=== PATIENT | female | born 1950 | race Caucasian/White ===

== ENCOUNTER 2016-10-19 13:59 | Inpatient (IN) | payer OTHER ==
[~2016-10-19] VITALS: Ht 160 cm; Wt 61.0 kg
[2016-10-19] MEDS ORDERED: SODIUM CHLORIDE 0.9% 1000ML 1,000 ML IV SCH (14:20)
[2016-10-19 14:41] LABS: BASO % 0.9 %; BASO ABS # 0.07 K/uL (0-0.2); COMPLETE YES; EOS % 0.4 %; HEMATOCRIT 44.7 % (37-47); IG% 0.3 %; LYMPH % 31.2 %; LYMPH ABS # 2.48 K/uL (1.2-3.4); MEAN CELL VOLUME 90.3 fL (80-100); MEAN CORPUSCULAR HEMOGLOBIN 31.5 pg (25-34); MEAN CORPUSCULAR HGB CONC 34.9 g/dl (32-36); MEAN PLATELET VOLUME 9.5 fL (7.4-10.4); MONO % 7.4 %; NEUT % 59.8 %; PLATELET COUNT 325 K/uL (130-400); RED BLOOD COUNT 4.95 M/uL (4.2-5.4); WHITE BLOOD COUNT 7.94 K/uL (4.8-10.8)
[2016-10-19 14:51] LABS: PARTIAL THROMBOPLASTIN RATIO 1.1; PROTHROMBIN TIME (PATIENT) 10.5 SECONDS (9.0-12.0)
[2016-10-19 14:59] LABS: ALT/SGPT 21 U/L (12-78); BLOOD UREA NITROGEN 11 mg/dl (7-18); BUN/CREATININE RATIO 13.3 (10-20); CALCIUM 9.2 mg/dl (8.5-10.1); CARBON DIOXIDE 25 mmol/L (21-32); CHLORIDE 104 mmol/L (98-107); CREATININE 0.83 mg/dl (0.60-1.20); GLUCOSE 107 mg/dl (70-99); POTASSIUM 3.6 mmol/L (3.5-5.1); SODIUM 137 mmol/L (136-145)
--- NOTE | 2016-10-19 15:01 | DIAGNOSTIC IMAGING REPORT ---
CT SCAN OF THE BRAIN WITHOUT IV CONTRAST CLINICAL HISTORY: Strokelike symptoms. COMPARISON STUDY: No priors. TECHNIQUE: Unenhanced axial CT scan of the brain is performed from the vertex to the skull base. CT DOSE: 690.05 mGycm FINDINGS: Brain parenchyma: There is a large subacute appearing infarct identified in the right parietal lobe. A small infarct is also seen in the posterior right frontal lobe. There are age-related involutional changes noting mild subcortical and periventricular microangiopathic change. There is no hemorrhage, midline shift, or evidence of acute territorial ischemia by CT criteria. No extra-axial fluid collection is seen. Ventricles, sulci, cisterns: Prominent secondary to involutional change. Intracranial vasculature: There is atherosclerotic calcification of the cavernous carotid and vertebral arteries. Calvarium: Unremarkable. Sinuses and mastoids: The visualized paranasal sinuses are clear. The mastoid air cells are well pneumatized. Orbits: The bony orbits are grossly intact. IMPRESSION: 1. There is a large subacute appearing infarct in the right posterior parietal lobe with mild surrounding edema. 2. A tiny infarct is also seen in the right posterior frontal lobe. 3. There is no hemorrhage or midline shift. Electronically signed by: Karlos Bird M.D. 10/19/2016 2:59 PM Dictated Date/Time: 10/19/2016 2:52 PM
--- NOTE | 2016-10-19 15:07 | DIAGNOSTIC IMAGING REPORT ---
SINGLE VIEW CHEST CLINICAL HISTORY: Stroke. FINDINGS: An AP, portable, upright chest radiograph is obtained. No prior studies are available for comparison at the time of dictation. The examination is degraded by portable technique and patient rotation. The heart is mildly enlarged. The pulmonary vasculature is noncongested. Nonspecific interstitial thickening is observed. No airspace consolidation, large pleural effusion, or pneumothorax is seen. The skeletal structures are osteopenic. The bony thorax is grossly intact. IMPRESSION: Cardiomegaly with no acute cardiopulmonary abnormality. Electronically signed by: Karlos Bird M.D. 10/19/2016 3:06 PM Dictated Date/Time: 10/19/2016 3:05 PM
[2016-10-19 15:16] LABS: ALKALINE PHOSPHATASE 76 U/L (45-117); AST/SGOT 17 U/L (15-37); CKMB/CK RATIO 1.4 (0-3.0)
[2016-10-19] MEDS ORDERED: LABETALOL HCL IV 5 MG/ML 20ML IV STA (15:24)
[2016-10-19] MEDS ORDERED: CLOPIDOGREL BISULFATE 75 MG TAB PO ONE (15:45)
[2016-10-19] MEDS ORDERED: ONDANSETRON INJ 2 MG/ML 2 ML VIAL IV PRN (16:15)
[2016-10-19] MEDS ORDERED: ACETAMINOPHEN 325 MG TAB PO PRN (16:15)
[2016-10-19] MEDS ORDERED: PHARMACIST DISCHARGE MED REC CONSULT PRN (16:30)
[2016-10-19] MEDS ORDERED: HydrALAZINE HCL 20 MG/ML VIAL IV. PRN (16:45)
--- NOTE | 2016-10-19 17:05 | History and Physical ---
History & Physical Date & Time of Service: Oct 19, 2016 ~ 16:00 Chief Complaint: Slurred Speech, Facial Droop Primary Care Physician: No Doctor, Assigned History of Present Illness 66 year old female who presents to the ER with slurred speech and facial droop. Patient reports she noticed difficulty with her speech about 4 days ago. She also noted that she had problems folding towels and sheets and also balancing her check book. These are all things she can normally do without difficulty. Her son is at the bedside and he reports he saw her 3 days ago and she was cutting grass and appeared to be fine. Her friend noted yesterday a right sided facial droop and the slurred speech which has since resolved. Patient denies any unilateral weakness, numbness, or tingling. She denies difficulty swallowing. No headache or blurred vision. She denies chest pain, shortness of breath, and palpitations. No abdominal pain, nausea, vomiting, or diarrhea. She denies fever and chills. No urinary symptoms. In the ER, head CT is showing a large right parietal subacute CVA. Patient's BP on arrival was 225/113. She was given Labetalol with improvement in the BP. Due to aspirin allergy, patient was given Plavix. Past Medical/Surgical History Medical Problems: (1) No significant medical problems Status: Chronic Family History negative for premature CAD, CVA, or DM Social History Smoking Status: Current Every Day Smoker Alcohol Use: 1/2 bottle wine/day Allergies Coded Allergies: Aspirin (Unverified Allergy, Unknown, ., 10/19/16) Home Medications No Active Prescriptions or Reported Meds Review of Systems ROS per HPI, all other systems reviewed and negative Physical Exam Vital Signs Date Time Temp Pulse Resp B/P (MAP) Pulse Ox O2 Delivery O2 Flow Rate FiO2 10/19/16 16:34 57 10/19/16 16:32 60 18 200/102 97 Room Air 10/19/16 15:56 64 18 183/100 97 Room Air 10/19/16 14:34 97 Room Air 10/19/16 14:01 36.4 86 18 225/113 97 Room Air General Appearance: no apparent distress Head: normocephalic Eyes: normal inspection, PERRL ENT: hearing grossly normal Neck: supple, no JVD Respiratory/Chest: lungs clear, normal breath sounds, no respiratory distress Cardiovascular: regular rate, rhythm, no edema, normal peripheral pulses Abdomen/GI: normal bowel sounds, non tender, soft Extremities/Musculoskelatal: normal inspection, no calf tenderness Neurologic/Psych: no motor/sensory deficits, alert, normal mood/affect, oriented x 3 Skin: normal color, warm/dry Diagnostics Laboratory Results Results Past 24 Hours Test 10/19/16 12:40 10/19/16 14:20 10/19/16 14:28 Range/Units Sodium Level 137 136-145 mmol/L Potassium Level 3.6 3.5-5.1 mmol/L Chloride Level 104 98-107 mmol/L Carbon Dioxide Level 25 21-32 mmol/L Anion Gap 8.0 3-11 mmol/L Blood Urea Nitrogen 11 7-18 mg/dl Creatinine 0.83 0.60-1.20 mg/dl Est Creatinine Clear Calc Drug Dose 54.4 ml/min Estimated GFR () 84.6 Estimated GFR (Non- 73.0 BUN/Creatinine Ratio 13.3 10-20 Random Glucose 107 70-99 mg/dl Calcium Level 9.2 8.5-10.1 mg/dl Total Bilirubin 0.7 0.2-1 mg/dl Direct Bilirubin 0.2 0-0.2 mg/dl Aspartate Amino Transf (AST/SGOT) 17 15-37 U/L Alanine Aminotransferase (ALT/SGPT) 21 12-78 U/L Alkaline Phosphatase 76 45-117 U/L Total Creatine Kinase 79 26-192 U/L Creatine Kinase MB 1.1 0.5-3.6 ng/ml Creatine Kinase MB Ratio 1.4 0-3.0 Troponin I < 0.015 0-0.045 ng/ml Total Protein 7.9 6.4-8.2 gm/dl Albumin 4.4 3.4-5.0 gm/dl White Blood Count 7.94 4.8-10.8 K/uL Red Blood Count 4.95 4.2-5.4 M/uL Hemoglobin 15.6 12.0-16.0 g/dL Hematocrit 44.7 37-47 % Mean Corpuscular Volume 90.3 80-100 fL Mean Corpuscular Hemoglobin 31.5 25-34 pg Mean Corpuscular Hemoglobin Concent 34.9 32-36 g/dl Platelet Count 325 130-400 K/uL Mean Platelet Volume 9.5 7.4-10.4 fL Neutrophils (%) (Auto) 59.8 % Lymphocytes (%) (Auto) 31.2 % Monocytes (%) (Auto) 7.4 % Eosinophils (%) (Auto) 0.4 % Basophils (%) (Auto) 0.9 % Neutrophils # (Auto) 4.75 1.4-6.5 K/uL Lymphocytes # (Auto) 2.48 1.2-3.4 K/uL Monocytes # (Auto) 0.59 0.11-0.59 K/uL Eosinophils # (Auto) 0.03 0-0.5 K/uL Basophils # (Auto) 0.07 0-0.2 K/uL RDW Standard Deviation 42.9 36.4-46.3 fL RDW Coefficient of Variation 13.0 11.5-14.5 % Immature Granulocyte % (Auto) 0.3 % Immature Granulocyte # (Auto) 0.02 0.00-0.02 K/uL Prothrombin Time 10.5 9.0-12.0 SECONDS Prothromb Time International Ratio 1.0 0.9-1.1 Activated Partial Thromboplast Time 27.6 21.0-31.0 SECONDS Partial Thromboplastin Ratio 1.1 Bedside Prothrombin Time INR 1.0 0.9-1.1 Bedside Glucose 109 70-90 mg/dl Diagnostic Radiology HEAD CT IMPRESSION: 1. There is a large subacute appearing infarct in the right posterior parietal lobe with mild surrounding edema. 2. A tiny infarct is also seen in the right posterior frontal lobe. 3. There is no hemorrhage or midline shift. CXR IMPRESSION: Cardiomegaly with no acute cardiopulmonary abnormality. Impression Assessment and Plan SUBACUTE RIGHT PARIETAL CVA HYPERTENSIVE EMERGENCY - admit to tele - patient presenting with a few days of slurred speech, facial droop, and difficulty preforming routine tasks; on arrival to the ER, patient's BP was 225/ [address] is showing a large subacute infarct in the right posterior parietal lobe with mild surrounding edema and a tiny infarct is also seen in the right posterior frontal lobe - symptoms now resolved - s/p Labetalol in the ED with improvement in BP, HR now mildly bradycardic so will use PRN hydralazine - s/p Plavix in the ED, will continue; no ASA given due to allergy however allergy seems to be mild so will start 81mg daily and monitor response - start atorvastatin 80mg - head MRI/MRA, neck MRA, echo - neuro consult - ED notified Dr. Walter TOBACCO ABUSE - patient counseled regarding tobacco cessation ALCOHOL ABUSE - monitor for signs of withdrawal DVT PROPHYLAXIS - SCDs due to acute CVA DISPO - In my clinical judgment this beneficiary meets acute admission criteria, established by [facility], that includes being hospitalized through two midnights. Level of Care Telemetry Resuscitation Status FULL RESUSCITATION VTE Prophylaxis VTE Risk Assessment Done? Y/N: Yes Risk Level: Moderate Given or contraindicated: SCD's Social Service Consult None Apply
--- NOTE | 2016-10-19 17:18 | History and Physical ---
History & Physical Date of Service Oct 19, 2016. History & Physical This is a 66 year old female with a PMH of tobacco use disorder, daily alcohol use, on no medications presents with slurring of speech and L sided facial droop for 2-3 days. Her main concern was not able to perform some ADLs like folding laundry properly; she had this slurring of speech, which the family noted; on presentation, her L side of mouth clearly drooping and some drooling noted; no other motor or sensory issues; no forehead weakness. Denies any pain. VITALS: Last Vital Signs Documentation Date Time Temp Pulse Resp B/P (MAP) Pulse Ox O2 Delivery O2 Flow Rate FiO2 10/19/16 16:34 57 10/19/16 16:32 18 200/102 97 Room Air 10/19/16 14:01 36.4 GEN: no acute distress HEENT: +L mouth droop noted; asymmetrical smile; no forehead weakness, no sensory deficits, partial edentate CVS: +S1, S2, RRR LUNGS: CTA b/l, no wheezing EXT: no edema NEURO: +L mouth drooping, otherwise, no motor/sensory issues Subacute R Posterior Parietal Infarct Possible R Posterior Frontal Infarct Head CT shows the R posterior parietal/frontal infarct no tPA due to symptoms being > 2-3 days old will check an MRI/MRA of head/neck check echo given Plavix in the ER start statin will start aspirin - noted adverse reaction as a child with nosebleeds; none since then monitor in tele PT/OT/speech check Ha1c, check fasting lipid in AM consult neurology Hypertensive Urgency blood pressure > 200/100 on admission given 20mg of Labetalol HRs in the lower 60s will give Hydralazine PRN, to keep SBP ~ 160-180 check TSH
[2016-10-19 17:31] VITALS: BP_SYST 202; BP_SYST 204; BP_DIAS 81; BP_DIAS 97; PULSE 60; PULSE 64; TEMP 36.7; O2SAT 94
--- NOTE | 2016-10-19 17:38 | EMERGENCY ROOM VISIT NOTE ---
History Report prepared by Miquel: Candi Santana Under the Supervision of: Dr. Diomedes Machuca M.D. First contact with patient: 14:29 Chief Complaint: STROKE SYMPTOMS Stated Complaint: TALKING Nursing Triage Summary: Pt arrived to triage ambulatory. Pt friend states pt "has a drawl her speech isn't right." States she first noticed it last week on , possibly was even earlier in the week. Pt states she was "out of sorts". Pt friend states it's gotten better than it was. Pt denies weakness. No Left arm drift or right arm drift. Slight facial droop left side. Pt c/o throat pain and sinuses draining. Pt states birthday is "03/30/1951, [birth year] is [birth year]", states age 55. 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 Pt denies taking medication for hypertension. History of Present Illness The patient is a 66 year old female who presents to the Emergency Room with complaints of constant altered mental status that began a few days prior to arrival. Per friend and ALS, the patient a few days ago had a right facial droop and slurred speech. The patient has been "out of sorts" lately and confused. She has been very anxious today. The patient has no history of strokes or TIA. Pt denies LOC, headache, fevers, chills, diaphoresis, visual changes, neck pain, chest pain, breathing difficulties, nausea, vomiting, abdominal pain, back pain, melena, hematochezia, urinary symptoms, numbness, weakness, lymphadenopathy, rash, or other complaints. 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 Review of Systems See HPI for pertinent positives and negatives. A total of ten systems were reviewed and were otherwise negative. Past Medical & Surgical Medical Problems: (1) No significant medical problems Family History Patient reports no known family medical history. Social History Smoking Status: Current Every Day Smoker Marital Status: Housing Status: lives alone Occupation Status: employed Current/Historical Medications No Active Prescriptions or Reported Meds Allergies Coded Allergies: Aspirin (Verified Adverse Reaction, Unknown, adverse reaction as a child with nosebleeds; none since then, 10/19/16) Physical Exam Vital Signs Date Time Temp Pulse Resp B/P (MAP) Pulse Ox O2 Delivery O2 Flow Rate FiO2 10/19/16 15:56 64 18 183/100 97 Room Air 10/19/16 14:34 97 Room Air 10/19/16 14:01 36.4 86 18 225/113 97 Room Air Physical Exam GENERAL: Awake, alert, well appearing, no distress. HENT: Normocephalic, atraumatic. TM's normal. Oropharynx unremarkable. EYES: PERRL. EOMI. Normal conjunctiva. Sclera non-icteric. NECK: Supple. No nuchal rigidity. FROM. No JVD or bruit. RESPIRATORY: CTA CARDIAC: RRR. No murmur. ABDOMEN: Soft, non distended. No tenderness to palpation. No rebound or guarding. No masses. RECTAL: Deferred. MUSCULOSKELETAL: Unremarkable. No edema. No discoloration. Gross motor strength symmetric. NEURO: Cranial nerves 2-12 grossly intact. Normal sensorium. No sensory or motor deficits noted. Speech normal. Slight left arm pronator drift. Mild confusion with age and dates. SKIN: No rash or jaundice noted. LYMPH: No adenopathy. Medical Decision & Procedures ER Provider Diagnostic Interpretation: Radiology results as stated below per my review and radiologist interpretation: CT SCAN OF THE BRAIN WITHOUT IV CONTRAST CLINICAL HISTORY: Strokelike symptoms. COMPARISON STUDY: No priors. TECHNIQUE: Unenhanced axial CT scan of the brain is performed from the vertex to the skull base. CT DOSE: 690.05 mGycm FINDINGS: Brain parenchyma: There is a large subacute appearing infarct identified in the right parietal lobe. A small infarct is also seen in the posterior right frontal lobe. There are age-related involutional changes noting mild subcortical and periventricular microangiopathic change. There is no hemorrhage, midline shift, or evidence of acute territorial ischemia by CT criteria. No extra-axial fluid collection is seen. Ventricles, sulci, cisterns: Prominent secondary to involutional change. Intracranial vasculature: There is atherosclerotic calcification of the cavernous carotid and vertebral arteries. Calvarium: Unremarkable. Sinuses and mastoids: The visualized paranasal sinuses are clear. The mastoid air cells are well pneumatized. Orbits: The bony orbits are grossly intact. IMPRESSION: 1. There is a large subacute appearing infarct in the right posterior parietal lobe with mild surrounding edema. 2. A tiny infarct is also seen in the right posterior frontal lobe. 3. There is no hemorrhage or midline shift. Electronically signed by: Karlos Bird M.D. 10/19/2016 2:59 PM Dictated Date/Time: 10/19/2016 2:52 PM SINGLE VIEW CHEST CLINICAL HISTORY: Stroke. FINDINGS: An AP, portable, upright chest radiograph is obtained. No prior studies are available for comparison at the time of dictation. The examination is degraded by portable technique and patient rotation. The heart is mildly enlarged. The pulmonary vasculature is noncongested. Nonspecific interstitial thickening is observed. No airspace consolidation, large pleural effusion, or pneumothorax is seen. The skeletal structures are osteopenic. The bony thorax is grossly intact. IMPRESSION: Cardiomegaly with no acute cardiopulmonary abnormality. Electronically signed by: Karlos Bird M.D. 10/19/2016 3:06 PM Dictated Date/Time: 10/19/2016 3:05 PM Laboratory Results 10/19/16 14:20 Red Blood Count 4.95, Mean Corpuscular Volume 90.3, Mean Corpuscular Hemoglobin 31.5, Mean Corpuscular Hemoglobin Concent 34.9, Mean Platelet Volume 9.5, Neutrophils (%) (Auto) 59.8, Lymphocytes (%) (Auto) 31.2, Monocytes (%) (Auto) 7.4, Eosinophils (%) (Auto) 0.4, Basophils (%) (Auto) 0.9, Neutrophils # (Auto) 4.75, Lymphocytes # (Auto) 2.48, Monocytes # (Auto) 0.59, Eosinophils # (Auto) 0.03, Basophils # (Auto) 0.07 10/19/16 12:40 Test 10/19/16 12:40 10/19/16 14:20 10/19/16 14:28 Anion Gap 8.0 mmol/L (3-11) Est Creatinine Clear Calc Drug Dose 54.4 ml/min Estimated GFR () 84.6 Estimated GFR (Non- 73.0 BUN/Creatinine Ratio 13.3 (10-20) Calcium Level 9.2 mg/dl (8.5-10.1) Total Bilirubin 0.7 mg/dl (0.2-1) Direct Bilirubin 0.2 mg/dl (0-0.2) Aspartate Amino Transf (AST/SGOT) 17 U/L (15-37) Alanine Aminotransferase (ALT/SGPT) 21 U/L (12-78) Alkaline Phosphatase 76 U/L (45-117) Total Creatine Kinase 79 U/L (26-192) Creatine Kinase MB 1.1 ng/ml (0.5-3.6) Creatine Kinase MB Ratio 1.4 (0-3.0) Troponin I < 0.015 ng/ml (0-0.045) Total Protein 7.9 gm/dl (6.4-8.2) Albumin 4.4 gm/dl (3.4-5.0) White Blood Count 7.94 K/uL (4.8-10.8) Red Blood Count 4.95 M/uL (4.2-5.4) Hemoglobin 15.6 g/dL (12.0-16.0) Hematocrit 44.7 % (37-47) Mean Corpuscular Volume 90.3 fL (80-100) Mean Corpuscular Hemoglobin 31.5 pg (25-34) Mean Corpuscular Hemoglobin Concent 34.9 g/dl (32-36) Platelet Count 325 K/uL (130-400) Mean Platelet Volume 9.5 fL (7.4-10.4) Neutrophils (%) (Auto) 59.8 % Lymphocytes (%) (Auto) 31.2 % Monocytes (%) (Auto) 7.4 % Eosinophils (%) (Auto) 0.4 % Basophils (%) (Auto) 0.9 % Neutrophils # (Auto) 4.75 K/uL (1.4-6.5) Lymphocytes # (Auto) 2.48 K/uL (1.2-3.4) Monocytes # (Auto) 0.59 K/uL (0.11-0.59) Eosinophils # (Auto) 0.03 K/uL (0-0.5) Basophils # (Auto) 0.07 K/uL (0-0.2) RDW Standard Deviation 42.9 fL (36.4-46.3) RDW Coefficient of Variation 13.0 % (11.5-14.5) Immature Granulocyte % (Auto) 0.3 % Immature Granulocyte # (Auto) 0.02 K/uL (0.00-0.02) Prothrombin Time 10.5 SECONDS (9.0-12.0) Prothromb Time International Ratio 1.0 (0.9-1.1) Activated Partial Thromboplast Time 27.6 SECONDS (21.0-31.0) Partial Thromboplastin Ratio 1.1 Bedside Prothrombin Time INR 1.0 (0.9-1.1) Bedside Glucose 109 mg/dl (70-90) Laboratory results reviewed by me. Medications Administered Medications (Trade) Dose Ordered Sig/Alexandra Route Start Time Stop Time Status Last Admin Dose Admin Sodium Chloride 1,000 ml @ 50 mls/hr Q20H IV 10/19/16 14:20 10/19/16 17:26 DC 10/19/16 15:45 50 MLS/HR Labetalol HCl (Normodyne IV) 20 mg NOW STAT IV 10/19/16 15:24 10/19/16 15:25 DC 10/19/16 15:47 20 MG Clopidogrel Bisulfate (plAVix TAB) 75 mg NOW ONCE PO 10/19/16 15:45 10/19/16 15:46 DC 10/19/16 15:45 75 MG ECG Indication: altered mental status Rate (beats per minute): 73 Rhythm: normal sinus Findings: no acute ischemic change, no ectopy ED Course 1420: Sodium Chloride 1,000 ml @ 50 mls/hr IV. 1434: The patient was evaluated in room C4. A complete history and physical exam was performed. 1523: I reevaluated the patient and discussed test results. 1524: Normodyne IV 20 mg IV. 1534: I spoke with Dr. Walter - Neurology about the patient. He says to manage blood pressure and start the patient on Plaxiv since she is allergic to Aspirin. 1545: plAVix TAB 75 mg PO. 1546: Discussed the patient's case with KIM Bradford. The patient will be evaluated for further treatment and disposition. 1550: Upon reexamination, the patient was hemodynamically stable. I discussed the test results and treatment plan with KIM Brdaford. The patient will be evaluated for further management. Medical Decision Medication Reconciliation: I attest that I have personally reviewed the patient' s current medication list Blood pressure screening: Patient was found to have an elevated blood pressure and was instructed to establish care with a primary doctor for recheck and further treatment. Triage Nursing notes reviewed. The patient's presentation and history were concerning for stroke like symptoms. Etiologies such as CVA, hypertensive emergency, metabolic, infection, hypo/ hyperglycemia, electrolyte abnormalities, cardiac sources, intracerebral event, toxicologic, neurologic, as well as others were entertained. The patient was evaluated. Her symptoms and history was concerning for strokelike symptoms. She was very hypertensive. She was taken to CT imaging and this didn't reveal an infarction in the right parietal area. The patient was brought back to the Emergency Room. She was given labetalol and Plavix after consultation with Dr. walter of neurology. Blood pressure began to improve. [facility] The patient was evaluated in the Emergency Room for further management of her stroke and severe hypertension. Consults Time Called: 1530 Consulting Physician: Dr. Walter - Neurology Returned Call: [phone] Walter - Neurology about the patient. He says to manage blood pressure and start the patient on Plaxiv since she is allergic to Aspirin. Additional Consults: Time Called: 1540 Consulted Physician: KIM Bradford Returned Call: [phone] Additional Comments: Discussed the patient's case. The patient will be evaluated for further treatment and disposition. Impression Primary Impression: Hypertensive emergency Additional Impression: Acute CVA (cerebrovascular accident) Scribe Attestation The scribe's documentation has been prepared under my direction and personally reviewed by me in its entirety. I confirm that the note above accurately reflects all work, treatment, procedures, and medical decision making performed by me. Departure Information Dispostion Being Evaluated By Hospitalist Prescriptions No Active Prescriptions or Reported Meds Referrals No Doctor, Assigned (PCP) Problem Qualifiers
[2016-10-19] MEDS ORDERED: ASPIRIN 81 MG CHEW PO SCH (17:45)
[2016-10-19 18:16] VITALS: BP_SYST 145; BP_SYST 148; BP_DIAS 66; BP_DIAS 69; PULSE 76; PULSE 77; TEMP 36.7; O2SAT 94
[2016-10-19 18:58] VITALS: BP_SYST 202; BP_SYST 204; BP_DIAS 81; BP_DIAS 97; PULSE 77; TEMP 36.7; Ht 160 cm; Wt 61.0 kg
[2016-10-19] MEDS: ATORVASTATIN 40 MG TAB PO SCH (19:18)
[2016-10-19] MEDS ORDERED: NURSING VERBAL MED ORDER ONE (19:30)
[2016-10-19 19:39] VITALS: BP 169/83; PULSE 64; TEMP 36.9; O2SAT 95
[2016-10-19] MEDS ORDERED: LORAZEPAM INJ 1 MG in SYRINGE 0.5 ML IV PRN (20:00)
[2016-10-19] MEDS ORDERED: LORAZEPAM 2 MG/ML 1 ML VIAL IV SCH (20:00)
[2016-10-19 21:18] LABS: URINE APPEARANCE CLEAR (CLEAR); URINE BILIRUBIN NEG (NEG); URINE COLOR YELLOW; URINE EPITHELIAL CELL AUTO >30 /lpf (0-5); URINE NITRITE NEG (NEG); URINE SPECIFIC GRAVITY 1.006 (1.000-1.030); UROBILINOGEN NEG (NEG); ZZUR CULT IF INDIC CLEAN CATCH NO
[2016-10-19 21:23] LABS: MANUAL MICROSCOPIC REQUIRED? NO; REVIEW REQ? NO
[2016-10-19 23:08] VITALS: BP 167/80; PULSE 64; TEMP 36.9; O2SAT 96
[2016-10-20] VITALS (7 sets, daily range): BP systolic 143–170; BP diastolic 73–96; PULSE 60–77; TEMP 36.6–37; O2SAT 95–98
[2016-10-20] MEDS ORDERED: NURSING VERBAL MED ORDER ONE ×2 (00:30→10:30)
[2016-10-20 06:23] LABS: ESTIMATED AVERAGE GLUCOSE 105 mg/dl; HA1C FLAG Normal (Normal)
[2016-10-20 07:35] LABS: BASO % 0.3 %; BASO ABS # 0.02 K/uL (0-0.2); COMPLETE YES; HEMATOCRIT 41.2 % (37-47); IG% 0.2 %; LYMPH % 33.3 %; MEAN CORPUSCULAR HEMOGLOBIN 31.9 pg (25-34); MEAN CORPUSCULAR HGB CONC 35.4 g/dl (32-36); MEAN PLATELET VOLUME 9.4 fL (7.4-10.4); MONO % 6.8 %; NEUT % 58.4 %; PLATELET COUNT 306 K/uL (130-400); RED BLOOD COUNT 4.58 M/uL (4.2-5.4)
[2016-10-20 08:08] LABS: BUN/CREATININE RATIO 13.4 (10-20); CALCIUM 9.2 mg/dl (8.5-10.1); CREATININE 0.71 mg/dl (0.60-1.20); POTASSIUM 3.8 mmol/L (3.5-5.1)
[2016-10-20 08:29] LABS: CHOLESTEROL/HDL RATIO 2.7; THYROID STIMULATING HORMONE 3.63 uIu/ml (0.300-4.500)
[2016-10-20] MEDS: CLOPIDOGREL BISULFATE 75 MG TAB PO SCH (08:51)
[2016-10-20] MEDS: ATORVASTATIN 40 MG TAB PO SCH (08:51)
[2016-10-20] MEDS: ASPIRIN 81 MG ECTAB PO SCH (09:30)
[2016-10-20] MEDS ORDERED: LORAZEPAM 0.5 MG TAB PO SCH (10:45)
[2016-10-20] MEDS ORDERED: HydrALAZINE HCL 20 MG/ML VIAL IV. PRN (14:00)
--- NOTE | 2016-10-20 14:05 | ECHOCARDIOGRAM REPORT ---
*NOTICE TO RECEIVING DEMOCRAT AGENCY This information is strictly Confidential and protected under [place] law. [place] law prohibits you from making any further disclosure of this information unless further disclosure is expressly permitted by the written consent of the person to whom it pertains or is authorized by law. A general authorization for the release of medical or other information is not sufficient for this purpose. Hospital accepts no responsibility if the information is made available to any other person, INCLUDING THE PATIENT. Interpretation Summary * Echocardiogram Report * Name: JOSE RAMON SIMMONS Study Date: 10/20/2016 07:05 AM BP: 147/73 mmHg * Patient Location: C.2T\S\S239\S\2 HR: 61 * : 1950 (M/d/yy) Gender: Female Height: 63 in * Age: 66 yrs Ethnicity: CA Weight: 135 lb * Ordering Physician: Peyton Mackey * Referring Physician: Self, Referred * * BSA: 1.6 * -- Conclusions -- * Normal LV chamber size with mild concentric LVH. * Normal LV systolic function, EF 60-65%. * No segmental left ventricular wall motion abnormalities are noted. * Grade I diastolic dysfunction. * No significant valvular pathology. * The interatrial septum is intact with no evidence for an atrial septal defect. * Injection of contrast documented no interatrial shunt. Procedure Details * The injection was performed through an intravenous line in the right arm. * A total of 9 cc of agitated saline was given. Left Ventricle * The left ventricle is normal in size. * There is mild concentric left ventricular hypertrophy. * Ejection Fraction = 60-65%. * Left ventricular systolic function is normal. * No segmental left ventricular wall motion abnormalities are noted. * The left ventricular wall motion is normal. Right Ventricle * The right ventricular cavity size is normal (basal dimension <4.2 cm in right ventricular apical 4-chamber view). * The right ventricular systolic function is normal as assessed by tricuspid annular plane systolic excursion (TAPSE) (normal >1.5 cm). Atria * The left atrial size is normal. * Right atrial size is normal. * The interatrial septum is intact with no evidence for an atrial septal defect. * Injection of contrast documented no interatrial shunt. Mitral Valve * The mitral valve is normal in structure and function. Tricuspid Valve * The tricuspid valve is normal in structure and function. Aortic Valve * The aortic valve is normal in structure and function. Pulmonic Valve * The pulmonary valve is not well seen, but the Doppler examination is normal without significant regurgitation or stenosis. Great Vessels * The aortic root is normal size. Pericardium/Pleural * There is no pericardial effusion. Left Ventricular Diastolic Function * Grade I diastolic dysfunction, (abnormal relaxation pattern). MMode 2D Measurements and Calculations IVSd 1.4 cm LVIDd 4.2 cm LVIDs 3.2 cm LVPWd 1.3 cm IVS/LVPW 1.1 FS 24.4 % EDV(Teich) 77.4 ml ESV(Teich) 39.6 ml EF(Teich) 48.8 % EDV(cubed) 72.7 ml ESV(cubed) 31.4 ml EF(cubed) 56.7 % LV mass(C)d 201.2 grams LV mass(C)dI 123.0 grams/m\S\2 SV(Teich) 37.8 ml SI(Teich) 23.1 ml/m\S\2 SV(cubed) 41.3 ml SI(cubed) 25.2 ml/m\S\2 Ao root diam 3.0 cm Ao root area 7.0 cm\S\2 LVOT diam 2.0 cm LVOT area 3.0 cm\S\2 LVAd ap4 32.2 cm\S\2 LVLd ap4 8.3 cm EDV(MOD-sp4) 99.7 ml EDV(sp4-el) 105.5 ml LVAs ap4 14.6 cm\S\2 LVLs ap4 7.0 cm ESV(MOD-sp4) 27.1 ml ESV(sp4-el) 25.9 ml EF(MOD-sp4) 72.8 % EF(sp4-el) 75.4 % LVAd ap2 22.4 cm\S\2 LVLd ap2 7.8 cm EDV(MOD-sp2) 51.8 ml EDV(sp2-el) 54.9 ml LVAs ap2 11.6 cm\S\2 LVLs ap2 6.5 cm ESV(MOD-sp2) 17.7 ml ESV(sp2-el) 17.7 ml EF(MOD-sp2) 65.8 % EF(sp2-el) 67.8 % LVLd %diff -7.46 % EDV(MOD-bp) 75.0 ml LVLs %diff -7.31 % ESV(MOD-bp) 22.5 ml EF(MOD-bp) 70.0 % SV(MOD-sp4) 72.6 ml SI(MOD-sp4) 44.3 ml/m\S\2 SV(MOD-sp2) 34.0 ml SI(MOD-sp2) 20.8 ml/m\S\2 SV(MOD-bp) 52.6 ml SI(MOD-bp) 32.1 ml/m\S\2 SV(sp4-el) 79.6 ml SI(sp4-el) 48.6 ml/m\S\2 SV(sp2-el) 37.2 ml SI(sp2-el) 22.7 ml/m\S\2 Doppler Measurements and Calculations MV E max mary ellen 64.2 cm/sec MV A max mary ellen 106.6 cm/sec MV E/A 0.60 MV dec time 0.24 sec Ao V2 max 125.3 cm/sec Ao max PG 6.3 mmHg Ao max PG (full) 0.90 mmHg MAKENNA(V,A) 2.8 cm\S\2 MAKENNA(V,D) 2.8 cm\S\2 LV V1 max PG 5.4 mmHg LV V1 max 116.0 cm/sec
[2016-10-20] MEDS ORDERED: GADAVIST IV PRN (15:30)
--- NOTE | 2016-10-20 15:35 | DIAGNOSTIC IMAGING REPORT ---
MRA OF THE INTRACRANIAL CIRCULATION WITHOUT CONTRAST CLINICAL HISTORY: Stroke. Slurred speech. COMPARISON STUDY: Head CT October 19, 2016. TECHNIQUE: Utilizing a 1.5 Abigail magnet and 3-D ecaf-uh-fxcewl technique, unenhanced MRA of the intracranial circulation was obtained. FINDINGS: There is abrupt occlusion of the distal right middle cerebral artery. There is asymmetrically diminished flow within the sylvian branches of the right middle cerebral artery. The right sylvian branches are markedly attenuated. Apparent diminished flow within the intracranial portion of the left vertebral artery is likely artifactual. This study is mildly compromised by motion artifact which decreases the sensitivity for detection of small aneurysms but no aneurysms are identified. The left M1, M2, A1 and A2 segments are patent. The MRI of the brain will be reported separately but these images demonstrate a right frontoparietal infarct. IMPRESSION: 1. Age indeterminate occlusion of the mid right middle cerebral artery with markedly asymmetrically diminished flow within the sylvian branches of the right middle cerebral artery. 2. Redemonstration of the right frontoparietal infarct with possible laminar necrosis. This will be better depicted on the MRI of the brain which will be reported separately. Electronically signed by: Conrad Alcala M.D. 10/20/2016 3:33 PM Dictated Date/Time: 10/20/2016 3:27 PM
--- NOTE | 2016-10-20 15:42 | DIAGNOSTIC IMAGING REPORT ---
MR ANGIOGRAM OF THE NECK COMBO CLINICAL HISTORY: Slurred speech. Change in mental status. COMPARISON STUDY: No priors. TECHNIQUE: Axial 3-D [id number] MR angiography of the neck is performed. Subsequently, following the IV administration of 6 cc of Gadavist coronal MR angiogram of the neck was performed to corroborate the findings. 3-D reformats are created and assessed. All measurements were calculated based on NASCET criteria. Subtraction imaging was utilized. FINDINGS: Visualized portions of the thoracic aorta are normal in caliber. The arch demonstrates standard 3-vessel anatomy. The subclavian arteries are widely patent bilaterally. The right common carotid artery is widely patent, as are the right internal and external carotid arteries. The left common carotid artery is widely patent, as are the left internal and external carotid arteries. The vertebral arteries are widely patent and codominant. Occlusion of the right middle cerebral artery is noted at the skull base. IMPRESSION: 1. Unremarkable MR angiogram of the neck. 2. There is occlusion of the right middle cerebral artery. See report of MR angiography of the brain performed concurrently for detailed intracranial findings. Electronically signed by: Karlos Bird M.D. 10/20/2016 3:40 PM Dictated Date/Time: 10/20/2016 3:35 PM
--- NOTE | 2016-10-20 15:48 | DIAGNOSTIC IMAGING REPORT ---
MRI OF THE BRAIN COMBO CLINICAL HISTORY: Slurred speech. Change in mental status. Stroke. COMPARISON STUDY: CT of the brain dated 10/19/2016. TECHNIQUE: MRI of the brain was performed utilizing various T1 and T2-weighted sequences in the axial, sagittal, and coronal planes. Contrast-enhanced sequences were acquired following the administration of 6 cc of Gadavist. FINDINGS: Brain parenchyma: There is a large focus of restricted diffusion identified within the right posterior parietal lobe. Additional patchy foci of restricted diffusion are seen throughout the remainder of the right parietal lobe as well as the posterior right frontal lobe in the MCA territory distribution. This is consistent with subacute ischemia when correlated with yesterday's CT scan. There is associated edema with mild effacement of the overlying cortical sulci. Foci of gyriform T1 hyperintensity likely represents laminar necrosis. There is no hemorrhage or midline shift. No enhancing mass lesion is identified on the postcontrast images. There is mild patchy subcortical and periventricular microangiopathic change. No extra-axial fluid collection is seen. The cerebellar tonsils are normal in configuration. Ventricles, sulci, and cisterns: Normal in configuration. See above. Pituitary and sella: Unremarkable. Intracranial vasculature: The carotid and vertebral artery flow voids are maintained at the skull base. See report of MR angiogram of the brain performed concurrently for detailed vascular findings. Orbits: The bony orbits are grossly intact. Orbital contents are normal in appearance. Sinuses and mastoids: Clear. Calvarium: Unremarkable. Cervical cord: Partially visualized cervical spinal cord is normal in morphology and signal intensity. IMPRESSION: 1. Findings are consistent with a large subacute right MCA territory infarct as above with associated edema and sulcal effacement. 2. Foci of gyriform T1 hyperintensity throughout the infarct in the right parietal lobe are typical in appearance for a laminar necrosis. There is no clear evidence of hemorrhage and no midline shift is seen. 3. Additional findings as above. Electronically signed by: Karlos Bird M.D. 10/20/2016 3:47 PM Dictated Date/Time: 10/20/2016 3:40 PM
--- NOTE | 2016-10-20 16:21 | DIAGNOSTIC IMAGING REPORT ---
BILATERAL CAROTID DOPPLER STUDY HISTORY: Slurred speech. acute CVA COMPARISON: Neck MRA 10/20/2016. TECHNIQUE: Real-time, grayscale, and color Doppler sonography of the carotid arteries was performed. Imaging reviewed in the transverse and longitudinal planes. All measurements were calculated based on NASCET criteria. FINDINGS: Antegrade flow is seen in the bilateral vertebral arteries. The brachial pressures are hemodynamically similar. Mild calcified plaque within the bilateral carotid bulbs. The peak systolic velocity within the right ICA is 69 cm/s. The right systolic ratio is 1. The peak systolic velocity within the left ICA is 67 cm/s. The left systolic ratio is 0.8. IMPRESSION: No hemodynamically significant stenosis seen within the carotid arteries. Electronically signed by: Braulio Ortega M.D. 10/20/2016 4:20 PM Dictated Date/Time: 10/20/2016 4:19 PM
--- NOTE | 2016-10-20 16:28 | Neurology Consultation ---
Neurology Consultation Date of Consultation: Oct 20, 2016. Attending Physician: Dbe Yang M.D. Primary Care Physician: No Doctor, Assigned Reason for Consultation: CVA History of Present Illness Source: patient, hospital records [place] is a 66 year old female who presents to the ER with slurred speech and facial droop. She was having difficulty with her speech about 4 days ago. She had problems folding towels and sheets and also balancing her check book which are normally easy. Her son had reported she was cutting grass 3 days ago and appeared fine. A friend reported she had a right sided facial droop and the slurred speech yesterday. denies chest pain, shortness of breath, abdominal pain , nausea, vomiting, or diarrhea. Her BP on arrival was 225/113. She was given Labetalol and it did improve. Due to aspirin allergy, patient was given Plavix. but now on both plavix and aspirin and doing ok. Her sister in law is in the room and states she had nose bleeds as a child from the aspirin in the past that is why she was not on it. Past Medical/Surgical History Medical Problems: (1) Acute CVA (cerebrovascular accident) Status: Acute (2) Hypertensive emergency Status: Acute Social History Alcohol Use: 1/2 bottle wine/day Marital Status: Housing Status: lives alone Occupation Status: employed Allergies Coded Allergies: Aspirin (Verified Adverse Reaction, Unknown, adverse reaction as a child with nosebleeds; none since then, 10/19/16) Current Inpatient Medications Current Inpatient Medications Medications (Trade) Dose Ordered Sig/[place]andra Route Start Time Stop Time Status Last Admin Dose Admin Acetaminophen (Tylenol Tab) 650 mg Q4H PRN PO 10/19/16 16:15 11/18/16 16:14 Ondansetron HCl (Zofran Inj) 4 mg Q6H PRN IV 10/19/16 16:15 11/18/16 16:14 Clopidogrel Bisulfate (plAVix TAB) 75 mg QAM PO 10/20/16 09:00 11/19/16 08:59 10/20/16 08:51 75 MG Miscellaneous Information (Pharmacist Discharge Med Rec Consult) 1 ea UD PRN N/A 10/19/16 16:30 11/18/16 16:29 Atorvastatin Calcium (Lipitor Tab) 80 mg QAM PO 10/19/16 17:45 11/18/16 17:44 10/20/16 08:51 80 MG Aspirin (Ecotrin Tab) 81 mg QAM PO 10/20/16 09:00 11/19/16 08:59 10/20/16 09:30 81 MG Hydralazine HCl (HydrALAZINE INJ) 10 mg Q8 PRN IV. 10/20/16 14:00 11/18/16 16:44 Lorazepam (Ativan Tab) 0.5 mg TODAY@1045 PO 10/20/16 10:45 10/20/16 18:00 10/20/16 14:25 0.5 MG Gadobutrol (Gadavist) 6 mmol UD PRN IV 10/20/16 15:30 10/24/16 15:29 Physical Exam Vital Signs (Past 24 Hrs): Date Time Temp Pulse Resp B/P (MAP) Pulse Ox O2 Delivery O2 Flow Rate FiO2 10/20/16 12:00 Room Air 10/20/16 11:10 36.6 66 16 153/92 (112) 98 Room Air 10/20/16 09:50 66 96 10/20/16 08:00 Room Air 10/20/16 07:21 36.9 66 16 170/93 (118) 96 Room Air 10/20/16 04:00 Room Air 10/20/16 03:55 36.6 77 18 147/73 (97) 95 Room Air 10/20/16 02:52 36.9 67 16 146/75 (98) 96 Room Air 10/19/16 23:59 Room Air 10/19/16 23:08 36.9 64 16 167/80 (109) 96 Room Air 10/19/16 20:00 Room Air 10/19/16 19:39 36.9 64 16 169/83 (111) 95 Room Air 10/19/16 18:58 36.7 77 18 202/97 Room Air 204/81 10/19/16 18:16 36.7 77 20 145/66 (92) 94 Room Air 76 148/69 (95) 10/19/16 17:31 36.7 60 18 204/81 (122) 94 Room Air 64 202/97 (132) 10/19/16 17:03 59 18 196/103 97 10/19/16 16:34 57 6/27/17 16:32 60 18 200/102 97 Room Air Physical Exam: Constitutional: appearance nourished, healthy and normal sitting with sunglasses on Ears, Nose, Mouth and Throat: mucous membranes moist, no injection and skin normal, eyes normal Cardiovascular: normal S-1 and S-2 and regular rate and rhythm Respiratory: clear to auscultation (CTA) and no rales, rhonchi or wheeze Musculoskeletal: no peripheral edema Skin: no stigmata of neurocutaneous disease noted and normal and intact Eyes: extraocular muscles intact (EOMI) and pupils equal, round and reactive to light (PERRL), gross peripheral vision intact NEUROLOGIC EXAMINATION: Mental status: Alert and interactive Oriented to full date and location Oriented to person Speech fluent with no evidence of aphasia Cranial Nerves slight flattening of nasolabial fold on left eye brow raise symmetric Reflexes: Deep tendon reflexes were symmetrical and graded 2/5. Plantar responses were flexor. Sensory: to light touch or cool Coordination: Romberg absent Gait/Stance: Posture normal. Gait normal: with steady with steps, base, turning, and tandem gait. Motor: Negative for pronator drift of out stretched arms with eyes closed. Strength: biceps triceps hand crm manager 5/5 bilaterally, hip flex plantar flex ext 5/5 bilaterally Laboratory Results Past 24 Hours: 10/20/16 06:56 Red Blood Count 4.58, Mean Corpuscular Volume 90.0, Mean Corpuscular Hemoglobin 31.9, Mean Corpuscular Hemoglobin Concent 35.4, Mean Platelet Volume 9.4, Neutrophils (%) (Auto) 58.4, Lymphocytes (%) (Auto) 33.3, Monocytes (%) (Auto) 6.8, Eosinophils (%) (Auto) 1.0, Basophils (%) (Auto) 0.3, Neutrophils # (Auto) 3.50, Lymphocytes # (Auto) 2.00, Monocytes # (Auto) 0.41, Eosinophils # (Auto) 0.06, Basophils # (Auto) 0.02 10/20/16 06:56 Test 10/19/16 20:45 10/20/16 06:56 Urine Color YELLOW Urine Appearance CLEAR (CLEAR) Urine pH 7.0 (4.5-7.5) Urine Specific [place] 1.006 (1.000-1.030) Urine Protein NEG (NEG) Urine Glucose (UA) NEG (NEG) Urine Ketones NEG (NEG) Urine Occult Blood NEG (NEG) Urine Nitrite NEG (NEG) Urine Bilirubin NEG (NEG) Urine Urobilinogen NEG (NEG) Urine Leukocyte Esterase TRACE (NEG) Urine WBC (Auto) 1-5 /hpf (0-5) Urine RBC (Auto) 0-4 /hpf (0-4) Urine Hyaline Casts (Auto) 0 /lpf (0-5) Urine Epithelial Cells (Auto) >30 /lpf (0-5) Urine Bacteria (Auto) NEG (NEG) White Blood Count 6.00 K/uL (4.8-10.8) Red Blood Count 4.58 M/uL (4.2-5.4) Hemoglobin 14.6 g/dL (12.0-16.0) Hematocrit 41.2 % (37-47) Mean Corpuscular Volume 90.0 fL (80-100) Mean Corpuscular Hemoglobin 31.9 pg (25-34) Mean Corpuscular Hemoglobin Concent 35.4 g/dl (32-36) Platelet Count 306 K/uL (130-400) Mean Platelet Volume 9.4 fL (7.4-10.4) Neutrophils (%) (Auto) 58.4 % Lymphocytes (%) (Auto) 33.3 % Monocytes (%) (Auto) 6.8 % Eosinophils (%) (Auto) 1.0 % Basophils (%) (Auto) 0.3 % Neutrophils # (Auto) 3.50 K/uL (1.4-6.5) Lymphocytes # (Auto) 2.00 K/uL (1.2-3.4) Monocytes # (Auto) 0.41 K/uL (0.11-0.59) Eosinophils # (Auto) 0.06 K/uL (0-0.5) Basophils # (Auto) 0.02 K/uL (0-0.2) RDW Standard Deviation 43.6 fL (36.4-46.3) RDW Coefficient of Variation 13.2 % (11.5-14.5) Immature Granulocyte % (Auto) 0.2 % Immature Granulocyte # (Auto) 0.01 K/uL (0.00-0.02) Anion Gap 8.0 mmol/L (3-11) Est Creatinine Clear Calc Drug Dose 63.6 ml/min Estimated GFR () 102.2 Estimated GFR (Non- 88.1 BUN/Creatinine Ratio 13.4 (10-20) Calcium Level 9.2 mg/dl (8.5-10.1) Triglycerides Level 113 mg/dl (0-150) Cholesterol Level 191 mg/dl (0-200) HDL Cholesterol 71 mg/dl LDL Cholesterol, Calculated 97 mg/dl VLDL Cholesterol, Calculated 23 mg/dl Cholesterol/HDL Ratio 2.7 Thyroid Stimulating Hormone (TSH) 3.630 uIu/ml (0.300-4.500) Hepatitis C Antibody Screen NEG (NEG) Imaging CT head- There is a large subacute appearing infarct in the right posterior parietal lobe with mild surrounding edema. A tiny infarct is also seen in the right posterior frontal lobe. There is no hemorrhage or midline shift. MRI brain with and without- . Findings are consistent with a large subacute right MCA territory infarct as above with associated edema and sulcal effacement. Foci of gyriform T1 hyperintensity throughout the infarct in the right parietal lobe are typical in appearance for a laminar necrosis. There is no clear evidence of hemorrhage and no midline shift is seen. MRA neck - Unremarkable MR angiogram of the neck. There is occlusion of the right middle cerebral artery. See report of MR angiography of the brain performed concurrently for detailed intracranial findings. MRA head- indeterminate occlusion of the mid right middle cerebral artery with markedly asymmetrically diminished flow within the sylvian branches of the right middle cerebral artery. Redemonstration of the right frontoparietal infarct with possible laminar necrosis. This will be better depicted on the MRI of the brain which will be reported separately. TTE- Normal LV chamber size with mild concentric LVH. * Normal LV systolic function, EF 60-65%. * No segmental left ventricular wall motion abnormalities are noted. * Grade I diastolic dysfunction. * No significant valvular pathology. * The interatrial septum is intact with no evidence for an atrial septal defect. * Injection of contrast documented no interatrial shunt. Impression 66 year old female s/p large subacute appearing infarct in the right posterior parietal lobe Plan 1. permissive hypertensive 2. LDL < 70 3. currently on plavix 75 mg and aspirin 81 mg daily 4. will need to optimize blood pressure, cholesterol 5. ZIO patch as outpatient 6. PT/OT/speech for discharge needs 7. social service for home safety evaluation I have seen and discussed above patient with Dr Diomedes Walter, neurology I have seen this woman, reviewed her history and imaging studies and examined her in addition to discussing her case with Radha Gutierrez She has a large primarily posterior right mca distribution infarct of several days duration with minimal fidings on exam and elements of anosoagnosia typical of a nondominant parietal lobe infarction. Suspect an embolic event but localized intracranial thrombosis not excluded ( lack of significant intracranial stenoses on mra however argues to some degree against the latter ) thus far no cler embolic source and ekg negative thus far for atrial fibrillation but she will need outpatient zio patch/cardionet to further evaluate this. For now dual antiplatelet rx as long as her aspirin "allergy" does not manifest itself Will need social service assessment PT etc prior to daicharge along with the control of bp and dyslipidemia We will follow up tomorrow Diomedes Walter MD
[2016-10-20] MEDS ORDERED: PLV75 PO (20:26)
[2016-10-20] MEDS ORDERED: ASPEC81 PO (20:26)
[2016-10-20] MEDS ORDERED: LPT40 PO (20:26)
--- NOTE | 2016-10-20 20:29 | Discharge Instructions ---
Discharge Instructions Date of Service Oct 20, 2016. Admission Reason for Admission: Cva (Cerebral Vascular Accident) Discharge Discharge Diagnosis / Problem: ACUTE CVA /RIGHT PARIETAL CORTEX /RIGHT MCA THROMBOSIS Discharge Goals Goal(s): Improve function, Diagnostic testing, Therapeutic intervention Activity Recommendations Activity Level: Assistance Required Therapies: Physical Therapy, Occupational Therapy, Speech Therapy Lifting Limitations: none Shower/Bathe: no limitations . Additional Information Patient informed of condition: Yes Advance Directives: No DNR: No Level of Care: Acute Rehab Communicable Disease: No Prognosis: Improving Shannon Catheter: No Instructions / Follow-Up Instructions / Follow-Up FOLLOW UP WITH NEUROLOGY BLU Mcdonald AT [facility] AFTER DISCHARGE FORM REHAB WILL NEED TO HAVE ARRANGEMENT FOR CARDIO NET /ZEO PATCH TO ASSESS FOR CARDIAC ARRHYTHMIA -CAN BE DONE OUT PATIENT AFTER DISCHARGE FROM REHAB FOLLOW UP ON 11/15/2016 @ 1:[address] Bell Reynolds, DO Internal Medicine [facility] NEED TO CONTINUE BOTH ASPIRIN AND PLAVIX FOR AT LEAST 3-6 MONTHS PLEASE FOLLOW UP WITH RECOMMENDATION WITH NEUROLOGY FOR FURTHER MEDICATION ADJUSTMENT FASTING LIPID PANEL IN 6-8 MONTHS , GOAL LDL < 70 TO PREVENT FUTURE CVA NEW MEDICATIONS : ASPIRIN 81 MG DAILY -TAKE WITH FULL STOMACH PLAVIX 75 MG DAILY -TAKE WITH FULL STOMACH LIPITOR 80 MG AT NIGHT ATIVAN 0.5 MG PO Q8HRS NEEDED ANXIETY MAY NEED PSYCHIATRY FOLLOW UP FOR EVALUATION OF DEPRESSION WHICH USUALLY OCCURS POST STROKE Current Hospital Diet Patient's current hospital diet: AHA Diet (Heart Healthy) DIET RECOMMENDATION : . Dental soft, thin liquids. 2. Aspiration precautions: Patient should be seated fully upright during and for 30 minutes after meal. NO STRAWS. Take small bites and sips. Alternative solids and liquids. Monitor for impulsivity. 3. Oral care before and after meals. Monitor for oral pocketing. 4. CONTINUE SPEECH THERAPY AT ACUTE REHAB TO IMPROVEMENT OF DYSPHAGIA Discharge Diet Recommended Diet: AHA Diet (Heart Healthy) Diet Texture: Dental Soft (bite-sized) Pending Studies Studies pending at discharge: no Laboratory Results Hemoglobin A1c Test 10/19/16 14:20 Range/Units Estimated Average Glucose 105 mg/dl Hemoglobin A1c 5.3 4.5-5.6 % Lipid Panel Test 10/20/16 06:56 Range/Units Triglycerides Level 113 0-150 mg/dl Cholesterol Level 191 0-200 mg/dl HDL Cholesterol 71 mg/dl Cholesterol/HDL Ratio 2.7 LDL Cholesterol, Calculated 97 mg/dl Medical Emergencies . Who to Call and When: Medical Emergencies: If at any time you feel your situation is an emergency, please call 911 immediately. . Non-Emergent Contact Non-Emergency issues call your: Primary Care Provider . . "Provider Documentation" section prepared by Deb Yang. . Core Measure Problem Core Measures: Stroke Stroke Core Measures Reason no t-PA for Stroke: Treatment not indicated Reason no antithrom by day 2: Treatment provided - N/A Reason no antithrom at D/C: Treatment provided - N/A Reason no statin at D/C: Treatment provided - N/A Reason no anticoag w/a fib: Treatment not indicated
--- NOTE | 2016-10-20 20:34 | Progress Note ---
Internal Med Progress Note Date of Service: Oct 20, 2016. Provider Documentation: SUBJECTIVE: denies of any headache or any weakness on exam left side weakness noted pt seems to be unaware of that was having breakfast -coughing at end of it when asking if she is having trouble swallowing -pt denies thinks that she is eating fast Son present at bedside OBJECTIVE: Vital Signs-as noted below Exam: General-no sign of distress Eyes-sclera non icteric , left sided visual deficit Lungs-CTA Heart-regular Abdomen-soft, non tender Extremities-no lower ext edema Neuro-weakness on left upper ext 4/5 , left lower ext 4/5 Lab data as noted below. ASSESSMENT & PLAN: ACUTE /SUBACUTE CVA WITH LARGE RIGHT PARIETAL INFRACT : presented with slurred speech , left sided weakness -symptom has been ongoing for 2-3 days stroke work up so far : CT head- There is a large subacute appearing infarct in the right posterior parietal lobe with mild surrounding edema. A tiny infarct is also seen in the right posterior frontal lobe. There is no hemorrhage or midline shift. MRI brain with and without- . Findings are consistent with a large subacute right MCA territory infarct as above with associated edema and sulcal effacement. Foci of gyriform T1 hyperintensity throughout the infarct in the right parietal lobe are typical in appearance for a laminar necrosis. There is no clear evidence of hemorrhage and no midline shift is seen. MRA neck - Unremarkable MR angiogram of the neck. There is occlusion of the right middle cerebral artery. MRA head- indeterminate occlusion of the mid right middle cerebral artery with markedly asymmetrically diminished flow within the sylvian branches of the right middle cerebral artery. Re demonstration of the right frontoparietal infarct with possible laminar necrosis. ECHO : Normal LV chamber size with mild concentric LVH. * Normal LV systolic function, EF 60-65%. * No segmental left ventricular wall motion abnormalities are noted. * Grade I diastolic dysfunction. * No significant valvular pathology. * The interatrial septum is intact with no evidence for an atrial septal defect. * Injection of contrast documented no interatrial shunt. CAROTID DOPPLER : no hemodynamically significant stenosis pt started on Aspirin /Plavix -dual antiplatelet therapy High intensity statin tx with Lipitor 80 mg daily ( goal LDL < 70 ) Fasting lipid panel shows LDL > 90 will need repeat FLP checked in 6 months appreciate input form Neurology pt will continue with dual antiplatelet tx for at least for 3-6 months then need follow up with Neurology to adjust medication will need out pt Cardio Net to assess for Paroxysmal afib pt remain normal sinus rhythm on monitor permissive HTN in a setting of acute CVA goal SBP 160-180 DYSPHAGIA /LEFT SIDED HEMINEGLECT /WEAKNESS : Due to acute CVA appreciate speech eval diet changed to dental soft with thin liquids aspiration precaution will benefit with continued to speech therapy at acute rehab PT/OT eval -recommends acute rehab for continued improvement of gait /left sided weakness HYPERTENSIVE URGENCY : BP was elevated in 200 due to acute CVA was given IV labetalol will allow permissive HTN SBP goal 160-180 to continued perfusion at the ischemic area SBP in 140 IV Hydralazine D/marlo Full code DVT PROPHYLAXIS scd and teds ambulate avoid pharmacological anticoagulation - risk of transitioning to hge CVA DISPOSITION will need acute rehab referral made to [facility] Vital Signs: Date Time Temp Pulse Resp B/P (MAP) Pulse Ox O2 Delivery O2 Flow Rate FiO2 10/20/16 19:23 37.0 64 18 143/80 (101) 96 Room Air 10/20/16 16:00 Room Air 10/20/16 12:00 Room Air 10/20/16 11:10 36.6 66 16 153/92 (112) 98 Room Air 10/20/16 09:50 66 96 10/20/16 08:00 Room Air 10/20/16 07:21 36.9 66 16 170/93 (118) 96 Room Air 10/20/16 04:00 Room Air 10/20/16 03:55 36.6 77 18 147/73 (97) 95 Room Air 10/20/16 02:52 36.9 67 16 146/75 (98) 96 Room Air 10/19/16 23:59 Room Air 10/19/16 23:08 36.9 64 16 167/80 (109) 96 Room Air Lab Results: Results Past 24 Hours Test 10/19/16 20:45 10/20/16 06:56 Range/Units Urine Color YELLOW Urine Appearance CLEAR CLEAR Urine pH 7.0 4.5-7.5 Urine Specific [place] 1.006 1.000-1.030 Urine Protein NEG NEG Urine Glucose (UA) NEG NEG Urine Ketones NEG NEG Urine Occult Blood NEG NEG Urine Nitrite NEG NEG Urine Bilirubin NEG NEG Urine Urobilinogen NEG NEG Urine Leukocyte Esterase TRACE NEG Urine WBC (Auto) 1-5 0-5 /hpf Urine RBC (Auto) 0-4 0-4 /hpf Urine Hyaline Casts (Auto) 0 0-5 /lpf Urine Epithelial Cells (Auto) >30 0-5 /lpf Urine Bacteria (Auto) NEG NEG White Blood Count 6.00 4.8-10.8 K/uL Red Blood Count 4.58 4.2-5.4 M/uL Hemoglobin 14.6 12.0-16.0 g/dL Hematocrit 41.2 37-47 % Mean Corpuscular Volume 90.0 80-100 fL Mean Corpuscular Hemoglobin 31.9 25-34 pg Mean Corpuscular Hemoglobin Concent 35.4 32-36 g/dl Platelet Count 306 130-400 K/uL Mean Platelet Volume 9.4 7.4-10.4 fL Neutrophils (%) (Auto) 58.4 % Lymphocytes (%) (Auto) 33.3 % Monocytes (%) (Auto) 6.8 % Eosinophils (%) (Auto) 1.0 % Basophils (%) (Auto) 0.3 % Neutrophils # (Auto) 3.50 1.4-6.5 K/uL Lymphocytes # (Auto) 2.00 1.2-3.4 K/uL Monocytes # (Auto) 0.41 0.11-0.59 K/uL Eosinophils # (Auto) 0.06 0-0.5 K/uL Basophils # (Auto) 0.02 0-0.2 K/uL RDW Standard Deviation 43.6 36.4-46.3 fL RDW Coefficient of Variation 13.2 11.5-14.5 % Immature Granulocyte % (Auto) 0.2 % Immature Granulocyte # (Auto) 0.01 0.00-0.02 K/uL Sodium Level 139 136-145 mmol/L Potassium Level 3.8 3.5-5.1 mmol/L Chloride Level 106 98-107 mmol/L Carbon Dioxide Level 25 21-32 mmol/L Anion Gap 8.0 3-11 mmol/L Blood Urea Nitrogen 10 7-18 mg/dl Creatinine 0.71 0.60-1.20 mg/dl Est Creatinine Clear Calc Drug Dose 63.6 ml/min Estimated GFR () 102.2 Estimated GFR (Non- 88.1 BUN/Creatinine Ratio 13.4 10-20 Random Glucose 98 70-99 mg/dl Calcium Level 9.2 8.5-10.1 mg/dl Triglycerides Level 113 0-150 mg/dl Cholesterol Level 191 0-200 mg/dl HDL Cholesterol 71 mg/dl LDL Cholesterol, Calculated 97 mg/dl VLDL Cholesterol, Calculated 23 mg/dl Cholesterol/HDL Ratio 2.7 Thyroid Stimulating Hormone (TSH) 3.630 0.300-4.500 uIu/ml Hepatitis C Antibody Screen NEG NEG
[2016-10-21 04:06] VITALS: BP 165/84; PULSE 60; TEMP 37.1; O2SAT 92
[2016-10-21 07:59] VITALS: BP 160/69; PULSE 70; TEMP 36.6; O2SAT 94
[2016-10-21] MEDS: CLOPIDOGREL BISULFATE 75 MG TAB PO SCH (08:19)
[2016-10-21] MEDS: ASPIRIN 81 MG ECTAB PO SCH (08:19)
[2016-10-21] MEDS: ATORVASTATIN 40 MG TAB PO SCH (08:19)
[2016-10-21] MEDS ORDERED: ATV/1 PO (10:27)
--- NOTE | 2016-10-21 10:33 | Progress Note ---
Internal Med Progress Note Date of Service: Oct 21, 2016. Provider Documentation: SUBJECTIVE: awake and alert has persistent left sided vane-neglect left sided weakness offers no complain wondering if she can be started on some medication for anxiety willing to follow up with Psychiatry as out pt for depression OBJECTIVE: Vital Signs-as noted below Exam: General-no sign of distress Eyes-sclera non icteric , left sided visual deficit Lungs-CTA Heart-regular Abdomen-soft, non tender Extremities-no lower ext edema Neuro-weakness on left upper ext 4/5 , left lower ext 4/5 Lab data as noted below. ASSESSMENT & PLAN: ACUTE /SUBACUTE CVA WITH LARGE RIGHT PARIETAL INFRACT : presented with slurred speech , left sided weakness -symptom has been ongoing for 2-3 days STROKE WORK UP : CT head- There is a large subacute appearing infarct in the right posterior parietal lobe with mild surrounding edema. A tiny infarct is also seen in the right posterior frontal lobe. There is no hemorrhage or midline shift. MRI brain with and without- . Findings are consistent with a large subacute right MCA territory infarct as above with associated edema and sulcal effacement. Foci of gyriform T1 hyperintensity throughout the infarct in the right parietal lobe are typical in appearance for a laminar necrosis. There is no clear evidence of hemorrhage and no midline shift is seen. MRA neck - Unremarkable MR angiogram of the neck. There is occlusion of the right middle cerebral artery. MRA head- indeterminate occlusion of the mid right middle cerebral artery with markedly asymmetrically diminished flow within the sylvian branches of the right middle cerebral artery. Re demonstration of the right frontoparietal infarct with possible laminar necrosis. ECHO : Normal LV chamber size with mild concentric LVH. * Normal LV systolic function, EF 60-65%. * No segmental left ventricular wall motion abnormalities are noted. * Grade I diastolic dysfunction. * No significant valvular pathology. * The interatrial septum is intact with no evidence for an atrial septal defect. * Injection of contrast documented no interatrial shunt. CAROTID DOPPLER : no hemodynamically significant stenosis pt started on Aspirin /Plavix -dual antiplatelet therapy High intensity statin tx with Lipitor 80 mg daily ( goal LDL < 70 ) Fasting lipid panel shows LDL > 90 will need repeat FLP checked in 6 months appreciate input form Neurology pt will continue with dual antiplatelet tx for at least for 3-6 months then need follow up with Neurology to adjust medication will need out pt Cardio Net to assess for Paroxysmal afib pt has remained in normal sinus rhythm on monitor in past 48 hrs permissive HTN in a setting of acute CVA goal SBP 160-180 stable to be transferred to acute Rehab -[facility] for ongoing Therapy -will need : speech /PT/OT for gait disturbance DYSPHAGIA /LEFT SIDED HEMINEGLECT /WEAKNESS : Due to acute CVA appreciate speech eval diet changed to dental soft with thin liquids aspiration precaution will benefit with continued to speech therapy at acute rehab PT/OT eval -recommends acute rehab for continued improvement of gait /left sided weakness HYPERTENSIVE URGENCY : resolved BP remains stable now BP was elevated in 200 due to acute CVA was given IV labetalol will allow permissive HTN SBP goal 160-180 to continued perfusion at the ischemic area SBP in 140 IV Hydralazine D/marlo DEPRESSION /ANXIETY DISORDER : experiencing labile mood anxiety also mentions of being depressed common after acute stroke ordered for Ativan 0.5 PO TID PRN for anxiety will benefit from Psych eval as out pt once acute stroke symptom subsides Full code DVT PROPHYLAXIS scd and teds ambulate avoid pharmacological anticoagulation - risk of transitioning to hge CVA DISPOSITION will need acute rehab referral made to [facility] -accepted transfer to [facility] today Son will be able to provide transport updated Family -sisters present at bedside Vital Signs: Date Time Temp Pulse Resp B/P (MAP) Pulse Ox O2 Delivery O2 Flow Rate FiO2 10/21/16 08:00 Room Air 10/21/16 07:59 36.6 70 16 160/69 (99) 94 10/21/16 04:06 37.1 60 18 165/84 (111) 92 Room Air 10/21/16 04:00 Room Air 10/21/16 00:00 Room Air 10/20/16 23:47 36.9 60 17 151/96 (114) 95 Room Air 10/20/16 20:00 Room Air 10/20/16 19:23 37.0 64 18 143/80 (101) 96 Room Air 10/20/16 16:00 Room Air 10/20/16 12:00 Room Air 10/20/16 11:10 36.6 66 16 153/92 (112) 98 Room Air
--- NOTE | 2016-10-21 10:45 | Discharge Summary ---
Discharge Summary Date of Service Oct 21, 2016. Discharge Summary Admission Date: Oct 19, 2016 at 16:16 Discharge Date: Oct 21, 2016 Discharge Disposition: Rehab ([facility] ) Principal Diagnosis: ACUTE CVA /LEFT PARIETAL CORTEX /LEFT MCA THROMBOSIS Procedures: CT OF BRAIN WITH OUT CONTRAST : IMPRESSION: 1. There is a large subacute appearing infarct in the right posterior parietal lobe with mild surrounding edema. 2. A tiny infarct is also seen in the right posterior frontal lobe. 3. There is no hemorrhage or midline shift. MRA OF BRAIN : IMPRESSION: 1. Age indeterminate occlusion of the mid right middle cerebral artery with markedly asymmetrically diminished flow within the sylvian branches of the right middle cerebral artery. 2. Re demonstration of the right frontoparietal infarct with possible laminar necrosis. This will be better depicted on the MRI of the brain which will be reported separately. MRI OF BRAIN IMPRESSION: 1. Findings are consistent with a large subacute right MCA territory infarct as above with associated edema and sulcal effacement. 2. Foci of gyriform T1 hyperintensity throughout the infarct in the right parietal lobe are typical in appearance for a laminar necrosis. There is no clear evidence of hemorrhage and no midline shift is seen. 3. Additional findings as above. BILATERAL CAROTID ULTRASOUND: IMPRESSION: No hemodynamically significant stenosis seen within the carotid arteries. MRA OF BRAIN : IMPRESSION: 1. Unremarkable MR angiogram of the neck. 2. There is occlusion of the right middle cerebral artery. See report of MR angiography of the brain performed concurrently for detailed intracranial findings. ECHO : * Normal LV chamber size with mild concentric LVH. * Normal LV systolic function, EF 60-65%. * No segmental left ventricular wall motion abnormalities are noted. * Grade I diastolic dysfunction. * No significant valvular pathology. * The interatrial septum is intact with no evidence for an atrial septal defect. * Injection of contrast documented no interatrial shunt. Consultations: [facility] Medication Reconciliation New Medications: Lorazepam (Ativan) 1 Mg Tab 0.5 MG PO Q8 PRN for Anxiety, #10 TAB Aspirin (Aspirin EC Low Dose) 81 Mg Ectab 81 MG PO QAM for 30 Days Atorvastatin (Atorvastatin Calcium) 40 Mg Tab 80 MG PO QAM for 30 Days, #60 TAB Clopidogrel Bisulfate (Clopidogrel) 75 Mg Tab 75 MG PO QAM for 30 Days, #30 TAB Referrals At Discharge Follow up Referrals: Neurologist Referral - Within 6 Weeks with Blu Engel PA-C Physician Referral - 11/15/16 with Bell Reynolds D.O. Admission Information HPI (per Admitting provider): 66 year old female who presents to the ER with slurred speech and facial droop. Patient reports she noticed difficulty with her speech about 4 days ago. She also noted that she had problems folding towels and sheets and also balancing her check book. These are all things she can normally do without difficulty. Her son is at the bedside and he reports he saw her 3 days ago and she was cutting grass and appeared to be fine. Her friend noted yesterday a right sided facial droop and the slurred speech which has since resolved. Patient denies any unilateral weakness, numbness, or tingling. She denies difficulty swallowing. No headache or blurred vision. She denies chest pain, shortness of breath, and palpitations. No abdominal pain, nausea, vomiting, or diarrhea. She denies fever and chills. No urinary symptoms. In the ER, head CT is showing a large right parietal subacute CVA. Patient's BP on arrival was 225/113. She was given Labetalol with improvement in the BP. Due to aspirin allergy, patient was given Plavix. Physical Exam (per Admitting): General Appearance: no apparent distress Head: normocephalic Eyes: normal inspection, PERRL ENT: hearing grossly normal Neck: supple, no JVD Respiratory/Chest: lungs clear, normal breath sounds, no respiratory distress Cardiovascular: regular rate, rhythm, no edema, normal peripheral pulses Abdomen/GI: normal bowel sounds, non tender, soft Extremities/Musculoskelatal: normal inspection, no calf tenderness Neurologic/Psych: no motor/sensory deficits, alert, normal mood/affect, oriented x 3 Skin: normal color, warm/dry Hospital Course ACUTE /SUBACUTE CVA WITH LARGE RIGHT PARIETAL INFRACT : presented with slurred speech , left sided weakness -symptom has been ongoing for 2-3 days STROKE WORK UP : CT head- There is a large subacute appearing infarct in the right posterior parietal lobe with mild surrounding edema. A tiny infarct is also seen in the right posterior frontal lobe. There is no hemorrhage or midline shift. MRI brain with and without- . Findings are consistent with a large subacute right MCA territory infarct as above with associated edema and sulcal effacement. Foci of gyriform T1 hyperintensity throughout the infarct in the right parietal lobe are typical in appearance for a laminar necrosis. There is no clear evidence of hemorrhage and no midline shift is seen. MRA neck - Unremarkable MR angiogram of the neck. There is occlusion of the right middle cerebral artery. MRA head- indeterminate occlusion of the mid right middle cerebral artery with markedly asymmetrically diminished flow within the sylvian branches of the right middle cerebral artery. Re demonstration of the right frontoparietal infarct with possible laminar necrosis. ECHO : Normal LV chamber size with mild concentric LVH. * Normal LV systolic function, EF 60-65%. * No segmental left ventricular wall motion abnormalities are noted. * Grade I diastolic dysfunction. * No significant valvular pathology. * The interatrial septum is intact with no evidence for an atrial septal defect. * Injection of contrast documented no interatrial shunt. CAROTID DOPPLER : no hemodynamically significant stenosis pt started on Aspirin /Plavix -dual antiplatelet therapy High intensity statin tx with Lipitor 80 mg daily ( goal LDL < 70 ) Fasting lipid panel shows LDL > 90 will need repeat FLP checked in 6 months appreciate input form Neurology pt will continue with dual antiplatelet tx for at least for 3-6 months then need follow up with Neurology to adjust medication will need out pt Cardio Net to assess for Paroxysmal afib pt has remained in normal sinus rhythm on monitor in past 48 hrs permissive HTN in a setting of acute CVA goal SBP 160-180 stable to be transferred to acute Rehab [facility] for ongoing Therapy -will need : speech /PT/OT for gait disturbance DYSPHAGIA /LEFT SIDED HEMINEGLECT /WEAKNESS : Due to acute CVA appreciate speech eval diet changed to dental soft with thin liquids aspiration precaution will benefit with continued to speech therapy at acute rehab PT/OT eval -recommends acute rehab for continued improvement of gait /left sided weakness HYPERTENSIVE URGENCY : resolved BP remains stable now BP was elevated in 200 due to acute CVA was given IV labetalol will allow permissive HTN SBP goal 160-180 to continued perfusion at the ischemic area SBP in 140 IV Hydralazine D/marlo DEPRESSION /ANXIETY DISORDER : experiencing labile mood anxiety also mentions of being depressed common after acute stroke ordered for Ativan 0.5 PO TID PRN for anxiety will benefit from Psych eval as out pt once acute stroke symptom subsides Full code DVT PROPHYLAXIS scd and teds ambulate avoid pharmacological anticoagulation - risk of transitioning to hge CVA DISPOSITION will need acute rehab referral made to [facility] -accepted transfer to [facility] today Son will be able to provide transport updated Family -sisters present at bedside Total time spent on discharge = 40 MINS This includes examination of the patient, discharge planning, medication reconciliation, and communication with other providers. Discharge Instructions Discharge Instructions Date of Service Oct 20, 2016. Admission Reason for Admission: Cva (Cerebral Vascular Accident) Discharge Discharge Diagnosis / Problem: ACUTE CVA /LEFT PARIETAL CORTEX /LEFT MCA THROMBOSIS Discharge Goals Goal(s): Improve function, Diagnostic testing, Therapeutic intervention Activity Recommendations Activity Level: Assistance Required Therapies: Physical Therapy, Occupational Therapy, Speech Therapy Lifting Limitations: none Shower/Bathe: no limitations . Additional Information Patient informed of condition: Yes Advance Directives: No DNR: No Level of Care: Acute Rehab Communicable Disease: No Prognosis: Improving Shannon Catheter: No Instructions / Follow-Up Instructions / Follow-Up FOLLOW UP WITH NEUROLOGY BLU Mcdonald AT [facility] AFTER DISCHARGE FORM REHAB WILL NEED TO HAVE ARRANGEMENT FOR CARDIO NET /ZEO PATCH TO ASSESS FOR CARDIAC ARRHYTHMIA -CAN BE DONE OUT PATIENT AFTER DISCHARGE FROM REHAB FOLLOW UP ON 11/15/2016 @ 1:[address] Bell Reynolds, DO Internal Medicine [facility] NEED TO CONTINUE BOTH ASPIRIN AND PLAVIX FOR AT LEAST 3-6 MONTHS PLEASE FOLLOW UP WITH RECOMMENDATION WITH NEUROLOGY FOR FURTHER MEDICATION ADJUSTMENT FASTING LIPID PANEL IN 6-8 MONTHS , GOAL LDL < 70 TO PREVENT FUTURE CVA NEW MEDICATIONS : ASPIRIN 81 MG DAILY -TAKE WITH FULL STOMACH PLAVIX 75 MG DAILY -TAKE WITH FULL STOMACH LIPITOR 80 MG AT NIGHT ATIVAN 0.5 MG PO Q8HRS NEEDED ANXIETY MAY NEED PSYCHIATRY FOLLOW UP FOR EVALUATION OF DEPRESSION WHICH USUALLY OCCURS POST STROKE Current Hospital Diet Patient's current hospital diet: AHA Diet (Heart Healthy) DIET RECOMMENDATION : . Dental soft, thin liquids. 2. Aspiration precautions: Patient should be seated fully upright during and for 30 minutes after meal. NO STRAWS. Take small bites and sips. Alternative solids and liquids. Monitor for impulsivity. 3. Oral care before and after meals. Monitor for oral pocketing. 4. CONTINUE SPEECH THERAPY AT ACUTE REHAB TO IMPROVEMENT OF DYSPHAGIA Discharge Diet Recommended Diet: AHA Diet (Heart Healthy) Diet Texture: Dental Soft (bite-sized) Pending Studies Studies pending at discharge: no Laboratory Results Hemoglobin A1c Test 10/19/16 14:20 Range/Units Estimated Average Glucose 105 mg/dl Hemoglobin A1c 5.3 4.5-5.6 % Lipid Panel Test 10/20/16 06:56 Range/Units Triglycerides Level 113 0-150 mg/dl Cholesterol Level 191 0-200 mg/dl HDL Cholesterol 71 mg/dl Cholesterol/HDL Ratio 2.7 LDL Cholesterol, Calculated 97 mg/dl Medical Emergencies . Who to Call and When: Medical Emergencies: If at any time you feel your situation is an emergency, please call 911 immediately. . Non-Emergent Contact Non-Emergency issues call your: Primary Care Provider . . "Provider Documentation" section prepared by Deb Yang. . Core Measure Problem Core Measures: Stroke Stroke Core Measures Reason no t-PA for Stroke: Treatment not indicated Reason no antithrom by day 2: Treatment provided - N/A Reason no antithrom at D/C: Treatment provided - N/A Reason no statin at D/C: Treatment provided - N/A Reason no anticoag w/a fib: Treatment not indicated Additional Copies To Bell Reynolds D.O. Kennedy, Kathleen, PA-C
[2016-10-21 11:59] VITALS: BP 150/86; PULSE 61; TEMP 36.6; O2SAT 99
[2016-10-21 12:50] VITALS: BP 150/86; PULSE 61; TEMP 36.6; O2SAT 99
== END 2016-10-21 13:45 | DRG 64 ==
LOC: C.EDB 14:00 → C.2T 16:16 → ENRESERV 16:42
PROVIDERS: ADMIT Family Medicine; ATTEND Hospitalist
DX: I63.312 Cerebral infarction due to thrombosis of left middle cerebral artery (principal); G93.6 Cerebral edema; I16.1 Hypertensive emergency; G81.94 Hemiplegia, unspecified affecting left nondominant side; R47.89 Other speech disturbances; R29.810 Facial weakness; F17.200 Nicotine dependence, unspecified, uncomplicated; Z79.82 Long term (current) use of aspirin; R13.10 Dysphagia, unspecified; F32.9 Major depressive disorder, single episode, unspecified; F41.9 Anxiety disorder, unspecified

== ENCOUNTER 2017-02-16 10:15 | Inpatient (IN) | payer OTHER ==
[~2017-02-16] VITALS: Ht 160 cm; Wt 55.9 kg
[~2017-02-16 10:15] MED LIST: ASPEC81 PO; LPT40 PO; PLV75 PO
--- NOTE | 2017-02-16 11:20 | DIAGNOSTIC IMAGING REPORT ---
CHEST ONE VIEW PORTABLE CLINICAL HISTORY: hypertension COMPARISON STUDY: 10/19/2016 FINDINGS: The cardiac and mediastinal contours are normal. There is no evidence of focal pulmonary consolidation. There is no evidence of failure. No pleural effusions are visualized.[The patient appears mildly hyperinflated. IMPRESSION: No active disease in the chest. Electronically signed by: Sylvester Yang M.D. 02/16/2017 11:19 AM Dictated Date/Time: 02/16/2017 11:18 AM
[2017-02-16] MEDS ORDERED: ATEN-173 PO (11:22)
[2017-02-16] MEDS ORDERED: ATEN25TA PO (11:22)
[2017-02-16] MEDS ORDERED: ATOR-26 PO (11:22)
[2017-02-16] MEDS ORDERED: LISI40TA PO (11:22)
[2017-02-16] MEDS ORDERED: POTA1TAB97 PO (11:22)
[2017-02-16] MEDS ORDERED: AMLO-110 PO (11:22)
[2017-02-16] MEDS ORDERED: SERT25TA PO (11:22)
[2017-02-16 11:28] LABS: HEMATOCRIT 39.2 % (37-47); MEAN CELL VOLUME 87.7 fL (80-100); MEAN CORPUSCULAR HEMOGLOBIN 30.2 pg (25-34); MEAN CORPUSCULAR HGB CONC 34.4 g/dl (32-36); MEAN PLATELET VOLUME 8.6 fL (7.4-10.4); PLATELET COUNT 414 K/uL (130-400); RED BLOOD COUNT 4.47 M/uL (4.2-5.4)
[2017-02-16] MEDS ORDERED: THIAMINE HCL 100 MG/ML 2 ML VIAL IV STA (11:29)
[2017-02-16] MEDS ORDERED: ONDANSETRON INJ 2 MG/ML 2 ML VIAL IV STA (11:29)
[2017-02-16] MEDS ORDERED: LORAZEPAM 2 MG/ML 1 ML VIAL IV STA (11:29)
[2017-02-16 11:35] LABS: BUN/CREATININE RATIO 18.7 (10-20); CALCIUM 9.1 mg/dl (8.5-10.1); CREATININE 0.77 mg/dl (0.60-1.20); POTASSIUM 4.8 mmol/L (3.5-5.1)
[2017-02-16 11:40] LABS: ALB/GLOB RATIO 1.2 (0.9-2); CKMB/CK RATIO 2.6 (0-3.0)
[2017-02-16 11:41] LABS: PROTHROMBIN TIME (PATIENT) 10.4 SECONDS (9.0-12.0)
--- NOTE | 2017-02-16 12:02 | DIAGNOSTIC IMAGING REPORT ---
CT HEAD WITHOUT CONTRAST (CT) CLINICAL HISTORY: Left upper extremity numbness. Hypertension. History of stroke. COMPARISON STUDY: 10/19/2016 TECHNIQUE: Axial CT of the brain is performed from the vertex to the skull base. IV contrast was not administered for this examination. A dose lowering technique was utilized adhering to the principles of ALARA. CT DOSE: 537.48 mGy.cm FINDINGS: No intra or extra-axial mass lesions are visualized. There is an old right parietal infarct with areas of calcification/mineralization within the central infarcted area. There is a right frontal infarct which wasn't apparent on the prior study, but was visualized on an MRI study dated 10/12/2016. There are patchy white matter hypodensities likely on a small vessel basis. There is no evidence of pathologic ventricular dilatation. There is no evidence of acute sinusitis IMPRESSION: 1. Old right hemispheric infarcts. No acute intracranial findings. Electronically signed by: Sylvester Yang M.D. 02/16/2017 12:01 PM Dictated Date/Time: 02/16/2017 11:58 AM
--- NOTE | 2017-02-16 16:27 | EMERGENCY ROOM VISIT NOTE ---
History Report prepared by Miquel: Nelia Bell Under the Supervision of: Dr. Sharad Bravo D.O. First contact with patient: 11:24 Chief Complaint: HYPERTENSION Stated Complaint: HYPERTENSION History of Present Illness The patient is a 66 year old female who presents to the Emergency Room with complaints of constant hypertension beginning this morning. The patient woke up this morning and went about her typical routine. She drank coffee and watched the news. She took her usual medications around 8am. She checked her blood pressure and it was elevated. She continued to check it and it continued to rise. The patient states that she was getting more anxious about her blood pressure. She then developed left arm numbness. She is shaking all over. This started in the ambulance ride to the hospital. The patient denies chest pain, shortness of breath. She has a history of a stroke. Per family friends the patient is a functioning alcoholic. She has been to rehab in the past. She last drank alcohol last night. Source of History: patient Onset: this morning Position: other (global) Quality: other (hypertension) Timing: constant Modifying Factors (Worsening): other (anxiety) Associated Symptoms: + numbness (left arm), No chest pain, No SOB Review of Systems See HPI for pertinent positives & negatives. A total of 10 systems reviewed and were otherwise negative. Past Medical & Surgical Medical Problems: (1) H/O ischemic right MCA stroke (2) HTN (hypertension) Family History Patient reports no known family medical history. Social History Smoking Status: Former Smoker Alcohol Use: heavy Marital Status: Housing Status: lives alone Occupation Status: employed Current/Historical Medications Scheduled Amlodipine (Norvasc), 5 MG PO DAILY Aspirin (Aspirin EC Low Dose), 81 MG PO QAM Atenolol (Tenormin), 12.5 MG PO QPM Atenolol (Tenormin), 25 MG PO QAM Atorvastatin (Lipitor), 80 MG PO DAILY Clopidogrel Bisulfate (Clopidogrel), 75 MG PO QAM Lisinopril (Zestril), 40 MG PO DAILY Potassium Chloride (K-Tab), 20 MEQ PO DAILY Sertraline (Zoloft), 25 MG PO DAILY Allergies Coded Allergies: Aspirin (Verified Adverse Reaction, Unknown, adverse reaction as a child with nosebleeds; none since then, 10/25/17) Physical Exam Vital Signs Date Time Temp Pulse Resp B/P (MAP) Pulse Ox O2 Delivery O2 Flow Rate FiO2 02/16/17 18:29 88 18 151/77 93 02/16/17 18:06 88 18 151/77 93 02/16/17 16:00 92 20 150/75 95 Nasal Cannula 2.0 02/16/17 14:05 97 02/16/17 14:00 97 20 130/108 99 Nasal Cannula 3.0 02/16/17 12:22 95 18 175/87 92 Nasal Cannula 3.0 02/16/17 10:31 76 02/16/17 10:28 36.7 84 18 175/121 99 Room Air 02/16/17 10:28 100 Room Air Physical Exam GENERAL: Patient is awake, alert, very anxious appearing but comfortable. EYES: The conjunctivae are clear. The pupils are round and reactive. EARS, NOSE, MOUTH AND THROAT: The nose is without any evidence of any deformity. Mucous membranes are moist tongue is midline NECK: The neck is nontender and supple. RESPIRATORY: Normal respiratory effort is noted there is no evidence of wheezing rhonchi or rales CARDIOVASCULAR: Regular rate and rhythm noted there no murmurs rubs or gallops normal S1 normal S2 GASTROINTESTINAL: The abdomen is soft. Bowel sounds are present in all quadrants. Abdomen is nontender MUSCULOSKELETAL/EXTREMITIES: There is no evidence of gross deformity full range of motion is noted in the hips and shoulders SKIN: There is no obvious evidence of any rash. There are no petechiae, pallor or cyanosis noted. NEUROLOGIC: Patient is awake alert and oriented x3 strength is symmetric patellar reflexes are 2+ bilaterally. There was tremor in both upper extremities which appeared to be worsened with movement. Medical Decision & Procedures ER Provider Diagnostic Interpretation: Radiology results as stated below per my review and radiologist interpretation: CHEST ONE VIEW PORTABLE CLINICAL HISTORY: hypertension COMPARISON STUDY: 10/19/2016 FINDINGS: The cardiac and mediastinal contours are normal. There is no evidence of focal pulmonary consolidation. There is no evidence of failure. No pleural effusions are visualized.[The patient appears mildly hyperinflated. IMPRESSION: No active disease in the chest. Electronically signed by: Sylvester Yang M.D. 02/16/2017 11:19 AM Dictated Date/Time: 02/16/2017 11:[address] HEAD WITHOUT CONTRAST (CT) CLINICAL HISTORY: Left upper extremity numbness. Hypertension. History of stroke. COMPARISON STUDY: 10/19/2016 TECHNIQUE: Axial CT of the brain is performed from the vertex to the skull base. IV contrast was not administered for this examination. A dose lowering technique was utilized adhering to the principles of ALARA. CT DOSE: 537.48 mGy.cm FINDINGS: No intra or extra-axial mass lesions are visualized. There is an old right parietal infarct with areas of calcification/mineralization within the central infarcted area. There is a right frontal infarct which wasn't apparent on the prior study, but was visualized on an MRI study dated 10/12/2016. There are patchy white matter hypodensities likely on a small vessel basis. There is no evidence of pathologic ventricular dilatation. There is no evidence of acute sinusitis IMPRESSION: 1. Old right hemispheric infarcts. No acute intracranial findings. Electronically signed by: Sylvester Yang M.D. 02/16/2017 12:01 PM Dictated Date/Time: 02/16/2017 11:58 AM Laboratory Results 02/16/17 10:00 02/16/17 10:00 Test 02/16/17 10:00 02/16/17 11:40 02/16/17 17:09 Red Blood Count 4.47 M/uL (4.2-5.4) Mean Corpuscular Volume 87.7 fL (80-100) Mean Corpuscular Hemoglobin 30.2 pg (25-34) Mean Corpuscular Hemoglobin Concent 34.4 g/dl (32-36) RDW Standard Deviation 43.2 fL (36.4-46.3) RDW Coefficient of Variation 13.5 % (11.5-14.5) Mean Platelet Volume 8.6 fL (7.4-10.4) Prothrombin Time 10.4 SECONDS (9.0-12.0) Prothromb Time International Ratio 1.0 (0.9-1.1) Activated Partial Thromboplast Time 26.3 SECONDS (21.0-31.0) Partial Thromboplastin Ratio 1.0 Anion Gap 10.0 mmol/L (3-11) Est Creatinine Clear Calc Drug Dose 58.6 ml/min Estimated GFR () 92.6 Estimated GFR (Non- 79.9 BUN/Creatinine Ratio 18.7 (10-20) Calcium Level 9.1 mg/dl (8.5-10.1) Total Bilirubin 1.2 mg/dl (0.2-1) Aspartate Amino Transf (AST/SGOT) 19 U/L (15-37) Alanine Aminotransferase (ALT/SGPT) 39 U/L (12-78) Alkaline Phosphatase 113 U/L (45-117) Total Creatine Kinase 100 U/L (26-192) Creatine Kinase MB 2.6 ng/ml (0.5-3.6) Creatine Kinase MB Ratio 2.6 (0-3.0) Total Protein 7.9 gm/dl (6.4-8.2) Albumin 4.3 gm/dl (3.4-5.0) Globulin 3.6 gm/dl (2.5-4.0) Albumin/Globulin Ratio 1.2 (0.9-2) Osmolality 279 mOsm/kg (280-300) Magnesium Level 2.0 mg/dl (1.8-2.4) Troponin I < 0.015 ng/ml (0-0.045) Thyroid Stimulating Hormone (TSH) 4.430 uIu/ml (0.300-4.500) Free Thyroxine 1.10 ng/dl (0.80-1.60) Ethyl Alcohol mg/dL < 3.0 mg/dl (0-3) Laboratory results per my review. Medications Administered Medications (Trade) Dose Ordered Sig/Alexandra Route Start Time Stop Time Status Last Admin Dose Admin Lorazepam (Ativan Inj) 1 mg NOW STAT IV 02/16/17 11:29 02/16/17 11:30 DC 02/16/17 11:39 1 MG Ondansetron HCl (Zofran Inj) 4 mg NOW STAT IV 02/16/17 11:29 02/16/17 11:30 DC 02/16/17 11:38 4 MG Thiamine HCl (Vitamin B-1 Inj) 100 mg NOW STAT IV 02/16/17 11:29 02/16/17 11:30 DC 02/16/17 11:38 100 MG ECG Indication: other (HTN) Rate (beats per minute): 79 Rhythm: normal sinus Findings: ST depression (inferior and lateral ), no ectopy Comparison ECG Date: 10/19/2016 Change: no significant change ED Course 1124: The patient was evaluated in room C7. A complete history and physical examination were performed. 1129: Thiamine HCl 100 mg IV, Zofran 4 mg IV, Ativan 1 mg IV 1451: Upon reevaluation the patient is asymptomatic and no longer shaking. 1557: I reassessed the patient at this time. She is feeling better and resting comfortably. I discussed the results and treatment plan with the patient. I answered all pertaining questions that she had. She expressed understanding and verbalized agreement. 1600: I spoke with Priscilla Keller PA-C. We discussed the patients case. The patient will be evaluated by the [facility] for further evaluation. Medical Decision Differential diagnosis: Etiologies such as metabolic, infection, hypo/hyperglycemia, electrolyte abnormalities, cardiac sources, intracerebral event, toxicologic, neurologic, as well as others were entertained. Nursing notes reviewed. Additional history is obtained from the patient's family members. The patient is a 66-year-old female who presented to the emergency department for an evaluation of weakness and possible strokelike symptoms. The patient has a history of a stroke approximately 4 months ago. She also has a history of alcohol use. She became very anxious after she started noticing left-sided symptoms. The patient was treated with Ativan in the emergency department. She was also given thiamine. On reevaluation she was resting comfortably and felt much better. I discussed the patient's laboratory and radiographic studies with her. At this time I would be concerned that this could've represented either a TIA or possibly related to her very elevated high blood pressure when she initially arrived. It also could be sequelae of stopping alcohol use recently. I discussed all these possibilities with the patient and at this time I do feel given her age and comorbidities that she would be a good candidate for inpatient management. For this reason [facility] agreed to evaluate the patient in the emergency department for further management and disposition. Medication Reconcilliation Current Medication List: was personally reviewed by me Blood Pressure Screening Patient's blood pressure: Elevated blood pressure Blood pressure disposition: Referred to PCP Consults Time Called: 1556 Consulting Physician: Priscilla Keller PA-C Returned Call: 1600 I spoke with Priscilla Keller PA-C. We discussed the patients case. The patient will be evaluated by the [facility] for further evaluation. Impression Primary Impression: TIA (transient ischemic attack) Additional Impressions: HTN (hypertension) Tremor Alcohol use Hyponatremia Weakness Scribe Attestation The scribe's documentation has been prepared under my direction and personally reviewed by me in its entirety. I confirm that the note above accurately reflects all work, treatment, procedures, and medical decision making performed by me. Departure Information Dispostion Being Evaluated By Hospitalist Referrals No Doctor, Assigned (PCP) Patient Instructions My [facility] Problem Qualifiers Primary Impression: TIA (transient ischemic attack) Transient cerebral ischemia type: unspecified Qualified Codes: G45.9 - Transient cerebral ischemic attack, unspecified Additional Impressions: HTN (hypertension) Hypertension type: unspecified Qualified Codes: I10 - Essential (primary) hypertension
[2017-02-16] MEDS ORDERED: PHARMACIST DISCHARGE MED REC CONSULT PRN (17:15)
[2017-02-16] MEDS ORDERED: ACETAMINOPHEN 325 MG TAB PO PRN (17:15)
[2017-02-16] MEDS ORDERED: GABAPENTIN 600 MG TAB PO SCH (17:15)
[2017-02-16] MEDS ORDERED: LORAZEPAM 1 MG TAB PO PRN (17:15)
--- NOTE | 2017-02-16 17:40 | History and Physical ---
History & Physical Date & Time of Service: Feb 16, 2017 at 17:35 Chief Complaint: Hypertension Primary Care Physician: Bell Reynolds D.O. History of Present Illness Source: patient, family, clinic records, hospital records This is a 66yo F with a PMH of HTN, anxiety and h/o R MCA stroke in 09/2016 who presents with L arm tingling and hypertension that began this morning. Patient woke up in normal state of health today and took her medications at 8am. When she woke up from a nap later in the morning her L hand was tingling. She thinks she may have been sleeping on it. Also noticed that her L eye was twitching. Took her BP and noticed it was elevated. Continued to recheck it and it continued to rise. Is unsure of the exact number but thinks the top number was above 200. Became very anxious at this point due to her last stroke occurring in the setting of elevated BP. Family member called EMS. Once patient was in ambulance, states that her entire L arm was tingling but that she still was able to move it without a problem. Denies any facial droop, difficulty with speech, weakness in extremities, difficulty walking. Denies any headache, CP, SOB. This past September, patient came into the ER for evaluation of HTN, L facial droop and slurred speech and found to have a subacute R MCA infarct. Was discharged on aspirin and plavix and completed rehab at [facility]. States that she has had no residual deficits besides slowed cognition. Has difficulty finding words sometimes or doing any calculations with numbers. Once patient arrived in ER today, L eye twitch and L arm tingling resolved. Started to experience bilateral tremors in arms. States that she gets these at home intermittently when she is nervous. Endorses a history of heavy alcohol use. Per family, ever since CVA in September, they have been attempting to monitor her wine consumption by having a neighbor bring over a measured amount a few times a week. However, patient states that it is not unusual for her to ask other friends to bring her wine during the week. Last consumption was last night , when she had 3 glasses. Denies history of DTs in withdrawal. Past Medical/Surgical History Medical Problems: (1) H/O ischemic right MCA stroke Status: Chronic (2) HTN (hypertension) Status: Chronic Family History Patient reports no known family medical history. Social History Smoking Status: Former Smoker (Quit 3 months ago) Alcohol Use: heavy (See HPI ) Drug Use: none Marital Status: Housing status: lives alone Occupational Status: employed Allergies Coded Allergies: Aspirin (Verified Adverse Reaction, Unknown, adverse reaction as a child with nosebleeds; none since then, 02/16/17) Home Medications Scheduled Amlodipine (Norvasc), 5 MG PO DAILY Aspirin (Aspirin EC Low Dose), 81 MG PO QAM Atenolol (Tenormin), 12.5 MG PO QPM Atenolol (Tenormin), 25 MG PO QAM Atorvastatin (Lipitor), 80 MG PO DAILY Clopidogrel Bisulfate (Clopidogrel), 75 MG PO QAM Lisinopril (Zestril), 40 MG PO DAILY Potassium Chloride (K-Tab), 20 MEQ PO DAILY Sertraline (Zoloft), 25 MG PO DAILY Review of Systems Ten systems reviewed and negative except as noted in the HPI. Physical Exam Vital Signs Date Time Temp Pulse Resp B/P (MAP) Pulse Ox O2 Delivery O2 Flow Rate FiO2 02/16/17 16:00 92 20 150/75 95 Nasal Cannula 2.0 02/16/17 14:05 97 02/16/17 14:00 97 20 130/108 99 Nasal Cannula 3.0 02/16/17 12:22 95 18 175/87 92 Nasal Cannula 3.0 02/16/17 10:31 76 02/16/17 10:28 36.7 84 18 175/121 99 Room Air 02/16/17 10:28 100 Room Air General Appearance: no apparent distress (Drowsy but cooperative ) Head: normocephalic, atraumatic Eyes: normal inspection, PERRL, EOMI, sclerae normal (conjunctiva normal ) ENT: normal ENT inspection, hearing grossly normal, pharynx normal (Moist mucous membranes ) Neck: supple, no adenopathy, no JVD, trachea midline Respiratory/Chest: chest non-tender, lungs clear, normal breath sounds, no respiratory distress, no accessory muscle use Cardiovascular: regular rate, rhythm, + systolic murmur (Best heard LUSB and RUSB) Abdomen/GI: normal bowel sounds, non tender, soft, no organomegaly Back: normal inspection, no CVA tenderness Extremities/Musculoskelatal: normal inspection, no calf tenderness, normal capillary refill, no pedal edema 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 Normal gait. Cerebellar tests normal. ), alert, normal mood/ affect, oriented x 3, + pertinent finding (Bilateral arm tremors ) Skin: normal color, warm/dry, no rash Diagnostics Laboratory Results Results Past 24 Hours Test 02/16/17 10:00 02/16/17 11:40 02/16/17 17:09 02/16/17 17:13 Range/Units White Blood Count 11.00 4.8-10.8 K/uL Red Blood Count 4.47 4.2-5.4 M/uL Hemoglobin 13.5 12.0-16.0 g/dL Hematocrit 39.2 37-47 % Mean Corpuscular Volume 87.7 80-100 fL Mean Corpuscular Hemoglobin 30.2 25-34 pg Mean Corpuscular Hemoglobin Concent 34.4 32-36 g/dl RDW Standard Deviation 43.2 36.4-46.3 fL RDW Coefficient of Variation 13.5 11.5-14.5 % Platelet Count 414 130-400 K/uL Mean Platelet Volume 8.6 7.4-10.4 fL Prothrombin Time 10.4 9.0-12.0 SECONDS Prothromb Time International Ratio 1.0 0.9-1.1 Activated Partial Thromboplast Time 26.3 21.0-31.0 SECONDS Partial Thromboplastin Ratio 1.0 Sodium Level 128 136-145 mmol/L Potassium Level 4.8 3.5-5.1 mmol/L Chloride Level 94 98-107 mmol/L Carbon Dioxide Level 24 21-32 mmol/L Anion Gap 10.0 3-11 mmol/L Blood Urea Nitrogen 14 7-18 mg/dl Creatinine 0.77 0.60-1.20 mg/dl Est Creatinine Clear Calc Drug Dose 58.6 ml/min Estimated GFR () 92.6 Estimated GFR (Non- 79.9 BUN/Creatinine Ratio 18.7 10-20 Random Glucose 111 70-99 mg/dl Calcium Level 9.1 8.5-10.1 mg/dl Total Bilirubin 1.2 0.2-1 mg/dl Aspartate Amino Transf (AST/SGOT) 19 15-37 U/L Alanine Aminotransferase (ALT/SGPT) 39 12-78 U/L Alkaline Phosphatase 113 45-117 U/L Total Creatine Kinase 100 26-192 U/L Creatine Kinase MB 2.6 0.5-3.6 ng/ml Creatine Kinase MB Ratio 2.6 0-3.0 Total Protein 7.9 6.4-8.2 gm/dl Albumin 4.3 3.4-5.0 gm/dl Globulin 3.6 2.5-4.0 gm/dl Albumin/Globulin Ratio 1.2 0.9-2 Magnesium Level 2.0 1.8-2.4 mg/dl Troponin I < 0.015 0-0.045 ng/ml Thyroid Stimulating Hormone (TSH) 4.430 0.300-4.500 uIu/ml Free Thyroxine 1.10 0.80-1.60 ng/dl Ethyl Alcohol mg/dL < 3.0 0-3 mg/dl Diagnostic Radiology Head CT: IMPRESSION: 1. Old right hemispheric infarcts. No acute intracranial findings. CXR normal EKG Normal sinus rhythm Nonspecific ST abnormality Abnormal ECG When compared with ECG of 19-OCT-2016 14:34, No significant change was found No change from prior EKG Impression Assessment and Plan This is a 66yo F with a PMH of HTN, anxiety and h/o R MCA stroke in 09/2016 who presents with L arm tingling and hypertension that began this morning. L arm paresthesia: resolved -Likely somatic manifestation of anxiety vs etoh withdrawal vs TIA -Tingling came and went, then returned once pt became more anxious -Tingling resolved in ER; no focal deficits on neuro exam -H/o R MCA infarct in 09/2016. Started on ASA and plavix -Consulted neuro -Stroke rule out in setting of previous stroke, L-sided deficits -MRI combo, carotid dopplers -Gave 324mg aspirin chew. Continue statin -Continue plavix -Hgb a1c and fasting lipid in AM Anxiety: -Recently diagnosed by PCP in Dec -Likely contributing to paresthesia -Continue Zoloft Heavy alcohol use, possible withdrawal: -Patient endorses 2-3 glasses of wine per day -Unsure of withdrawal symptoms; denies DTs -Bilateral tremors noted -Given IV thiamine in ER, start PO dose tomorrow -Etoh withdrawal protocol ordered -Monitor BP HTN: -Slightly elevated -Likely 2/2 anxiety, etoh withdrawal -Continue home amlodipine,atenolol, lisinopril -Monitor and add additional agents if needed DVT Ppx: Lovenox Code status: FULL PCP: Gail Dispo: client services account manager consult for discharge per stroke order set Patient seen in collaboration with Dr. Cameron. Please see addendum. ADDENDUM: I have seen and examined the pt above and agree with the assessment and plan as above except I did not appreciate a murmur on exam. Also there were no neuro deficits including no sensory loss on exam and neuro exam was normal. The patient has severe anxiety reinforced from family and she was started on sertraline 4 weeks ago. She was just given bad news that she will need a full mouth extraction soon and is upset about that. She is an alcoholic but has never entered a rehab program and continues to drink. She drank at least a bottle of wine with friends last night and is slightly tremulous and appears to have some withdrawal with elevated HR and tremulousness. I saw her post-Ativan and she was comfortable and lucid. She states the numbness only lasted seconds in the morning right when she woke up and she herself thought it was from sleeping on it wrong. It went away but then came back when on the gurney transferring into the ambulance at which point she was already in a stressful situation and had had time to continue to panic. Suspect this numbness and HTN is somatic manifestation of anxiety along with some alcohol withdrawal also going on. Appreciate Neuro request for repeat workup. MRI and repeat carotid ultrasound ordered. Cont DAPT with which she reports compliance. Rakesh, DO Level of Care Telemetry Resuscitation Status FULL RESUSCITATION VTE Prophylaxis VTE Risk Assessment Done? Y/N: Yes Risk Level: Moderate Given or contraindicated: Enoxaparin (Lovenox)SQ
[2017-02-16 18:40] VITALS: BP 164/83; PULSE 80; TEMP 37.1; O2SAT 93; Ht 160 cm; Wt 55.9 kg
[2017-02-16] MEDS ORDERED: ASPIRIN 81 MG CHEW PO ONE (19:00)
[2017-02-16] MEDS ORDERED: LORAZEPAM 2 MG/ML 1 ML VIAL IV SCH (19:00)
[2017-02-16] MEDS ORDERED: GABAPENTIN 1200MG LOADING DOSE PO ONE (20:00)
[2017-02-16] MEDS: ENOXAPARIN 40 MG/0.4 ML SYR SC SCH (20:10)
[2017-02-16] MEDS ORDERED: PNEUMOCOCCAL POLYSACCHARIDES 25 MCG/0.5 ML VIAL/SYR IM. ONE (21:15)
[2017-02-16] MEDS ORDERED: PNEUMOCOCCAL ADMINISTRATION CHARGE ONE (21:15)
[2017-02-16] MEDS ORDERED: GADAVIST IV PRN (22:45)
[2017-02-16 23:43] VITALS: BP 122/75; PULSE 66; TEMP 36.9; O2SAT 93
[2017-02-17] VITALS (7 sets, daily range): BP systolic 108–126; BP diastolic 57–71; PULSE 57–82; TEMP 36.5–37.4; O2SAT 92–96
--- NOTE | 2017-02-17 00:09 | DIAGNOSTIC IMAGING REPORT ---
BRAIN COMBO HISTORY: 66 years-old Female Stroke rule out acute strokelike symptoms. Remote infarctions of the right cerebral hemisphere. COMPARISON: CT head of same day, brain MR 10/20/2016 TECHNIQUE: Multiplanar multisequence MRI the brain was obtained both with and without the use of 6 mL Gadavist FINDINGS: Linear area of restricted diffusion within the right parietal lobe image 14 series 4 measuring 2.2 x 0.8 cm demonstrates decreased signal on ADC map, image 14 series 400 with intermediate T2 signal suggesting acute or subacute infarction. This is centered within an area of remote infarction with surrounding T2 shine through, encephalomalacia and surrounding laminar necrosis. Mild background atrophy with chronic microvascular ischemic changes. No midline shift, hydrocephalus or abnormal extra-axial collections. Midline structures including the corpus callosum, brainstem, optic chiasm and pineal gland are unremarkable in the sagittal T1 sequence. No cerebellar tonsillar herniation. Mild enhancement within the region of laminar necrosis is compatible with subacute infarction. The degree of enhancement has decreased from prior study. Major flow voids at the level the skull base are within normal limits. Mild mucosal thickening of the nasal sinuses. Mastoid air cells are clear. Scalp and soft tissues are unremarkable. IMPRESSION: 1. Linear area of restricted diffusion within the right parietal lobe as above, 2.2 x 0.8 cm centered within the area of remote infarction with surrounding T2 shine through, enhancing laminar necrosis and encephalomalacia suggests small acute or subacute infarction. No associated significant mass effect or midline shift. 2. Atrophy with chronic microvascular ischemic changes. 3. Mild paranasal sinus disease. The above report was generated using voice recognition software. It may contain grammatical, syntax or spelling errors. Electronically signed by: Jin Valentino M.D. 02/17/2017 12:08 AM Dictated Date/Time: 02/16/2017 11:53 PM
[2017-02-17] MEDS: GABAPENTIN 600MG Q6H DOSE PO SCH ×2 (05:46→11:34)
--- NOTE | 2017-02-17 06:29 | Clinical Documentation Query ---
CLINICAL DOCUMENTATION QUERY In your clinical opinion is this patient being managed for: ( ) CVA evidenced by CT findings and presenting neurological symptoms treated with ASA, Plavix, & Neurology consult. ( ) Not Agree ( ) Other explanation of clinical findings (Please Explain) ( ) Unable to determine (Please Define) ( ) Need to Discuss The medical record reflects the following clinical findings, treatment, and risk factors. Clinical Indicators: left arm numbness, Head CT showing a linear area of restricted diffusion within the right parietal lobe as above, 2.2 x 0.8 cm centered within the area of remote infarction with surrounding T2 shine through, enhancing laminar necrosis and encephalomalacia suggests small acute or subacute infarction. Treatment: ASA, Plavix, daily NIHSS evaluations, Head CT, Brain MRI, Neurology consult Risk Factors: Age, HTN, Hx of Right MCA stroke Please clarify and document your clinical opinion in the progress notes and discharge summary. Terms such as "probable", "suspected", "likely", "questionable", "possible", or "still to be ruled out" are acceptable. IF IN AGREEMENT, YOU MUST DOCUMENT ABOVE DIAGNOSTIC STATEMENT IN DAILY PROGRESS NOTES AND DISCHARGE SUMMARY. This document is not part of the patient's record. Thank You, Ruben Pickett RN [phone]
[2017-02-17 06:40] LABS: ESTIMATED AVERAGE GLUCOSE 114 mg/dl; HA1C FLAG Normal (Normal)
[2017-02-17 06:46] LABS: BUN/CREATININE RATIO 29.3 (10-20); CALCIUM 8.8 mg/dl (8.5-10.1); CREATININE 0.63 mg/dl (0.60-1.20); POTASSIUM 4.4 mmol/L (3.5-5.1)
--- NOTE | 2017-02-17 07:13 | DIAGNOSTIC IMAGING REPORT ---
ULTRASOUND OF THE CAROTID ARTERIES CLINICAL HISTORY: Strokelike symptoms. COMPARISON STUDY: Carotid artery ultrasound dated 10/20/2016. TECHNIQUE: Real-time, grayscale, and color Doppler sonography of the carotid arteries is performed. Images are reviewed in the transverse and longitudinal planes. FINDINGS: Blood pressure in the right arm measures 134/71 and blood pressure in the left arm measures 114/61. The carotid arteries are patent bilaterally and demonstrate antegrade flow. There is no significant atherosclerotic plaque identified. Normal doppler arterial waveforms are seen throughout. Velocity measurements are listed below. Common carotid peak systolic velocity (cm/sec): RIGHT: 86 LEFT: 70 ICA proximal peak systolic velocity (cm/sec): RIGHT: 64 LEFT: 51 ICA mid peak systolic velocity (cm/sec): RIGHT: 72 LEFT: 61 ICA distal peak systolic velocity (cm/sec): RIGHT: 90 LEFT: 61 ICA/CC peak systolic ratio: RIGHT: 1.0 LEFT: 0.9 Antegrade flow was shown in the vertebral arteries. The external carotid arteries are patent. IMPRESSION: 1. There is no sonographic evidence of hemodynamically significant stenosis in the right or left carotid arterial system. 2. Antegrade flow is shown in the vertebral arteries. Electronically signed by: Karlos Bird M.D. 02/17/2017 7:11 AM Dictated Date/Time: 02/17/2017 7:10 AM
[2017-02-17 07:36] LABS: BASO % 0.2 %; BASO ABS # 0.02 K/uL (0-0.2); COMPLETE YES; EOS % 0.1 %; HEMATOCRIT 36.8 % (37-47); IG% 0.1 %; LYMPH % 15.3 %; LYMPH ABS # 1.44 K/uL (1.2-3.4); MEAN CELL VOLUME 88.7 fL (80-100); MEAN CORPUSCULAR HEMOGLOBIN 28.4 pg (25-34); MEAN CORPUSCULAR HGB CONC 32.1 g/dl (32-36); MEAN PLATELET VOLUME 8.8 fL (7.4-10.4); MONO % 6.8 %; NEUT % 77.5 %; PLATELET COUNT 384 K/uL (130-400); RED BLOOD COUNT 4.15 M/uL (4.2-5.4); WHITE BLOOD COUNT 9.42 K/uL (4.8-10.8)
[2017-02-17] MEDS: LISINOPRIL 40 MG TAB PO SCH (08:24)
[2017-02-17] MEDS: POTASSIUM CHLORIDE 20 MEQ TABCR PO SCH (08:24)
[2017-02-17] MEDS: SERTRALINE HCL 50 MG TAB PO SCH (08:24)
[2017-02-17] MEDS: ATORVASTATIN 40 MG TAB PO SCH (08:24)
[2017-02-17] MEDS: AMLODIPINE BESYLATE 5 MG TAB PO SCH (08:25)
[2017-02-17] MEDS: CLOPIDOGREL BISULFATE 75 MG TAB PO SCH (08:25)
[2017-02-17] MEDS: THIAMINE HCL 100 MG TAB PO SCH (08:25)
[2017-02-17] MEDS: ASPIRIN 81 MG ECTAB PO SCH (11:34)
[2017-02-17] MEDS ORDERED: SODIUM CHLORIDE 0.9% 1000ML 1,000 ML IV SCH (14:45)
--- NOTE | 2017-02-17 14:49 | Neurology Consultation ---
Neurology Consultation Date of Consultation: Feb 17, 2017. Attending Physician: Rosalinda Wright M.D. Primary Care Physician: Bell Reynolds D.O. Reason for Consultation: stroke r/o History of Present Illness Source: patient, family Alexandria is a 66yo F with a PMH of HTN, anxiety and h/o R MCA stroke in 09/2016 who presents with L arm tingling starting in the am after waking from a morning nap her L hand was tingling. She thought she has laid on it. Also noticed that her L eye was twitching. Her SBP when she checked it was in the 190s. She was anxious since her previous stroke was during a high blood pressure. EMS was called and in the ambulance her entire L arm was tingling and clumsy. Denies any facial droop, difficulty with speech, weakness in extremities, difficulty walking. Denies any headache, CP, SOB. Her previous stroke in September presented with L facial droop and slurred speech and found to have a subacute R MCA infarct. She was discharged on aspirin and plavix and completed rehab at [facility]. She recovered completely accept for her cognitive slowing. Has difficulty finding words sometimes or doing any calculations with numbers. In the ED her L eye twitch and L arm tingling resolved and she had bilateral tremors in arms. she also states on the way over in the ambulance she had broke out in a sweat. She has a history of heavy alcohol use and smoking. She is attempting to decreased EtOH consumption and has stopped smoking. her sister is in the room and states she just started taking care of herself and thinks she had high blood pressure for years because there is a family history of hypertension but no strokes accept a grandmother in her 80s. Past Medical/Surgical History Medical Problems: (1) Acute CVA (cerebrovascular accident) Status: Acute (2) Alcohol use Status: Acute (3) HTN (hypertension) Status: Chronic (4) Hypertensive emergency Status: Acute (5) Hyponatremia Status: Acute (6) TIA (transient ischemic attack) Status: Acute (7) Tremor Status: Acute Family History Grandmother: congestive heart failure Social History Smoking Status: Former smoker Alcohol Use: heavy (See HPI ) Drug Use: none Marital Status: Housing Status: lives alone Occupation Status: employed Allergies Coded Allergies: Aspirin (Verified Adverse Reaction, Unknown, adverse reaction as a child with nosebleeds; none since then, 02/16/17) Current Inpatient Medications Current Inpatient Medications Medications (Trade) Dose Ordered Sig/Alexandra Route Start Time Stop Time Status Last Admin Dose Admin Thiamine HCl (Vitamin B-1 Tab) 100 mg DAILY PO 02/17/17 09:00 03/19/17 08:59 02/17/17 08:25 100 MG Lorazepam (Ativan Tab) PRN Dosing -Active Protocol UD PRN PO 02/16/17 17:15 03/18/17 17:14 Miscellaneous Information (Pharmacist Discharge Med Rec Consult) 1 ea UD PRN N/A 02/16/17 17:15 03/18/17 17:14 Enoxaparin Sodium (Lovenox Inj) 40 mg HS SC 02/16/17 21:00 03/18/17 20:59 Acetaminophen (Tylenol Tab) 650 mg Q4H PRN PO 02/16/17 17:15 03/18/17 17:14 Ondansetron HCl (Zofran Inj) 4 mg Q6H PRN IV 02/16/17 17:15 03/18/17 17:14 Amlodipine Besylate (Norvasc Tab) 5 mg DAILY PO 02/17/17 09:00 03/19/17 08:59 02/17/17 08:25 5 MG Aspirin (Ecotrin Tab) 81 mg QAM PO 02/17/17 09:00 03/19/17 08:59 02/17/17 11:34 81 MG Atenolol (Tenormin Tab) 12.5 mg QPM PO 02/16/17 21:00 03/18/17 20:59 02/16/17 20:09 12.5 MG Atenolol (Tenormin Tab) 25 mg QAM PO 02/17/17 09:00 03/19/17 08:59 02/17/17 08:26 25 MG Atorvastatin Calcium (Lipitor Tab) 80 mg DAILY PO 02/17/17 09:00 03/19/17 08:59 02/17/17 08:24 80 MG Clopidogrel Bisulfate (plAVix TAB) 75 mg QAM PO 02/17/17 09:00 03/19/17 08:59 02/17/17 08:25 75 MG Lisinopril (Zestril Tab) 40 mg DAILY PO 02/17/17 09:00 03/19/17 08:59 02/17/17 08:24 40 MG Sertraline HCl (Zoloft Tab) 25 mg DAILY PO 02/17/17 09:00 03/19/17 08:59 02/17/17 08:24 25 MG Potassium Chloride (Klor-Con Tab) 20 meq QAM PO 02/17/17 09:00 03/19/17 08:59 02/17/17 08:24 20 MEQ Gabapentin (Neurontin Tab) 600 mg Q8H PO 02/17/17 22:00 02/18/17 14:01 Gabapentin (Neurontin Tab) 600 mg Q12H PO 02/19/17 00:00 02/19/17 12:01 Gabapentin (Neurontin Tab) 600 mg Q24H PO 02/20/17 12:00 02/20/17 12:01 Gadobutrol (Gadavist) 6 mmol UD PRN IV 02/16/17 22:45 02/20/17 22:44 Physical Exam Vital Signs (Past 24 Hrs): Date Time Temp Pulse Resp B/P (MAP) Pulse Ox O2 Delivery O2 Flow Rate FiO2 02/17/17 11:10 Room Air 02/17/17 07:34 36.5 82 18 126/71 (89) 96 Room Air 02/17/17 07:30 Room Air 02/17/17 04:15 Room Air 02/17/17 03:51 37.4 66 18 120/70 (87) 92 Room Air 02/17/17 00:18 Room Air 02/16/17 23:43 36.9 66 20 122/75 (91) 93 Room Air 02/16/17 20:20 Room Air 02/16/17 18:40 37.1 80 16 164/83 93 Room Air 02/16/17 18:29 88 18 151/77 93 02/16/17 18:06 88 18 151/77 93 02/16/17 16:00 92 20 150/75 95 Nasal Cannula 2.0 Physical Exam: Constitutional: appearance nourished, thin. unkept Ears, Nose, Mouth and Throat: mucous membranes moist, no injection and skin normal, eyes normal Cardiovascular: normal S-1 and S-2 and regular rate and rhythm Respiratory: clear to auscultation (CTA) and no rales, rhonchi or wheeze Musculoskeletal: no peripheral edema and good distal pulses Skin: no stigmata of neurocutaneous disease noted and normal and intact Eyes: extraocular muscles intact (EOMI) and pupils equal, round and reactive to light (PERRL) NEUROLOGIC EXAMINATION: Mental status: Alert and interactive Oriented to full date and location Oriented to person Speech fluent with no evidence of aphasia, can say no ifs ands or but, close eyes stick out tongue point to ceiling with left hand Cranial Nerves smile eye brow raise symmetric, tongue midline Reflexes: Deep tendon reflexes were symmetrical and graded 2/5. Plantar responses were flexor. Sensory: intact to cool touch and vibration, GT proprioception absent Coordination: Romberg absent, finger to nose without bi pass, no reaching tremor no resting tremor Gait/Stance: Posture normal. Gait normal: with steady with steps, base, turning, heel and toe walking and tandem gait. Motor: Negative for pronator drift of out stretched arms with eyes closed. 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 5/5, hip flex 5/5 bilaterally Laboratory Results Past 24 Hours: 02/17/17 06:03 Red Blood Count 4.15, Mean Corpuscular Volume 88.7, Mean Corpuscular Hemoglobin 28.4, Mean Corpuscular Hemoglobin Concent 32.1, Mean Platelet Volume 8.8, Neutrophils (%) (Auto) 77.5, Lymphocytes (%) (Auto) 15.3, Monocytes (%) (Auto) 6.8, Eosinophils (%) (Auto) 0.1, Basophils (%) (Auto) 0.2, Neutrophils # (Auto) 7.30, Lymphocytes # (Auto) 1.44, Monocytes # (Auto) 0.64, Eosinophils # (Auto) 0.01, Basophils # (Auto) 0.02 02/17/17 06:03 Test 02/16/17 20:10 02/17/17 06:03 Urine Osmolality 685 mOms/kg (500-800) White Blood Count 9.42 K/uL (4.8-10.8) Red Blood Count 4.15 M/uL (4.2-5.4) Hemoglobin 11.8 g/dL (12.0-16.0) Hematocrit 36.8 % (37-47) Mean Corpuscular Volume 88.7 fL (80-100) Mean Corpuscular Hemoglobin 28.4 pg (25-34) Mean Corpuscular Hemoglobin Concent 32.1 g/dl (32-36) Platelet Count 384 K/uL (130-400) Mean Platelet Volume 8.8 fL (7.4-10.4) Neutrophils (%) (Auto) 77.5 % Lymphocytes (%) (Auto) 15.3 % Monocytes (%) (Auto) 6.8 % Eosinophils (%) (Auto) 0.1 % Basophils (%) (Auto) 0.2 % Neutrophils # (Auto) 7.30 K/uL (1.4-6.5) Lymphocytes # (Auto) 1.44 K/uL (1.2-3.4) Monocytes # (Auto) 0.64 K/uL (0.11-0.59) Eosinophils # (Auto) 0.01 K/uL (0-0.5) Basophils # (Auto) 0.02 K/uL (0-0.2) RDW Standard Deviation 44.2 fL (36.4-46.3) RDW Coefficient of Variation 13.5 % (11.5-14.5) Immature Granulocyte % (Auto) 0.1 % Immature Granulocyte # (Auto) 0.01 K/uL (0.00-0.02) Anion Gap 9.0 mmol/L (3-11) Est Creatinine Clear Calc Drug Dose 71.7 ml/min Estimated GFR () 107.6 Estimated GFR (Non- 92.8 BUN/Creatinine Ratio 29.3 (10-20) Calcium Level 8.8 mg/dl (8.5-10.1) Triglycerides Level 116 mg/dl (0-150) Cholesterol Level 174 mg/dl (0-200) HDL Cholesterol 85 mg/dl LDL Cholesterol, Calculated 66 mg/dl VLDL Cholesterol, Calculated 23 mg/dl Cholesterol/HDL Ratio 2.[address] head- Old right hemispheric infarcts. No acute intracranial findings. carotid doppler- There is no sonographic evidence of hemodynamically significant stenosis in the right or left carotid arterial system. Antegrade flow is shown in the vertebral arteries. MRI brain with and without- . Linear area of restricted diffusion within the right parietal lobe as above, 2.2 x 0.8 cm centered within the area of remote infarction with surrounding T2 shine through, enhancing laminar necrosis and encephalomalacia suggests small acute or subacute infarction. No associated significant mass effect or midline shift. Atrophy with chronic microvascular ischemic changes. Mild paranasal sinus disease. TTE- The left ventricular wall motion is normal. * The LV Ejection Fraction = 60-65%. * There is no LV mural thrombus. * There is no significant valvular heart disease. * The interatrial septum is intact with no evidence for an atrial septal defect as demonstrated with a high quality agitated saline contrast study. Impression 66 year old female with R parietal lobe infarct in a chronic area of infarct Plan 1. permissive hypertension and then optimize blood pressure and DL 2. EtOH cessation needed 3. PT/OT speech for any discharge does not appear to have a need 4. currently taking plavix 75 mg and aspirin 81 mg daily - will need to verify that she was compliant with her medications 5. sodium is 129 and was 139 at last admission will need to observe 6. MRI with new stroke within the old stroke area 7. ECHO pending read 8. EEG- no seizure activity 9. continue protocol for EtOH withdrawal 10. TTE no PFO 11. CTA head and neck - evaluation of vascular I have seen and discussed above patient with Dr Radha Bird, neurology. PT seen and examined. recent R mca infarct with occlusion of most vessels of R mca. On asa plavix, recent ziopatch, results p. New L arm weakness and numbness query R periorbital muscle twitch. MRi new R parietal infarct, cortical. Exam mild dec L NLF, no vis extinction. There is right/left confusion, mild weakness LUE with double simultaneous extinction. Gait, pt mildly impulsive. Imp extension of R mca infarct. REC CTA neck and head r/o complete vs partial occlusion R mca, consideration of short-term anticoagulant depending on imaging and pt reliability/fall risk. Allow bp to run high. NADIRA Bird MD
--- NOTE | 2017-02-17 14:52 | Progress Note ---
Medicine Progress Note Date & Time of Visit: Feb 17, 2017 at 14:21. Subjective Pt was seen and examined Lying in bed with no distress with sister at bed side pt said that she feels fine very anxious because she is worried about to have another stroke Pt said that she continue drinking alcohol daily She denies any chest pain, palpitation, dizziness, weakness, numbness and SOB Objective Last 8 Hrs Date Time Temp Pulse Resp B/P (MAP) Pulse Ox O2 Delivery O2 Flow Rate FiO2 02/17/17 11:10 Room Air 02/17/17 07:34 36.5 82 18 126/71 (89) 96 Room Air 02/17/17 07:30 Room Air Physical Exam: General- No acute distress Head- atraumatic Eyes- PERRL, EOMI ENT- oropharynx clear Neck- supple, no JVD Lungs- clear to auscultation Heart- regular rhythm Abdomen- normal bowel sounds, soft Extremities- no pretibial edema, no calf tenderness Neuro- alert, oriented x 3; PERRL, EOMI; no facial palsy, no motor or sensory deficit Skin- warm & dry Laboratory Results: Last 24 Hours Test 02/16/17 20:10 02/17/17 06:03 Urine Osmolality 685 mOms/kg White Blood Count 9.42 K/uL Red Blood Count 4.15 M/uL Hemoglobin 11.8 g/dL Hematocrit 36.8 % Mean Corpuscular Volume 88.7 fL Mean Corpuscular Hemoglobin 28.4 pg Mean Corpuscular Hemoglobin Concent 32.1 g/dl Platelet Count 384 K/uL Mean Platelet Volume 8.8 fL Neutrophils (%) (Auto) 77.5 % Lymphocytes (%) (Auto) 15.3 % Monocytes (%) (Auto) 6.8 % Eosinophils (%) (Auto) 0.1 % Basophils (%) (Auto) 0.2 % Neutrophils # (Auto) 7.30 K/uL Lymphocytes # (Auto) 1.44 K/uL Monocytes # (Auto) 0.64 K/uL Eosinophils # (Auto) 0.01 K/uL Basophils # (Auto) 0.02 K/uL RDW Standard Deviation 44.2 fL RDW Coefficient of Variation 13.5 % Immature Granulocyte % (Auto) 0.1 % Immature Granulocyte # (Auto) 0.01 K/uL Sodium Level 128 mmol/L Potassium Level 4.4 mmol/L Chloride Level 93 mmol/L Carbon Dioxide Level 26 mmol/L Anion Gap 9.0 mmol/L Blood Urea Nitrogen 19 mg/dl Creatinine 0.63 mg/dl Est Creatinine Clear Calc Drug Dose 71.7 ml/min Estimated GFR () 107.6 Estimated GFR (Non- 92.8 BUN/Creatinine Ratio 29.3 Random Glucose 104 mg/dl Calcium Level 8.8 mg/dl Triglycerides Level 116 mg/dl Cholesterol Level 174 mg/dl HDL Cholesterol 85 mg/dl LDL Cholesterol, Calculated 66 mg/dl VLDL Cholesterol, Calculated 23 mg/dl Cholesterol/HDL Ratio 2.0 Assessment & Plan Acute CVA Present with L arm numbness Hx of R MCA infarct in 10/09 CT head on admission showed old right hemispheric infarcts. No acute intracranial findings. MRI of the head showed linear area of restricted diffusion within the right parietal lobe measuring 2.2 x 0.8 cm suggesting acute or subacute infarction Carotid doppler showed no sonographic evidence of hemodynamically significant stenosis in the right or left carotid arterial system. Called radiologist to discuss MRI finding, radiologist confirmed the that is a new infarct Continue asa, statin and Plavix Neuro on board Continue PT/OT/Speech Echo pending Anxiety: Continue Zoloft Heavy alcohol abuse Drink about 2-3 glasses of wine per day No hx of DT On gabapentin as per withdraw protocol No sign s of withdraw noted Counseling on alcohol cessation Continue PO thiamine Continue Monitor HTN: BP well control Due to her acute CVA, recommnend BP to be a little higher for now On amlodipine,atenolol, lisinopril HYPONATREMIA Mostly related to chronic alcohol use and poor intake will start on NSS continue monitor BMP DVT Ppx: Lovenox Code status: FULL Dispo: Continue monitor in telemetry Consultants: Neuro Current Inpatient Medications: Current Inpatient Medications Medications (Trade) Dose Ordered Sig/Alexandra Route Start Time Stop Time Status Last Admin Dose Admin Thiamine HCl (Vitamin B-1 Tab) 100 mg DAILY PO 02/17/17 09:00 03/19/17 08:59 02/17/17 08:25 100 MG Lorazepam (Ativan Tab) PRN Dosing -Active Protocol UD PRN PO 02/16/17 17:15 03/18/17 17:14 Miscellaneous Information (Pharmacist Discharge Med Rec Consult) 1 ea UD PRN N/A 02/16/17 17:15 03/18/17 17:14 Enoxaparin Sodium (Lovenox Inj) 40 mg HS SC 02/16/17 21:00 03/18/17 20:59 Acetaminophen (Tylenol Tab) 650 mg Q4H PRN PO 02/16/17 17:15 03/18/17 17:14 Ondansetron HCl (Zofran Inj) 4 mg Q6H PRN IV 02/16/17 17:15 03/18/17 17:14 Amlodipine Besylate (Norvasc Tab) 5 mg DAILY PO 02/17/17 09:00 03/19/17 08:59 02/17/17 08:25 5 MG Aspirin (Ecotrin Tab) 81 mg QAM PO 02/17/17 09:00 03/19/17 08:59 02/17/17 11:34 81 MG Atenolol (Tenormin Tab) 12.5 mg QPM PO 02/16/17 21:00 03/18/17 20:59 02/16/17 20:09 12.5 MG Atenolol (Tenormin Tab) 25 mg QAM PO 02/17/17 09:00 03/19/17 08:59 02/17/17 08:26 25 MG Atorvastatin Calcium (Lipitor Tab) 80 mg DAILY PO 02/17/17 09:00 03/19/17 08:59 02/17/17 08:24 80 MG Clopidogrel Bisulfate (plAVix TAB) 75 mg QAM PO 02/17/17 09:00 03/19/17 08:59 02/17/17 08:25 75 MG Lisinopril (Zestril Tab) 40 mg DAILY PO 02/17/17 09:00 03/19/17 08:59 02/17/17 08:24 40 MG Sertraline HCl (Zoloft Tab) 25 mg DAILY PO 02/17/17 09:00 03/19/17 08:59 02/17/17 08:24 25 MG Potassium Chloride (Klor-Con Tab) 20 meq QAM PO 02/17/17 09:00 03/19/17 08:59 02/17/17 08:24 20 MEQ Gabapentin (Neurontin Tab) 600 mg Q8H PO 02/17/17 22:00 02/18/17 14:01 Gabapentin (Neurontin Tab) 600 mg Q12H PO 02/19/17 00:00 02/19/17 12:01 Gabapentin (Neurontin Tab) 600 mg Q24H PO 02/20/17 12:00 02/20/17 12:01 Gadobutrol (Gadavist) 6 mmol UD PRN IV 02/16/17 22:45 02/20/17 22:44
--- NOTE | 2017-02-17 16:16 | ECHOCARDIOGRAM REPORT ---
*NOTICE TO RECEIVING CONSTITUTION PARTY AGENCY This information is strictly Confidential and protected under [place] law. [place] law prohibits you from making any further disclosure of this information unless further disclosure is expressly permitted by the written consent of the person to whom it pertains or is authorized by law. A general authorization for the release of medical or other information is not sufficient for this purpose. Hospital accepts no responsibility if the information is made available to any other person, INCLUDING THE PATIENT. Interpretation Summary * Name: JOSE RAMON SIMMONS Study Date: 02/17/2017 10:29 AM BP: 126/71 mmHg * Patient Location: [id number].2E\[id number]\E208\S\1 HR: 61 * : 1950 (M/d/yyyy) Gender: Female Height: 63 in * Age: 66 yrs Ethnicity: [place] Weight: 126 lb * Ordering Physician: Rosalinda Wright * Referring Physician: Self, Referred * Performed By: Ramonita Wray [facility] * * Reason For Study: ACUTE CVA * BSA: 1.6 m2 * -- Conclusions -- * The left ventricular wall motion is normal. * The LV Ejection Fraction = 60-65%. * There is no LV mural thrombus. * There is no significant valvular heart disease. * The interatrial septum is intact with no evidence for an atrial septal defect as demonstrated with a high quality agitated saline contrast study. Procedure Details * A complete two-dimensional transthoracic echocardiogram was performed (2D, M-mode, Doppler and color flow Doppler). * A saline contrast injection was performed to assess for cardiac shunting. * The injection was performed through an intravenous line in the left arm. * The attending nurse who injected the saline contrast was ZEKE LINDER, RN. * A total of 20 cc of agitated saline was given. Left Ventricle * The left ventricle is normal in size. * There is normal left ventricular wall thickness. * Left ventricular systolic function is normal. * Ejection Fraction = 60-65%. * The left ventricular wall motion is normal. Right Ventricle * The right ventricle is normal size. * The right ventricular systolic function is normal as assessed by tricuspid annular plane systolic excursion (TAPSE) (normal >1.5 cm). Atria * The left atrial size is normal. * Right atrial size is normal. * The interatrial septum is intact with no evidence for an atrial septal defect. Mitral Valve * The mitral valve is normal. * There is no mitral valve stenosis. * Significant mitral regurgitation is absent. Tricuspid Valve * The tricuspid valve is normal. * There is no tricuspid stenosis. * Significant tricuspid regurgitation is absent. * Doppler findings do not suggest pulmonary hypertension. Aortic Valve * The aortic valve is trileaflet. * Aortic stenosis is absent. * There is no significant aortic regurgitation. Pulmonic Valve * The pulmonary valve is not well seen, but the Doppler examination is normal without significant regurgitation or stenosis. Great Vessels * The aortic root and proximal ascending aorta are normal sized. Pericardium/Pleural * There is no pericardial effusion. * There is an echodensity in the pericardial space consistent with pericardial fat. Great Vessels * Normal inferior vena cava diameter and respiratory variation suggests normal central venous pressure. * Normal inferior vena cava size and collapsability with sniff indicates a normal right atrial pressure of 3 mmHg Left Ventricular Diastolic Function * Grade I diastolic dysfunction, (abnormal relaxation pattern). MMode 2D Measurements and Calculations IVSd 1.1 cm IVSs 1.7 cm LVIDd 5.0 cm LVIDs 3.8 cm LVPWd 1.0 cm LVPWs 0.79 cm IVS/LVPW 1.0 FS 23.7 % EDV(Teich) 117.3 ml ESV(Teich) 62.0 ml EF(Teich) 47.2 % EDV(cubed) 123.8 ml ESV(cubed) 54.9 ml EF(cubed) 55.6 % % IVS thick 56.1 % % LVPW thick -24.16 % LV mass(C)d 194.6 grams LV mass(C)dI 122.4 grams/m\S\2 LV mass(C)s 158.3 grams LV mass(C)sI 99.6 grams/m\S\2 SV(Teich) 55.4 ml SI(Teich) 34.8 ml/m\S\2 SV(cubed) 68.9 ml SI(cubed) 43.3 ml/m\S\2 Ao root diam 2.7 cm Ao root area 5.9 cm\S\2 LVOT diam 2.0 cm LVOT area 3.3 cm\S\2 LVAd ap4 17.9 cm\S\2 LVLd ap4 5.8 cm EDV(MOD-sp4) 45.2 ml EDV(sp4-el) 46.8 ml LVAs ap4 12.2 cm\S\2 LVLs ap4 5.2 cm ESV(MOD-sp4) 23.2 ml ESV(sp4-el) 24.4 ml EF(MOD-sp4) 48.8 % EF(sp4-el) 47.9 % LVAd ap2 27.7 cm\S\2 LVLd ap2 7.5 cm EDV(MOD-sp2) 83.9 ml EDV(sp2-el) 86.7 ml LVAs ap2 18.7 cm\S\2 LVLs ap2 6.4 cm ESV(MOD-sp2) 46.0 ml ESV(sp2-el) 46.3 ml EF(MOD-sp2) 45.2 % EF(sp2-el) 46.7 % LVLd %diff 22.4 % EDV(MOD-bp) 69.2 ml LVLs %diff 19.1 % ESV(MOD-bp) 35.0 ml EF(MOD-bp) 49.5 % SV(MOD-sp4) 22.1 ml SI(MOD-sp4) 13.9 ml/m\S\2 SV(MOD-sp2) 37.9 ml SI(MOD-sp2) 23.9 ml/m\S\2 SV(MOD-bp) 34.3 ml SI(MOD-bp) 21.6 ml/m\S\2 SV(sp4-el) 22.4 ml SI(sp4-el) 14.1 ml/m\S\2 SV(sp2-el) 40.5 ml SI(sp2-el) 25.5 ml/m\S\2 Doppler Measurements and Calculations MV E max mary ellen 63.1 cm/sec MV A max mary ellen 107.3 cm/sec MV E/A 0.59 MV P1/2t max mary ellen 71.6 cm/sec MV P1/2t 73.2 msec MVA(P1/2t) 3.0 cm\S\2 MV dec slope 286.7 cm/sec\S\2 MV dec time 0.21 sec Ao V2 max 108.7 cm/sec Ao max PG 4.7 mmHg Ao max PG (full) 0.35 mmHg MAKENNA(V,A) 3.1 cm\S\2 MAKENNA(V,D) 3.1 cm\S\2 LV V1 max PG 4.4 mmHg LV V1 max 104.6 cm/sec PA V2 max 100.1 cm/sec PA max PG 4.0 mmHg TR max mary ellen 255.4 cm/sec
[2017-02-17] MEDS ORDERED: OPTIRAY 320 IV PRN (16:45)
--- NOTE | 2017-02-17 17:11 | ELECTROENCEPHALOGRAPH REPORT ---
FOR: Radha Engel PA-C CLINICAL DIAGNOSIS: Possible seizures. ELECTROENCEPHALOGRAM DIAGNOSIS: Essentially normal during wakefulness. DESCRIPTION OF TRACING: This EEG was done as a bedside recording with simultaneous video analysis of patient movement and behavior. Photic stimulation was in the stimulus parameter utilized. Hyperventilation was not performed. Drowsiness and light sleep were not recorded. Under these conditions, there is evidence for what appears to be a normal background rhythm in the alpha range of up to 9-10 Hz of maximum frequency and of up to 20-30 microvolts of maximum amplitude. This is maximum posterior head regions bilaterally symmetrical. Polymorphic mid to upper frequency theta activity of modest voltage is seen over all head regions without clear focal or regional predominance. Anterior head region maximum bilaterally symmetrical low voltage fast activity in the beta range is present. Photic stimulation with some modest driving response without a photoparoxysmal or photomyogenic component. At no time during the waking tracing is there unequivocal evidence for potentially epileptogenic activity in the form of polyspike or spike wave bursts, focal sharp waves or focal spikes. INTERPRETATION: This EEG is essentially normal during wakefulness without evidence for focal or generalized encephalopathy and without evidence for potentially epileptogenic activity but the absence of the latter does not exclude the diagnosis of seizure disorder and clinical correlation is required.
--- NOTE | 2017-02-17 20:01 | DIAGNOSTIC IMAGING REPORT ---
CT NECK ANGIO WITH CONTRAST CLINICAL HISTORY: STROKE COMPARISON STUDY: Ultrasound the carotid arteries dated 02/16/2017 TECHNIQUE: CT angiography was performed from the aortic arch to the skull base. MIP imaging was performed. The patient was scanned in a dynamic helical fashion during intravenous administration of 115 cc of Optiray 320. A dose lowering technique was utilized adhering to the principles of ALARA. CT DOSE: Technique: CT angiogram of the carotid and vertebral arteries was obtained using intravenous contrast and 3-D reconstruction. NASCET criteria was utilized. MIP imaging was performed. Findings: The right carotid revealed no evidence of aneurysm and no evidence of dissection. There is no evidence of hemodynamic significant stenosis. There are moderate atheromatous changes at the bifurcation with a 15% diameter narrowing. The left carotid revealed no evidence of hemodynamic significant stenosis. There is no evidence of aneurysm. There is no evidence of dissection. There is a 70% diameter stenosis of the left vertebral origin. There is no dissection. IMPRESSION: 1. No evidence of hemodynamically significant carotid stenosis 2. 70% diameter stenosis of the left vertebral origin 3. No evidence of dissection Electronically signed by: Sylvester Yang M.D. 02/17/2017 7:59 PM Dictated Date/Time: 02/17/2017 7:55 PM
--- NOTE | 2017-02-17 20:05 | DIAGNOSTIC IMAGING REPORT ---
CT HEAD ANGIO WITH CONTRAST CLINICAL HISTORY: STROKE TECHNIQUE: CT angiography of the head was performed in a dynamic helical fashion during intravenous administration of 115 cc of Optiray 320. A dose lowering technique was utilized adhering to the principles of ALARA. MIP imaging was performed CT DOSE: 461.89 mGy.cm COMPARISON STUDY: Noncontrast head CT dated 02/16/2017, MR angiography of the brain dated 10/20/2016 FINDINGS: There are no lesion suspicious for aneurysm. The dural venous sinuses appear patent. There are right hemispheric hypodensities, consistent with the patient's known MCA territory infarct. There is mild attenuation of the distal right MCA artery branches. There is recannulization of the previously described right middle cerebral artery occlusion IMPRESSION: 1. Interval recannulization of the previous described right middle cerebral artery occlusion. There is mild attenuation of the distal right MCA artery branches. 2. Right hemispheric hypodensities consistent with the patient's known MCA territory infarct 3. No evidence of aneurysm Electronically signed by: Sylvester Yang M.D. 02/17/2017 8:04 PM Dictated Date/Time: 02/17/2017 7:59 PM
[2017-02-17] MEDS: ENOXAPARIN 40 MG/0.4 ML SYR SC SCH (21:09)
[2017-02-17] MEDS: GABAPENTIN 600MG Q8H DOSE PO SCH (21:09)
[2017-02-18] VITALS (7 sets, daily range): BP systolic 105–130; BP diastolic 61–76; PULSE 58–63; TEMP 36.7–36.9; O2SAT 94–99
[2017-02-18 06:10] LABS: BASO % 0.3 %; BASO ABS # 0.02 K/uL (0-0.2); COMPLETE YES; HEMATOCRIT 32.4 % (37-47); IG% 0.2 %; LYMPH % 26.6 %; LYMPH ABS # 1.69 K/uL (1.2-3.4); MEAN CELL VOLUME 88.3 fL (80-100); MEAN CORPUSCULAR HEMOGLOBIN 30.2 pg (25-34); MEAN CORPUSCULAR HGB CONC 34.3 g/dl (32-36); MEAN PLATELET VOLUME 8.6 fL (7.4-10.4); MONO % 8.5 %; NEUT % 64.4 %; PLATELET COUNT 329 K/uL (130-400); RED BLOOD COUNT 3.67 M/uL (4.2-5.4); WHITE BLOOD COUNT 6.36 K/uL (4.8-10.8)
[2017-02-18] MEDS: GABAPENTIN 600MG Q8H DOSE PO SCH ×2 (06:34→14:00)
[2017-02-18] MEDS: ONDANSETRON INJ 2 MG/ML 2 ML VIAL IV PRN (06:37)
[2017-02-18 06:42] LABS: BUN/CREATININE RATIO 32.5 (10-20); CALCIUM 8.1 mg/dl (8.5-10.1); CREATININE 0.48 mg/dl (0.60-1.20); POTASSIUM 4.1 mmol/L (3.5-5.1)
[2017-02-18] MEDS: LISINOPRIL 40 MG TAB PO SCH (09:34)
[2017-02-18] MEDS: CLOPIDOGREL BISULFATE 75 MG TAB PO SCH (09:34)
[2017-02-18] MEDS: SERTRALINE HCL 50 MG TAB PO SCH (09:34)
[2017-02-18] MEDS: ASPIRIN 81 MG ECTAB PO SCH (09:34)
[2017-02-18] MEDS: AMLODIPINE BESYLATE 5 MG TAB PO SCH (09:34)
[2017-02-18] MEDS: ATORVASTATIN 40 MG TAB PO SCH (09:34)
[2017-02-18] MEDS: THIAMINE HCL 100 MG TAB PO SCH (09:34)
[2017-02-18] MEDS: POTASSIUM CHLORIDE 20 MEQ TABCR PO SCH (09:35)
--- NOTE | 2017-02-18 13:35 | Neurology Progress Notes ---
Neurology Progress Note Date of Service Feb 18, 2017. Giorgio Ibrahim is a 66yo F with a PMH of HTN, anxiety and h/o R MCA stroke in 09/2016 who presents with L arm tingling starting in the am after waking from a morning nap her L hand was tingling. She thought she has laid on it. Also noticed that her L eye was twitching. Her SBP when she checked it was in the 190s. She was anxious since her previous stroke was during a high blood pressure. EMS was called and in the ambulance her entire L arm was tingling and clumsy. Denies any facial droop, difficulty with speech, weakness in extremities, difficulty walking. Denies any headache, CP, SOB. Her previous stroke in September presented with L facial droop and slurred speech and found to have a subacute R MCA infarct. She was discharged on aspirin and plavix and completed rehab at [facility]. She recovered completely accept for her cognitive slowing. Has difficulty finding words sometimes or doing any calculations with numbers. In the ED her L eye twitch and L arm tingling resolved and she had bilateral tremors in arms. she also states on the way over in the ambulance she had broke out in a sweat. She has a history of heavy alcohol use and smoking. She is attempting to decreased EtOH consumption and has stopped smoking. her sister is in the room and states she just started taking care of herself and thinks she had high blood pressure for years because there is a family history of hypertension but no strokes accept a grandmother in her 80s. Today she states she is doing good. reading the paper when entering the room. denies CP, SOB, abdominal pain, weakness, numbness tingling. states OT working with her to strengthen her L arm. Objective Date Time Temp Pulse Resp B/P (MAP) Pulse Ox O2 Delivery O2 Flow Rate FiO2 02/18/17 11:36 36.8 63 18 112/63 (79) 94 Room Air 02/18/17 09:20 62 02/18/17 07:56 36.8 58 58 130/76 (94) 96 Room Air 02/18/17 04:12 36.8 61 20 105/61 (76) 96 Room Air 02/18/17 04:00 Room Air 02/17/17 23:59 Room Air 02/17/17 23:50 36.9 57 17 109/62 (78) 92 02/17/17 20:00 94 Room Air 02/17/17 19:51 37.0 61 18 108/57 (74) 95 Room Air 02/17/17 16:38 37.4 63 16 119/59 (79) 94 02/17/17 16:00 94 Room Air 02/17/17 14:49 Room Air Last 24 Hours Test 02/18/17 05:38 White Blood Count 6.36 K/uL Red Blood Count 3.67 M/uL Hemoglobin 11.1 g/dL Hematocrit 32.4 % Mean Corpuscular Volume 88.3 fL Mean Corpuscular Hemoglobin 30.2 pg Mean Corpuscular Hemoglobin Concent 34.3 g/dl Platelet Count 329 K/uL Mean Platelet Volume 8.6 fL Neutrophils (%) (Auto) 64.4 % Lymphocytes (%) (Auto) 26.6 % Monocytes (%) (Auto) 8.5 % Eosinophils (%) (Auto) 0.0 % Basophils (%) (Auto) 0.3 % Neutrophils # (Auto) 4.10 K/uL Lymphocytes # (Auto) 1.69 K/uL Monocytes # (Auto) 0.54 K/uL Eosinophils # (Auto) 0.00 K/uL Basophils # (Auto) 0.02 K/uL RDW Standard Deviation 43.2 fL RDW Coefficient of Variation 13.3 % Immature Granulocyte % (Auto) 0.2 % Immature Granulocyte # (Auto) 0.01 K/uL Sodium Level 128 mmol/L Potassium Level 4.1 mmol/L Chloride Level 95 mmol/L Carbon Dioxide Level 25 mmol/L Anion Gap 8.0 mmol/L Blood Urea Nitrogen 16 mg/dl Creatinine 0.48 mg/dl Est Creatinine Clear Calc Drug Dose 94.0 ml/min Estimated GFR () 117.6 Estimated GFR (Non- 101.5 BUN/Creatinine Ratio 32.5 Random Glucose 94 mg/dl Calcium Level 8.1 mg/dl Imaging: CTA head- . Interval recannulization of the previous described right middle cerebral artery occlusion. There is mild attenuation of the distal right MCA artery branches. Right hemispheric hypodensities consistent with the patient's known MCA territory infarct No evidence of aneurysm CTA neck- No evidence of hemodynamically significant carotid stenosis 70% diameter stenosis of the left vertebral origin No evidence of dissection Exam: Physical Exam: Constitutional: appearance nourished, healthy and unkempt Ears, Nose, Mouth and Throat: mucous membranes moist, no injection and skin normal, eyes normal Cardiovascular: normal S-1 and S-2 and regular rate and rhythm Respiratory: clear to auscultation (CTA) and no rales, rhonchi or wheeze Musculoskeletal: no peripheral edema and good distal pulses Skin: no stigmata of neurocutaneous disease noted and normal and intact Eyes: extraocular muscles intact (EOMI) and pupils equal, round and reactive to light (PERRL) NEUROLOGIC EXAMINATION: Mental status: Alert and interactive Oriented to full date and location Oriented to person Speech fluent with no evidence of aphasia Cranial Nerves smile eye brow raise symmetric, tongue midline Reflexes: Deep tendon reflexes were symmetrical and graded 2/5. Sensory: intact to cool touch and vibration, GT proprioception absent Coordination: Romberg absent Gait/Stance: Posture normal. Gait normal: with steady with steps, base, turning, tandem gait. Motor: Negative for pronator drift of out stretched arms with eyes closed. 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 Current Inpatient Medications Medications (Trade) Dose Ordered Sig/Alexandra Route Start Time Stop Time Status Last Admin Dose Admin Thiamine HCl (Vitamin B-1 Tab) 100 mg DAILY PO 02/17/17 09:00 03/19/17 08:59 02/18/17 09:34 100 MG Lorazepam (Ativan Tab) PRN Dosing -Active Protocol UD PRN PO 02/16/17 17:15 03/18/17 17:14 Miscellaneous Information (Pharmacist Discharge Med Rec Consult) 1 ea UD PRN N/A 02/16/17 17:15 03/18/17 17:14 Enoxaparin Sodium (Lovenox Inj) 40 mg HS SC 02/16/17 21:00 03/18/17 20:59 02/17/17 21:09 40 MG Acetaminophen (Tylenol Tab) 650 mg Q4H PRN PO 02/16/17 17:15 03/18/17 17:14 Ondansetron HCl (Zofran Inj) 4 mg Q6H PRN IV 02/16/17 17:15 03/18/17 17:14 02/18/17 06:37 4 MG Amlodipine Besylate (Norvasc Tab) 5 mg DAILY PO 02/17/17 09:00 11/25/17 08:59 02/18/17 09:34 5 MG Aspirin (Ecotrin Tab) 81 mg QAM PO 02/17/17 09:00 03/19/17 08:59 02/18/17 09:34 81 MG Atenolol (Tenormin Tab) 12.5 mg QPM PO 02/16/17 21:00 03/18/17 20:59 02/17/17 21:10 12.5 MG Atenolol (Tenormin Tab) 25 mg QAM PO 02/17/17 09:00 03/19/17 08:59 02/18/17 09:35 25 MG Atorvastatin Calcium (Lipitor Tab) 80 mg DAILY PO 02/17/17 09:00 03/19/17 08:59 02/18/17 09:34 80 MG Clopidogrel Bisulfate (plAVix TAB) 75 mg QAM PO 02/17/17 09:00 03/19/17 08:59 02/18/17 09:34 75 MG Lisinopril (Zestril Tab) 40 mg DAILY PO 02/17/17 09:00 03/19/17 08:59 Future Hold 02/18/17 09:34 40 MG Sertraline HCl (Zoloft Tab) 25 mg DAILY PO 02/17/17 09:00 03/19/17 08:59 02/18/17 09:34 25 MG Potassium Chloride (Klor-Con Tab) 20 meq QAM PO 02/17/17 09:00 03/19/17 08:59 02/18/17 09:35 20 MEQ Gabapentin (Neurontin Tab) 600 mg Q8H PO 02/17/17 22:00 02/18/17 14:01 02/18/17 06:34 600 MG Gabapentin (Neurontin Tab) 600 mg Q12H PO 02/19/17 00:00 02/19/17 12:01 Gabapentin (Neurontin Tab) 600 mg Q24H PO 02/20/17 12:00 02/20/17 12:01 Gadobutrol (Gadavist) 6 mmol UD PRN IV 02/16/17 22:45 02/20/17 22:44 Ioversol (Optiray 320) 100 ml UD PRN IV 02/17/17 16:45 10/30/17 16:44 Impression 66 year old female with R parietal lobe infarct in a chronic area of infarct Plan 1. permissive hypertension and then optimize blood pressure and DL 2. EtOH cessation needed 3. PT/OT speech for any discharge does not appear to have a need 4. currently taking plavix 75 mg and aspirin 81 mg daily - she states she thinks she was complaint with her meds her son arranges them for her 5. sodium is 129 and was 139 at last admission will need to observe 6. MRI with new stroke within the old stroke area 7. CTA head and neck - interval recannulization of R MCA and left vert 70% occluded 8. EEG- no seizure activity 9. continue protocol for EtOH withdrawal 10. TTE no PFO 11. still some confusion with recall and linear thoughts 12. concerns regarding start of anticoagulation if fall risk and compliance. will need to decide on treatment change? I have seen and discussed above patient with Dr Radha Bird, neurology Pt seen and examined, min L hand weak with drift (mild) with double simultaneous ext. Her gait is unremarkable. PT had R mca infarct in October, neg echo, aio, mra occlusion R mca with few sylvian vessels remaining, mult vas risk. Recurrent stroke R MCA peripheral or distal to initial. CTA now with recanalization of R MCA with distal branchs occluded raising the question whether the thrombus could have embolized distally. If repeat CT head shows no hemorrhagic transformation would rec coumadin for 6 weeks then resume antiplt tx. Discussed risk that falls and complications of bleeding, etc with pt and she is willing to proceed. I would rec an outpt cardionet for longer monitoring to r/o a fib. Will check esr, araceli, doubt vasculitis, (no headache, pt not appearing ill, mult vasc risk factors) Will follow with you, NADIRA Bird MD
--- NOTE | 2017-02-18 15:58 | DIAGNOSTIC IMAGING REPORT ---
CT HEAD WITHOUT CONTRAST (CT) CLINICAL HISTORY: Stroke. Evaluate for hemorrhagic transformation. COMPARISON STUDY: MRI the brain dated 02/16/2017, noncontrast head CT dated 02/16/2017 TECHNIQUE: Axial CT of the brain is performed from the vertex to the skull base. IV contrast was not administered for this examination. A dose lowering technique was utilized adhering to the principles of ALARA. CT DOSE: 537.48 mGy.cm FINDINGS: No intra or extra-axial mass lesions are visualized. There is no CT evidence of acute cortical infarction. There is no evidence of midline shift. There is no acute hemorrhage. No calvarial fractures are visualized. There are patchy white matter hypodensities likely on a small vessel basis. There are old right hemispheric infarcts. Within the right parietal lobe, there is mineralization, likely secondary to laminar necrosis. There is no acute hemorrhage. There is no evidence of pathologic ventricular dilatation. There is no evidence of acute sinusitis IMPRESSION: 1. No acute intracranial findings 2. Old right hemispheric infarcts. No evidence of acute hemorrhage Electronically signed by: Sylvester Yang M.D. 02/18/2017 3:57 PM Dictated Date/Time: 02/18/2017 3:55 PM
--- NOTE | 2017-02-18 18:24 | Progress Note ---
Medicine Progress Note Date & Time of Visit: Feb 18, 2017 at 10:14. Subjective Pt was seen and examined Lying in bed with no distress Pt was walking with physical therapy Denies any chest pain, palpitation, dizziness and SOB Objective Last 8 Hrs Date Time Temp Pulse Resp B/P (MAP) Pulse Ox O2 Delivery O2 Flow Rate FiO2 02/18/17 16:13 36.9 62 16 120/64 (82) 95 Room Air 02/18/17 16:05 Room Air 02/18/17 12:00 Room Air 02/18/17 11:36 36.8 63 18 112/63 (79) 94 Room Air Physical Exam: General- No acute distress Head- atraumatic Eyes- PERRL, EOMI ENT- oropharynx clear Neck- supple, no JVD Lungs- clear to auscultation Heart- regular rhythm Abdomen- normal bowel sounds, soft Extremities- no pretibial edema, no calf tenderness Neuro- alert, oriented x 3; PERRL, EOMI; no facial palsy, no motor or sensory deficit Skin- warm & dry Laboratory Results: Last 24 Hours Test 02/18/17 05:38 02/18/17 16:14 02/18/17 16:18 White Blood Count 6.36 K/uL Red Blood Count 3.67 M/uL Hemoglobin 11.1 g/dL Hematocrit 32.4 % Mean Corpuscular Volume 88.3 fL Mean Corpuscular Hemoglobin 30.2 pg Mean Corpuscular Hemoglobin Concent 34.3 g/dl Platelet Count 329 K/uL Mean Platelet Volume 8.6 fL Neutrophils (%) (Auto) 64.4 % Lymphocytes (%) (Auto) 26.6 % Monocytes (%) (Auto) 8.5 % Eosinophils (%) (Auto) 0.0 % Basophils (%) (Auto) 0.3 % Neutrophils # (Auto) 4.10 K/uL Lymphocytes # (Auto) 1.69 K/uL Monocytes # (Auto) 0.54 K/uL Eosinophils # (Auto) 0.00 K/uL Basophils # (Auto) 0.02 K/uL RDW Standard Deviation 43.2 fL RDW Coefficient of Variation 13.3 % Immature Granulocyte % (Auto) 0.2 % Immature Granulocyte # (Auto) 0.01 K/uL Sodium Level 128 mmol/L Potassium Level 4.1 mmol/L Chloride Level 95 mmol/L Carbon Dioxide Level 25 mmol/L Anion Gap 8.0 mmol/L Blood Urea Nitrogen 16 mg/dl Creatinine 0.48 mg/dl Est Creatinine Clear Calc Drug Dose 94.0 ml/min Estimated GFR () 117.6 Estimated GFR (Non- 101.5 BUN/Creatinine Ratio 32.5 Random Glucose 94 mg/dl Calcium Level 8.1 mg/dl Erythrocyte Sedimentation Rate 2 mm/hr Assessment & Plan Acute CVA Present with L arm numbness Hx of R MCA infarct in 10/09 CT head on admission showed old right hemispheric infarcts. No acute intracranial findings. MRI of the head showed linear area of restricted diffusion within the right parietal lobe measuring 2.2 x 0.8 cm suggesting acute or subacute infarction Carotid doppler showed no sonographic evidence of hemodynamically significant stenosis in the right or left carotid arterial system. Called radiologist to discuss MRI finding, radiologist confirmed the that is a new infarct Continue asa, statin and Plavix Neuro on board Continue PT/OT/Speech 02/18 Clinically stable CTA head showed Interval recannulization of the previous described right middle cerebral artery occlusion. There is mild attenuation of the distal right MCA artery branches. Neuro consider to start anticoagulation with coumadin for 6 weeks Also recommend outpatient cardionet for longer period to monitor for Afib Repeat CT head to r/o any bleeding before starting coumadin continue monitor in telemetry Anxiety: Continue Zoloft Heavy alcohol abuse Drink about 2-3 glasses of wine per day No hx of DT On gabapentin as per withdraw protocol No sign s of withdraw noted Counseling on alcohol cessation Continue PO thiamine Continue Monitor HTN: BP well control Due to her acute CVA, recommend BP to be a little higher for now Continue atenolol, lisinopril Hold amlodipine for now HYPONATREMIA Mostly related to chronic alcohol use and poor intake Na stays at 128 after received fluid Fluid restriction Nephro consulted Continue monitor BMP DVT Ppx: Lovenox Code status: FULL Dispo: Continue monitor in telemetry Consultants: Neuro Current Inpatient Medications: Current Inpatient Medications Medications (Trade) Dose Ordered Sig/Alexandra Route Start Time Stop Time Status Last Admin Dose Admin Thiamine HCl (Vitamin B-1 Tab) 100 mg DAILY PO 02/17/17 09:00 03/19/17 08:59 02/18/17 09:34 100 MG Lorazepam (Ativan Tab) PRN Dosing -Active Protocol UD PRN PO 02/16/17 17:15 03/18/17 17:14 Miscellaneous Information (Pharmacist Discharge Med Rec Consult) 1 ea UD PRN N/A 02/16/17 17:15 03/18/17 17:14 Enoxaparin Sodium (Lovenox Inj) 40 mg HS SC 02/16/17 21:00 03/18/17 20:59 02/17/17 21:09 40 MG Acetaminophen (Tylenol Tab) 650 mg Q4H PRN PO 02/16/17 17:15 03/18/17 17:14 Ondansetron HCl (Zofran Inj) 4 mg Q6H PRN IV 02/16/17 17:15 03/18/17 17:14 02/18/17 06:37 4 MG Amlodipine Besylate (Norvasc Tab) 5 mg DAILY PO 02/17/17 09:00 03/19/17 08:59 02/18/17 09:34 5 MG Aspirin (Ecotrin Tab) 81 mg QAM PO 02/17/17 09:00 03/19/17 08:59 02/18/17 09:34 81 MG Atenolol (Tenormin Tab) 12.5 mg QPM PO 02/16/17 21:00 03/18/17 20:59 02/17/17 21:10 12.5 MG Atenolol (Tenormin Tab) 25 mg QAM PO 02/17/17 09:00 03/19/17 08:59 02/18/17 09:35 25 MG Atorvastatin Calcium (Lipitor Tab) 80 mg DAILY PO 02/17/17 09:00 03/19/17 08:59 02/18/17 09:34 80 MG Clopidogrel Bisulfate (plAVix TAB) 75 mg QAM PO 02/17/17 09:00 03/19/17 08:59 02/18/17 09:34 75 MG Lisinopril (Zestril Tab) 40 mg DAILY PO 02/17/17 09:00 03/19/17 08:59 Future Hold 02/18/17 09:34 40 MG Sertraline HCl (Zoloft Tab) 25 mg DAILY PO 02/17/17 09:00 03/19/17 08:59 02/18/17 09:34 25 MG Potassium Chloride (Klor-Con Tab) 20 meq QAM PO 02/17/17 09:00 03/19/17 08:59 02/18/17 09:35 20 MEQ Gabapentin (Neurontin Tab) 600 mg Q12H PO 02/19/17 00:00 02/19/17 12:01 Gabapentin (Neurontin Tab) 600 mg Q24H PO 02/20/17 12:00 02/20/17 12:01 Gadobutrol (Gadavist) 6 mmol UD PRN IV 02/16/17 22:45 02/20/17 22:44 Ioversol (Optiray 320) 100 ml UD PRN IV 02/17/17 16:45 02/21/17 16:44
--- NOTE | 2017-02-18 19:35 | Nephrology Consultation ---
Nephrology Consultation Date of Consultation: Feb 18, 2017. Attending Physician: Dr Wright Requesting Physician: Dr Wright Reason for Consultation: hyponatremia History of Present Illness 66 year old female admitted 02/16 for mgt of severe anxiety and active EtOH abuse whom I am asked to evaluate for hyponatremia. Other PMH includes HTN, anxiety recently dx'd w/ recent start on zoloft, 09/2016 R MCA stroke. Her presenting sodium on 02/16 was 128; serum osm 279. Sodium has been checked daily since admission and is unchanged. Her SSRI has been continued in house after its start 4-5 wks ago. She did have a L of NS last evening. Not on diuretics as inpt or outpt. Neurology is following and notes pt has had recurrent R mca stroke. She did have have hyponatremia during 09/2016 admission but did have sNa 124 on 2 checks in Dec w/ normalization on 02/08 labs. HCTZ was stopped w/ December labs. She has 02/24 appt w/ dr calle to [facility]. She is currently on <2 gm daily Na diet and 1.5L fluid limit, apparently tonight. No nsaid use. She is ambulatory, feels a bit N which she attributes to anxiety. No emesis, no sob, no edema. states she eats well at home. Past Medical/Surgical History Medical Problems: (1) Acute CVA (cerebrovascular accident) Status: Acute (2) Alcohol use Status: Acute (3) HTN (hypertension) Status: Chronic (4) Hypertensive emergency Status: Acute (5) Hyponatremia Status: Acute (6) TIA (transient ischemic attack) Status: Acute (7) Tremor Status: Acute Family History Patient reports no known family medical history. Social History Smoking Status: Former Smoker Alcohol Use: heavy Drug Use: none Marital Status: Housing Status: lives alone Occupation Status: employed Allergies Coded Allergies: Aspirin (Verified Adverse Reaction, Unknown, adverse reaction as a child with nosebleeds; none since then, 02/16/17) Medications Current Inpatient Medications Medications (Trade) Dose Ordered Sig/Alexandra Route Start Time Stop Time Status Last Admin Dose Admin Thiamine HCl (Vitamin B-1 Tab) 100 mg DAILY PO 02/17/17 09:00 03/19/17 08:59 02/18/17 09:34 100 MG Lorazepam (Ativan Tab) PRN Dosing -Active Protocol UD PRN PO 02/16/17 17:15 03/18/17 17:14 Miscellaneous Information (Pharmacist Discharge Med Rec Consult) 1 ea UD PRN N/A 02/16/17 17:15 03/18/17 17:14 Enoxaparin Sodium (Lovenox Inj) 40 mg HS SC 02/16/17 21:00 03/18/17 20:59 02/17/17 21:09 40 MG Acetaminophen (Tylenol Tab) 650 mg Q4H PRN PO 02/16/17 17:15 03/18/17 17:14 Ondansetron HCl (Zofran Inj) 4 mg Q6H PRN IV 02/16/17 17:15 03/18/17 17:14 02/18/17 06:37 4 MG Amlodipine Besylate (Norvasc Tab) 5 mg DAILY PO 02/17/17 09:00 03/19/17 08:59 02/18/17 09:34 5 MG Aspirin (Ecotrin Tab) 81 mg QAM PO 02/17/17 09:00 03/19/17 08:59 02/18/17 09:34 81 MG Atenolol (Tenormin Tab) 12.5 mg QPM PO 02/16/17 21:00 03/18/17 20:59 02/17/17 21:10 12.5 MG Atenolol (Tenormin Tab) 25 mg QAM PO 02/17/17 09:00 03/19/17 08:59 02/18/17 09:35 25 MG Atorvastatin Calcium (Lipitor Tab) 80 mg DAILY PO 02/17/17 09:00 03/19/17 08:59 02/18/17 09:34 80 MG Clopidogrel Bisulfate (plAVix TAB) 75 mg QAM PO 02/17/17 09:00 03/19/17 08:59 02/18/17 09:34 75 MG Lisinopril (Zestril Tab) 40 mg DAILY PO 02/17/17 09:00 03/19/17 08:59 Future Hold 02/18/17 09:34 40 MG Sertraline HCl (Zoloft Tab) 25 mg DAILY PO 02/17/17 09:00 03/19/17 08:59 02/18/17 09:34 25 MG Potassium Chloride (Klor-Con Tab) 20 meq QAM PO 02/17/17 09:00 03/19/17 08:59 02/18/17 09:35 20 MEQ Gabapentin (Neurontin Tab) 600 mg Q12H PO 02/19/17 00:00 02/19/17 12:01 Gabapentin (Neurontin Tab) 600 mg Q24H PO 02/20/17 12:00 02/20/17 12:01 Gadobutrol (Gadavist) 6 mmol UD PRN IV 02/16/17 22:45 02/20/17 22:44 Ioversol (Optiray 320) 100 ml UD PRN IV 02/17/17 16:45 02/21/17 16:44 Home Meds and Scripts Medications Dose Route/Sig Max Daily Dose Days Date Category Lipitor (Atorvastatin Calcium) 80 Mg Tab 80 Mg PO DAILY 02/16/17 Reported Tenormin (Atenolol) 25 Mg Tab 25 Mg PO QAM 02/16/17 Reported Tenormin (Atenolol) 25 Mg Tab 12.5 Mg PO QPM 02/16/17 Reported Norvasc (Amlodipine Besylate) 5 Mg Tab 5 Mg PO DAILY 02/16/17 Reported Zoloft (Sertraline HCl) 25 Mg Tab 25 Mg PO DAILY 02/16/17 Reported Zestril (Lisinopril) 40 Mg Tab 40 Mg PO DAILY 02/16/17 Reported K-Tab (Potassium Chloride) 20 Meq Tab 20 Meq PO DAILY 02/16/17 Reported Aspirin EC Low Dose (Aspirin) 81 Mg Ectab 81 Mg PO QAM 30 10/20/16 Rx Clopidogrel (Clopidogrel Bisulfate) 75 Mg Tab 75 Mg PO QAM 30 10/20/16 Rx Review of Systems Constitutional: + fatigue, No fever, No weakness Eyes: No worsening of vision ENT: No hearing loss Respiratory: No cough, No shortness of breath Cardiac: No chest pain, No orthopnea, No edema, No palpitations Abdomen: + see HPI, + nausea, No pain, No vomiting, No diarrhea, No constipation Musculoskeletal: No joint pain, No muscle pain Female : No dysuria, No urinary frequency, No hematuria Neuro: No memory loss, No weakness, No numbness/tingling, No balance problems Psych: + anxiety, + substance abuse, No depression symptoms Heme: No abnormal bleeding/bruising, No clotting problems Endo: + fatigue Skin: No rash, No itch, No new/changing skin lesions Physical Exam Date Time Temp Pulse Resp B/P (MAP) Pulse Ox O2 Delivery O2 Flow Rate FiO2 02/18/17 16:13 36.9 62 16 120/64 (82) 95 Room Air 02/18/17 16:05 Room Air 02/18/17 12:00 Room Air 02/18/17 11:36 36.8 63 18 112/63 (79) 94 Room Air 02/18/17 09:20 62 02/18/17 09:00 Room Air 02/18/17 07:56 36.8 58 58 130/76 (94) 96 Room Air 02/18/17 04:12 36.8 61 20 105/61 (76) 96 Room Air 02/18/17 04:00 Room Air 02/17/17 23:59 Room Air 02/17/17 23:50 36.9 57 17 109/62 (78) 92 02/17/17 20:00 94 Room Air 02/17/17 19:51 37.0 61 18 108/57 (74) 95 Room Air 24-Hour Column 02/19/17 07:59 Intake Total 200 ml Output Total 400 ml Balance -200 ml General Appearance: WD/WN, no apparent distress, + thin, + pertinent finding ( ambulatory on RA, a bit anxious possibly) Eyes: EOMI ENT: hearing grossly normal Neck: supple Respiratory/Chest: lungs clear, + decreased breath sounds Cardiovascular: regular rate, rhythm, no edema Abdomen: normal bowel sounds, non tender, soft Extremities: no pedal edema Neurologic/Psych: no motor/sensory deficits, alert, normal mood/affect, oriented x 3 Skin: no jaundice, warm/dry, no rash Diagnostics Last 24 Hours Test 02/18/17 05:38 02/18/17 16:14 02/18/17 16:18 White Blood Count 6.36 K/uL Red Blood Count 3.67 M/uL Hemoglobin 11.1 g/dL Hematocrit 32.4 % Mean Corpuscular Volume 88.3 fL Mean Corpuscular Hemoglobin 30.2 pg Mean Corpuscular Hemoglobin Concent 34.3 g/dl Platelet Count 329 K/uL Mean Platelet Volume 8.6 fL Neutrophils (%) (Auto) 64.4 % Lymphocytes (%) (Auto) 26.6 % Monocytes (%) (Auto) 8.5 % Eosinophils (%) (Auto) 0.0 % Basophils (%) (Auto) 0.3 % Neutrophils # (Auto) 4.10 K/uL Lymphocytes # (Auto) 1.69 K/uL Monocytes # (Auto) 0.54 K/uL Eosinophils # (Auto) 0.00 K/uL Basophils # (Auto) 0.02 K/uL RDW Standard Deviation 43.2 fL RDW Coefficient of Variation 13.3 % Immature Granulocyte % (Auto) 0.2 % Immature Granulocyte # (Auto) 0.01 K/uL Sodium Level 128 mmol/L Potassium Level 4.1 mmol/L Chloride Level 95 mmol/L Carbon Dioxide Level 25 mmol/L Anion Gap 8.0 mmol/L Blood Urea Nitrogen 16 mg/dl Creatinine 0.48 mg/dl Est Creatinine Clear Calc Drug Dose 94.0 ml/min Estimated GFR () 117.6 Estimated GFR (Non- 101.5 BUN/Creatinine Ratio 32.5 Random Glucose 94 mg/dl Calcium Level 8.1 mg/dl Erythrocyte Sedimentation Rate 2 mm/hr Diagnostic Radiology: head ct > no acut ei-c findings; old R hemisphere infarcts CT angio brain > recannulization of R MCA previous occlusion Brain MRI small acute/subacute infarction R parietal lobe Carotid u/s negative CXR no acute/ chronic path EEG wnl TTE unremarkable Assessment & Plan 66 y/o F w/ chronic (ie, >48 hrs) asymptomatic euvolemic hyponatremia admitted w / sNa 128 unchanged since admission admitted w/ recurrent R MCA stroke. on zoloft; else no offending meds and reluctant to change this. Had normal sNa as outpt on 02/08 on zoloft. Had issues w/ low sNa last month (124) d/t hctz. -agree w/ gentle fluid limit -recommend liberalize sodium to up to 3 gm daily -no diuretics yet -check once daily bmp; will add urine studies -if possible keep f/u w/ dr oncu -avoid nsaids, for now avoid diuretics -though serum osms low, not very low/ near normal which is somewhat atypical -for now avoid salt tabs, loop diuretics d/t bp issues>>bp currently on lower side Appreciate consult; will follow with you.
[2017-02-18] MEDS: ENOXAPARIN 40 MG/0.4 ML SYR SC SCH (21:10)
[2017-02-19] VITALS (9 sets, daily range): BP systolic 113–131; BP diastolic 55–73; PULSE 56–60; TEMP 36.8–37.1; O2SAT 92–97
[2017-02-19] MEDS: GABAPENTIN 600MG Q12H DOSE PO SCH ×2 (00:21→13:04)
[2017-02-19 04:06] LABS: URINE APPEARANCE CLEAR (CLEAR); URINE BILIRUBIN NEG (NEG); URINE COLOR YELLOW; URINE EPITHELIAL CELL AUTO 20-30 /lpf (0-5); URINE NITRITE NEG (NEG); URINE SPECIFIC GRAVITY 1.015 (1.000-1.030); UROBILINOGEN POS (NEG); ZZUR CULT IF INDIC CLEAN CATCH NO
[2017-02-19 04:22] LABS: CREATININE, URINE 55.5 mg/dl; URINE PROTIEN/CREAT RATIO 0.1 (0-0.2); URINE TOTAL PROTEIN 7.5 mg/dl (0-11.9)
[2017-02-19 04:29] LABS: MANUAL MICROSCOPIC REQUIRED? NO; REVIEW REQ? NO
[2017-02-19 06:17] LABS: BASO % 0.5 %; BASO ABS # 0.03 K/uL (0-0.2); COMPLETE YES; EOS % 0.3 %; HEMATOCRIT 33.5 % (37-47); IG% 0.2 %; LYMPH % 27.7 %; LYMPH ABS # 1.73 K/uL (1.2-3.4); MEAN CELL VOLUME 86.8 fL (80-100); MEAN CORPUSCULAR HEMOGLOBIN 30.1 pg (25-34); MEAN CORPUSCULAR HGB CONC 34.6 g/dl (32-36); MEAN PLATELET VOLUME 8.6 fL (7.4-10.4); MONO % 10.1 %; NEUT % 61.2 %; PLATELET COUNT 332 K/uL (130-400); RED BLOOD COUNT 3.86 M/uL (4.2-5.4); WHITE BLOOD COUNT 6.24 K/uL (4.8-10.8)
[2017-02-19 06:51] LABS: BUN/CREATININE RATIO 18.2 (10-20); CALCIUM 8.4 mg/dl (8.5-10.1); CREATININE 0.51 mg/dl (0.60-1.20); POTASSIUM 3.7 mmol/L (3.5-5.1)
[2017-02-19] MEDS: ONDANSETRON INJ 2 MG/ML 2 ML VIAL IV PRN (07:53)
[2017-02-19] MEDS ORDERED: SODIUM CHLORIDE 0.9% 1000ML 1,000 ML IV SCH (08:30)
[2017-02-19] MEDS: ASPIRIN 81 MG ECTAB PO SCH (10:01)
[2017-02-19] MEDS: ATORVASTATIN 40 MG TAB PO SCH (10:01)
[2017-02-19] MEDS: AMLODIPINE BESYLATE 5 MG TAB PO SCH (10:01)
[2017-02-19] MEDS: SERTRALINE HCL 50 MG TAB PO SCH (10:01)
[2017-02-19] MEDS: CLOPIDOGREL BISULFATE 75 MG TAB PO SCH (10:01)
[2017-02-19] MEDS: THIAMINE HCL 100 MG TAB PO SCH (10:01)
[2017-02-19] MEDS: POTASSIUM CHLORIDE 20 MEQ TABCR PO SCH (10:02)
--- NOTE | 2017-02-19 11:15 | PROGRESS NOTE ---
DATE: 02/19/2017 DATE: 02/19/2017 SUBJECTIVE: I am seeing Mrs. Light in followup. She has a history of a right MCA infarction with an additional infarction in the distal right MCA in a previously uninvolved area. On admission in October there was an occlusion with some distal vessels present of the MCA. On this admission, the occlusion has resolved, the distal vessels are occluded. The occlusion of the proximal MCA is resolved. The distal vessels have occluded. ZIO patch showed no atrial fibrillation. She was on Plavix and aspirin. She has nearly recovered back to her post-stroke baseline. She has not had any headache or new neurologic symptoms. Her CT of the head yesterday showed no evidence of acute hemorrhage. I spoke to Dr. Wright and he is planning on starting her Coumadin today. PHYSICAL EXAMINATION: GENERAL: She is awake and alert. There is no right/left confusion. No field cut. There is marginal if any flattening of the left nasal labial fold. There is mild weakness of the wrist extensors on the left, rapid alternating movements are symmetric. There is a marginal left drift and lower extremities are full. Gait was not retested. 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 I think we should use Coumadin for 6 weeks. I spoke to the patient at length yesterday about the potential benefits, risks. Once she starts Coumadin I would stop Plavix, continue aspirin. I do not think the patient needs to stay in hospital while she becomes therapeutic on Coumadin, although I know Dr. Wright plans on keeping her for several additional days. I would like her to have a CardioNet monitor for a weeks' duration upon discharge. Continue risk factor modification remains appropriate. CARLOS
--- NOTE | 2017-02-19 12:49 | Nephrology Progress Note ---
Nephrology Progress Note Date of Service: Feb 19, 2017. Subjective N improved; pt reports no one limiting fluids, that fluid offered to her. no pain or confusion. anxiety a bit better; 2 sisters at bedside Objective Date Time Temp Pulse Resp B/P (MAP) Pulse Ox O2 Delivery O2 Flow Rate FiO2 02/19/17 07:59 36.9 60 20 115/63 (80) 92 Room Air 02/19/17 04:00 97 Room Air 02/19/17 03:56 37.0 59 17 131/66 (87) 97 Room Air 02/19/17 00:12 37.1 56 17 113/55 (74) 96 Room Air 02/19/17 00:00 96 Room Air 02/18/17 20:00 99 Room Air 02/18/17 19:26 36.7 63 18 123/70 (87) 99 Room Air 02/18/17 16:13 36.9 62 16 120/64 (82) 95 Room Air 02/18/17 16:05 Room Air Physical Exam: General Appearance: WD/WN, no apparent distress, + thin, + pertinent finding ( ambulatory on RA, today less anxious) Eyes: EOMI ENT: hearing grossly normal Neck: supple Respiratory/Chest: lungs clear, + decreased breath sounds Cardiovascular: regular rate, rhythm, no edema Abdomen: normal bowel sounds, non tender, soft Extremities: no pedal edema Neurologic/Psych: no motor/sensory deficits, alert, normal mood/affect, oriented x 3 Skin: no jaundice, warm/dry, no ra Current Inpatient Medications Medications (Trade) Dose Ordered Sig/Alexandra Route Start Time Stop Time Status Last Admin Dose Admin Thiamine HCl (Vitamin B-1 Tab) 100 mg DAILY PO 02/17/17 09:00 03/19/17 08:59 02/19/17 10:01 100 MG Lorazepam (Ativan Tab) PRN Dosing -Active Protocol UD PRN PO 02/16/17 17:15 03/18/17 17:14 Miscellaneous Information (Pharmacist Discharge Med Rec Consult) 1 ea UD PRN N/A 02/16/17 17:15 03/18/17 17:14 Enoxaparin Sodium (Lovenox Inj) 40 mg HS SC 02/16/17 21:00 03/18/17 20:59 02/18/17 21:10 40 MG Acetaminophen (Tylenol Tab) 650 mg Q4H PRN PO 02/16/17 17:15 03/18/17 17:14 Ondansetron HCl (Zofran Inj) 4 mg Q6H PRN IV 02/16/17 17:15 03/18/17 17:14 02/19/17 07:53 4 MG Amlodipine Besylate (Norvasc Tab) 5 mg DAILY PO 02/17/17 09:00 03/19/17 08:59 02/19/17 10:01 5 MG Aspirin (Ecotrin Tab) 81 mg QAM PO 02/17/17 09:00 03/19/17 08:59 02/19/17 10:01 81 MG Atenolol (Tenormin Tab) 12.5 mg QPM PO 02/16/17 21:00 03/18/17 20:59 02/18/17 21:09 12.5 MG Atenolol (Tenormin Tab) 25 mg QAM PO 02/17/17 09:00 03/19/17 08:59 02/19/17 10:02 25 MG Atorvastatin Calcium (Lipitor Tab) 80 mg DAILY PO 02/17/17 09:00 03/19/17 08:59 02/19/17 10:01 80 MG Clopidogrel Bisulfate (plAVix TAB) 75 mg QAM PO 02/17/17 09:00 03/19/17 08:59 02/19/17 10:01 75 MG Lisinopril (Zestril Tab) 40 mg DAILY PO 02/17/17 09:00 03/19/17 08:59 Future Hold 02/18/17 09:34 40 MG Sertraline HCl (Zoloft Tab) 25 mg DAILY PO 02/17/17 09:00 03/19/17 08:59 02/19/17 10:01 25 MG Potassium Chloride (Klor-Con Tab) 20 meq QAM PO 02/17/17 09:00 03/19/17 08:59 02/19/17 10:02 20 MEQ Gabapentin (Neurontin Tab) 600 mg Q24H PO 02/20/17 12:00 02/20/17 12:01 Gadobutrol (Gadavist) 6 mmol UD PRN IV 02/16/17 22:45 02/20/17 22:44 Ioversol (Optiray 320) 100 ml UD PRN IV 02/17/17 16:45 02/21/17 16:44 Sodium Chloride 1,000 ml @ 75 mls/hr [id number] IV 02/19/17 08:30 02/19/17 21:49 02/19/17 10:02 75 MLS/HR Warfarin Sodium (Coumadin Tab) 5 mg DAILY@16 PO 02/19/17 16:00 03/21/17 15:59 Last 24 Hours Test 02/18/17 16:14 02/18/17 16:18 02/19/17 03:50 02/19/17 05:44 Erythrocyte Sedimentation Rate 2 mm/hr Urine Color YELLOW Urine Appearance CLEAR Urine pH 7.0 Urine Specific [place] 1.015 Urine Protein NEG Urine Glucose (UA) NEG Urine Ketones NEG Urine Occult Blood NEG Urine Nitrite NEG Urine Bilirubin NEG Urine Urobilinogen POS Urine Leukocyte Esterase TRACE Urine WBC (Auto) 1-5 /hpf Urine RBC (Auto) 0-4 /hpf Urine Hyaline Casts (Auto) 0 /lpf Urine Epithelial Cells (Auto) 20-30 /lpf Urine Bacteria (Auto) NEG Urine Osmolality 339 mOms/kg Urine Random Creatinine 55.5 mg/dl Urine Random Total Protein 7.5 mg/dl Urine Random Sodium 38 mEq/L Urine Protein/Creatinine Ratio 0.1 White Blood Count 6.24 K/uL Red Blood Count 3.86 M/uL Hemoglobin 11.6 g/dL Hematocrit 33.5 % Mean Corpuscular Volume 86.8 fL Mean Corpuscular Hemoglobin 30.1 pg Mean Corpuscular Hemoglobin Concent 34.6 g/dl Platelet Count 332 K/uL Mean Platelet Volume 8.6 fL Neutrophils (%) (Auto) 61.2 % Lymphocytes (%) (Auto) 27.7 % Monocytes (%) (Auto) 10.1 % Eosinophils (%) (Auto) 0.3 % Basophils (%) (Auto) 0.5 % Neutrophils # (Auto) 3.82 K/uL Lymphocytes # (Auto) 1.73 K/uL Monocytes # (Auto) 0.63 K/uL Eosinophils # (Auto) 0.02 K/uL Basophils # (Auto) 0.03 K/uL RDW Standard Deviation 41.2 fL RDW Coefficient of Variation 12.9 % Immature Granulocyte % (Auto) 0.2 % Immature Granulocyte # (Auto) 0.01 K/uL Sodium Level 127 mmol/L Potassium Level 3.7 mmol/L Chloride Level 93 mmol/L Carbon Dioxide Level 27 mmol/L Anion Gap 7.0 mmol/L Blood Urea Nitrogen 9 mg/dl Creatinine 0.51 mg/dl Est Creatinine Clear Calc Drug Dose 88.5 ml/min Estimated GFR () 115.3 Estimated GFR (Non- 99.5 BUN/Creatinine Ratio 18.2 Random Glucose 103 mg/dl Osmolality 256 mOsm/kg Calcium Level 8.4 mg/dl Assessment & Plan 66 y/o F w/ chronic (ie, >48 hrs) asymptomatic euvolemic hyponatremia admitted w / sNa 128 unchanged since admission until this am when dropped to 127 admitted w / recurrent R MCA stroke. on zoloft and today on NS; else no offending meds this admission. Had normal sNa as outpt on 02/08 on zoloft. Had issues w/ low sNa last month (124) d/t hctz. 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 SBP running 110-120s; neuro favors permissive htn -cont 1.5L fluid limit, just started yesterday evening <<>>need to reinforce w/ pt and nursing -stopped IVF -recommend liberalize sodium to up to 3 gm daily -no diuretics yet; reluctant to introduce these or standing salt tabs d/t bp issues -recheck bmp 1400 >> if sNa same or lower, recommend salt tab one time dose 1 gm -if possible keep f/u w/ oncu -avoid nsaids -pls add hctz to allergy list -consider if possible change from zoloft to wellbutrin which does not cause hyponatremia -lowered ccb to 2.5 mg daily from 5 -ordered RUQ u/s Appreciate consult; will follow with you. care coordinated w/ dr chauhan
--- NOTE | 2017-02-19 14:07 | DIAGNOSTIC IMAGING REPORT ---
ABDOMEN LIMITED (US) HISTORY: Pain etoh abuse. COMPARISON: None. FINDINGS: Pancreas: The pancreas demonstrates a normal echotexture. Liver: Unremarkable. Gallbladder: No gallbladder wall thickening. No gallstones. CBD: 5 mm Right kidney: No hydronephrosis. IMPRESSION: No significant abnormality identified within the within the right upper quadrant. The above report was generated using voice recognition software. It may contain grammatical, syntax or spelling errors. Electronically signed by: Clay Curiel M.D. 02/19/2017 2:05 PM Dictated Date/Time: 02/19/2017 2:05 PM
[2017-02-19 14:55] LABS: BUN/CREATININE RATIO 14.9 (10-20); CALCIUM 8.1 mg/dl (8.5-10.1); CREATININE 0.56 mg/dl (0.60-1.20); POTASSIUM 3.8 mmol/L (3.5-5.1)
--- NOTE | 2017-02-19 16:04 | Progress Note ---
Medicine Progress Note Date & Time of Visit: Feb 19, 2017 at 11:37. Subjective Pt was seen and examined Lying in bed comfortable with 2 sister at bedside Pt said that she feels fine she denies any chest pain, palpitation, dizziness and SOB Objective Last 8 Hrs Date Time Temp Pulse Resp B/P (MAP) Pulse Ox O2 Delivery O2 Flow Rate FiO2 02/19/17 15:33 36.8 57 18 122/73 (89) 93 Room Air 02/19/17 12:10 Room Air 02/19/17 11:35 37.0 58 20 123/66 (85) 96 Room Air 02/19/17 08:10 Room Air 02/19/17 07:59 36.9 60 20 115/63 (80) 92 Room Air Physical Exam: General- No acute distress Head- atraumatic Eyes- PERRL, EOMI ENT- oropharynx clear Neck- supple, no JVD Lungs- clear to auscultation Heart- regular rhythm Abdomen- normal bowel sounds, soft Extremities- no pretibial edema, no calf tenderness Neuro- alert, oriented x 3; PERRL, EOMI; no facial palsy, no motor or sensory deficit Skin- warm & dry Laboratory Results: Last 24 Hours Test 02/18/17 16:14 02/18/17 16:18 02/19/17 03:50 02/19/17 05:44 Erythrocyte Sedimentation Rate 2 mm/hr Urine Color YELLOW Urine Appearance CLEAR Urine pH 7.0 Urine Specific [place] 1.015 Urine Protein NEG Urine Glucose (UA) NEG Urine Ketones NEG Urine Occult Blood NEG Urine Nitrite NEG Urine Bilirubin NEG Urine Urobilinogen POS Urine Leukocyte Esterase TRACE Urine WBC (Auto) 1-5 /hpf Urine RBC (Auto) 0-4 /hpf Urine Hyaline Casts (Auto) 0 /lpf Urine Epithelial Cells (Auto) 20-30 /lpf Urine Bacteria (Auto) NEG Urine Osmolality 339 mOms/kg Urine Random Creatinine 55.5 mg/dl Urine Random Total Protein 7.5 mg/dl Urine Random Sodium 38 mEq/L Urine Protein/Creatinine Ratio 0.1 White Blood Count 6.24 K/uL Red Blood Count 3.86 M/uL Hemoglobin 11.6 g/dL Hematocrit 33.5 % Mean Corpuscular Volume 86.8 fL Mean Corpuscular Hemoglobin 30.1 pg Mean Corpuscular Hemoglobin Concent 34.6 g/dl Platelet Count 332 K/uL Mean Platelet Volume 8.6 fL Neutrophils (%) (Auto) 61.2 % Lymphocytes (%) (Auto) 27.7 % Monocytes (%) (Auto) 10.1 % Eosinophils (%) (Auto) 0.3 % Basophils (%) (Auto) 0.5 % Neutrophils # (Auto) 3.82 K/uL Lymphocytes # (Auto) 1.73 K/uL Monocytes # (Auto) 0.63 K/uL Eosinophils # (Auto) 0.02 K/uL Basophils # (Auto) 0.03 K/uL RDW Standard Deviation 41.2 fL RDW Coefficient of Variation 12.9 % Immature Granulocyte % (Auto) 0.2 % Immature Granulocyte # (Auto) 0.01 K/uL Sodium Level 127 mmol/L Potassium Level 3.7 mmol/L Chloride Level 93 mmol/L Carbon Dioxide Level 27 mmol/L Anion Gap 7.0 mmol/L Blood Urea Nitrogen 9 mg/dl Creatinine 0.51 mg/dl Est Creatinine Clear Calc Drug Dose 88.5 ml/min Estimated GFR () 115.3 Estimated GFR (Non- 99.5 BUN/Creatinine Ratio 18.2 Random Glucose 103 mg/dl Osmolality 256 mOsm/kg Calcium Level 8.4 mg/dl Test 02/19/17 14:22 Sodium Level 128 mmol/L Potassium Level 3.8 mmol/L Chloride Level 95 mmol/L Carbon Dioxide Level 25 mmol/L Anion Gap 8.0 mmol/L Blood Urea Nitrogen 8 mg/dl Creatinine 0.56 mg/dl Est Creatinine Clear Calc Drug Dose 80.6 ml/min Estimated GFR () 111.8 Estimated GFR (Non- 96.5 BUN/Creatinine Ratio 14.9 Random Glucose 120 mg/dl Calcium Level 8.1 mg/dl Assessment & Plan Acute CVA Present with L arm numbness Hx of R MCA infarct in 10/09 CT head on admission showed old right hemispheric infarcts. No acute intracranial findings. MRI of the head showed linear area of restricted diffusion within the right parietal lobe measuring 2.2 x 0.8 cm suggesting acute or subacute infarction Carotid doppler showed no sonographic evidence of hemodynamically significant stenosis in the right or left carotid arterial system. Called radiologist to discuss MRI finding, radiologist confirmed the that is a new infarct Continue asa, statin and Plavix Neuro on board Continue PT/OT/Speech 02/19 Clinically stable CTA head showed Interval recannulization of the previous described right middle cerebral artery occlusion. There is mild attenuation of the distal right MCA artery branches. Neuro consider to start anticoagulation with Coumadin for 6 weeks Also recommend outpatient cardionet for longer period to monitor for Afib CT head showed no evidence of acute hemorrhage Starting on Coumadin 5 mg continue aspirin D/C plavix continue monitor in telemetry Follow up with neurology Anxiety: Will discontinue Zoloft due to the hyponatremia side effect Will start on wellbutrin Heavy alcohol abuse Drink about 2-3 glasses of wine per day U/S abdomen showed No significant abnormality identified within the within the right upper quadrant. No hx of DT On gabapentin as per withdraw protocol No sign s of withdraw noted Counseling on alcohol cessation Continue PO thiamine Continue Monitor stable HTN: BP well control Due to her acute CVA, recommend BP to be a little higher for now Continue atenolol Lisinopril on hold now Will decrease amlodipine to 2.5 mg HYPONATREMIA Mostly related to chronic alcohol use and poor intake Na 127 Fluid restriction Nephro on board Continue monitor BMP Follow up with nephrology DVT Ppx: Lovenox Code status: FULL Disposition Continue monitor in telemetry Consultants: Neuro Nephrology Current Inpatient Medications: Current Inpatient Medications Medications (Trade) Dose Ordered Sig/Alexandra Route Start Time Stop Time Status Last Admin Dose Admin Thiamine HCl (Vitamin B-1 Tab) 100 mg DAILY PO 02/17/17 09:00 03/19/17 08:59 02/19/17 10:01 100 MG Lorazepam (Ativan Tab) PRN Dosing -Active Protocol UD PRN PO 02/16/17 17:15 03/18/17 17:14 Miscellaneous Information (Pharmacist Discharge Med Rec Consult) 1 ea UD PRN N/A 02/16/17 17:15 03/18/17 17:14 Enoxaparin Sodium (Lovenox Inj) 40 mg HS SC 02/16/17 21:00 03/18/17 20:59 02/18/17 21:10 40 MG Acetaminophen (Tylenol Tab) 650 mg Q4H PRN PO 02/16/17 17:15 03/18/17 17:14 Ondansetron HCl (Zofran Inj) 4 mg Q6H PRN IV 02/16/17 17:15 03/18/17 17:14 02/19/17 07:53 4 MG Aspirin (Ecotrin Tab) 81 mg QAM PO 02/17/17 09:00 03/19/17 08:59 02/19/17 10:01 81 MG Atenolol (Tenormin Tab) 12.5 mg QPM PO 02/16/17 21:00 03/18/17 20:59 02/18/17 21:09 12.5 MG Atenolol (Tenormin Tab) 25 mg QAM PO 02/17/17 09:00 03/19/17 08:59 02/19/17 10:02 25 MG Atorvastatin Calcium (Lipitor Tab) 80 mg DAILY PO 02/17/17 09:00 03/19/17 08:59 02/19/17 10:01 80 MG Clopidogrel Bisulfate (plAVix TAB) 75 mg QAM PO 02/17/17 09:00 03/19/17 08:59 02/19/17 10:01 75 MG Lisinopril (Zestril Tab) 40 mg DAILY PO 02/17/17 09:00 03/19/17 08:59 Future Hold 02/18/17 09:34 40 MG Sertraline HCl (Zoloft Tab) 25 mg DAILY PO 02/17/17 09:00 03/19/17 08:59 02/19/17 10:01 25 MG Potassium Chloride (Klor-Con Tab) 20 meq QAM PO 02/17/17 09:00 03/19/17 08:59 02/19/17 10:02 20 MEQ Gabapentin (Neurontin Tab) 600 mg Q24H PO 02/20/17 12:00 02/20/17 12:01 Gadobutrol (Gadavist) 6 mmol UD PRN IV 02/16/17 22:45 02/20/17 22:44 Ioversol (Optiray 320) 100 ml UD PRN IV 02/17/17 16:45 02/21/17 16:44 Warfarin Sodium (Coumadin Tab) 5 mg DAILY@16 PO 02/19/17 16:00 03/21/17 15:59 Amlodipine Besylate (Norvasc Tab) 2.5 mg DAILY PO 02/20/17 09:00 03/19/17 08:59
[2017-02-19] MEDS: WARFARIN SOD 5 MG TAB PO SCH (16:53)
[2017-02-19] MEDS: ENOXAPARIN 40 MG/0.4 ML SYR SC SCH (21:08)
[2017-02-20] VITALS: O2SAT 94
[2017-02-20 00:11] VITALS: BP 127/69; PULSE 55; TEMP 36.7; O2SAT 93
[2017-02-20 04:25] VITALS: BP 117/67; PULSE 59; TEMP 36.7; O2SAT 94
[2017-02-20 07:44] LABS: BUN/CREATININE RATIO 21.5 (10-20); CALCIUM 8.7 mg/dl (8.5-10.1); CREATININE 0.64 mg/dl (0.60-1.20); POTASSIUM 3.7 mmol/L (3.5-5.1)
[2017-02-20 08:10] VITALS: BP 101/54; PULSE 61; TEMP 36.6; O2SAT 97
[2017-02-20] MEDS ORDERED: AMLODIPINE BESYLATE 5 MG TAB PO SCH (09:00)
[2017-02-20] MEDS ORDERED: BuPROPion XL 150 MG TABCR PO SCH (09:00)
[2017-02-20] MEDS: ATORVASTATIN 40 MG TAB PO SCH (09:07)
[2017-02-20] MEDS: POTASSIUM CHLORIDE 20 MEQ TABCR PO SCH (09:07)
[2017-02-20] MEDS: THIAMINE HCL 100 MG TAB PO SCH (09:07)
[2017-02-20] MEDS: ASPIRIN 81 MG ECTAB PO SCH (09:08)
[2017-02-20] MEDS ORDERED: CLOPIDOGREL BISULFATE 75 MG TAB PO ONE (09:30)
[2017-02-20 11:04] VITALS: BP 116/67; PULSE 54; TEMP 36.8; O2SAT 97
[2017-02-20] MEDS ORDERED: GABAPENTIN 600MG X1 DOSE PO SCH (12:00)
--- NOTE | 2017-02-20 12:53 | Nephrology Progress Note ---
Nephrology Progress Note Date of Service: Feb 20, 2017. Subjective N improved; some orthostatic sx at times; limiting water. no pain or confusion. anxiety a bit better; 1 sisters at bedside Objective Date Time Temp Pulse Resp B/P (MAP) Pulse Ox O2 Delivery O2 Flow Rate FiO2 02/20/17 11:04 36.8 54 20 116/67 (83) 97 Room Air 02/20/17 08:30 Room Air 02/20/17 08:10 36.6 61 20 101/54 (70) 97 02/20/17 04:25 36.7 59 18 117/67 (84) 94 02/20/17 04:00 Room Air 02/20/17 00:11 36.7 55 20 127/69 (88) 93 Room Air 02/20/17 00:00 94 Room Air 02/19/17 20:00 94 Room Air 02/19/17 19:38 36.8 57 18 119/64 (82) 94 Room Air 02/19/17 16:00 Room Air 02/19/17 15:33 36.8 57 18 122/73 (89) 93 Room Air Physical Exam: General Appearance: WD/WN, no apparent distress, + thin, + pertinent finding ( ambulatory on RA, today less anxious, maneuvers readily for exam) Eyes: EOMI ENT: hearing grossly normal Neck: supple Respiratory/Chest: lungs clear, + decreased breath sounds Cardiovascular: regular rate, rhythm, no edema Abdomen: normal bowel sounds, non tender, soft Extremities: no pedal edema Neurologic/Psych: no motor/sensory deficits, alert, normal mood/affect, oriented x 3 Skin: no jaundice, warm/dry, no ra Current Inpatient Medications Medications (Trade) Dose Ordered Sig/Alexandra Route Start Time Stop Time Status Last Admin Dose Admin Thiamine HCl (Vitamin B-1 Tab) 100 mg DAILY PO 02/17/17 09:00 03/19/17 08:59 02/20/17 09:07 100 MG Lorazepam (Ativan Tab) PRN Dosing -Active Protocol UD PRN PO 02/16/17 17:15 03/18/17 17:14 Miscellaneous Information (Pharmacist Discharge Med Rec Consult) 1 ea UD PRN N/A 02/16/17 17:15 03/18/17 17:14 Enoxaparin Sodium (Lovenox Inj) 40 mg HS SC 02/16/17 21:00 03/18/17 20:59 02/19/17 21:08 40 MG Acetaminophen (Tylenol Tab) 650 mg Q4H PRN PO 02/16/17 17:15 03/18/17 17:14 Ondansetron HCl (Zofran Inj) 4 mg Q6H PRN IV 02/16/17 17:15 03/18/17 17:14 02/19/17 07:53 4 MG Aspirin (Ecotrin Tab) 81 mg QAM PO 02/17/17 09:00 03/19/17 08:59 02/20/17 09:08 81 MG Atenolol (Tenormin Tab) 12.5 mg QPM PO 02/16/17 21:00 03/18/17 20:59 02/19/17 21:07 12.5 MG Atenolol (Tenormin Tab) 25 mg QAM PO 02/17/17 09:00 03/19/17 08:59 02/20/17 09:08 25 MG Atorvastatin Calcium (Lipitor Tab) 80 mg DAILY PO 02/17/17 09:00 03/19/17 08:59 02/20/17 09:07 80 MG Lisinopril (Zestril Tab) 40 mg DAILY PO 02/17/17 09:00 03/19/17 08:59 Future Hold 02/18/17 09:34 40 MG Potassium Chloride (Klor-Con Tab) 20 meq QAM PO 02/17/17 09:00 03/19/17 08:59 02/20/17 09:07 20 MEQ Gadobutrol (Gadavist) 6 mmol UD PRN IV 02/16/17 22:45 02/20/17 22:44 Ioversol (Optiray 320) 100 ml UD PRN IV 02/17/17 16:45 02/21/17 16:44 Warfarin Sodium (Coumadin Tab) 5 mg DAILY@16 PO 02/19/17 16:00 03/21/17 15:59 02/19/17 16:53 5 MG Amlodipine Besylate (Norvasc Tab) 2.5 mg DAILY PO 02/20/17 09:00 03/19/17 08:59 02/20/17 09:07 2.5 MG Bupropion HCl (Wellbutrin-Xl Tab) 150 mg QAM PO 02/20/17 09:00 03/22/17 08:59 02/20/17 09:08 150 MG Last 24 Hours Test 02/19/17 14:22 02/20/17 06:46 Sodium Level 128 mmol/L 131 mmol/L Potassium Level 3.8 mmol/L 3.7 mmol/L Chloride Level 95 mmol/L 98 mmol/L Carbon Dioxide Level 25 mmol/L 26 mmol/L Anion Gap 8.0 mmol/L 6.0 mmol/L Blood Urea Nitrogen 8 mg/dl 14 mg/dl Creatinine 0.56 mg/dl 0.64 mg/dl Est Creatinine Clear Calc Drug Dose 80.6 ml/min 70.5 ml/min Estimated GFR () 111.8 107.0 Estimated GFR (Non- 96.5 92.3 BUN/Creatinine Ratio 14.9 21.5 Random Glucose 120 mg/dl 100 mg/dl Calcium Level 8.1 mg/dl 8.7 mg/dl Prothrombin Time 11.0 SECONDS Prothromb Time International Ratio 1.0 Assessment & Plan 66 y/o F w/ chronic (ie, >48 hrs) asymptomatic euvolemic hyponatremia admitted w / sNa 128 unchanged for a few days since admission then dropped to 127; today w / conservative measures up to 131. admitted w/ recurrent R MCA stroke. on zoloft at home; else no offending meds this admission. Had normal sNa as outpt on 02/08 on zoloft. Had issues w/ low sNa last month (124) d/t hctz. 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 SBP running 110-120s; neuro favors permissive htn -cont 1.5L fluid limit at d/c -recommend liberalize sodium to up to 3 gm daily for now at d/c -absolutely crucial that she abstain from/minimize EtOH to help w/ bp control -stop PM atenolol dose hs; cont am dose -agree w/ change to wellbutrin to avoid dysnatremia provoking meds -keep f/u w/ dr calle 02/24 -avoid nsaids -pls add hctz to allergy list Appreciate consult; will follow with you. care coordinated w/ dr chauhan
--- NOTE | 2017-02-20 13:11 | PROGRESS NOTE ---
DATE: 02/20/2017 SUBJECTIVE: I am seeing Mrs. Light in followup of a right MCA infarction with progression and presumed distal embolization of an MCA clot. She is doing well. She has not had any recurrent symptoms and is approaching baseline. Her Plavix has been stopped. She is continued on aspirin and were gradually adding Coumadin to avoid hemorrhagic transformation. She has not had any new symptoms. She is awake and alert. OBJECTIVE: 36.8, 54, 20, 116/67. She does report occasional orthostatic lightheadedness which was occurring at home. There is normal extraocular motility. Normal shafer. No visual extinction, normal facial symmetry, normal speech and language. There is minimal weakness of the left wrist extensors. There is an upward left drift and equal rapid alternating movements. Lower extremities are symmetric. Sensation is symmetric bilaterally but there is double simultaneous stimulation extinction. IMPRESSION: Extension of a right middle cerebral artery infarction. RECOMMENDATION: Ongoing aspirin and Coumadin for 6 weeks to help stabilize the clot. We spoke at length about safety discontinuing alcohol. Risk factor modification for stroke. Would recommend checking orthostatics due to her complaints of feeling mildly lightheaded with standing. Dr. Wright is going to adjust downward the dose of her antihypertensives. We will see the patient in followup post discharge. I understand she already has an appointment. CARLOS
--- NOTE | 2017-02-20 13:17 | Progress Note ---
Medicine Progress Note Date & Time of Visit: Feb 20, 2017 at 10:13. Subjective Pt was seen and examined Sitting in bed with no distress Pt said that she feels fine Denies any chest pain, palpitation, dizziness and SOB Objective Last 8 Hrs Date Time Temp Pulse Resp B/P (MAP) Pulse Ox O2 Delivery O2 Flow Rate FiO2 02/20/17 11:04 36.8 54 20 116/67 (83) 97 Room Air 02/20/17 08:30 Room Air 02/20/17 08:10 36.6 61 20 101/54 (70) 97 Physical Exam: General- No acute distress Head- atraumatic Eyes- PERRL, EOMI ENT- oropharynx clear Neck- supple, no JVD Lungs- clear to auscultation Heart- regular rhythm Abdomen- normal bowel sounds, soft Extremities- no pretibial edema, no calf tenderness Neuro- alert, oriented x 3; PERRL, EOMI; no facial palsy, no motor or sensory deficit Skin- warm & dry Laboratory Results: Last 24 Hours Test 02/19/17 14:22 02/20/17 06:46 Sodium Level 128 mmol/L 131 mmol/L Potassium Level 3.8 mmol/L 3.7 mmol/L Chloride Level 95 mmol/L 98 mmol/L Carbon Dioxide Level 25 mmol/L 26 mmol/L Anion Gap 8.0 mmol/L 6.0 mmol/L Blood Urea Nitrogen 8 mg/dl 14 mg/dl Creatinine 0.56 mg/dl 0.64 mg/dl Est Creatinine Clear Calc Drug Dose 80.6 ml/min 70.5 ml/min Estimated GFR () 111.8 107.0 Estimated GFR (Non- 96.5 92.3 BUN/Creatinine Ratio 14.9 21.5 Random Glucose 120 mg/dl 100 mg/dl Calcium Level 8.1 mg/dl 8.7 mg/dl Prothrombin Time 11.0 SECONDS Prothromb Time International Ratio 1.0 Assessment & Plan Acute CVA Present with L arm numbness Hx of R MCA infarct in 10/09 CT head on admission showed old right hemispheric infarcts. No acute intracranial findings. MRI of the head showed linear area of restricted diffusion within the right parietal lobe measuring 2.2 x 0.8 cm suggesting acute or subacute infarction Carotid doppler showed no sonographic evidence of hemodynamically significant stenosis in the right or left carotid arterial system. Called radiologist to discuss MRI finding, radiologist confirmed the that is a new infarct Continue asa, statin and Plavix Neuro on board Continue PT/OT/Speech 02/20 Clinically stable CTA head showed Interval recannulization of the previous described right middle cerebral artery occlusion. There is mild attenuation of the distal right MCA artery branches. Neuro consider to start anticoagulation with Coumadin for 6 weeks Also recommend outpatient cardionet for longer period to monitor for Afib Repeat CT head showed any bleeding Starting on Coumadin 5 mg Discussed with patient and 2 sister about the risks being on Coumadin such as bleeding Pt also understands not to drink alcohol while on Coumadin Check INR on Tuesday Follow up with the coag clinic Plavix d/c, continue asa 81 Follow up with neurology as an outpatient ( Already has appointment schedule) Anxiety/Depression Zoloft was d/c due to side effect of hyponatremia Starting on Wellbutrin will need to titrate up by pcp Heavy alcohol abuse Drink about 2-3 glasses of wine per day No hx of DT On gabapentin as per withdraw protocol No sign s of withdraw noted Counseling on alcohol cessation Continue PO thiamine Counselling pt on alcohol cessation Advised pt that she cannot continue to drink alcohol while taking coumadin HTN: BP well control Due to her acute CVA, recommend BP to be a little higher for now Atenolol changed from BID to daily Lisinopril has been on hold Amlodipine decreased to to 2.5 mg daily Continue monitor BP HYPONATREMIA Mostly related to chronic alcohol use and poor intake Na 131 today Continue 1500 ml fluid restriction Nephro consulted Continue monitor BMP Follow up with Nephrology Dr. Velázquez on 02/24 DVT Ppx: Lovenox Code status: FULL Disposition Discharge home today Follow up with your primary care provider Dr. Reynolds on 03/01 @ 11:05 Follow up with nephrology Tiarra Engel PA-C on 03/03 @ 10:00 AM Follow up with the Coumadin clinic (the clinic will contact you for the appointment) Check INR on 02/23 (blood test for the Coumadin). INR goal between 2 -3. Continue monitor blood pressure Continue 1500 ml fluid restriction counseling on tobacco abuse Consultants: Neuro Nephrology Current Inpatient Medications: Current Inpatient Medications Medications (Trade) Dose Ordered Sig/Alexandra Route Start Time Stop Time Status Last Admin Dose Admin Thiamine HCl (Vitamin B-1 Tab) 100 mg DAILY PO 02/17/17 09:00 03/19/17 08:59 02/20/17 09:07 100 MG Lorazepam (Ativan Tab) PRN Dosing -Active Protocol UD PRN PO 02/16/17 17:15 03/18/17 17:14 Miscellaneous Information (Pharmacist Discharge Med Rec Consult) 1 ea UD PRN N/A 02/16/17 17:15 03/18/17 17:14 Enoxaparin Sodium (Lovenox Inj) 40 mg HS SC 02/16/17 21:00 03/18/17 20:59 02/19/17 21:08 40 MG Acetaminophen (Tylenol Tab) 650 mg Q4H PRN PO 02/16/17 17:15 03/18/17 17:14 Ondansetron HCl (Zofran Inj) 4 mg Q6H PRN IV 02/16/17 17:15 03/18/17 17:14 02/19/17 07:53 4 MG Aspirin (Ecotrin Tab) 81 mg QAM PO 02/17/17 09:00 03/19/17 08:59 02/20/17 09:08 81 MG Atenolol (Tenormin Tab) 12.5 mg QPM PO 02/16/17 21:00 03/18/17 20:59 02/19/17 21:07 12.5 MG Atenolol (Tenormin Tab) 25 mg QAM PO 02/17/17 09:00 03/19/17 08:59 02/20/17 09:08 25 MG Atorvastatin Calcium (Lipitor Tab) 80 mg DAILY PO 02/17/17 09:00 03/19/17 08:59 02/20/17 09:07 80 MG Lisinopril (Zestril Tab) 40 mg DAILY PO 02/17/17 09:00 03/19/17 08:59 Future Hold 02/18/17 09:34 40 MG Potassium Chloride (Klor-Con Tab) 20 meq QAM PO 02/17/17 09:00 03/19/17 08:59 02/20/17 09:07 20 MEQ Gadobutrol (Gadavist) 6 mmol UD PRN IV 02/16/17 22:45 02/20/17 22:44 Ioversol (Optiray 320) 100 ml UD PRN IV 02/17/17 16:45 02/21/17 16:44 Warfarin Sodium (Coumadin Tab) 5 mg DAILY@16 PO 02/19/17 16:00 03/21/17 15:59 02/19/17 16:53 5 MG Amlodipine Besylate (Norvasc Tab) 2.5 mg DAILY PO 02/20/17 09:00 03/19/17 08:59 02/20/17 09:07 2.5 MG Bupropion HCl (Wellbutrin-Xl Tab) 150 mg QAM PO 02/20/17 09:00 03/22/17 08:59 02/20/17 09:08 150 MG
[2017-02-20] MEDS ORDERED: NRV5 PO (13:58)
[2017-02-20] MEDS ORDERED: WLLXL150 PO (13:58)
[2017-02-20] MEDS ORDERED: CMD5 PO (13:58)
--- NOTE | 2017-02-20 14:10 | Discharge Instructions ---
Discharge Instructions Date of Service Feb 20, 2017. Admission Reason for Admission: Htn, Left Arm Numbness Discharge Discharge Diagnosis / Problem: Acute stroke, Anxiety/Depression/ Hyponatremia Discharge Goals Goal(s): Decrease discomfort, Improve function, Improve disease control Activity Recommendations Activity Limitations: resume your previous activity (as tolerated ) . Instructions / Follow-Up Instructions / Follow-Up Discharge home today with home health services Follow up with your primary care provider Dr. Reynolds on 03/01 @ 11:05 Follow up with nephrology Tiarra Engel PA-C on 03/03 @ 10:00 AM Follow up with the Coumadin clinic (the clinic will contact you for the appointment) Check INR on 02/23 (blood test for the Coumadin). INR goal between 2 -3. Check BMP on 02/23 Continue monitor blood pressure Continue 1500 ml fluid restriction Counseling on Alcohol abuse Continue PT/OT Fall precaution Hold lisinopril for now, can resume at a lower dose by your physician if blood pressure starts to elevate Starting on Wellbutrin for depression/anxiety, your physician will titrate it if needed New Medications Wellbutrin Coumadin Discontinue medication Plavix Zoloft Medication Instructions: Coumadin * Warfarin is a medicine prescribed to prevent blood clots * Warfarin will thin your blood and help prevent new clots * Take your medications exactly as directed * Never skip a dose. Never take a double dose. If you miss a dose, take it as soon as you remember * It is important for your doctor to monitor your prothrombin time (PT). This is a lab test * Keep your appointment for lab tests Risk of Adverse Drug Reactions and Interactions: * Warfarin increases your risk of bleeding * The food you eat and other medications you take can affect how Warfarin works in your body * Ask your doctor about daily aspirin therapy * It is very important to talk with your doctor about all of the other medicines , antibiotics, vitamins or herbal products that you are taking * All of your medication must be approved by your doctor, including new medicines, as well as medicines you have taken before you started taking Warfarin * Avoid NSAIDS such as Motrin, aleve, naproxen, ibuprofen Diet: * In order for Warfarin to work properly, it is important to keep your intake of Vitamin K as consistent as possible * You should avoid any sudden change in Vitamin K intake * Report any significant changes in your diet or weight to your doctor * No alcohol intake Call your Primary Care doctor if you experience any of the following: * Swelling or Pain in your leg * Sudden, continuous pain deep in a muscle * Pain that worsens when you are active or when you stand still for a long time * Chest Pain * Sudden Shortness of Breath * Rapid or pounding heart beat * Fainting * Dizziness * Cough with blood or bloody sputum * Sweating more than normal * Bruises * Heavy or uncontrolled bleeding * Blood in your urine, stool or vomit * Black or tarry stools Follow Up: It is important for you to keep your follow up appointments with your medical provider. Current Hospital Diet Patient's current hospital diet: AHA Diet (Heart Healthy) Discharge Diet Recommended Diet: AHA Diet (Heart Healthy) Pending Studies Studies pending at discharge: no Laboratory Results Hemoglobin A1c Test 02/16/17 10:00 Range/Units Estimated Average Glucose 114 mg/dl Hemoglobin A1c 5.6 4.5-5.6 % Lipid Panel Test 02/17/17 06:03 Range/Units Triglycerides Level 116 0-150 mg/dl Cholesterol Level 174 0-200 mg/dl HDL Cholesterol 85 mg/dl Cholesterol/HDL Ratio 2.0 LDL Cholesterol, Calculated 66 mg/dl Medical Emergencies . Who to Call and When: Medical Emergencies: If at any time you feel your situation is an emergency, please call 911 immediately. . Non-Emergent Contact Non-Emergency issues call your: Primary Care Provider Call Non-Emergent contact if: you have any medication questions . . "Provider Documentation" section prepared by Rosalinda Wright. . VTE Core Measure Inpt VTE Proph given/why not?: Enoxaparin (Lovenox)SQ
[2017-02-20 15:12] VITALS: BP_SYST 117; BP_SYST 119; BP_DIAS 63; BP_DIAS 68; BP_DIAS 78; PULSE 56; PULSE 57; TEMP 36.8; O2SAT 95
[2017-02-20] MEDS: WARFARIN SOD 5 MG TAB PO SCH (15:23)
--- NOTE | 2017-02-20 15:25 | Pharmacy Progress Note ---
Pharmacist Stroke Counseling Date of Service Feb 20, 2017. Scope Pharmacy has been consulted to provide medication discharge counseling for this patient admitted with ischemic stroke/hemorrhagic stroke/ transient ischemic attack as per the Pharmacist Discharge Counseling for Stroke Patients Protocol. Medications on Discharge New Medications: Amlodipine Besylate (Amlodipine Besylate) 5 Mg Tab 2.5 MG PO DAILY for 30 Days, #15 TAB Bupropion HCl (Bupropion HCl Xl) 150 Mg Tabcr 150 MG PO QAM for 30 Days Warfarin Sod (Coumadin) 5 Mg Tab 5 MG PO DAILY@16 for 30 Days, TAB Continued Medications: Aspirin (Aspirin EC Low Dose) 81 Mg Ectab 81 MG PO QAM for 30 Days Atenolol (Tenormin) 25 Mg Tab 25 MG PO QAM, TAB Atorvastatin (Lipitor) 80 Mg Tab 80 MG PO DAILY, TAB Potassium Chloride (K-Tab) 20 Meq Tab 20 MEQ PO DAILY Discontinued Medications: Amlodipine (Norvasc) 5 Mg Tab 5 MG PO DAILY, TAB Atenolol (Tenormin) 25 Mg Tab 12.5 MG PO QPM, TAB Clopidogrel Bisulfate (Clopidogrel) 75 Mg Tab 75 MG PO QAM for 30 Days, #30 TAB Lisinopril (Zestril) 40 Mg Tab 40 MG PO DAILY, TAB Sertraline (Zoloft) 25 Mg Tab 25 MG PO DAILY, TAB Action The above medications, specifically ones for stroke treatment/prophylaxis, have been reviewed in detail with the patient and/or patient sales representative printing supplies(s) prior to discharge (her two sisters were present for counseling). This includes indication, common adverse reactions, drug interactions, and medication administration. Medication counseling has been employed using the teach-back method to ensure understanding. Outcome The patient and/or patient sales representative printing supplies(s) have demonstrated understanding of the medications. Please note, they are aware that the pharmacist will call them within 72 hours post-discharge to confirm that the appropriate medications are being taken and answer any further medication related questions the patient might have at that time. Contact information Individual to be contacted: patient Phone number: [phone] (home) Best time to call: noon Additional comments: Patient and her two sisters were in the room for discharge counseling. We spent extensive time reviewing warfarin as this is a new medication for her. She is to stop taking Plavix and begin warfarin for 6 weeks and use it in combo with the aspirin she had been taking. We reviewed the indication for warfarin, s/s of anticoagulation being excessive, drug interactions and importance of consistency with diet. We also reviewed the importance of avoiding alcohol consumption given addition bleeding risks associated w/ use. Dr Wright is to set up an appointment w/ [facility] tomorrow. Patient was given Coumadin booklet for review on discharge. Encouraged patient to obtain a medical alert ID. Patient has been taking the ASA and Lipitor in the past and has not had any concerns with either medication at this time, denied myalgias. Explained importance of statin to prevent future stroke regardless of lipid panel results. It appears there have already been arrangements for her to have f/u with her PCP and nephrology next week. Of note, she had multiple medication changes on discharge: stop plavix, stop zoloft, stop lisinopril, reduce the dose of amlodipine, etc. She was given a new discharge medication list by RN with these medication changes. The patient' s sister Ramonita was going to go thru the patient's current pillbox and update the contents with the new medication changes. Thank you for allowing pharmacy to be involved in the care of this patient. Please call [phone] or [phone] with any additional questions
--- NOTE | 2017-02-21 09:55 | Discharge Summary ---
Discharge Summary Date of Service Feb 21, 2017. Discharge Summary Admission Date: Feb 16, 2017 at 17:05 Discharge Date: Feb 20, 2017 Discharge Disposition: Home with services Principal Diagnosis: Acute CVA Secondary Diagnoses/Problems: Anxiety Depression Hyponatremia Alcohol abuse HTN Procedures: BRAIN COMBO HISTORY: 66 years-old Female Stroke rule out acute strokelike symptoms. Remote infarctions of the right cerebral hemisphere. COMPARISON: CT head of same day, brain MR 10/20/2016 TECHNIQUE: Multiplanar multisequence MRI the brain was obtained both with and without the use of 6 mL Gadavist FINDINGS: Linear area of restricted diffusion within the right parietal lobe image 14 series 4 measuring 2.2 x 0.8 cm demonstrates decreased signal on ADC map, image 14 series 400 with intermediate T2 signal suggesting acute or subacute infarction. This is centered within an area of remote infarction with surrounding T2 shine through, encephalomalacia and surrounding laminar necrosis. Mild background atrophy with chronic microvascular ischemic changes. No midline shift, hydrocephalus or abnormal extra-axial collections. Midline structures including the corpus callosum, brainstem, optic chiasm and pineal gland are unremarkable in the sagittal T1 sequence. No cerebellar tonsillar herniation. Mild enhancement within the region of laminar necrosis is compatible with subacute infarction. The degree of enhancement has decreased from prior study. Major flow voids at the level the skull base are within normal limits. Mild mucosal thickening of the nasal sinuses. Mastoid air cells are clear. Scalp and soft tissues are unremarkable. IMPRESSION: 1. Linear area of restricted diffusion within the right parietal lobe as above, 2.2 x 0.8 cm centered within the area of remote infarction with surrounding T2 shine through, enhancing laminar necrosis and encephalomalacia suggests small acute or subacute infarction. No associated significant mass effect or midline shift. 2. Atrophy with chronic microvascular ischemic changes. 3. Mild paranasal sinus disease. The above report was generated using voice recognition software. It may contain grammatical, syntax or spelling errors. Electronically signed by: Jin Valentino M.D. 02/17/2017 12:08 AM Dictated Date/Time: 02/16/2017 11:[address] NECK ANGIO WITH CONTRAST CLINICAL HISTORY: STROKE COMPARISON STUDY: Ultrasound the carotid arteries dated 02/16/2017 TECHNIQUE: CT angiography was performed from the aortic arch to the skull base. MIP imaging was performed. The patient was scanned in a dynamic helical fashion during intravenous administration of 115 cc of Optiray 320. A dose lowering technique was utilized adhering to the principles of ALARA. CT DOSE: Technique: CT angiogram of the carotid and vertebral arteries was obtained using intravenous contrast and 3-D reconstruction. NASCET criteria was utilized. MIP imaging was performed. Findings: The right carotid revealed no evidence of aneurysm and no evidence of dissection. There is no evidence of hemodynamic significant stenosis. There are moderate atheromatous changes at the bifurcation with a 15% diameter narrowing. The left carotid revealed no evidence of hemodynamic significant stenosis. There is no evidence of aneurysm. There is no evidence of dissection. There is a 70% diameter stenosis of the left vertebral origin. There is no dissection. IMPRESSION: 1. No evidence of hemodynamically significant carotid stenosis 2. 70% diameter stenosis of the left vertebral origin 3. No evidence of dissection Electronically signed by: Sylvester Yang M.D. 02/17/2017 7:59 PM Dictated Date/Time: 02/17/2017 7:[address] HEAD ANGIO WITH CONTRAST CLINICAL HISTORY: STROKE TECHNIQUE: CT angiography of the head was performed in a dynamic helical fashion during intravenous administration of 115 cc of Optiray 320. A dose lowering technique was utilized adhering to the principles of ALARA. MIP imaging was performed CT DOSE: 461.89 mGy.cm COMPARISON STUDY: Noncontrast head CT dated 02/16/2017, MR angiography of the brain dated 10/20/2016 FINDINGS: There are no lesion suspicious for aneurysm. The dural venous sinuses appear patent. There are right hemispheric hypodensities, consistent with the patient's known MCA territory infarct. There is mild attenuation of the distal right MCA artery branches. There is recannulization of the previously described right middle cerebral artery occlusion IMPRESSION: 1. Interval recannulization of the previous described right middle cerebral artery occlusion. There is mild attenuation of the distal right MCA artery branches. 2. Right hemispheric hypodensities consistent with the patient's known MCA territory infarct 3. No evidence of aneurysm Electronically signed by: Sylvester Yang M.D. 02/17/2017 8:04 PM Dictated Date/Time: 02/17/2017 7:59 PM ULTRASOUND OF THE CAROTID ARTERIES CLINICAL HISTORY: Strokelike symptoms. COMPARISON STUDY: Carotid artery ultrasound dated 10/20/2016. TECHNIQUE: Real-time, grayscale, and color Doppler sonography of the carotid arteries is performed. Images are reviewed in the transverse and longitudinal planes. FINDINGS: Blood pressure in the right arm measures 134/71 and blood pressure in the left arm measures 114/61. The carotid arteries are patent bilaterally and demonstrate antegrade flow. There is no significant atherosclerotic plaque identified. Normal doppler arterial waveforms are seen throughout. Velocity measurements are listed below. Common carotid peak systolic velocity (cm/sec): RIGHT: 86 LEFT: 70 ICA proximal peak systolic velocity (cm/sec): RIGHT: 64 LEFT: 51 ICA mid peak systolic velocity (cm/sec): RIGHT: 72 LEFT: 61 ICA distal peak systolic velocity (cm/sec): RIGHT: 90 LEFT: 61 ICA/CC peak systolic ratio: RIGHT: 1.0 LEFT: 0.9 Antegrade flow was shown in the vertebral arteries. The external carotid arteries are patent. IMPRESSION: 1. There is no sonographic evidence of hemodynamically significant stenosis in the right or left carotid arterial system. 2. Antegrade flow is shown in the vertebral arteries. Electronically signed by: Karlos Bird M.D. 02/17/2017 7:11 AM Dictated Date/Time: 02/17/2017 7:10 AM Interpretation Summary * Name: JOSE RAMON SIMMONS Study Date: 02/17/2017 10:29 AM BP: 126/71 mmHg * Patient Location: .\\[id number]\\E208\\S\\1 HR: 61 * : 1950 (M/d/yyyy) Gender: Female Height: 63 in * Age: 66 yrs Ethnicity: [place] Weight: 126 lb * Ordering Physician: Rosalinda Wright * Referring Physician: Self, Referred * Performed By: Ramonita Wray RCS * * Reason For Study: ACUTE CVA * BSA: 1.6 m2 * -- Conclusions -- * The left ventricular wall motion is normal. * The LV Ejection Fraction = 60-65%. * There is no LV mural thrombus. * There is no significant valvular heart disease. * The interatrial septum is intact with no evidence for an atrial septal defect as demonstrated with a high quality agitated saline contrast study. Procedure Details * A complete two-dimensional transthoracic echocardiogram was performed (2D, M- mode, Doppler and color flow Doppler). * A saline contrast injection was performed to assess for cardiac shunting. * The injection was performed through an intravenous line in the left arm. * The attending nurse who injected the saline contrast was NIYAH, PCU CHARGE, RN. * A total of 20 cc of agitated saline was given. Left Ventricle * The left ventricle is normal in size. * There is normal left ventricular wall thickness. * Left ventricular systolic function is normal. * Ejection Fraction = 60-65%. * The left ventricular wall motion is normal. Right Ventricle * The right ventricle is normal size. * The right ventricular systolic function is normal as assessed by tricuspid annular plane systolic excursion (TAPSE) (normal >1.5 cm). Atria * The left atrial size is normal. * Right atrial size is normal. * The interatrial septum is intact with no evidence for an atrial septal defect. Mitral Valve * The mitral valve is normal. * There is no mitral valve stenosis. * Significant mitral regurgitation is absent. Tricuspid Valve * The tricuspid valve is normal. * There is no tricuspid stenosis. * Significant tricuspid regurgitation is absent. * Doppler findings do not suggest pulmonary hypertension. Aortic Valve * The aortic valve is trileaflet. * Aortic stenosis is absent. * There is no significant aortic regurgitation. Pulmonic Valve * The pulmonary valve is not well seen, but the Doppler examination is normal without significant regurgitation or stenosis. Great Vessels * The aortic root and proximal ascending aorta are normal sized. Pericardium/Pleural * There is no pericardial effusion. * There is an echodensity in the pericardial space consistent with pericardial fat. Great Vessels * Normal inferior vena cava diameter and respiratory variation suggests normal central venous pressure. * Normal inferior vena cava size and collapsability with sniff indicates a normal right atrial pressure of 3 mmHg Consultations: Neuro Nephrology Medication Reconciliation New Medications: Amlodipine Besylate (Amlodipine Besylate) 5 Mg Tab 2.5 MG PO DAILY for 30 Days, #15 TAB Bupropion HCl (Bupropion HCl Xl) 150 Mg Tabcr 150 MG PO QAM for 30 Days Warfarin Sod (Coumadin) 5 Mg Tab 5 MG PO DAILY@16 for 30 Days, TAB Continued Medications: Aspirin (Aspirin EC Low Dose) 81 Mg Ectab 81 MG PO QAM for 30 Days Atenolol (Tenormin) 25 Mg Tab 25 MG PO QAM, TAB Atorvastatin (Lipitor) 80 Mg Tab 80 MG PO DAILY, TAB Potassium Chloride (K-Tab) 20 Meq Tab 20 MEQ PO DAILY Discontinued Medications: Amlodipine (Norvasc) 5 Mg Tab 5 MG PO DAILY, TAB Atenolol (Tenormin) 25 Mg Tab 12.5 MG PO QPM, TAB Clopidogrel Bisulfate (Clopidogrel) 75 Mg Tab 75 MG PO QAM for 30 Days, #30 TAB Lisinopril (Zestril) 40 Mg Tab 40 MG PO DAILY, TAB Sertraline (Zoloft) 25 Mg Tab 25 MG PO DAILY, TAB Admission Information HPI (per Admitting provider): This is a 66yo F with a PMH of HTN, anxiety and h/o R MCA stroke in 09/2016 who presents with L arm tingling and hypertension that began this morning. Patient woke up in normal state of health today and took her medications at 8am. When she woke up from a nap later in the morning her L hand was tingling. She thinks she may have been sleeping on it. Also noticed that her L eye was twitching. Took her BP and noticed it was elevated. Continued to recheck it and it continued to rise. Is unsure of the exact number but thinks the top number was above 200. Became very anxious at this point due to her last stroke occurring in the setting of elevated BP. Family member called EMS. Once patient was in ambulance, states that her entire L arm was tingling but that she still was able to move it without a problem. Denies any facial droop, difficulty with speech, weakness in extremities, difficulty walking. Denies any headache, CP, SOB. This past September, patient came into the ER for evaluation of HTN, L facial droop and slurred speech and found to have a subacute R MCA infarct. Was discharged on aspirin and plavix and completed rehab at [facility]. States that she has had no residual deficits besides slowed cognition. Has difficulty finding words sometimes or doing any calculations with numbers. Once patient arrived in ER today, L eye twitch and L arm tingling resolved. Started to experience bilateral tremors in arms. States that she gets these at home intermittently when she is nervous. Endorses a history of heavy alcohol use. Per family, ever since CVA in September, they have been attempting to monitor her wine consumption by having a neighbor bring over a measured amount a few times a week. However, patient states that it is not unusual for her to ask other friends to bring her wine during the week. Last consumption was last night , when she had 3 glasses. Denies history of DTs in withdrawal. Physical Exam (per Admitting): General Appearance: no apparent distress (Drowsy but cooperative ) Head: normocephalic, atraumatic Eyes: normal inspection, PERRL, EOMI, sclerae normal (conjunctiva normal ) ENT: normal ENT inspection, hearing grossly normal, pharynx normal (Moist mucous membranes ) Neck: supple, no adenopathy, no JVD, trachea midline Respiratory/Chest: chest non-tender, lungs clear, normal breath sounds, no respiratory distress, no accessory muscle use Cardiovascular: regular rate, rhythm, + systolic murmur (Best heard LUSB and RUSB) Abdomen/GI: normal bowel sounds, non tender, soft, no organomegaly Back: normal inspection, no CVA tenderness Extremities/Musculoskelatal: normal inspection, no calf tenderness, normal capillary refill, no pedal edema Neurologic/Psych: 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 Normal gait. Cerebellar tests normal. ), alert, normal mood/affect, oriented x 3, + pertinent finding (Bilateral arm tremors ) Skin: normal color, warm/dry, no rash Hospital Course Acute CVA Present with L arm numbness Hx of R MCA infarct in 10/09 CT head on admission showed old right hemispheric infarcts. No acute intracranial findings. MRI of the head showed linear area of restricted diffusion within the right parietal lobe measuring 2.2 x 0.8 cm suggesting acute or subacute infarction Carotid doppler showed no sonographic evidence of hemodynamically significant stenosis in the right or left carotid arterial system. Called radiologist to discuss MRI finding, radiologist confirmed the that is a new infarct Continue asa, statin and Plavix Neuro on board Continue PT/OT/Speech 02/20 Clinically stable CTA head showed Interval recannulization of the previous described right middle cerebral artery occlusion. There is mild attenuation of the distal right MCA artery branches. Neuro consider to start anticoagulation with Coumadin for 6 weeks Also recommend outpatient cardionet for longer period to monitor for Afib Repeat CT head showed any bleeding Starting on Coumadin 5 mg Discussed with patient and 2 sister about the risks being on Coumadin such as bleeding Pt also understands not to drink alcohol while on Coumadin Check INR on Tuesday Follow up with the coag clinic Plavix d/c, continue asa 81 Follow up with neurology as an outpatient ( Already has appointment schedule) Anxiety/Depression Zoloft was d/c due to side effect of hyponatremia Starting on Wellbutrin will need to titrate up by pcp Heavy alcohol abuse Drink about 2-3 glasses of wine per day No hx of DT On gabapentin as per withdraw protocol No sign s of withdraw noted Counseling on alcohol cessation Continue PO thiamine Counselling pt on alcohol cessation Advised pt that she cannot continue to drink alcohol while taking coumadin HTN: BP well control Due to her acute CVA, recommend BP to be a little higher for now Atenolol changed from BID to daily Lisinopril has been on hold Amlodipine decreased to to 2.5 mg daily Continue monitor BP HYPONATREMIA Mostly related to chronic alcohol use and poor intake Na 131 today Continue 1500 ml fluid restriction Nephro consulted Continue monitor BMP Follow up with Nephrology Dr. Velázquez on 02/24 DVT Ppx: Lovenox Code status: FULL Disposition Discharge home today Follow up with your primary care provider Dr. Reynolds on 03/01 @ 11:05 Follow up with nephrology Tiarra Engel PA-C on 03/03 @ 10:00 AM Follow up with the Coumadin clinic (the clinic will contact you for the appointment) Check INR on 02/23 (blood test for the Coumadin). INR goal between 2 -3. Continue monitor blood pressure Continue 1500 ml fluid restriction counseling on tobacco abuse Total time spent on discharge = 40 minutes This includes examination of the patient, discharge planning, medication reconciliation, and communication with other providers. Discharge Instructions Discharge Instructions Date of Service Feb 20, 2017. Admission Reason for Admission: Htn, Left Arm Numbness Discharge Discharge Diagnosis / Problem: Acute stroke, Anxiety/Depression/ Hyponatremia Discharge Goals Goal(s): Decrease discomfort, Improve function, Improve disease control Activity Recommendations Activity Limitations: resume your previous activity (as tolerated ) . Instructions / Follow-Up Instructions / Follow-Up Discharge home today with home health services Follow up with your primary care provider Dr. Reynolds on 03/01 @ 11:05 Follow up with nephsudarshan Engel PA-C on 03/03 @ 10:00 AM Follow up with the Coumadin clinic (the clinic will contact you for the appointment) Check INR on 02/23 (blood test for the Coumadin). INR goal between 2 -3. Check BMP on 02/23 Continue monitor blood pressure Continue 1500 ml fluid restriction Counseling on Alcohol abuse Continue PT/OT Fall precaution Hold lisinopril for now, can resume at a lower dose by your physician if blood pressure starts to elevate Starting on Wellbutrin for depression/anxiety, your physician will titrate it if needed New Medications Wellbutrin Coumadin Discontinue medication Plavix Zoloft Medication Instructions: Coumadin * Warfarin is a medicine prescribed to prevent blood clots * Warfarin will thin your blood and help prevent new clots * Take your medications exactly as directed * Never skip a dose. Never take a double dose. If you miss a dose, take it as soon as you remember * It is important for your doctor to monitor your prothrombin time (PT). This is a lab test * Keep your appointment for lab tests Risk of Adverse Drug Reactions and Interactions: * Warfarin increases your risk of bleeding * The food you eat and other medications you take can affect how Warfarin works in your body * Ask your doctor about daily aspirin therapy * It is very important to talk with your doctor about all of the other medicines , antibiotics, vitamins or herbal products that you are taking * All of your medication must be approved by your doctor, including new medicines, as well as medicines you have taken before you started taking Warfarin * Avoid NSAIDS such as Motrin, aleve, naproxen, ibuprofen Diet: * In order for Warfarin to work properly, it is important to keep your intake of Vitamin K as consistent as possible * You should avoid any sudden change in Vitamin K intake * Report any significant changes in your diet or weight to your doctor * No alcohol intake Call your Primary Care doctor if you experience any of the following: * Swelling or Pain in your leg * Sudden, continuous pain deep in a muscle * Pain that worsens when you are active or when you stand still for a long time * Chest Pain * Sudden Shortness of Breath * Rapid or pounding heart beat * Fainting * Dizziness * Cough with blood or bloody sputum * Sweating more than normal * Bruises * Heavy or uncontrolled bleeding * Blood in your urine, stool or vomit * Black or tarry stools Follow Up: It is important for you to keep your follow up appointments with your medical provider. Current Hospital Diet Patient's current hospital diet: AHA Diet (Heart Healthy) Discharge Diet Recommended Diet: AHA Diet (Heart Healthy) Pending Studies Studies pending at discharge: no Laboratory Results Hemoglobin A1c Test 02/16/17 10:00 Range/Units Estimated Average Glucose 114 mg/dl Hemoglobin A1c 5.6 4.5-5.6 % Lipid Panel Test 02/17/17 06:03 Range/Units Triglycerides Level 116 0-150 mg/dl Cholesterol Level 174 0-200 mg/dl HDL Cholesterol 85 mg/dl Cholesterol/HDL Ratio 2.0 LDL Cholesterol, Calculated 66 mg/dl Medical Emergencies . Who to Call and When: Medical Emergencies: If at any time you feel your situation is an emergency, please call 911 immediately. . Non-Emergent Contact Non-Emergency issues call your: Primary Care Provider Call Non-Emergent contact if: you have any medication questions . . "Provider Documentation" section prepared by Rosalinda Wright. . VTE Core Measure Inpt VTE Proph given/why not?: Enoxaparin (Lovenox)SQ Additional Copies To Bell Reynolds D.O.
--- NOTE | 2017-02-24 13:40 | Pharmacy Progress Note ---
Pharmacist Post D/C Phone Note Date of phone call: Feb 24, 2017. Individual with whom pharmacist spoke to: Alexandria Light The following questions were reviewed during the phone call with responses listed below each: Can you tell me the medications that you are currently taking as well as when and how you take each medication? - Patient met with her local pharmacist, Forest Moreau at [facility] in [place]. They reviewed her new medications and her discontinued medications. Mrs Light said that she has a good relationship with her local pharmacist. When have you missed any doses of your medications? - Patient states that she has not missed any doses and that she has a nurse that helps manage her medications. She also states that she uses a pill box for her medications. What side effects are you having from your medications? - None at this time. What questions do you have about your medications? - No questions at this time. Patient states she has been reading her coumadin booklet. Patient will be followed by the anticoagulation clinic at the [facility] office in [place]. What problems are you having obtaining your medications? - Patient states no problems obtaining medications. When is your next appointment with your primary care doctor? - Patient had appointment with her primary care doctor yesterday. She has been started on a new medication for nausea which is not a new problem but an on -going issue. Additional comments: - Patient reports that she is doing well. As per the Pharmacist Discharge Counseling for Stroke Patients Protocol, this phone call has been completed within 72 hours of discharge. Thank you for allowing us to be involved in the care of this patient.
[2017-02-24 21:38] LABS: ANTITHROMBINIII ACTIVITY** 107 % activity (80-120); B2 GLYCOPROTEIN IGA <9 SAU (<=20); B2 GLYCOPROTEIN IGG <9 SGU (<=20); B2 GLYCOPROTEIN IGM 9 SMU (<=20); LUPUS ANTICOAGULANT** TC36573X Negative (Negative); PROTEIN C ACTIVITY** TC 1777X 61 % (70-180); PROTEIN S ACT(FUNCT)**1779X 130 % (60-140)
== END 2017-02-20 18:49 | disposition home health service (06) | DRG 65 ==
LOC: EDBD 10:15 → C.EDC 10:16 → C.2E 17:05 → ENRESERV 17:20
PROVIDERS: ADMIT Hospitalist; ATTEND Internal Medicine
DX: I63.411 Cerebral infarction due to embolism of right middle cerebral artery (principal); E87.1 Hypo-osmolality and hyponatremia; T43.225A Adverse effect of selective serotonin reuptake inhibitors, initial encounter; R20.2 Paresthesia of skin; R25.3 Fasciculation; R25.1 Tremor, unspecified; I10 Essential (primary) hypertension; K76.9 Liver disease, unspecified; I69.319 Unspecified symptoms and signs involving cognitive functions following cerebral infarction; F41.9 Anxiety disorder, unspecified; F32.9 Major depressive disorder, single episode, unspecified; F10.10 Alcohol abuse, uncomplicated; Z87.891 Personal history of nicotine dependence; Z82.3 Family history of stroke; Z79.82 Long term (current) use of aspirin; Z79.02 Long term (current) use of antithrombotics/antiplatelets; Z79.899 Other long term (current) drug therapy

== ENCOUNTER → 2017-02-28 | Outpatient (CLI) | payer OTHER ==
[~2017-02-28] MED LIST changes: +ATEN-173 PO; +ATOR-26 PO; +CMD5 PO; -LPT40 PO; +NRV5 PO; -PLV75 PO; +POTA1TAB97 PO; +WLLXL150 PO
[2017-02-28 15:00] LABS: PROTHROMBIN TIME (PATIENT) 48.3 SECONDS (9.0-12.0)
[2017-02-28 15:09] LABS: INR 4.2 (0.9-1.1)
== END | disposition home or self-care (01) ==
LOC: C.LABSPEC 14:31
PROVIDERS: ATTEND Internal Medicine
DX: I48.91 Unspecified atrial fibrillation (principal)

== ENCOUNTER → 2017-03-07 | Outpatient (CLI) | payer OTHER ==
[2017-03-07 13:46] LABS: INR 2.2 (0.9-1.1); PROTHROMBIN TIME (PATIENT) 24.1 SECONDS (9.0-12.0)
--- NOTE | 2017-03-12 10:26 | CODING QUERY NO DIAGNOSIS ---
Valid Physician Order Needed A valid physician order must be submitted in order to properly bill for the service(s) provided, including date of service(s), valid diagnosis, and physician signature. If these tests are done on a recurring basis the original physician order must be submitted in order to code and bill for the service(s) provided. Please fax us the original, signed physician order so that we may expedite billing to [phone] DOS 03/07 * PTINR Thank you Ayah [facility] Information [facility]
== END | disposition home or self-care (01) ==
LOC: C.LABSPEC 13:15
PROVIDERS: ATTEND Internal Medicine
DX: I48.91 Unspecified atrial fibrillation (principal)

== ENCOUNTER → 2017-03-14 | Outpatient (CLI) | payer OTHER ==
[2017-03-14 13:26] LABS: INR 3.5 (0.9-1.1)
--- NOTE | 2017-03-28 11:21 | CODING QUERY NO DIAGNOSIS ---
Valid Physician Order Needed A valid physician order must be submitted in order to properly bill for the service(s) provided, including date of service(s), valid diagnosis, and physician signature. If these tests are done on a recurring basis the original physican order must be submitted in order to code and bill for the service(s) provided. Please fax us the original, signed physician order so that we may expedite billing to [phone] DOS 49 * PT/INR Thank you Misty [facility] Information Management
== END | disposition home or self-care (01) ==
LOC: C.LABSPEC 12:37
PROVIDERS: ATTEND Internal Medicine
DX: Z01.89 Encounter for other specified special examinations (principal)

== ENCOUNTER → 2017-04-13 | Outpatient (CLI) | payer OTHER ==
[~2017-04-13] MED LIST changes: +AMLO10TA3 PO; -ASPEC81 PO; +ASPI-320 PO; +CIPR-255 PO; +FLM4 PO; +FLUO20CA35 PO; +LISI-461 PO; +LISI20TA3 PO; +OXYC7.5T65 PO; +PHEN-876 PO; +SIME1CAP11 PEG; +WARF-246 PO
[2017-04-13 11:01] LABS: INR 1.5 (0.9-1.1)
== END | disposition home or self-care (01) ==
LOC: C.LABSPEC 10:45
PROVIDERS: ATTEND Internal Medicine
DX: I48.91 Unspecified atrial fibrillation (principal)

== ENCOUNTER → 2017-06-03 | Outpatient (CLI) | payer OTHER ==
[~2017-06-03] MED LIST changes: -AMLO10TA3 PO; +ASPEC81 PO; -ASPI-320 PO; -CIPR-255 PO; -FLM4 PO; -FLUO20CA35 PO; -LISI-461 PO; -LISI20TA3 PO; -OXYC7.5T65 PO; -PHEN-876 PO; -SIME1CAP11 PEG; -WARF-246 PO
[2017-06-03 12:54] LABS: INR 1.2 (0.9-1.1)
== END | disposition home or self-care (01) ==
LOC: C.LABSPEC 08:25
PROVIDERS: ATTEND Internal Medicine
DX: I48.91 Unspecified atrial fibrillation (principal)

== ENCOUNTER 2017-08-19 07:16 | Inpatient (IN) | payer OTHER ==
[2017-08-18 17:47] VITALS: BP 148/84; PULSE 61; TEMP 36.6; O2SAT 98
[2017-08-19] VITALS (8 sets, daily range): BP systolic 107–160; BP diastolic 68–97; PULSE 60–67; TEMP 36.6–37.1; O2SAT 92–98; Ht 157.5 cm; Wt 60.0 kg
[~2017-08-19] VITALS: Ht 157.5 cm; Wt 60.0 kg
[~2017-08-19 07:16] MED LIST changes: -ASPEC81 PO; +ASPI-320 PO
[2017-08-19] MEDS ORDERED: ONDANSETRON INJ 2 MG/ML 2 ML VIAL IV STA ×2 (07:33→09:02)
[2017-08-19] MEDS ORDERED: SODIUM CHLORIDE 0.9% 1000ML 1,000 ML IV STA (07:33)
[2017-08-19 07:56] LABS: BASO % 0.1 %; BASO ABS # 0.01 K/uL (0-0.2); HEMATOCRIT 38.6 % (37-47); HEMOGLOBIN 13.9 g/dL (12.0-16.0); IG# 0.04 K/uL (0.00-0.02); LYMPH % 10.9 %; LYMPH ABS # 1.18 K/uL (1.2-3.4); MEAN CORPUSCULAR HEMOGLOBIN 29.9 pg (25-34); MEAN PLATELET VOLUME 9.3 fL (7.4-10.4); MONO % 4.8 %; MONO ABS # 0.52 K/uL (0.11-0.59); NEUT % 83.8 %; NEUT ABS # 9.12 K/uL (1.4-6.5); PLATELET COUNT 334 K/uL (130-400); RED CELL DISTRIBUTION WIDTH CV 13.3 % (11.5-14.5); RED CELL DISTRIBUTION WIDTH SD 40.3 fL (36.4-46.3); WHITE BLOOD COUNT 10.87 K/uL (4.8-10.8)
--- NOTE | 2017-08-19 08:01 | DIAGNOSTIC IMAGING REPORT ---
CHEST ONE VIEW PORTABLE HISTORY: 67 years-old Female ABDOMINAL PAIN/GI acute generalized abdominal pain with nausea and vomiting COMPARISON: Chest radiograph 02/16/2017 TECHNIQUE: Portable AP view of the chest FINDINGS: Cardiomediastinal and hilar silhouettes are within normal limits. There is no pneumothorax, pleural effusion, focal airspace consolidation or overt pulmonary edema. Degenerative changes noted within the shoulders and spine. IMPRESSION: No acute process. The above report was generated using voice recognition software. It may contain grammatical, syntax or spelling errors. Electronically signed by: Jin Valentino M.D. 08/19/2017 8:00 AM Dictated Date/Time: 08/19/2017 7:58 AM
[2017-08-19 08:07] LABS: INR 2.3 (0.9-1.1); PTT PATIENT 31.5 SECONDS (21.0-31.0)
[2017-08-19] MEDS ORDERED: WARF-246 PO (08:09)
[2017-08-19] MEDS ORDERED: FLUO20CA35 PO (08:09)
[2017-08-19] MEDS ORDERED: CMD5 PO (08:09)
[2017-08-19] MEDS ORDERED: LISI20TA3 PO (08:09)
[2017-08-19] MEDS ORDERED: AMLO-114 PO (08:09)
[2017-08-19 08:12] LABS: ALBUMIN 4.2 gm/dl (3.4-5.0); CALCIUM 9.1 mg/dl (8.5-10.1); CREATININE 1.28 mg/dl (0.60-1.20); POTASSIUM 3.8 mmol/L (3.5-5.1)
--- NOTE | 2017-08-19 08:14 | DIAGNOSTIC IMAGING REPORT ---
CT OF THE ABDOMEN AND PELVIS WITHOUT CONTRAST CLINICAL HISTORY: Abdominal pain, nausea and vomiting. COMPARISON STUDY: Abdominal ultrasound February 19, 2017. TECHNIQUE: Axial images of the abdomen and pelvis were obtained without IV contrast. Images were reviewed in the axial, sagittal, and coronal planes. A dose lowering technique was utilized adhering to the principles of ALARA. FINDINGS: A 9 mm x 6 mm proximal right ureteral calculus results in moderate right hydronephrosis with moderate perinephric infiltration. No additional urinary calculi are identified. Evaluation of the abdomen and pelvis is suboptimal on this unenhanced exam. The liver, spleen, adrenal glands and pancreas are unremarkable. There is no biliary or pancreatic ductal dilatation. Incidental note is made of a retroaortic left renal vein. There is no evidence for a bowel obstruction. The appendix is normal. Note is made of sigmoid diverticulosis without evidence for acute diverticulitis. There is no lymphadenopathy. No suspicious osseous lesions are present. Note is made of a mild compression fracture of the superior endplate of L1 which is likely subacute to chronic. There is minimal retropulsion. IMPRESSION: 1. 9 mm x 6 mm proximal right ureteral calculus which results in moderate right hydronephrosis with moderate perinephric infiltration. 2. Mild L1 compression fracture which is likely subacute to chronic. Electronically signed by: Conrad Alcala M.D. 08/19/2017 8:13 AM Dictated Date/Time: 08/19/2017 8:05 AM
[2017-08-19 08:15] LABS: TOTAL PROTEIN 8.2 gm/dl (6.4-8.2)
--- NOTE | 2017-08-19 08:37 | DIAGNOSTIC IMAGING REPORT ---
ABDOMINAL ULTRASOUND, RIGHT UPPER QUADRANT HISTORY: Abdominal pain. COMPARISON: Upper quadrant ultrasound February 19, [address] performed earlier today. FINDINGS: Liver is sonographically normal. There is no gallbladder wall thickening. A few small gallbladder polyps are noted which measure up to 3 mm. There is no gallbladder wall thickening. There is no biliary ductal dilatation. Note is made of moderate right hydronephrosis. The proximal right ureteral calculus shown on CT is not evident by sonography. IMPRESSION: 1. Moderate right hydronephrosis. The proximal right ureteral calculus shown on CT performed earlier today is occult by sonography. 2. No gallstones or biliary ductal dilatation. Electronically signed by: Conrad Alcala M.D. 08/19/2017 8:36 AM Dictated Date/Time: 08/19/2017 8:34 AM
--- NOTE | 2017-08-19 10:07 | EMERGENCY ROOM VISIT NOTE ---
History Report prepared by Miquel: Elizabeth Salinas Under the Supervision of: Lupe CalvilloO. First contact with patient: 07:27 Chief Complaint: VOMITING Stated Complaint: VOMITING/NAUSEA,DIARRHEA History of Present Illness The patient is a 67 year old female who presents to the Emergency Room with complaints of persistent vomiting that began last night. She reports that she has been having diarrhea almost every time after she eats, which has been going on for the past 4 days. The patient states that last night she vomited about 3 times. Since then, she has been experiencing right lower quadrant abdominal pain and some lower back pain. She notes that she saw a doctor for her symptoms earlier in the week, but they told her it was just gas. Source of History: patient Onset: last night Position: other (gastrointestinal) Quality: other (vomiting) Timing: other Associated Symptoms: + abdominal pain (right lower quadrant), + back pain ( lower), + diarrhea Review of Systems See HPI for pertinent positives & negatives. A total of 10 systems reviewed and were otherwise negative. Past Medical & Surgical Medical Problems: (1) H/O ischemic right MCA stroke (2) HTN (hypertension) Family History Patient reports no known family medical history. Social History Smoking Status: Former Smoker Alcohol Use: heavy Drug Use: none Marital Status: Housing Status: lives alone Occupation Status: employed Current/Historical Medications Scheduled Amlodipine (Norvasc), 10 MG PO DAILY Aspirin (Aspirin EC Low Dose), 81 MG PO QAM Atenolol (Tenormin), 25 MG PO QAM Atorvastatin (Lipitor), 80 MG PO DAILY Fluoxetine (Prozac), 20 MG PO DAILY Lisinopril (Prinivil), 20 MG PO DAILY Warfarin Sod (Coumadin), 5 MG PO [id number] Warfarin Sodium (Warfarin Sodium), 2.5 MG PO [id number] Allergies Coded Allergies: Aspirin (Verified Adverse Reaction, Unknown, adverse reaction as a child with nosebleeds; none since then, 02/16/17) Uncoded Allergies: HCTZ (Adverse Reaction, Unknown, SHORTNESS OF BREATH, 02/19/17) Per Dr Helm Physical Exam Vital Signs Date Time Temp Pulse Resp B/P (MAP) Pulse Ox O2 Delivery O2 Flow Rate FiO2 08/19/17 08:50 75 16 170/88 99 Room Air 08/19/17 07:22 36.8 75 18 134/85 96 Room Air Physical Exam CONSTITUTIONAL/VITAL SIGNS: Reviewed / noted above. GENERAL: Non-toxic in appearance. INTEGUMENTARY: Warm, dry, and Wanda. HEAD: Normocephalic. EYES: without scleral icterus or trauma. ENT/OROPHARYNX: clear and moist. LYMPHADENOPATHY/NECK: Is supple without lymphadenopathy or meningismus. RESPIRATORY: Lungs clear and equal. CARDIOVASCULAR: Regular rate and rhythm. GI/ABDOMEN: Mild tenderness over suprapubic area. No organomegaly or pulsatile mass. No rebound or guarding. Normal bowel sounds. EXTREMITIES: Warm and well perfused. BACK: No CVA tenderness. NEUROLOGICAL: Intact without focal deficits. PSYCHIATRIC: normal affect. MUSCULOSKELETAL: Normally developed with good muscle tone. Medical Decision & Procedures ER Provider Diagnostic Interpretation: Radiology results as stated below per my review and radiologist interpretation: CT OF THE ABDOMEN AND PELVIS WITHOUT CONTRAST CLINICAL HISTORY: Abdominal pain, nausea and vomiting. COMPARISON STUDY: Abdominal ultrasound February 19, 2017. TECHNIQUE: Axial images of the abdomen and pelvis were obtained without IV contrast. Images were reviewed in the axial, sagittal, and coronal planes. A dose lowering technique was utilized adhering to the principles of ALARA. FINDINGS: A 9 mm x 6 mm proximal right ureteral calculus results in moderate right hydronephrosis with moderate perinephric infiltration. No additional urinary calculi are identified. Evaluation of the abdomen and pelvis is suboptimal on this unenhanced exam. The liver, spleen, adrenal glands and pancreas are unremarkable. There is no biliary or pancreatic ductal dilatation. Incidental note is made of a retroaortic left renal vein. There is no evidence for a bowel obstruction. The appendix is normal. Note is made of sigmoid diverticulosis without evidence for acute diverticulitis. There is no lymphadenopathy. No suspicious osseous lesions are present. Note is made of a mild compression fracture of the superior endplate of L1 which is likely subacute to chronic. There is minimal retropulsion. IMPRESSION: 1. 9 mm x 6 mm proximal right ureteral calculus which results in moderate right hydronephrosis with moderate perinephric infiltration. 2. Mild L1 compression fracture which is likely subacute to chronic. Electronically signed by: Conrad Alcala M.D. 08/19/2017 8:13 AM Dictated Date/Time: 08/19/2017 8:05 AM CHEST ONE VIEW PORTABLE HISTORY: 67 years-old Female ABDOMINAL PAIN/GI acute generalized abdominal pain with nausea and vomiting COMPARISON: Chest radiograph 02/16/2017 TECHNIQUE: Portable AP view of the chest FINDINGS: Cardiomediastinal and hilar silhouettes are within normal limits. There is no pneumothorax, pleural effusion, focal airspace consolidation or overt pulmonary edema. Degenerative changes noted within the shoulders and spine. IMPRESSION: No acute process. The above report was generated using voice recognition software. It may contain grammatical, syntax or spelling errors. Electronically signed by: Jin Valentino M.D. 08/19/2017 8:00 AM Dictated Date/Time: 08/19/2017 7:58 AM ABDOMINAL ULTRASOUND, RIGHT UPPER QUADRANT HISTORY: Abdominal pain. COMPARISON: Upper quadrant ultrasound February 19, [address] performed earlier today. FINDINGS: Liver is sonographically normal. There is no gallbladder wall thickening. A few small gallbladder polyps are noted which measure up to 3 mm. There is no gallbladder wall thickening. There is no biliary ductal dilatation. Note is made of moderate right hydronephrosis. The proximal right ureteral calculus shown on CT is not evident by sonography. IMPRESSION: 1. Moderate right hydronephrosis. The proximal right ureteral calculus shown on CT performed earlier today is occult by sonography. 2. No gallstones or biliary ductal dilatation. Electronically signed by: Conrad Alcala M.D. 08/19/2017 8:36 AM Dictated Date/Time: 08/19/2017 8:34 AM Laboratory Results 08/19/17 07:45 Red Blood Count 4.65, Mean Corpuscular Volume 83.0, Mean Corpuscular Hemoglobin 29.9, Mean Corpuscular Hemoglobin Concent 36.0, Mean Platelet Volume 9.3, Neutrophils (%) (Auto) 83.8, Lymphocytes (%) (Auto) 10.9, Monocytes (%) (Auto) 4.8, Eosinophils (%) (Auto) 0.0, Basophils (%) (Auto) 0.1, Neutrophils # (Auto) 9.12, Lymphocytes # (Auto) 1.18, Monocytes # (Auto) 0.52, Eosinophils # (Auto) 0.00, Basophils # (Auto) 0.01 08/19/17 07:45 Test 08/19/17 07:45 08/19/17 08:50 White Blood Count 10.87 K/uL (4.8-10.8) Red Blood Count 4.65 M/uL (4.2-5.4) Hemoglobin 13.9 g/dL (12.0-16.0) Hematocrit 38.6 % (37-47) Mean Corpuscular Volume 83.0 fL (80-100) Mean Corpuscular Hemoglobin 29.9 pg (25-34) Mean Corpuscular Hemoglobin Concent 36.0 g/dl (32-36) Platelet Count 334 K/uL (130-400) Mean Platelet Volume 9.3 fL (7.4-10.4) Neutrophils (%) (Auto) 83.8 % Lymphocytes (%) (Auto) 10.9 % Monocytes (%) (Auto) 4.8 % Eosinophils (%) (Auto) 0.0 % Basophils (%) (Auto) 0.1 % Neutrophils # (Auto) 9.12 K/uL (1.4-6.5) Lymphocytes # (Auto) 1.18 K/uL (1.2-3.4) Monocytes # (Auto) 0.52 K/uL (0.11-0.59) Eosinophils # (Auto) 0.00 K/uL (0-0.5) Basophils # (Auto) 0.01 K/uL (0-0.2) RDW Standard Deviation 40.3 fL (36.4-46.3) RDW Coefficient of Variation 13.3 % (11.5-14.5) Immature Granulocyte % (Auto) 0.4 % Immature Granulocyte # (Auto) 0.04 K/uL (0.00-0.02) Prothrombin Time 23.7 SECONDS (9.0-12.0) Prothromb Time International Ratio 2.3 (0.9-1.1) Activated Partial Thromboplast Time 31.5 SECONDS (21.0-31.0) Partial Thromboplastin Ratio 1.2 Anion Gap 8.0 mmol/L (3-11) Est Creatinine Clear Calc Drug Dose 38.3 ml/min Estimated GFR () 49.7 Estimated GFR (Non- 42.9 BUN/Creatinine Ratio 12.9 (10-20) Calcium Level 9.1 mg/dl (8.5-10.1) Total Bilirubin 1.1 mg/dl (0.2-1) Direct Bilirubin 0.2 mg/dl (0-0.2) Aspartate Amino Transf (AST/SGOT) 17 U/L (15-37) Alanine Aminotransferase (ALT/SGPT) 27 U/L (12-78) Alkaline Phosphatase 133 U/L (45-117) Total Protein 8.2 gm/dl (6.4-8.2) Albumin 4.2 gm/dl (3.4-5.0) Lipase 94 U/L (73-393) Urine Color YELLOW Urine Appearance CLEAR (CLEAR) Urine pH 7.5 (4.5-7.5) Urine Specific [place] 1.016 (1.000-1.030) Urine Protein NEG (NEG) Urine Glucose (UA) 2+ (NEG) Urine Ketones NEG (NEG) Urine Occult Blood 3+ (NEG) Urine Nitrite NEG (NEG) Urine Bilirubin NEG (NEG) Urine Urobilinogen NEG (NEG) Urine Leukocyte Esterase TRACE (NEG) Urine WBC (Auto) 1-5 /hpf (0-5) Urine RBC (Auto) >30 /hpf (0-4) Urine Hyaline Casts (Auto) 1-5 /lpf (0-5) Urine Epithelial Cells (Auto) 20-30 /lpf (0-5) Urine Bacteria (Auto) NEG (NEG) Laboratory results as stated above per my review. Medications Administered Medications (Trade) Dose Ordered Sig/Alexandra Route Start Time Stop Time Status Last Admin Dose Admin Sodium Chloride 1,000 ml @ 999 mls/hr Q1H1M STAT IV 08/19/17 07:33 08/19/17 08:33 DC 08/19/17 07:49 999 MLS/HR Ondansetron HCl (Zofran Inj) 4 mg NOW STAT IV 08/19/17 07:33 08/19/17 07:38 DC 08/19/17 07:50 4 MG Ondansetron HCl (Zofran Inj) 4 mg NOW STAT IV 08/19/17 09:02 08/19/17 09:03 DC 08/19/17 09:08 4 MG ECG Per My Interpretation Indication: abdominal pain Rate (beats per minute): 67 Rhythm: normal sinus Findings: no ectopy, other (No ST elevations) ED Course 0728: Previous medical records were reviewed. The patient was evaluated in room B2. A complete history and physical examination was performed. 0733: Ordered Sodium Chloride 1000ml @ 999 mls/hr IV and Zofran Inj 4mg IV. 0902: Ordered Zofran Inj 4mg IV. 0916: I reevaluated the patient, who was resting. Updated her on test findings and she verbalized complete understanding. 921: Discussed the patient's case with Dr.Jill Keller, [facility]- hospitalist. The patient will be evaluated for further treatment and disposition. 925: I reevaluated the patient and discussed the treatment plan. She verbalized complete understanding and agreement. Medical Decision Differential diagnosis: Etiologies such as gastroenteritis, food borne illness, infections, appendicitis , diverticulitis, inflammatory bowel disease, obstruction, GI bleed, biliary pathology, as well as others were entertained. This is a 67-year-old female who presents to the ED with a chief complaint of nausea, vomiting and diarrhea. The patient states that her initial symptoms started Tuesday evening with diarrhea. She states that she has had diarrhea about 2-3 times a day after eating. She states that she began vomiting overnight. She had 3 episodes of vomiting overnight. The patient states that she has some mild discomfort in the right side of her abdomen she believes is in the right upper quadrant. She also reports having some muscular low back pain and feels bloated. The patient is chronically on Coumadin for a remote history of A. fib. She is currently in a normal sinus rhythm at a rate of 63. The patient does also have a history of hypertension and high cholesterol. She takes medication for this. Her vital signs here are normal. Her physical exam revealed minimal tenderness over the suprapubic area. She is otherwise nontender in the entire abdomen including the right lower and right upper quadrants. She does have some mild tenderness to palpation of the soft musculature of the very low back but no CVA tenderness. She was seen by her PCP on Tuesday and they thought her symptoms were related to gas. She has been trying a gas reducing [id number] agent without success. A 12-lead EKG shows a normal sinus rhythm at a rate of 67. CBC is unremarkable, INR is 2.3. Complete metabolic panel was unremarkable, urine did not show infection but did show 3+ blood. Ultrasound the gallbladder revealed some right-sided hydronephrosis. CT scan of the abdomen pelvis reveals a 9 x 6 mm proximal right ureteral calculus with moderate right hydronephrosis and moderate perinephric stranding. Based on the findings of the CT scan as well as the patient's symptoms, the patient will need to be seen for further inpatient evaluation. She was treated here with IV fluids as well as 2 doses of nausea medication. She did not want pain medication at the time I saw her. Medication Reconcilliation Current Medication List: was personally reviewed by me Blood Pressure Screening Patient's blood pressure: Elevated blood pressure Blood pressure disposition: Referred to PCP (referred to inpatient) Consults Time Called: 921 [facility]ing Phys[facility] Returned Call: [phone] Discussed the patient's case with [facility] The patient will be evaluated for further treatment and disposition. Impression Primary Impression: Kidney stone Additional Impressions: Vomiting and diarrhea Ureteral stone Hydronephrosis due to obstruction of ureter Scribe Attestation The scribe's documentation has been prepared under my direction and personally reviewed by me in its entirety. I confirm that the note above accurately reflects all work, treatment, procedures, and medical decision making performed by me. Departure Information Dispostion Being Evaluated By Hospitalist Referrals Bell Reynolds D.O. (PCP) Forms HOME CARE DOCUMENTATION FORM, IMPORTANT VISIT INFORMATION Patient Instructions My [facility] Problem Qualifiers
[2017-08-19] MEDS ORDERED: ACETAMINOPHEN IV 100 ML IV PRN (10:30)
[2017-08-19] MEDS ORDERED: ONDANSETRON INJ 2 MG/ML 2 ML VIAL IV PRN ×2 (10:30→15:45)
[2017-08-19] MEDS ORDERED: LISI-461 PO (10:39)
--- NOTE | 2017-08-19 11:05 | History and Physical ---
History & Physical Date & Time of Service: Aug 19, 2017 at 11:03 Chief Complaint: Vomiting/Nausea,Diarrhea Primary Care Physician: Bell Reynolds D.O. History of Present Illness Source: patient, clinic records, hospital records Patient is a 67yo F with a PMH of HTN, h/o CVAs on coumadin, anxiety and other medical problems listed below who presents with nausea & vomiting that started overnight. Patient started to experience lower abdominal pain 4 days ago with associated diarrhea and was seen in clinic. She was prescribed simethicone PRN for gas.Yesterday, patient began to experience R flank/back pain and associated chills. Had nausea overnight with 3 episodes of vomiting. Poor PO intake. Decreased urinary output. Came to ED for further evaluation. Denies fever, headache, lightheadedness, visual changes, chest pain, SOB, hematuria, dysuria, melena, hematochezia or LE swelling. In ED, patient found to have mild leukocytosis of 10.87. UA without evidence of infection but + occult blood. CT abd/pelvis with a 9 mm x 6 mm proximal right ureteral calculus with moderate right hydronephrosis and moderate perinephric infiltration. Denies personal history of kidney stones. 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 Etiology of CVA is unclear (HTN vs. ?A Fib). Follows with [facility] neurology and cardiology. INR of 2.3 today. Lives alone but son helps manage medications. Past Medical/Surgical History Medical Problems: (1) Anxiety Status: Chronic (2) H/O alcohol abuse Status: Chronic (3) H/O ischemic right MCA stroke Permanent Comment: September 2016, Jan 2017 Status: Chronic (4) HTN (hypertension) Status: Chronic (5) Memory impairment Status: Chronic Family History Kidney stones Social History Smoking Status: Former Smoker Alcohol Use: none (History of heavy use. No use for past 6 months ) Drug Use: none Marital Status: Housing status: lives alone Occupational Status: employed Allergies Coded Allergies: Aspirin (Verified Adverse Reaction, Unknown, adverse reaction as a child with nosebleeds; none since then, 02/16/17) Uncoded Allergies: HCTZ (Adverse Reaction, Unknown, SHORTNESS OF BREATH, 02/19/17) Per Dr Helm Home Medications Scheduled Amlodipine (Norvasc), 10 MG PO DAILY Aspirin (Aspirin EC Low Dose), 81 MG PO QAM Atenolol (Tenormin), 25 MG PO QAM Atorvastatin (Lipitor), 80 MG PO PM Fluoxetine (Prozac), 20 MG PO PM Lisinopril (Lisinopril), PO DAILY Warfarin Sod (Coumadin), 5 MG PO SuFrSa Warfarin Sodium (Warfarin Sodium), 2.5 MG PO [id number] Scheduled PRN Simethicone (Simethicone), 2 CAP PEG BID PRN for Gas or Constipation Review of Systems Ten systems reviewed and negative except as noted in the HPI. Physical Exam Vital Signs Date Time Temp Pulse Resp B/P (MAP) Pulse Ox O2 Delivery O2 Flow Rate FiO2 08/19/17 10:37 68 16 156/74 99 Room Air 08/19/17 08:50 75 16 170/88 99 Room Air 08/19/17 07:22 36.8 75 18 134/85 96 Room Air General Appearance: WD/WN, no apparent distress Head: normocephalic, atraumatic Eyes: normal inspection, PERRL, sclerae normal ENT: normal ENT inspection, hearing grossly normal, pharynx normal (dry mucous membranes) Neck: supple, thyroid normal, no carotid bruits Respiratory/Chest: chest non-tender, lungs clear, normal breath sounds, no respiratory distress, no accessory muscle use Cardiovascular: regular rate, rhythm, no edema, no murmur Abdomen/GI: non tender, soft, + tenderness (RLQ TTP, no guarding ) Back: normal inspection, + right CVA tenderness Extremities/Musculoskelatal: normal inspection, no calf tenderness, no pedal edema Neurologic/Psych: no motor/sensory deficits, alert, normal mood/affect, oriented x 3 Skin: normal color, warm/dry, no rash Diagnostics Laboratory Results Results Past 24 Hours Test 08/19/17 07:45 08/19/17 08:50 Range/Units White Blood Count 10.87 4.8-10.8 K/uL Red Blood Count 4.65 4.2-5.4 M/uL Hemoglobin 13.9 12.0-16.0 g/dL Hematocrit 38.6 37-47 % Mean Corpuscular Volume 83.0 80-100 fL Mean Corpuscular Hemoglobin 29.9 25-34 pg Mean Corpuscular Hemoglobin Concent 36.0 32-36 g/dl Platelet Count 334 130-400 K/uL Mean Platelet Volume 9.3 7.4-10.4 fL Neutrophils (%) (Auto) 83.8 % Lymphocytes (%) (Auto) 10.9 % Monocytes (%) (Auto) 4.8 % Eosinophils (%) (Auto) 0.0 % Basophils (%) (Auto) 0.1 % Neutrophils # (Auto) 9.12 1.4-6.5 K/uL Lymphocytes # (Auto) 1.18 1.2-3.4 K/uL Monocytes # (Auto) 0.52 0.11-0.59 K/uL Eosinophils # (Auto) 0.00 0-0.5 K/uL Basophils # (Auto) 0.01 0-0.2 K/uL RDW Standard Deviation 40.3 36.4-46.3 fL RDW Coefficient of Variation 13.3 11.5-14.5 % Immature Granulocyte % (Auto) 0.4 % Immature Granulocyte # (Auto) 0.04 0.00-0.02 K/uL Prothrombin Time 23.7 9.0-12.0 SECONDS Prothromb Time International Ratio 2.3 0.9-1.1 Activated Partial Thromboplast Time 31.5 21.0-31.0 SECONDS Partial Thromboplastin Ratio 1.2 Sodium Level 135 136-145 mmol/L Potassium Level 3.8 3.5-5.1 mmol/L Chloride Level 102 98-107 mmol/L Carbon Dioxide Level 24 21-32 mmol/L Anion Gap 8.0 3-11 mmol/L Blood Urea Nitrogen 17 7-18 mg/dl Creatinine 1.28 0.60-1.20 mg/dl Est Creatinine Clear Calc Drug Dose 38.3 ml/min Estimated GFR () 49.7 Estimated GFR (Non- 42.9 BUN/Creatinine Ratio 12.9 10-20 Random Glucose 161 70-99 mg/dl Calcium Level 9.1 8.5-10.1 mg/dl Total Bilirubin 1.1 0.2-1 mg/dl Direct Bilirubin 0.2 0-0.2 mg/dl Aspartate Amino Transf (AST/SGOT) 17 15-37 U/L Alanine Aminotransferase (ALT/SGPT) 27 12-78 U/L Alkaline Phosphatase 133 45-117 U/L Total Protein 8.2 6.4-8.2 gm/dl Albumin 4.2 3.4-5.0 gm/dl Lipase 94 73-393 U/L Urine Color YELLOW Urine Appearance CLEAR CLEAR Urine pH 7.5 4.5-7.5 Urine Specific [place] 1.016 1.000-1.030 Urine Protein NEG NEG Urine Glucose (UA) 2+ NEG Urine Ketones NEG NEG Urine Occult Blood 3+ NEG Urine Nitrite NEG NEG Urine Bilirubin NEG NEG Urine Urobilinogen NEG NEG Urine Leukocyte Esterase TRACE NEG Urine WBC (Auto) 1-5 0-5 /hpf Urine RBC (Auto) >30 0-4 /hpf Urine Hyaline Casts (Auto) 1-5 0-5 /lpf Urine Epithelial Cells (Auto) 20-30 0-5 /lpf Urine Bacteria (Auto) NEG NEG Diagnostic Radiology CXR: IMPRESSION: No acute process. CT abd/pelvis: IMPRESSION: 1. 9 mm x 6 mm proximal right ureteral calculus which results in moderate right hydronephrosis with moderate perinephric infiltration. 2. Mild L1 compression fracture which is likely subacute to chronic. RUQ ultrasound: IMPRESSION: 1. Moderate right hydronephrosis. The proximal right ureteral calculus shown on CT performed earlier today is occult by sonography. 2. No gallstones or biliary ductal dilatation. EKG Normal sinus rhythm Nonspecific ST abnormality Impression Assessment and Plan Patient is a 67yo F with a PMH of HTN, h/o CVAs on coumadin, anxiety and other medical problems listed below who presents with nausea & vomiting that started overnight and found to have a R proximal ureteral calculus with moderate right hydronephrosis. R proximal ureteral calculus: -Ct abd/pelvis with a 9 mm x 6 mm calculus with moderate right hydronephrosis and moderate perinephric infiltration -Nausea, vomiting, RLQ pain, R CVA tenderness -Urology consulted -Plan to evaluate for stent placement -NPO for now -IV fluids -Strain urine -Pain control, antiemetics H/o multiple CVAs: -R MCA stroke in September 2016 (while on aspirin and plavix) -Another more distal R MCA in Jan 2017 -Thought to be 2/2 HTN vs ? A Fib -Coumadin initiated and has been continued -Follows with neuro and cardio -INR of 2.3 -Hold coumadin, baby aspirin for now HTN: -Normotensive -Cont home dose lisinopril, amlodipine, atenolol Anxiety: -Stable -Cont Prozac DVT Ppx: Coumadin Code status: FULL PCP: Gail Dispo: Admitted to med/surg. Plan to return home once medically stable. Patient seen in collaboration with Dr. Craig. Please see addendum. ADDENDUM: This is a 67 year old female with a past medical history of multiple CVAs on Coumadin, HTN, Anxiety - presents with lower abdominal pain, nausea/vomiting. Presented to the ER - found to have a 9mm stone on the R with some hydronephrosis. R Ureter Calculus Hydronephrosis Acute Kidney Injury Plan: to give IVFs, currently getting NS @ 125mL/hr Flomax Morphine PRN for pain Urology consulted Resuscitation Status VTE Prophylaxis Will order VTE Prophylaxis: Yes
[2017-08-19] MEDS ORDERED: SIME1CAP11 PEG (11:39)
[2017-08-19] MEDS: SODIUM CHLORIDE 0.9% 1000ML 1,000 ML IV SCH ×2 (12:31→19:56)
[2017-08-19] MEDS ORDERED: TAMSULOSIN HCL 0.4 MG CAP PO ONE (15:00)
[2017-08-19] MEDS ORDERED: MoRPHine SULFATE 2 MG/ML CARP IV PRN (15:00)
[2017-08-19] MEDS ORDERED: CIPROFLOXACIN 400MG / 200ML D5W ONE (15:33)
[2017-08-19] MEDS ORDERED: FENTANYL CITRATE INJ 50 MCG/1 ML 2 ML VIAL ONE (15:35)
[2017-08-19] MEDS ORDERED: MIDAZOLAM HCL 1 MG/ML 2ML VIAL ONE (15:35)
--- NOTE | 2017-08-19 15:35 | History & Physical Bridge Note ---
H&P Re-Evaluation Bridge Note: I have examined the patient, reviewed the History & Physical and in the interval since the performance of the History & Physical I have noted the following changes of clinical significance: Plan to proceed with Cystoscopy and Right Retrograde, Stent.
--- NOTE | 2017-08-19 15:40 | Urology Consultation ---
History General Date of Service: Aug 19, 2017. Chief Complaint: Right Stone Primary Care Physician: Bell Reynolds D.O. Pt seen a urologist before?: No History of Present Illness Sudden onset of severe right flank pain. Worsen over 2 days. Now severe. Had been worked up for possible gallbladder issues. Found to have large obst stone on right in the mid/proximal ureter with swelling and stranding. Patient with elevated white count. Pain in flank to groin in waves without position of comfort. Imaging Imaging: CT Laboratory Labs were reviewed and are within normal limits unless listed below. Labs are available in the chart and at [facility] Problem List Medical Problems: (1) Acute CVA (cerebrovascular accident) Status: Acute (2) Alcohol use Status: Acute (3) HTN (hypertension) Status: Chronic (4) Hydronephrosis due to obstruction of ureter Status: Acute (5) Hypertensive emergency Status: Acute (6) Hyponatremia Status: Acute (7) TIA (transient ischemic attack) Status: Acute (8) Tremor Status: Acute (9) Ureteral stone Status: Acute (10) Vomiting and diarrhea Status: Acute Family History Kidney stones Social History Hx Tobacco Use In Past Year?: No Marital status: Housing status: lives alone Occupation status: employed Allergies Coded Allergies: Aspirin (Verified Adverse Reaction, Unknown, adverse reaction as a child with nosebleeds; none since then, 02/16/17) Uncoded Allergies: HCTZ (Adverse Reaction, Unknown, SHORTNESS OF BREATH, 02/19/17) Per Dr Helm Medications Home Medications: Home Meds and Scripts Medications Dose Route/Sig Max Daily Dose Days Date Category Dose Instructions Simethicone 180 Mg Cap 2 Cap PEG BID PRN 08/19/17 Reported Lisinopril 10 Mg Tab PO DAILY 08/19/17 Reported Warfarin Sodium 5 Mg Tab 2.5 Mg PO MOTUWETH 08/19/17 Reported 1/2 TAB (2.5MG) [id number] Per coumadin clinic: 1/2 tablet TUE and TUE (per coag clinic) Coumadin (Warfarin Sod) 5 Mg Tab 5 Mg PO SUFRSA 08/19/17 Reported FULL TABLET (5MG) [id number] Different, per coumadin clinlc: FULL Tab (5mg) Tue, , Tue, Thurs, Sat Prozac (Fluoxetine HCl) 20 Mg Cap 20 Mg PO PM 08/19/17 Reported Norvasc (Amlodipine Besylate) 10 Mg Tab 10 Mg PO DAILY 08/19/17 Reported Lipitor (Atorvastatin Calcium) 80 Mg Tab 80 Mg PO PM 02/16/17 Reported Tenormin (Atenolol) 25 Mg Tab 25 Mg PO QAM 02/16/17 Reported Aspirin EC Low Dose (Aspirin) 81 Mg Ectab 81 Mg PO QAM 30 10/20/16 Rx Inpatient Medications: Current Inpatient Medications Medications (Trade) Dose Ordered Sig/Alexandra Route Start Time Stop Time Status Last Admin Dose Admin Ondansetron HCl (Zofran Inj) 4 mg Q6H PRN IV 08/19/17 10:30 09/18/17 10:29 Acetaminophen 100 ml @ 400 mls/hr Q8H PRN IV 08/19/17 10:30 09/18/17 10:29 Sodium Chloride 1,000 ml @ 125 mls/hr Q8H IV 08/19/17 13:00 09/18/17 12:59 08/19/17 12:31 125 MLS/HR Tamsulosin HCl (Flomax Cap) 0.4 mg HS PO 08/19/17 21:00 09/18/17 20:59 Morphine Sulfate (MoRPHine SULFATE INJ) 2 mg Q4 PRN IV 08/19/17 15:00 09/02/17 14:59 Review of Systems Review of Systems All Other Systems: Reviewed and Negative Additional Comments: All reviewed. Pertinent values in HPI Physical Exam Vital Signs: Vital Signs Past 12 Hours Date Time Temp Pulse Resp B/P (MAP) Pulse Ox O2 Delivery O2 Flow Rate FiO2 08/19/17 15:17 37.0 62 14 174/95 (121) 97 Room Air 08/19/17 11:20 37.0 67 16 160/97 94 Room Air 08/19/17 11:00 Room Air 08/19/17 10:37 68 16 156/74 99 Room Air 08/19/17 08:50 75 16 170/88 99 Room Air 08/19/17 07:22 36.8 75 18 134/85 96 Room Air Physical Exam: General Appearance: WD/WN, no apparent distress Eyes: bilateral eyes normal inspection ENT: normal ENT inspection Neck: supple, no JVD Respiratory/Chest: no respiratory distress, no accessory muscle use Cardiovascular: regular rate, rhythm Gastrointestinal: Abdomen: normal abdomen Bladder: normal bladder Renal: cva tenderness Extremities: normal range of motion, non-tender, normal inspection, no pedal edema, no calf tenderness 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 Obstructing Right Ureteral Stone 2. Pyelonephritis 3. Elevated White Count. Plan for urgent stent placement. Patient is on coumadin and INR is 2.3. Patient is now getting IV antibiotics. Plan to have scope and stent placed. Close monitoring and reassess for fevers and chills. Monitor and await culture results. Risks and benefits discussed with patient at length.
[2017-08-19] MEDS ORDERED: Cysto-Conray II 17.2% 250ML BOTTLE ONE (15:44)
[2017-08-19] MEDS ORDERED: EpHEDrine SULFATE INJ 50 MG/ML AMP IV PRN (15:45)
[2017-08-19] MEDS ORDERED: NURSING VERBAL MED ORDER ONE (15:45)
[2017-08-19] MEDS ORDERED: FENTANYL CITRATE INJ 50 MCG/1 ML 2 ML VIAL IV PRN (15:45)
[2017-08-19] MEDS ORDERED: ATROPINE SULFATE 0.1 MG/ML 5ML SYR IV PRN (15:45)
[2017-08-19] MEDS ORDERED: ONDANSETRON INJ 2 MG/ML 2 ML VIAL ONE (16:15)
[2017-08-19] MEDS ORDERED: PROPOFOL IV EMULSION 10 MG/ML 20 ML VIAL IV ONE (16:15)
[2017-08-19] MEDS ORDERED: LIDOCAINE HCL 2% 2 ML VIAL (20MG/ML) ONE (16:15)
--- NOTE | 2017-08-19 16:21 | [facility] Operative Report ---
Operative Report Operative Date Aug 19, 2017. Pre-Operative Diagnosis Right Ureteral Stone Post-Operative Diagnosis Same Procedure(s) Performed Cystoscopy with Right retrograde and stent placement Surgeon Tom Estimated Blood Loss Minimal Findings Obs Right stone Drains 6 Fr Multilength Anesthesia Type MAC Complication(s) none Disposition Recovery Room / PACU Indications Patient has large obstructing stone with possible pyelonephritits and elevated white count. Risks and benefits were discussed. Consent was placed on chart. Description of Procedure Patient was consented and brought back to the operating room. Patient was placed under anesthesia in the supine position and moved to the dorsal lithotomy position. Patient was prepped and draped in the regular sterile fashion. A time out was completed. A 30degree Cystoscope was placed into the bladder and the entire bladder was examined. The UO's were identified. The Right was cannulized with a catheter and a retrograde pyelogram was completed. A wire was then placed. With the wire in place, a 6 Fr Double J stent was placed. It was confirmed with fluoroscopy. With the stent in place, the bladder was emptied. The scope was removed. The patient was cleaned, aroused from anesthesia, and transferred to the pacu in stable condition having tolerated the procedure well with no complications. I was present and participated in all aspects of the procedure. The patient will be monitored in the PACU until transferred. I attest to the content of the Intraoperative Record and any orders documented therein. Any exceptions are noted below.
--- NOTE | 2017-08-19 16:43 | DIAGNOSTIC IMAGING REPORT ---
RETROGRADE INCLUDES KUB CLINICAL HISTORY: RT CYSTO stent placement TECHNIQUE: Image intensifier COMPARISON STUDY: None FINDINGS: Image intensifier was utilized for intraoperative evaluation of the right urinary tract and placement of a right ureteral stent. IMPRESSION: Right ureteral stent in good position The above report was generated using voice recognition software. It may contain grammatical, syntax or spelling errors. Electronically signed by: Clay Curiel M.D. 08/19/2017 4:42 PM Dictated Date/Time: 08/19/2017 4:42 PM
--- NOTE | 2017-08-19 17:40 | Anesthesiology Progress Note ---
Anesthesia Post Op Note Date & Time Aug 19, 2017 at 17:39 Vital Signs Pain Intensity: 0 Vital Signs Past 12 Hours Date Time Temp Pulse Resp B/P (MAP) Pulse Ox O2 Delivery O2 Flow Rate FiO2 08/19/17 17:30 Room Air 08/19/17 17:19 Room Air 08/19/17 17:15 36.8 61 18 128/82 (97) 96 Room Air 08/19/17 17:00 37.6 65 16 123/74 96 Room Air 08/19/17 16:50 65 16 100/65 96 Room Air 08/19/17 16:40 65 16 120/77 96 Oxymask 10 08/19/17 16:30 37.1 64 18 133/81 95 Oxymask 10 08/19/17 15:17 37.0 62 14 174/95 (121) 97 Room Air 08/19/17 11:20 37.0 67 16 160/97 94 Room Air 08/19/17 11:00 Room Air 08/19/17 10:37 68 16 156/74 99 Room Air 08/19/17 08:50 75 16 170/88 99 Room Air 08/19/17 07:22 36.8 75 18 134/85 96 Room Air Notes Mental Status: alert / awake / arousable, participated in evaluation Pt Amnestic to Procedure: Yes Nausea / Vomiting: adequately controlled Pain: adequately controlled Airway Patency, RR, SpO2: stable & adequate BP & HR: stable & adequate Hydration State: stable & adequate Anesthetic Complications: no major complications apparent
[2017-08-19] MEDS: TAMSULOSIN HCL 0.4 MG CAP PO SCH (20:24)
[2017-08-20 03:05] VITALS: BP 99/64; PULSE 69; TEMP 36.6; O2SAT 92
[2017-08-20] MEDS: CIPROFLOXACIN / D5W 400 MG in PREMIXED IN D5W 200 ML IV SCH ×2 (03:43→15:37)
[2017-08-20] MEDS: SODIUM CHLORIDE 0.9% 1000ML 1,000 ML IV SCH ×3 (03:43→23:44)
[2017-08-20 07:45] VITALS: O2SAT 92
[2017-08-20 07:52] VITALS: BP 128/77; PULSE 68; TEMP 36.6; O2SAT 92
[2017-08-20 08:10] LABS: HEMATOCRIT 33.7 % (37-47); HEMOGLOBIN 11.7 g/dL (12.0-16.0); MEAN CORPUSCULAR HEMOGLOBIN 29.2 pg (25-34); MEAN CORPUSCULAR HGB CONC 34.7 g/dl (32-36); MEAN PLATELET VOLUME 8.8 fL (7.4-10.4); PLATELET COUNT 252 K/uL (130-400); RED CELL DISTRIBUTION WIDTH CV 13.4 % (11.5-14.5); RED CELL DISTRIBUTION WIDTH SD 41.3 fL (36.4-46.3); WHITE BLOOD COUNT 6.38 K/uL (4.8-10.8)
[2017-08-20 08:33] LABS: INR 6.5 (0.9-1.1)
[2017-08-20 08:44] LABS: CREATININE 0.94 mg/dl (0.60-1.20); POTASSIUM 3.5 mmol/L (3.5-5.1)
--- NOTE | 2017-08-20 10:19 | Progress Note ---
Subjective Date of Service: Aug 20, 2017. Subjective Pt evaluation today including: conversation w/ patient, physical exam, lab review, review of studies, review of inpatient medication list Saw/examined the patient in room 357 She's doing fine, denies fevers/chills Denies any pain, no dysuria Denies nausea/vomiting Problem List Medical Problems: (1) Acute CVA (cerebrovascular accident) Status: Acute (2) Alcohol use Status: Acute (3) HTN (hypertension) Status: Chronic (4) Hydronephrosis due to obstruction of ureter Status: Acute (5) Hypertensive emergency Status: Acute (6) Hyponatremia Status: Acute (7) TIA (transient ischemic attack) Status: Acute (8) Tremor Status: Acute (9) Ureteral stone Status: Acute (10) Vomiting and diarrhea Status: Acute Review of Systems Constitutional: No fever, No chills Abdomen: No pain, No nausea, No vomiting, No diarrhea, No constipation, No GI bleeding Female : No dysuria, No urinary frequency, No hematuria Heme: No abnormal bleeding/bruising Medications Current Inpatient Medications Medications (Trade) Dose Ordered Sig/Alexandra Route Start Time Stop Time Status Last Admin Dose Admin Ondansetron HCl (Zofran Inj) 4 mg Q6H PRN IV 08/19/17 10:30 09/18/17 10:29 Acetaminophen 100 ml @ 400 mls/hr Q8H PRN IV 08/19/17 10:30 09/18/17 10:29 Sodium Chloride 1,000 ml @ 125 mls/hr Q8H IV 08/19/17 13:00 09/18/17 12:59 08/20/17 03:43 125 MLS/HR Tamsulosin HCl (Flomax Cap) 0.4 mg HS PO 08/19/17 21:00 09/18/17 20:59 08/19/17 20:24 0.4 MG Morphine Sulfate (MoRPHine SULFATE INJ) 2 mg Q4 PRN IV 08/19/17 15:00 09/02/17 14:59 Ciprofloxacin/ Dextrose 400 mg/ Prmx 200 ml @ 100 mls/hr Q12H IV 08/20/17 04:00 08/25/17 03:59 08/20/17 03:43 100 MLS/HR Objective Vital Signs Date Time Temp Pulse Resp B/P (MAP) Pulse Ox O2 Delivery O2 Flow Rate FiO2 08/20/17 07:52 36.6 68 18 128/77 (94) 92 Room Air 08/20/17 07:45 92 Room Air 08/20/17 03:05 36.6 69 14 99/64 (76) 92 Room Air 08/20/17 00:35 Room Air 08/19/17 23:12 36.6 62 14 107/68 (81) 92 Room Air 08/19/17 20:15 36.9 63 18 109/69 (82) 95 Room Air 08/19/17 19:57 36.9 60 18 119/75 (90) 95 Room Air 08/19/17 19:15 36.8 63 16 126/74 (91) 97 Room Air 08/19/17 18:13 37.1 61 18 128/78 (95) 98 Room Air 08/19/17 17:47 36.6 61 18 148/84 (105) 98 Room Air 08/19/17 17:30 Room Air 08/19/17 17:19 Room Air 08/19/17 17:15 36.8 61 18 128/82 (97) 96 Room Air 08/19/17 17:00 37.6 65 16 123/74 96 Room Air 08/19/17 16:50 65 16 100/65 96 Room Air 08/19/17 16:40 65 16 120/77 96 Oxymask 10 08/19/17 16:30 37.1 64 18 133/81 95 Oxymask 10 08/19/17 15:17 37.0 62 14 174/95 (121) 97 Room Air 08/19/17 11:20 37.0 67 16 160/97 94 Room Air 08/19/17 11:00 Room Air 08/19/17 10:37 68 16 156/74 99 Room Air Physical Exam General Appearance: WD/WN, no apparent distress Respiratory/Chest: chest non-tender, lungs clear, normal breath sounds, no respiratory distress, no accessory muscle use Cardiovascular: regular rate, rhythm, no edema, no murmur Abdomen: normal bowel sounds, non tender, soft Extremities: normal inspection, no pedal edema Neurologic/Psychiatric: no motor/sensory deficits, alert, normal mood/affect Laboratory Results Last 24 Hours Test 08/20/17 07:56 White Blood Count 6.38 K/uL Red Blood Count 4.01 M/uL Hemoglobin 11.7 g/dL Hematocrit 33.7 % Mean Corpuscular Volume 84.0 fL Mean Corpuscular Hemoglobin 29.2 pg Mean Corpuscular Hemoglobin Concent 34.7 g/dl RDW Standard Deviation 41.3 fL RDW Coefficient of Variation 13.4 % Platelet Count 252 K/uL Mean Platelet Volume 8.8 fL Prothrombin Time 65.4 SECONDS Prothromb Time International Ratio 6.5 Sodium Level 137 mmol/L Potassium Level 3.5 mmol/L Chloride Level 107 mmol/L Carbon Dioxide Level 24 mmol/L Anion Gap 6.0 mmol/L Blood Urea Nitrogen 11 mg/dl Creatinine 0.94 mg/dl Est Creatinine Clear Calc Drug Dose 45.3 ml/min Estimated GFR () 72.2 Estimated GFR (Non- 62.3 BUN/Creatinine Ratio 11.3 Random Glucose 91 mg/dl Calcium Level 8.0 mg/dl Assessment and Plan This is a 67 year old female with a past medical history of multiple CVAs on Coumadin, HTN, Anxiety - presents with lower abdominal pain, nausea/vomiting. Presented to the ER - found to have a 9mm stone on the R with some hydronephrosis. R Ureter Calculus Hydronephrosis Acute Kidney Injury 08/20 - [facility] urology input - s/p stent placement - currently on Cipro for possible infection - d/c when okay with urology 08/19 Plan: to give IVFs, currently getting NS @ 125mL/hr Flomax Morphine PRN for pain Urology consulted Hx. of CVA - INR >6 - likely due to interaction with Cipro - hold Coumadin for 2-3 days and outpatient INR check HTN - blood pressure stable; cont. home meds DVT ppx - Coumadin FULL CODE
[2017-08-20 15:31] VITALS: BP 123/68; PULSE 68; TEMP 36.6; O2SAT 92
[2017-08-20 16:00] VITALS: O2SAT 92
[2017-08-20] MEDS: TAMSULOSIN HCL 0.4 MG CAP PO SCH (21:08)
[2017-08-20 23:01] VITALS: BP 132/77; PULSE 57; TEMP 36.6; O2SAT 96
[2017-08-21] MEDS: CIPROFLOXACIN / D5W 400 MG in PREMIXED IN D5W 200 ML IV SCH ×2 (03:40→16:07)
[2017-08-21 05:57] LABS: HEMATOCRIT 34.5 % (37-47); HEMOGLOBIN 11.9 g/dL (12.0-16.0); MEAN CELL VOLUME 84.4 fL (80-100); MEAN CORPUSCULAR HEMOGLOBIN 29.1 pg (25-34); MEAN CORPUSCULAR HGB CONC 34.5 g/dl (32-36); MEAN PLATELET VOLUME 9.3 fL (7.4-10.4); PLATELET COUNT 260 K/uL (130-400); RED CELL DISTRIBUTION WIDTH CV 13.4 % (11.5-14.5); RED CELL DISTRIBUTION WIDTH SD 40.8 fL (36.4-46.3); WHITE BLOOD COUNT 4.66 K/uL (4.8-10.8)
[2017-08-21 06:01] LABS: INR 3.2 (0.9-1.1)
[2017-08-21 06:27] LABS: CALCIUM 8.1 mg/dl (8.5-10.1); CREATININE 0.67 mg/dl (0.60-1.20); POTASSIUM 3.4 mmol/L (3.5-5.1)
[2017-08-21 07:32] VITALS: BP 148/75; PULSE 62; TEMP 36.4; O2SAT 96
[2017-08-21] MEDS: SODIUM CHLORIDE 0.9% 1000ML 1,000 ML IV SCH (10:08)
[2017-08-21] MEDS ORDERED: POTASSIUM CHLORIDE 10 MEQ TABCR PO STA (10:19)
--- NOTE | 2017-08-21 11:39 | Progress Note ---
Subjective Date of Service: Aug 21, 2017. Subjective Pt evaluation today including: conversation w/ patient, physical exam, lab review, review of studies, review of inpatient medication list Saw/examined the patient in room 357 She's doing well, pain has improved No burning with urination Eager to go home Problem List Medical Problems: (1) Acute CVA (cerebrovascular accident) Status: Acute (2) Alcohol use Status: Acute (3) HTN (hypertension) Status: Chronic (4) Hydronephrosis due to obstruction of ureter Status: Acute (5) Hypertensive emergency Status: Acute (6) Hyponatremia Status: Acute (7) TIA (transient ischemic attack) Status: Acute (8) Tremor Status: Acute (9) Ureteral stone Status: Acute (10) Vomiting and diarrhea Status: Acute Review of Systems Constitutional: No fever, No chills Abdomen: No pain (resolved), No nausea, No vomiting, No diarrhea Female : No dysuria, No urinary frequency Medications Current Inpatient Medications Medications (Trade) Dose Ordered Sig/Alexandra Route Start Time Stop Time Status Last Admin Dose Admin Ondansetron HCl (Zofran Inj) 4 mg Q6H PRN IV 08/19/17 10:30 09/18/17 10:29 Acetaminophen 100 ml @ 400 mls/hr Q8H PRN IV 08/19/17 10:30 09/18/17 10:29 Sodium Chloride 1,000 ml @ 125 mls/hr Q8H IV 08/19/17 13:00 09/18/17 12:59 08/21/17 10:08 125 MLS/HR Tamsulosin HCl (Flomax Cap) 0.4 mg HS PO 08/19/17 21:00 09/18/17 20:59 08/20/17 21:08 0.4 MG Morphine Sulfate (MoRPHine SULFATE INJ) 2 mg Q4 PRN IV 08/19/17 15:00 09/02/17 14:59 Ciprofloxacin/ Dextrose 400 mg/ Prmx 200 ml @ 100 mls/hr Q12H IV 08/20/17 04:00 08/25/17 03:59 08/21/17 03:40 100 MLS/HR Objective Vital Signs Date Time Temp Pulse Resp B/P (MAP) Pulse Ox O2 Delivery O2 Flow Rate FiO2 08/21/17 08:10 Room Air 08/21/17 07:32 36.4 62 18 148/75 (99) 96 Room Air 08/20/17 23:45 Room Air 08/20/17 23:01 36.6 57 16 132/77 (95) 96 Room Air 08/20/17 16:00 92 Room Air 08/20/17 15:31 36.6 68 18 123/68 (86) 92 Room Air Physical Exam General Appearance: no apparent distress Abdomen: normal bowel sounds, non tender, soft Neurologic/Psychiatric: no motor/sensory deficits, alert, normal mood/affect Laboratory Results Last 24 Hours Test 08/21/17 05:11 White Blood Count 4.66 K/uL Red Blood Count 4.09 M/uL Hemoglobin 11.9 g/dL Hematocrit 34.5 % Mean Corpuscular Volume 84.4 fL Mean Corpuscular Hemoglobin 29.1 pg Mean Corpuscular Hemoglobin Concent 34.5 g/dl RDW Standard Deviation 40.8 fL RDW Coefficient of Variation 13.4 % Platelet Count 260 K/uL Mean Platelet Volume 9.3 fL Prothrombin Time 33.2 SECONDS Prothromb Time International Ratio 3.2 Sodium Level 139 mmol/L Potassium Level 3.4 mmol/L Chloride Level 110 mmol/L Carbon Dioxide Level 24 mmol/L Anion Gap 5.0 mmol/L Blood Urea Nitrogen 8 mg/dl Creatinine 0.67 mg/dl Est Creatinine Clear Calc Drug Dose 63.6 ml/min Estimated GFR () 104.7 Estimated GFR (Non- 90.3 BUN/Creatinine Ratio 12.6 Random Glucose 99 mg/dl Calcium Level 8.1 mg/dl Assessment and Plan This is a 67 year old female with a past medical history of multiple CVAs on Coumadin, HTN, Anxiety - presents with lower abdominal pain, nausea/vomiting. Presented to the ER - found to have a 9mm stone on the R with some hydronephrosis. R Ureter Calculus Hydronephrosis Acute Kidney Injury 08/21 - s/p stent placement - currently on Cipro - repeat urine cultures ordered - hoping to d/c today, will await further recommendations by urology 08/20 - appreciate urology input - s/p stent placement - currently on Cipro for possible infection - d/c when okay with urology 08/19 Plan: to give IVFs, currently getting NS @ 125mL/hr Flomax Morphine PRN for pain Urology consulted Hx. of CVA - INR >6 - likely due to interaction with Cipro - hold Coumadin for 2-3 days and outpatient INR check HTN - blood pressure stable; cont. home meds DVT ppx - Coumadin FULL CODE
[2017-08-21 15:01] VITALS: BP 128/70; PULSE 61; TEMP 36.6; O2SAT 97
[2017-08-21] MEDS ORDERED: WARFARIN SOD 2 MG TAB PO SCH (16:00)
[2017-08-21] MEDS ORDERED: CIPR-255 PO (16:31)
[2017-08-21] MEDS ORDERED: FLM4 PO (16:31)
--- NOTE | 2017-08-21 16:32 | Discharge Instructions ---
Discharge Instructions Date of Service Aug 21, 2017. Admission Reason for Admission: Hydronephrosis Due To Obstruction Of Ureter Discharge Discharge Diagnosis / Problem: R sided kidney stone Discharge Goals Goal(s): Decrease discomfort, Improve function, Diagnostic testing, Therapeutic intervention Activity Recommendations Activity Limitations: resume your previous activity . Instructions / Follow-Up Instructions / Follow-Up Please follow-up with urology in one week You will be prescribed Cipro (antibiotic) - take this for one week You will be prescribed Flomax - take this until you see urology Current Hospital Diet Patient's current hospital diet: Regular Diet Discharge Diet Recommended Diet: Regular Diet Procedures Procedures Performed: Cystoscopy with Right retrograde and stent placement Pending Studies Studies pending at discharge: no Medical Emergencies . Who to Call and When: Medical Emergencies: If at any time you feel your situation is an emergency, please call 911 immediately. . Non-Emergent Contact Non-Emergency issues call your: Primary Care Provider, Urologist . . "Provider Documentation" section prepared by Norma Craig. .
[2017-08-21 16:34] VITALS: BP 128/70; PULSE 61; TEMP 36.6; O2SAT 97
--- NOTE | 2017-08-21 16:34 | Discharge Summary ---
Discharge Summary Date of Service Aug 21, 2017. Discharge Summary Admission Date: Aug 19, 2017 at 10:26 Discharge Date: Aug 21, 2017 Discharge Disposition: Home Principal Diagnosis: R Ureteral Stone, Hydronephrosis Possible Early Pyelonephritis Medication Reconciliation New Medications: Ciprofloxacin Hcl (Cipro) 500 Mg Tab 500 MG PO BID for 7 Days, #14 TAB Tamsulosin HCl (Tamsulosin HCl) 0.4 Mg Cap 0.4 MG PO HS for 30 Days, #30 CAP Continued Medications: Amlodipine (Norvasc) 10 Mg Tab 10 MG PO DAILY Aspirin (Aspirin EC Low Dose) 81 Mg Ectab 81 MG PO QAM for 30 Days Atenolol (Tenormin) 25 Mg Tab 25 MG PO QAM, TAB Atorvastatin (Lipitor) 80 Mg Tab 80 MG PO PM, TAB Fluoxetine (Prozac) 20 Mg Cap 20 MG PO PM Lisinopril (Lisinopril) 10 Mg Tab PO DAILY Warfarin Sod (Coumadin) 5 Mg Tab 5 MG PO SuFrSa FULL TABLET (5MG) [id number] Different, per coumadin clinlc: FULL Tab (5mg) Tue, , Tue, , Tue Warfarin Sodium (Warfarin Sodium) 5 Mg Tab 2.5 MG PO [id number] 1/2 TAB (2.5MG) [id number] Per coumadin clinic: 1/2 tablet TUE and TUE (per coag clinic) Discontinued Medications: Simethicone (Simethicone) 180 Mg Cap 2 CAP PEG BID PRN for Gas or Constipation Admission Information HPI (per Admitting provider): Patient is a 67yo F with a PMH of HTN, h/o CVAs on coumadin, anxiety and other medical problems listed below who presents with nausea & vomiting that started overnight. Patient started to experience lower abdominal pain 4 days ago with associated diarrhea and was seen in clinic. She was prescribed simethicone PRN for gas.Yesterday, patient began to experience R flank/back pain and associated chills. Had nausea overnight with 3 episodes of vomiting. Poor PO intake. Decreased urinary output. Came to ED for further evaluation. Denies fever, headache, lightheadedness, visual changes, chest pain, SOB, hematuria, dysuria, melena, hematochezia or LE swelling. In ED, patient found to have mild leukocytosis of 10.87. UA without evidence of infection but + occult blood. CT abd/pelvis with a 9 mm x 6 mm proximal right ureteral calculus with moderate right hydronephrosis and moderate perinephric infiltration. Denies personal history of kidney stones. 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 Etiology of CVA is unclear (HTN vs. ?A Fib). Follows with [facility]y and cardiology. INR of 2.3 today. Lives alone but son helps manage medications. Physical Exam (per Admitting): General Appearance: WD/WN, no apparent distress Head: normocephalic, atraumatic Eyes: normal inspection, PERRL, sclerae normal ENT: normal ENT inspection, hearing grossly normal, pharynx normal (dry mucous membranes) Neck: supple, thyroid normal, no carotid bruits Respiratory/Chest: chest non-tender, lungs clear, normal breath sounds, no respiratory distress, no accessory muscle use Cardiovascular: regular rate, rhythm, no edema, no murmur Abdomen/GI: non tender, soft, + tenderness (RLQ TTP, no guarding ) Back: normal inspection, + right CVA tenderness Extremities/Musculoskelatal: normal inspection, no calf tenderness, no pedal edema Neurologic/Psych: no motor/sensory deficits, alert, normal mood/affect, oriented x 3 Skin: normal color, warm/dry, no rash Hospital Course This is a 67 year old female with a past medical history of multiple CVAs on Coumadin, HTN, Anxiety - presents with lower abdominal pain, nausea/vomiting. Presented to the ER - found to have a 9mm stone on the R with some hydronephrosis. R Ureter Calculus Hydronephrosis Acute Kidney Injury 08/21 - s/p stent placement - currently on Cipro - repeat urine cultures ordered - hoping to d/c today, will await further recommendations by urology 08/20 - appreciate urology input - s/p stent placement - currently on Cipro for possible infection - d/c when okay with urology 08/19 Plan: to give IVFs, currently getting NS @ 125mL/hr Flomax Morphine PRN for pain Urology consulted Hx. of CVA - INR >6 - likely due to interaction with Cipro - hold Coumadin for 2-3 days and outpatient INR check HTN - blood pressure stable; cont. home meds DVT ppx - Coumadin FULL CODE Total time spent on discharge = 40 minutes This includes examination of the patient, discharge planning, medication reconciliation, and communication with other providers. Discharge Instructions Please follow-up with urology in one week You will be prescribed Cipro (antibiotic) - take this for one week You will be prescribed Flomax - take this until you see urology
[2017-08-21] MEDS: TAMSULOSIN HCL 0.4 MG CAP PO SCH (18:53)
== END 2017-08-21 18:55 | disposition home or self-care (01) | DRG 690 ==
LOC: C.EDB 07:17 → C.MSW 10:26 → ENRESERV 10:44
PROVIDERS: ADMIT Family Medicine; ATTEND Family Medicine
PROC: 0T768DZ Dilation of Right Ureter with Intraluminal Device, Via Natural or Artificial Opening Endoscopic (ICD-10-PCS; principal; 2017-08-19 15:00)
PROC: BT1D0ZZ Fluoroscopy of Right Kidney, Ureter and Bladder using High Osmolar Contrast (ICD-10-PCS; principal; 2017-08-19 15:00)
DX: N13.6 Pyonephrosis (principal); N17.9 Acute kidney failure, unspecified; R79.1 Abnormal coagulation profile; I10 Essential (primary) hypertension; F41.9 Anxiety disorder, unspecified; Z86.73 Personal history of transient ischemic attack (TIA), and cerebral infarction without residual deficits; Z79.01 Long term (current) use of anticoagulants; Z87.891 Personal history of nicotine dependence; Z79.82 Long term (current) use of aspirin; Z79.899 Other long term (current) drug therapy; Z88.6 Allergy status to analgesic agent; Z88.8 Allergy status to other drugs, medicaments and biological substances

== ENCOUNTER 2017-09-08 07:39 | Day surgery (SDC) | payer OTHER ==
[2017-09-01 13:40] VITALS: Ht 160 cm; Wt 59.1 kg
[~2017-09-08] VITALS: Ht 160 cm; Wt 59.1 kg
[~2017-09-08 07:39] MED LIST changes: +AMLO-114 PO; +CIPROFLOXACIN / D5W 400 MG IV SCH; +FLM4 PO; +FLUO20CA35 PO; +LACTATED RINGER'S 1000ML 1,000 ML IV SCH; +LISI-461 PO; -NRV5 PO; -POTA1TAB97 PO; +WARF-246 PO; -WLLXL150 PO
[2017-09-08] MEDS ORDERED: EpHEDrine SULFATE INJ 50 MG/ML AMP IV PRN (08:00)
[2017-09-08] MEDS ORDERED: LABETALOL HCL IV 5 MG/ML 20ML IV PRN (08:00)
[2017-09-08] MEDS ORDERED: ATROPINE SULFATE 0.1 MG/ML 5ML SYR IV PRN (08:00)
[2017-09-08] MEDS ORDERED: PHENYLEPHRINE 100MCG/ML 5ML SYR IV PRN (08:00)
[2017-09-08] MEDS ORDERED: FLUMAZENIL 0.1 MG/1 ML 10 ML VIAL IV PRN (08:00)
[2017-09-08] MEDS ORDERED: ONDANSETRON INJ 2 MG/ML 2 ML VIAL IV PRN (08:00)
[2017-09-08] MEDS ORDERED: FENTANYL CITRATE INJ 50 MCG/1 ML 2 ML VIAL IV PRN (08:00)
[2017-09-08] MEDS ORDERED: NALOXONE HCL 0.4 MG/1 ML VIAL/CARP IV PRN (08:00)
[2017-09-08] MEDS ORDERED: HYDROmorphone INJ 0.5 MG/0.5 ML SYR IV PRN (08:00)
[2017-09-08] MEDS ORDERED: MEPERIDINE HCL 25 MG/ML CARP IV PRN (08:00)
[2017-09-08 08:06] VITALS: BP 129/70; PULSE 53; TEMP 36.7; O2SAT 97
[2017-09-08] MEDS ORDERED: DEXAMETHASONE SOD INJ 4 MG/ML VIAL ONE (08:26)
[2017-09-08] MEDS ORDERED: PROPOFOL IV EMULSION 10 MG/ML 20 ML VIAL ONE (08:26)
[2017-09-08] MEDS ORDERED: ONDANSETRON INJ 2 MG/ML 2 ML VIAL ONE (08:26)
[2017-09-08] MEDS ORDERED: LIDOCAINE HCL 2% 2 ML VIAL (20MG/ML) ONE (08:26)
[2017-09-08] MEDS ORDERED: MIDAZOLAM HCL 1 MG/ML 2ML VIAL ONE (08:27)
[2017-09-08] MEDS ORDERED: FENTANYL CITRATE INJ 50 MCG/1 ML 2 ML VIAL ONE (08:27)
--- NOTE | 2017-09-08 12:00 | History & Physical Bridge Note ---
H&P Re-Evaluation Bridge Note: I have examined the patient, reviewed the History & Physical and in the interval since the performance of the History & Physical I have noted the following changes of clinical significance: No changes noted
[2017-09-08] MEDS ORDERED: Cysto-Conray II 17.2% 250ML BOTTLE ONE (12:17)
[2017-09-08] MEDS ORDERED: PHEN-876 PO (12:23)
[2017-09-08] MEDS ORDERED: CIPR-255 PO (12:23)
[2017-09-08] MEDS ORDERED: OXYC7.5T65 PO (12:23)
--- NOTE | 2017-09-08 12:24 | Discharge Instructions ---
Discharge Instructions Date of Service September 08, 2017. Admission Reason for Admission: STONE Discharge Discharge Diagnosis / Problem: Stone Discharge Goals Goal(s): Decrease discomfort, Improve function Activity Recommendations Activity Limitations: resume your previous activity Lifting Limitations: gradually increase as tolerated Exercise/Sports Limitations: gradually increase as tolerated Shower/Bathe: no limitations . Instructions / Follow-Up Instructions / Follow-Up May have blood in urine. May have pelvic discomfort. Call if any fevers or chills. Current Hospital Diet Patient's current hospital diet: Discharge Diet Recommended Diet: Regular Diet Procedures Procedures Performed: Cystoscopy, Right stent exchange, ureteroscopy, laser lithotripsy, stone basket extraction Pending Studies Studies pending at discharge: no Medical Emergencies . Who to Call and When: Medical Emergencies: If at any time you feel your situation is an emergency, please call 911 immediately. . Non-Emergent Contact Non-Emergency issues call your: Primary Care Provider, Urologist Call Non-Emergent contact if: you have a fever, temperature is above 101, temperature is above 101.5, your pain is not controlled, your pain is worsening . . "Provider Documentation" section prepared by Candido Santos,. .
[2017-09-08] MEDS ORDERED: OXYCODONE/ACETAMINOPHEN 7.5-325 TAB PO PRN (12:30)
[2017-09-08] MEDS ORDERED: PHENYLEPHRINE 100MCG/ML 5ML SYR ONE (13:00)
[2017-09-08] MEDS ORDERED: EpHEDrine SULFATE INJ 50 MG/ML AMP ONE (13:00)
[2017-09-08] MEDS ORDERED: SODIUM CHLORIDE 0.9% INJ 10 ML VIAL ONE (13:00)
--- NOTE | 2017-09-08 13:08 | [facility] Operative Report ---
Operative Report Operative Date September 08, 2017. Pre-Operative Diagnosis Stone, right ureter Post-Operative Diagnosis Same Procedure(s) Performed Cystoscopy, Right stent exchange, ureteroscopy, laser lithotripsy, stone basket extraction Surgeon Tom Estimated Blood Loss Minimal Findings Mid ureteral stone with stent in place. Specimens Stone fragement Drains None 6 Fr Multilength Anesthesia Type General Complication(s) none Disposition Recovery Room / PACU Indications Obstructing right stone. Risks and benefits discussed. Description of Procedure Patient was consented and brought back to the operating room. Patient was placed under anesthesia in the supine position and moved to the dorsal lithotomy position. Patient was prepped and draped in the regular sterile fashion. A time out was completed. A 30degree Cystoscope was placed into the bladder and the entire bladder was examined. The UO's were identified. The stent was grasped and partially removed. A wire was placed. UO was cannulized over the wire with a dual lumen catheter and a retrograde pyelogram was completed. A second wire was then placed. A ureteral access sheath and second safety wire was placed. The flexible ureteroscope was taken into the left ureter. The entire ureter and renal pelvis were examined. The stones were identified. A laser fiber was selected and the stones were pulverized to dust and small fragments. One larger fragment was grasped and removed and sent for analysis. The entire area was once again examined. No residual large fragments or areas of concern were noted. The scope was slowly removed with the wire left in place. Contrast was placed through the scope for a pyelogram to assist in stent placement. The entire ureter was examined as the scope was slowly removed. No obstructions or other areas of concern were noted. With the wire in place, a 6 Fr Double J stent was placed. It was confirmed with fluoroscopy. With the stent in place, the bladder was emptied. The scope was removed. The patient was cleaned, aroused from anesthesia, and transferred to the pacu in stable condition having tolerated the procedure well with no complications. I was present and participated in all aspects of the procedure. I attest to the content of the Intraoperative Record and any orders documented therein. Any exceptions are noted below.
--- NOTE | 2017-09-08 13:36 | DIAGNOSTIC IMAGING REPORT ---
RETROGRADE INCLUDES KUB CLINICAL HISTORY: 67 years-old Female presenting with RT CYSTO/POSSIBLE RETRO. TECHNIQUE: 7 fluoroscopic image(s) recorded as part of an intraoperative procedure. COMPARISON: 08/19/2017. FINDINGS/IMPRESSION: A guidewire was placed into the right ureter. The right renal collecting system was opacified with contrast. Mild to moderate right pelvocaliectasis noted. Subsequently, a right ureteral stent was placed. Please see surgical report for further details. Dose area product (mGy.cm^2): 1789.5. Fluoroscopy time: 45.5 seconds. Number of fluoroscopic spot images: 0. Electronically signed by: Joey Arriaga M.D. 09/08/2017 1:34 PM Dictated Date/Time: 09/08/2017 1:33 PM
--- NOTE | 2017-09-08 13:42 | Anesthesiology Progress Note ---
Anesthesia Post Op Note Date & Time September 08, 2017 at 13:42 Vital Signs Pain Intensity: 0 Vital Signs Past 12 Hours Date Time Temp Pulse Resp B/P (MAP) Pulse Ox O2 Delivery O2 Flow Rate FiO2 09/08/17 13:35 67 18 128/73 95 Room Air 09/08/17 13:25 68 20 123/74 99 Oxymask 10 09/08/17 13:16 36.0 68 14 115/73 99 Oxymask 10 09/08/17 08:06 36.7 53 16 129/70 (89) 97 Room Air Notes Mental Status: alert / awake / arousable, participated in evaluation Pt Amnestic to Procedure: Yes Nausea / Vomiting: adequately controlled Pain: adequately controlled Airway Patency, RR, SpO2: stable & adequate BP & HR: stable & adequate Hydration State: stable & adequate Anesthetic Complications: no major complications apparent
[2017-09-08 14:00] VITALS: BP 120/73; PULSE 67; TEMP 36.8; O2SAT 92
[2017-09-08 14:30] VITALS: BP 103/70; PULSE 66; O2SAT 95
== END 2017-09-08 15:21 | disposition home or self-care (01) ==
LOC: C.ACU 07:39
PROVIDERS: ATTEND Urology
DX: N20.1 Calculus of ureter (principal); I12.9 Hypertensive chronic kidney disease with stage 1 through stage 4 chronic kidney disease, or unspecified chronic kidney disease; G47.33 Obstructive sleep apnea (adult) (pediatric); F32.9 Major depressive disorder, single episode, unspecified; F41.9 Anxiety disorder, unspecified; N18.9 Chronic kidney disease, unspecified; E78.5 Hyperlipidemia, unspecified; Z86.73 Personal history of transient ischemic attack (TIA), and cerebral infarction without residual deficits; Z84.1 Family history of disorders of kidney and ureter; Z82.49 Family history of ischemic heart disease and other diseases of the circulatory system; Z79.899 Other long term (current) drug therapy; Z79.01 Long term (current) use of anticoagulants

== ENCOUNTER 2022-07-25 08:33 | Inpatient (IN) ==
[2022-07-25] MEDS ORDERED: OPTIRAY 320 500ml IV ONE (08:46)
[2022-07-25 08:49] LABS: Basophils # (auto) 0.07 K/uL (0-0.2); Basophils % (auto) 0.9 %; Hematocrit (blood only) 35.9 % (37.0-47.0); Hemoglobin 12.4 g/dl (12.0-16.0); Immature Granulocytes # (auto) 0.03 K/uL (0.01-0.20); Immature Granulocytes % (auto) 0.4 %; Lymphocytes # (auto) 1.64 K/uL (1.2-3.4); Mean Corpuscular Hemoglobin 32.5 pg (25.0-34.0); Mean Corpuscular Hgb Conc 34.5 g/dL (32.0-36.0); Mean Corpuscular Volume 94.2 fL (80.0-100.0); Mean Platelet Volume 9.3 fL (9.4-12.4); Monocytes # (auto) 0.64 K/uL (0.11-0.59); Monocytes % (auto) 8.6 %; Neutrophils # (auto) 5.08 K/uL (1.40-6.50); Neutrophils % (auto) 68.1 %; Platelet Count 303 K/uL (130-400); RDW Coefficient of Variation 12.1 % (11.5-14.5); Red Blood Count 3.81 M/uL (4.20-5.40); White Blood Count 7.46 K/ul (4.8-10.8)
--- NOTE | 2022-07-25 08:52 | CT Scan Report ---
CT head/brain wo con CLINICAL HISTORY: neuro deficit, acute stroke suspected Technique: Contiguous axial CT images of the head were acquired from the base of the skull to the denis yaquelin without intravenous contrast administration. Images were viewed in brain, subdural and bone [facility]. Automated dose lowering techniques and/or adjustment according to patient size were utilized for this exam. Comparison: Comparison is made to CT head 02/18/2017 Findings: Areas of decreased attenuation are present in the periventricular and subcortical white matter bilate rally consistent with small vessel ischemic disease. Generalized cerebral volume loss with commensura te enlargement of the ventricles, sulci, and cisterns is also present. Encephalomalacia is seen in th e right posterior [employer] territory, unchanged from prior exam. Right frontal encephalomalacia is also no darius. Imaged portions of the paranasal sinuses and mastoid air cells are clear. The orbits appear normal. There are no acute fractures of the calvaria or scalp swelling. Impression: No acute abnormalities, in particular no evidence of intracranial hemorrhage and no CT evidence of in farct. ACT 112: Negative or not required by law. Electronically signed by: Anatoliy Desouza M.D. 07/25/2022 8:51 AM
--- NOTE | 2022-07-25 09:01 | CT Scan Report ---
CT angio head w con, CT angio neck with con CLINICAL HISTORY: neuro deficit, acute stroke suspected TECHNIQUE: CT angiography of the head and neck was performed following intravenous administration of iodinated contrast. Coronal and sagittal MIPS were obtained from the axial data set and were submitte d for review. Automated dose lowering techniques and/or adjustment according to patient size were ut ilized for this examination. All measurements were calculated based on NASCET criteria. Comparison: None available at the time of this dictation. FINDINGS: Exam is limited by patient motion. Lungs and soft tissues are unremarkable. CTA Neck: A 3 vessel aortic arch is shown. Atherosclerotic plaque is present in the aortic arch and at the origin of the great vessels. There is questionable nonhemodynamically significant stenosis of the right internal carotid artery near the bifurcation. The left vertebral artery is dominant. CTA Head: The anterior and posterior cerebral circulations are patent. No hemodynamically significan t stenosis, aneurysm, dissection, or arteriovenous malformation is shown. IMPRESSION: 1. No occlusion, hemodynamically significant stenosis, or dissection in the major cervical arteries. 2. No occlusion, hemodynamically significant stenosis, aneurysm, dissection, or arteriovenous malfor mation in the major intracranial arteries. Assessment of stenosis of the internal carotid arteries is based on NASCET criteria. ACT 112: Negative or not required by law. Electronically signed by: Anatoliy Desouza M.D. 07/25/2022 8:58 AM
[2022-07-25 09:02] LABS: Partial Thromboplastin Ratio 0.9; Partial Thromboplastin Time 25.3 Seconds (21.0-31.0); Prothrombin Time 10.9 Seconds (9.0-12.0)
[2022-07-25 09:06] LABS: Albumin Globulin Ratio 1.6 (0.9-2); Albumin Level 4.5 gm/dl (3.4-5.0); BUN Creatinine Ratio 18.3 (10-20); Bilirubin,Total 1.5 mg/dl (0.2-1.0); Calcium 9.1 mg/dl (8.6-10.3); Creatinine Clr Calc Pharmacy 51.3 ml/min; Est GFR (African American) 62.2 ml/min; Est GFR (Non-African American) 53.6 ml/min; Globulin 2.8 gm/dl (2.5-4.0); Magnesium 1.7 mg/dl (1.7-2.4); Potassium 4.8 mmol/L (3.5-5.1); Total Protein 7.3 gm/dl (6.0-8.3)
[2022-07-25] MEDS ORDERED: LORazepam 2 MG/1 ML VIAL IV STA (09:10)
[2022-07-25 09:11] LABS: Troponin I High Sensitivity 6.5 pg/ml (0-14)
[2022-07-25] MEDS ORDERED: levETIRAcetam 1,500 MG in 0.9 % SODIUM CHLORIDE 100 ML IV STA (09:19)
--- NOTE | 2022-07-25 09:23 | XRay Report ---
XR chest 1V portable CLINICAL HISTORY: neuro deficit, acute stroke suspected TECHNIQUE: Single frontal radiograph of the chest was obtained. Comparison: Comparison is made to chest radiograph 08/19/2017 FINDINGS: No lines and tubes are seen. Cardiomegaly is noted. The lungs are clear. No evidence of pleural effus ion or pneumothorax. IMPRESSION: No acute chest disease. ACT 112: Negative or not required by law. Electronically signed by: Anatoliy Desouza M.D. 07/25/2022 9:21 AM
[2022-07-25] MEDS ORDERED: SODIUM CHLORIDE 0.9% 10ML FLUSH IV STA (10:29)
[2022-07-25] MEDS ORDERED: STAT IV STA (10:29)
[2022-07-25] MEDS ORDERED: No Aspirin within 24hrs of THROMBOLYTIC-Stroke PO SCH (10:30)
[2022-07-25] MEDS ORDERED: TENECTEPLASE 21 MG in SYRINGE 0 ML IV ONE (10:39)
--- NOTE | 2022-07-25 11:18 | Emergency Department Note ---
Impression & Plan Observed seizure-like activity, Anxiety, Brain TIA ED Provider Note INFORMANT: Family members ED PROVIDER(S): Raz Pearce DO CHIEF COMPLAINT: Seizure-like activity, possible TIA, anxiety PLAN: Disposition: Admission Outpatient prescription management: none Discussion with: I spoke with the hospitalist, who will see the patient for admission/observation and further evaluation and consultation. Also spoke with Dr. Titus, stroke neurologist from [facility] who also evaluated the patient in the ED the via telemedicine. MEDICAL DECISION MAKING: This is a 71-year-old female who presents to the ED by ambulance. The patient apparently was last known well at 6:45 AM when a daughter saw her. The patient apparently went to catholic around 7 AM. She also went to a local grocery store. When she went back to the catholic, she stated that she was confused and got lost. At some point the patient became weak on the left side although this is uncertain when this occurred. By the time EMS arrived, she was shaky and tremulous and was found to be weak on the left side. A stroke alert was called with the patient in route. Prehospital blood sugar was normal. Upon the patient's evaluation here, the patient was shaking the arms with sometimes legs. She had difficulty with exam because she states that she could not stop her shaking. During the patient's evaluation here, she had what the the nurses believed to be a real seizure as she was holding her breath and not breathing and became somewhat cyanotic. She was ordered some IV Ativan 1 mg and some IV Keppra 1.5 g. When I reassessed the patient a short time later, the patient continued having weakness in the left side. I did speak with the stroke neurologist about the patient. After they assessed the patient, they felt TNK would be of some value as the patient was still little weak on the left side. Just prior to administering the TNK, the patient began moving her left side. Her initial stroke scale was a 5. 2 for weakness in the left leg, 2 for weakness in the left arm and ataxia in the left side. I did reassess the patient just prior to TNK administration and she was able to hold her left arm off the bed with only minimal weakness. She was able to lift the left leg up a lthough it seemed to be weak. It was significantly better than her original exam, however. The patient did not get TNK. The decision was made to admit the patient for further evaluation. I did speak with the hospitalist, who will see the patient for further evaluation and care. The patient's test results included a CT scan of the head and CT angiogram of the head. 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 EKG showed a sinus tach. CBC did not show anemia or leukocytosis. Electrolytes were within normal limits. Glucose is 150. Troponin was negative for myocardial infarction. C hest x-ray was negative for acute disease. COVID test was negative. Triage Nursing notes reviewed. Vital Signs: reviewed Prior /Outside records reviewed: none Differential diagnosis: CVA, TIA, seizure disorder, seizure-like disorder, psychosomatic, pseudoseizure, other. Diagnostics, as interpreted by me: 12 lead ECG: Sinus tach at a rate of 103. No ST elevation. No PVCs. Normal QTc. Cardiac Monitoring ordered: Sinus rhythm in the 90-100 range Medical decision rules: none Imaging studies: CT scan of the brain: No intracranial hemorrhage. Chest x-ray: No pneumonia. Procedures: none. Critical care: I have personally spent 30 minutes of critical care time in the direct management of this patient. This includes bedside care, interpretation of diagnostic studies, and testing, discussion with consultants, patient, and family members, and other required patient management activities. This 30 m inutes is in excess of all separately billable procedures. HPI: See MDM above. PAST MEDICAL HISTORY: See Below PAST SURGICAL HISTORY: See Below SOCIAL HISTORY: See Below HOME MEDICATIONS: See Below ALLERGIES: See Below VITALS: See Below PHYSICAL EXAMINATION: See MDM for positive findings otherwise unremarkable. CONSTITUTIONAL/VITAL SIGNS: Reviewed GENERAL:done as appropriate INTEGUMENTARY: done as appropriate HEAD: done as appropriate EYES: done as appropriate RESPIRATORY: done as appropriate CARDIOVASCULAR:done as appropriate GI/ABDOMEN:done as appropriate EXTREMITIES: done as appropriate NEUROLOGICAL: done as appropriate PSYCHIATRIC:done as appropriate MUSCULOSKELETAL:done as appropriate TRIAGE NURSING DOCUMENTATION REVIEWED. Past Med/Surg History Social History Smoking Status: Unknown if ever smoked Preferred Language: Kazakh Feels Safe at Home: Yes Allergies Allergies Allergy/AdvReac Type Severity Reaction Status Date / Time aspirin AdvReac Unknown adverse Verified 07/25/22 09:42 reaction as a child with nosebleeds; none since then hydrochlorothiazide AdvReac Unknown SHORTNESS Verified 07/25/22 09:42 OF BREATH Home Meds Home Medications Medication Instructions Recorded Confirmed ATENOLOL (TENORMIN) 25 mg PO QAM #0 tabs 02/16/17 07/25/22 ATORVASTATIN (LIPITOR) 80 mg PO PM #0 tabs 02/16/17 07/25/22 Amlodipine (Norvasc) 10 mg PO QAM ##0 08/19/17 07/25/22 Fluoxetine (Prozac) 20 mg PO Q2D ##0 08/19/17 Lisinopril 10 mg PO QAM ##0 08/19/17 07/25/22 WARFARIN SODIUM 2.5 mg PO UD ##0 08/19/17 07/25/22 Warfarin Sod (Coumadin) 5 mg PO UD ##0 08/19/17 07/25/22 Previous Rx's Medication Instructions Recorded Aspirin (Aspirin EC Low Dose) 81 mg PO QAM 30 days ##0 10/20/16 Results & Data (ED) Vital Signs Vital Signs - 24 hr 07/25/22 09:05 07/25/22 09:04 07/25/22 09:26 Temperature 36.9 C Temperature Source Oral Pulse Rate 103 H 96 H Pulse Rate [Apical] 88 Pulse Rhythm Regular Pulse Rhythm [Apical] Regular Pulse Strength [Apical] Normal Respiratory Rate 18 16 Respiratory Effort / Characteristics Spontaneous Non-Labored Spontaneous Respiratory Depth Normal Normal Respiratory Pattern Regular Regular Blood Pressure 135/82 Blood Pressure [Right Arm] 120/69 Blood Pressure Mean 99 Blood Pressure Mean [Right Arm] 86 Blood Pressure Position [Right Arm] Semi-fowlers Pulse Oximetry 96 95 Oxygen Delivery Method Room Air Room Air Oxygen Flow Rate Sepsis Recent Fever Within 48 Hours No Sepsis New/Unexplained Change in Mental Status No Sepsis Action Taken by Nursing No Action Required 07/25/22 09:30 07/25/22 09:31 07/25/22 10:06 Temperature Temperature Source Pulse Rate Pulse Rate [Apical] 62 56 L Pulse Rhythm Pulse Rhythm [Apical] Regular Regular Pulse Strength [Apical] Normal Normal Respiratory Rate 16 16 Respiratory Effort / Characteristics Non-Labored Spontaneous Non-Labored Spontaneous Respiratory Depth Normal Respiratory Pattern Regular Regular Blood Pressure Blood Pressure [Right Arm] 111/73 94/59 L Blood Pressure Mean Blood Pressure Mean [Right Arm] 85 70 Blood Pressure Position [Right Arm] Semi-fowlers Semi-fowlers Pulse Oximetry 89 L 97 97 Oxygen Delivery Method Room Air Nasal Cannula Nasal Cannula Oxygen Flow Rate 3 3 Sepsis Recent Fever Within 48 Hours Sepsis New/Unexplained Change in Mental Status Sepsis Action Taken by Nursing 07/25/22 10:21 07/25/22 10:48 Temperature Temperature Source Pulse Rate Pulse Rate [Apical] 57 L 57 L Pulse Rhythm Pulse Rhythm [Apical] Regular Regular Pulse Strength [Apical] Normal Normal Respiratory Rate 17 17 Respiratory Effort / Characteristics Non-Labored Spontaneous Non-Labored Spontaneous Respiratory Depth Normal Normal Respiratory Pattern Regular Regular Blood Pressure Blood Pressure [Right Arm] 102/63 100/56 L Blood Pressure Mean Blood Pressure Mean [Right Arm] 76 70 Blood Pressure Position [Right Arm] Pulse Oximetry 98 97 Oxygen Delivery Method Room Air Nasal Cannula Oxygen Flow Rate 3 Sepsis Recent Fever Within 48 Hours Sepsis New/Unexplained Change in Mental Status Sepsis Action Taken by Nursing Laboratory Data 07/25/22 08:13 07/25/22 08:13 Lab Results 07/25/22 07/25/22 07/25/22 Range/Units 08:13 08:13 08:13 WBC 7.46 (4.8-10.8) K/ul RBC 3.81 L (4.20-5.40) M/uL Hgb 12.4 (12.0-16.0) g/dl Hct 35.9 L (37.0-47.0) % MCV 94.2 (80.0-100.0) fL MCH 32.5 (25.0-34.0) pg MCHC 34.5 (32.0-36.0) g/dL RDW Std Deviation 42.0 (36.4-46.3) fL RDW Coeff of Clint 12.1 (11.5-14.5) % Plt Count 303 (130-400) K/uL MPV 9.3 L (9.4-12.4) fL Immature Gran % (Auto) 0.4 % Neut % (Auto) 68.1 % Lymph % (Auto) 22.0 % [place] % (Auto) 8.6 % Eos % (Auto) 0.0 % Baso % (Auto) 0.9 % Neut # (Auto) 5.08 (1.40-6.50) K/uL Lymph # (Auto) 1.64 (1.2-3.4) K/uL [place] # (Auto) 0.64 H (0.11-0.59) K/uL Eos # (Auto) 0.00 (0-0.50) K/uL Baso # (Auto) 0.07 (0-0.2) K/uL Immature Gran # (Auto) 0.03 (0.01-0.20) K/uL PT 10.9 (9.0-12.0) Seconds INR 1.0 (0.9-1.1) APTT 25.3 (21.0-31.0) Seconds PTT Ratio 0.9 Sodium 135 L (136-145) mmol/L Potassium 4.8 (3.5-5.1) mmol/L Chloride 101 (98-107) mmol/L Carbon Dioxide 24 (21-32) mmol/L Anion Gap 10 (3-11) BUN 19 (6-23) mg/dl Creatinine 1.04 (0.6-1.2) mg/dl Est Cr Clr Drug Dosing 51.3 ml/min Est GFR ( Amer) 62.2 ml/min Est GFR (Non-Af Amer) 53.6 ml/min BUN/Creatinine Ratio 18.3 (10-20) Glucose 150 H (70-99(Fasting)) mg/dl POC Glucose (70-99) mg/dl Calcium 9.1 (8.6-10.3) mg/dl Magnesium 1.7 (1.7-2.4) mg/dl Total Bilirubin 1.5 H (0.2-1.0) mg/dl AST 16 (13-39) U/L ALT 11 (7-52) U/L Alkaline Phosphatase 67 (34-104) U/L Troponin I High Sens 6.5 (0-14) pg/ml Total Protein 7.3 (6.0-8.3) gm/dl Albumin 4.5 (3.4-5.0) gm/dl Globulin 2.8 (2.5-4.0) gm/dl Albumin/Globulin Ratio 1.6 (0.9-2) SARS-CoV-2, RNA, NAAT (NEGATIVE) 07/25/22 07/25/22 Range/Units 08:47 09:45 WBC (4.8-10.8) K/ul RBC (4.20-5.40) M/uL Hgb (12.0-16.0) g/dl Hct (37.0-47.0) % MCV (80.0-100.0) fL MCH (25.0-34.0) pg MCHC (32.0-36.0) g/dL RDW Std Deviation (36.4-46.3) fL RDW Coeff of Clint (11.5-14.5) % Plt Count (130-400) K/uL MPV (9.4-12.4) fL Immature Gran % (Auto) % Neut % (Auto) % Lymph % (Auto) % [place] % (Auto) % Eos % (Auto) % Baso % (Auto) % Neut # (Auto) (1.40-6.50) K/uL Lymph # (Auto) (1.2-3.4) K/uL [place] # (Auto) (0.11-0.59) K/uL Eos # (Auto) (0-0.50) K/uL Baso # (Auto) (0-0.2) K/uL Immature Gran # (Auto) (0.01-0.20) K/uL PT (9.0-12.0) Seconds INR (0.9-1.1) APTT (21.0-31.0) Seconds PTT Ratio Sodium (136-145) mmol/L Potassium (3.5-5.1) mmol/L Chloride (98-107) mmol/L Carbon Dioxide (21-32) mmol/L Anion Gap (3-11) BUN (6-23) mg/dl Creatinine (0.6-1.2) mg/dl Est Cr Clr Drug Dosing ml/min Est GFR ( Amer) ml/min Est GFR (Non-Af Amer) ml/min BUN/Creatinine Ratio (10-20) Glucose (70-99(Fasting)) mg/dl POC Glucose 180 H (70-99) mg/dl Calcium (8.6-10.3) mg/dl Magnesium (1.7-2.4) mg/dl Total Bilirubin (0.2-1.0) mg/dl AST (13-39) U/L ALT (7-52) U/L Alkaline Phosphatase (34-104) U/L Troponin I High Sens (0-14) pg/ml Total Protein (6.0-8.3) gm/dl Albumin (3.4-5.0) gm/dl Globulin (2.5-4.0) gm/dl Albumin/Globulin Ratio (0.9-2) SARS-CoV-2, RNA, NAAT NEGATIVE (NEGATIVE) Administered Medications Discontinued Medications Levetiracetam 1,500 mg/ Sodium (Chloride) 115 mls @ 440 mls/hr IV NOW STA Stop: 07/25/22 09:33 Last Infusion: 07/25/22 09:45 Dose: 0 mls/hr Documented By: Admin: 07/25/22 09:30 Dose: 440 mls/hr Documented By: STEFFANY Ioversol (Optiray 320 500ml) 116 ml IV ONCE ONE Stop: 07/25/22 08:47 Last Admin: 07/25/22 08:47 Dose: 116 ml Documented By: MAREN Lorazepam (Lorazepam 2 Mg/1 Ml Vial) 1 mg IV NOW STA Stop: 07/25/22 09:11 Last Admin: 07/25/22 09:18 Dose: 1 mg Documented By: STEFFANY Imaging Data Radiologist's Impression: Chest X-Ray 07/25/22 08:13 XR chest 1V portable CLINICAL HISTORY: neuro deficit, acute stroke suspected TECHNIQUE: Single frontal radiograph of the chest was obtained. Comparison: Comparison is made to chest radiograph 08/19/2017 FINDINGS: No lines and tubes are seen. Cardiomegaly is noted. The lungs are clear. No evidence of pleural effusion or pneumothorax. IMPRESSION: No acute chest disease. ACT 112: Negative or not required by law. Electronically signed by: Anatoliy Desouza M.D. 07/25/2022 9:[address] 07/25/22 08:13 CT head/brain wo con CLINICAL HISTORY: neuro deficit, acute stroke suspected Technique: Contiguous axial CT images of the head were acquired from the base of the skull to the vertex without intravenous contrast administration. Images were viewed in brain, subdural and bone windows. Automated dose lowering techniques and/or adjustment according to patient size were utilized for this exam. Comparison: Comparison is made to CT head 02/18/2017 Findings: Areas of decreased attenuation are present in the periventricular and subcortical white matter bilaterally consistent with small vessel ischemic disease. Generalized cerebral volume loss with commensurate enlargement of the ventricles, sulci, and cisterns is also present. Encephalomalacia is seen in the right posterior STRATEGY LEAD territory, unchanged from prior exam. Right frontal encephalomalacia is also noted. Imaged portions of the paranasal sinuses and mastoid air cells are clear. The orbits appear normal. There are no acute fractures of the calvaria or scalp swelling. Impression: No acute abnormalities, in particular no evidence of intracranial hemorrhage and no CT evidence of infarct. ACT 112: Negative or not required by law. Electronically signed by: Anatoliy Desouza M.D. 07/25/2022 8:51 AM Head CTA 07/25/22 08:13 CT angio head w con, CT angio neck with con CLINICAL HISTORY: neuro deficit, acute stroke suspected TECHNIQUE: CT angiography of the head and neck was performed following intravenous administration of iodinated contrast. Coronal and sagittal MIPS were obtained from the axial data set and were submitted for review. Automated dose lowering techniques and/or adjustment according to patient size were utilized for this examination. All measurements were calculated based on NASCET criteria. Comparison: None available at the time of this dictation. FINDINGS: Exam is limited by patient motion. Lungs and soft tissues are unremarkable. CTA Neck: A 3 vessel aortic arch is shown. Atherosclerotic plaque is present in the aortic arch and at the origin of the great vessels. There is questionable nonhemodynamically significant stenosis of the right internal carotid artery near the bifurcation. The left vertebral artery is dominant. CTA Head: The anterior and posterior cerebral circulations are patent. No hemodynamically significant stenosis, aneurysm, dissection, or arteriovenous malformation is shown. IMPRESSION: 1. No occlusion, hemodynamically significant stenosis, or dissection in the major cervical arteries. 2. No occlusion, hemodynamically significant stenosis, aneurysm, dissection, or arteriovenous malformation in the major intracranial arteries. Assessment of stenosis of the internal carotid arteries is based on NASCET criteria. ACT 112: Negative or not required by law. Electronically signed by: Anatoliy Desouza M.D. 07/25/2022 8:58 AM Neck CTA 07/25/22 08:13 CT angio head w con, CT angio neck with con CLINICAL HISTORY: neuro deficit, acute stroke suspected TECHNIQUE: CT angiography of the head and neck was performed following intravenous administration of iodinated contrast. Coronal and sagittal MIPS were obtained from the axial data set and were submitted for review. Automated dose lowering techniques and/or adjustment according to patient size were utilized for this examination. All measurements were calculated based on NASCET criteria. Comparison: None available at the time of this dictation. FINDINGS: Exam is limited by patient motion. Lungs and soft tissues are unremarkable. CTA Neck: A 3 vessel aortic arch is shown. Atherosclerotic plaque is present in the aortic arch and at the origin of the great vessels. There is questionable nonhemodynamically significant stenosis of the right internal carotid artery near the bifurcation. The left vertebral artery is dominant. CTA Head: The anterior and posterior cerebral circulations are patent. No hemodynamically significant stenosis, aneurysm, dissection, or arteriovenous malformation is shown. IMPRESSION: 1. No occlusion, hemodynamically significant stenosis, or dissection in the major cervical arteries. 2. No occlusion, hemodynamically significant stenosis, aneurysm, dissection, or arteriovenous malformation in the major intracranial arteries. Assessment of stenosis of the internal carotid arteries is based on NASCET criteria. ACT 112: Negative or not required by law. Electronically signed by: Anatoliy Desouza M.D. 07/25/2022 8:58 AM Discharge Plan Visit Data Chief Complaint: Stroke Alert Stated Complaint: STROKE SX ED Provider: Raz Pearce Discharge Problem: Observed seizure-like activity, Anxiety, Brain TIA Forms Stand Alone Forms: My [facility] [employer] Prescriptions Prescriptions: No Action Aspirin (Aspirin EC Low Dose) 81 MG ENTERIC COATED TAB 81 mg PO QAM 30 Days Qty: 0 0RF ATENOLOL (TENORMIN) 25 MG tablet 25 mg PO QAM Qty: 0 ATORVASTATIN (LIPITOR) 80 MG tablet 80 mg PO PM Qty: 0 Patient Comments: ON HOLD R/T DIFFICULTY GETTING FILLED Amlodipine (Norvasc) 10 MG tablet 10 mg PO QAM Qty: 0 Fluoxetine (Prozac) 20 MG capsule 20 mg PO Q2D Qty: 0 WARFARIN SODIUM 5 MG tablet 2.5 mg PO UD Qty: 0 Warfarin Sod (Coumadin) 5 MG tablet 5 mg PO UD Qty: 0 Lisinopril 10 MG tablet 10 mg PO QAM Qty: 0 Referrals Referrals: Bell Reynolds DO [Primary Care Provider] -
--- NOTE | 2022-07-25 12:06 | History & Physical Report ---
Date of Service July 25, 2022 Assessment & Plan (1) Left-sided weakness: (2) Observed seizure-like activity: (3) History of embolic stroke: (4) Anxiety: (5) HTN (hypertension): (6) CKD (chronic kidney disease), stage III: (7) Hyperlipidemia: Plan This is a 71-year-old female with PMH of history of embolic stroke involving right MCA in 2019 with some residual memory deficit, hypertension, CKD 3, alcohol abuse, anxiety and other medical problems listed below who presents for further evaluation of strokelike activity. Left-sided weakness History of embolic stroke Observed seizure-like activity History of R MCA stroke in 09/2016 and then more distal stroke in R MCA seen in 01/2017 initially on aspirin, plavix and coumadin Last seen by [facility] neuro in 2019 when aspirin and coumadin were discontinued but she has remained on plavix CT head No acute abnormalities, in particular no evidence of intracranial hemorrhage and no CT evidence of infarct CTA head/neck with no occlusion, hemodynamically significant stenosis, or dissection in the major cervical arteries. No occl., hemodynam. significant stenosis, aneurysm, dissection, or arteriovenous malformation in the major intracranial arteries TNK not indicated per ED physician and telestroke due to patient regaining strength in LUE. No weakness or facial droop noted at my time of exam Brain MRI w/wo, echo with bubble study pending Continue plavix, statin. Routine neuro consult, PT/OT evaluations, dysphasia screen and ADAT Observed seizure-like activity Anxiety Complex presentation of possible TIA, ? witness seizure like activity in ED improved by ativan but no post-ictal period as well as alcohol use disorder (serum etoh level pending) Son feels acute anxiety a contributor as patient had a similar episode weeks ago when under acute stress No h/o seizure disorder Given 1.5g Keppra in ED, 1mg ativan with improvement EEG ordered Appreciate neuro recs Alcohol use disorder Drinking 1/2-1 bottle of wine daily per son Had quit drinking a few years ago after initial strokes but has resumed use - awaiting serum etoh level AWSS withdrawal protocol with PRN IV ativan Folic acid, thiamine CKD 3 Cr at baseline. Continue to monitor Hypertension Plan to continue amlodipine, atenolol tomorrow morning but will allow for permissive HTN today Hyperlipidemia Continue statin DVT Ppx: SQ heparin Code status: FULL PCP: Gail Dispo: Admitted to PCU Patient seen in collaboration with Dr. Sigala. Please see addendum. I spent a total of 80 minutes coordinating, documenting, and providing care for this patient excluding time spent in the performance of separately billed services. History of Present Illness Chief Complaint: Strokelike symptoms, seizure-like activity witnessed Primary Care Provider: Bell Reynolds, DO This is a 71-year-old female with PMH of history of embolic stroke involving right MCA in 2019, hypertension, CKD 3, history of alcohol abuse, anxiety and other medical problems listed below who presents for further evaluation of strokelike activity. Was last seen known well around 645 this morning. Watch the news and became very upset to the point that it made her feel "sick to my stomach". Went to [place] and then to [facility], where she stated she had been wandering around for the past hour. Per discussion with son on the phone, ever since patient's stroke in 2019 she has had difficulty with keeping track of time, so this comment was not that out of the norm. While at [facility], witnessed to have left-sided weakness and slight facial droop and was brought in to ED via EMS for further evaluation. Stroke alert was called upon arrival and patient was noted to be shaky and tremulous tremulous with some left-sided weakness. ED physician discussed with [facility] oconnellstroke and were about to administer TNK as patient still had a little weakness on the left side but just prior to administering, patient began to move her left side and strength was significantly better than previous. Neurologist and ED provider decided against TNK. Further evaluation with brain MRI. Also while in the ED, nursing staff witnessed what they believed to be seizure-like activity with shaking and patient was noted to be holding her breath, becoming somewhat cyanotic. Ordered 1 mg of Ativan and 1.5 g IV Keppra. Did not have a postictal period. When this was discussed with family, son mentioned patient had a similar episode to this with shaking and period of unresponsiveness a few weeks ago under acute stress when grandson was ill. Consideration that patient became upset watching the news this morning and that prompted a repeat episode of panic. Son also mentioned that patient drinks 1/2 to 1 full bottle of wine daily. When examined in 461 bed 2, patient is no longer having any left-sided weakness and facial droop not observed. Denies any focal weakness, difficulty speaking or swallowing. And oriented x4. Denies any fever, chills, lightheadedness, chest pain, shortness of breath, nausea, vomiting, abdominal pain, dysuria, diarrhea or constipation. Allergies Allergy/AdvReac Type Severity Reaction Status Date / Time aspirin AdvReac Unknown adverse Verified 07/25/22 09:42 reaction as a child with nosebleeds; none since then hydrochlorothiazide AdvReac Unknown SHORTNESS Verified 07/25/22 09:42 OF BREATH Home Medications Medication Instructions Recorded Confirmed Type amlodipine 10 mg tablet 10 mg PO DAILY 07/25/22 07/25/22 History atenolol 25 mg tablet 25 mg PO DAILY 07/25/22 07/25/22 History atorvastatin 80 mg tablet 80 mg PO DAILY 07/25/22 07/25/22 History clopidogrel 75 mg tablet (Plavix) 75 mg PO DAILY 07/25/22 07/25/22 History lisinopril 20 mg tablet 20 mg PO DAILY 07/25/22 07/25/22 History Past Med/Surg History Medical History CKD (chronic kidney disease), stage III History of embolic stroke 2019, right MCA Hyperlipidemia Surgical History H/O lithotripsy Tubal ligation status Family History (Updated 07/25/22 @ 14:39 by Priscilla Keller PA-C) Other ALS (amyotrophic lateral sclerosis) Pancreatic cancer Social History Smoking Status: Current every day smoker Second Hand Exposure: No; Do You Dip or Chew Tobacco: No; Hx Alcohol Use: Yes Alcohol type: wine Hx Substance Use: No Preferred Language: Togolese Continuum Of Care Manager Required: No Beliefs That Will Affect Care: None Current Living Situation: Alone Other Information That Helps Us Care for You: No Feels Safe at Home: Yes Assistive Devices: Denture - Upper, Denture - Lower and Glasses Review of Systems Review of Systems: At least ten systems reviewed and negative except as noted in the HPI. Physical Exam Physical Exam: General Appearance: WD/WN, vitals as above, NAD, sitting up in bed, pleasant, conversing easily Head: normocephalic, atraumatic Eyes: normal inspection, PERRL, conjunctivae normal, anicteric sclerae ENT: external ear and nose normal, oropharynx normal Neck: normal visual inspection, trachea midline, no thyromegaly Respiratory: normal respiratory effort, lungs clear to auscultation, no wheeze, rales, rhonchi. No accessory muscle use Cardiovascular: regular rate, rhythm, no murmur, normal peripheral pulses, no BLE edema. Vessels: no JVD Chest: normal inspection of chest Abdomen/GI: normal bowel sounds, soft, nontender, no hepatosplenomegaly Extremities/Musculoskeletal: no cyanosis or clubbing, extremities motor strength 5/5 Neurologic: PERRL, EOMI, accommodation nl, no face palsy, no dysarthria, CN's II-XI intact bilaterally and moves all extremities Psychiatric: A+Ox3, euthymic affect Skin: no rashes, normal color, warm/dry Results & Data Results & Data Vital Signs (Past 12 Hours) Vital Signs Temp Pulse Pulse Resp BP BP Pulse Ox 07/25/22 11:00 57 L 12 95/57 L 98 07/25/22 10:58 56 L 9 L 91/60 L 98 07/25/22 10:45 100/56 L 07/25/22 10:45 66 9 L 97 07/25/22 10:30 57 L 19 93 07/25/22 10:30 91/56 L 07/25/22 10:15 102/63 07/25/22 10:15 63 15 98 07/25/22 10:00 59 L 18 97 07/25/22 10:00 94/59 L 07/25/22 09:45 97/57 L 07/25/22 09:45 61 19 96 07/25/22 09:30 82 13 92 07/25/22 09:30 111/73 07/25/22 09:16 88 17 97 07/25/22 09:16 120/69 07/25/22 09:11 149/87 H 07/25/22 09:11 103 H 17 07/25/22 09:00 96 H 17 94 07/25/22 08:53 111 H 36 H 07/25/22 10:48 57 L 17 100/56 L 97 07/25/22 10:21 57 L 17 102/63 98 07/25/22 10:06 56 L 16 94/59 L 97 07/25/22 09:31 97 07/25/22 09:30 62 16 111/73 89 L 07/25/22 09:26 88 16 120/69 95 07/25/22 09:04 96 H 07/25/22 09:05 36.9 C 103 H 18 135/82 96 O2 Del Method O2 Flow Rate 07/25/22 11:00 07/25/22 10:58 07/25/22 10:45 07/25/22 10:45 07/25/22 10:30 07/25/22 10:30 07/25/22 10:15 07/25/22 10:15 07/25/22 10:00 07/25/22 10:00 07/25/22 09:45 07/25/22 09:45 07/25/22 09:30 07/25/22 09:30 07/25/22 09:16 07/25/22 09:16 07/25/22 09:11 07/25/22 09:11 07/25/22 09:00 07/25/22 08:53 07/25/22 10:48 Nasal Cannula 3 07/25/22 10:21 Room Air 07/25/22 10:06 Nasal Cannula 3 07/25/22 09:31 Nasal Cannula 3 07/25/22 09:30 Room Air 07/25/22 09:26 Room Air 07/25/22 09:04 07/25/22 09:05 Room Air Laboratory Results Short CBC 07/25/22 Range/Units 08:13 WBC 7.46 (4.8-10.8) K/ul Hgb 12.4 (12.0-16.0) g/dl Hct 35.9 L (37.0-47.0) % Plt Count 303 (130-400) K/uL BMP 07/25/22 08:13 Sodium 135 L Potassium 4.8 Chloride 101 Carbon Dioxide 24 BUN 19 Creatinine 1.04 Glucose 150 H Calcium 9.1 Liver Function 07/25/22 Range/Units 08:13 Total Bilirubin 1.5 H (0.2-1.0) mg/dl AST 16 (13-39) U/L ALT 11 (7-52) U/L Alkaline Phosphatase 67 (34-104) U/L Albumin 4.5 (3.4-5.0) gm/dl Diagnostic Findings Chest X-Ray 07/25/22 08:13 XR chest 1V portable CLINICAL HISTORY: neuro deficit, acute stroke suspected TECHNIQUE: Single frontal radiograph of the chest was obtained. Comparison: Comparison is made to chest radiograph 08/19/2017 FINDINGS: No lines and tubes are seen. Cardiomegaly is noted. The lungs are clear. No evidence of pleural effusion or pneumothorax. IMPRESSION: No acute chest disease. ACT 112: Negative or not required by law. Electronically signed by: Anatoliy Desouza M.D. 07/25/2022 9:[address] 07/25/22 08:13 CT head/brain wo con CLINICAL HISTORY: neuro deficit, acute stroke suspected Technique: Contiguous axial CT images of the head were acquired from the base of the skull to the vertex without intravenous contrast administration. Images were viewed in brain, subdural and bone windows. Automated dose lowering techniques and/or adjustment according to patient size were utilized for this exam. Comparison: Comparison is made to CT head 02/18/2017 Findings: Areas of decreased attenuation are present in the periventricular and subcortical white matter bilaterally consistent with small vessel ischemic disease. Generalized cerebral volume loss with commensurate enlargement of the ventricles, sulci, and cisterns is also present. Encephalomalacia is seen in the right posterior DOUBLE END TRIMMER territory, unchanged from prior exam. Right frontal encephalomalacia is also noted. Imaged portions of the paranasal sinuses and mastoid air cells are clear. The orbits appear normal. There are no acute fractures of the calvaria or scalp swelling. Impression: No acute abnormalities, in particular no evidence of intracranial hemorrhage and no CT evidence of infarct. ACT 112: Negative or not required by law. Electronically signed by: Anatoliy Desouza M.D. 07/25/2022 8:51 AM Head CTA 07/25/22 08:13 CT angio head w con, CT angio neck with con CLINICAL HISTORY: neuro deficit, acute stroke suspected TECHNIQUE: CT angiography of the head and neck was performed following intravenous administration of iodinated contrast. Coronal and sagittal MIPS were obtained from the axial data set and were submitted for review. Automated dose lowering techniques and/or adjustment according to patient size were utilized for this examination. All measurements were calculated based on NASCET criteria. Comparison: None available at the time of this dictation. FINDINGS: Exam is limited by patient motion. Lungs and soft tissues are unremarkable. CTA Neck: A 3 vessel aortic arch is shown. Atherosclerotic plaque is present in the aortic arch and at the origin of the great vessels. There is questionable nonhemodynamically significant stenosis of the right internal carotid artery near the bifurcation. The left vertebral artery is dominant. CTA Head: The anterior and posterior cerebral circulations are patent. No hemodynamically significant stenosis, aneurysm, dissection, or arteriovenous malformation is shown. IMPRESSION: 1. No occlusion, hemodynamically significant stenosis, or dissection in the major cervical arteries. 2. No occlusion, hemodynamically significant stenosis, aneurysm, dissection, or arteriovenous malformation in the major intracranial arteries. Assessment of stenosis of the internal carotid arteries is based on NASCET criteria. ACT 112: Negative or not required by law. Electronically signed by: Anatoliy Desouza M.D. 07/25/2022 8:58 AM Neck CTA 07/25/22 08:13 CT angio head w con, CT angio neck with con CLINICAL HISTORY: neuro deficit, acute stroke suspected TECHNIQUE: CT angiography of the head and neck was performed following intravenous administration of iodinated contrast. Coronal and sagittal MIPS were obtained from the axial data set and were submitted for review. Automated dose lowering techniques and/or adjustment according to patient size were utilized for this examination. All measurements were calculated based on NASCET criteria. Comparison: None available at the time of this dictation. FINDINGS: Exam is limited by patient motion. Lungs and soft tissues are unremarkable. CTA Neck: A 3 vessel aortic arch is shown. Atherosclerotic plaque is present in the aortic arch and at the origin of the great vessels. There is questionable nonhemodynamically significant stenosis of the right internal carotid artery near the bifurcation. The left vertebral artery is dominant. CTA Head: The anterior and posterior cerebral circulations are patent. No hemodynamically significant stenosis, aneurysm, dissection, or arteriovenous malformation is shown. IMPRESSION: 1. No occlusion, hemodynamically significant stenosis, or dissection in the major cervical arteries. 2. No occlusion, hemodynamically significant stenosis, aneurysm, dissection, or arteriovenous malformation in the major intracranial arteries. Assessment of stenosis of the internal carotid arteries is based on NASCET criteria. ACT 112: Negative or not required by law. Electronically signed by: Anatoliy Desouza M.D. 07/25/2022 8:58 AM Code Status & VTE Plan VTE Prophylaxis Plan VTE Prophylaxis will be ordered: Yes Supervising Physician Co-Signing Physician Notes Attending addendum: Patient was seen and examined in telemetry unit 71-year-old female with significant past medical history of embolic stroke involving right MCA in 09/2016 was on aspirin Plavix and Coumadin but since 2019 has been only on Plavix. He also has significant anxiety disorder and she was very anxious while he she was watching television in the morning She went to the charge and there she was feeling numbness involving the right arm and did not feel right Later on she has had shakiness while he was trying to eat breakfast she mention at the charge and when she was advised to come to the emergency room She was shaking throughout the journey to the emergency room with suspected strokelike symptoms mainly involving left arm numbness but she denies any weakness she did have some numbness involving the left thigh Stroke alert was called and she was evaluated by [facility] neurologist and did not recommend any TNK Her symptoms are completely gone during examination and she wanted to eat She was noted to have questionable neck lesions involving the left side On examination No apparent distress at rest Hemodynamically stable Chest-clear to auscultate bilaterally Heart-S1, [id number] Abdomen-benign Extremities-negative for any edema [employer] EXAMINER-alert, awake and oriented x3. No facial asymmetry, no speech problem and no problem with swallowing, no focal sensory and motor deficit appreciated on clinical examination Her admission labs, EKG and imaging studies reviewed Strokelike symptoms-resolved. Telemedicine evaluation not for any TNK History of right MCA stroke in 2017 has been on Plavix. Received aspirin 325 mg in the emergency room Await neuro evaluation Agree with assessment plan as outlined above by ELIZABETH Mcguire Dr
[2022-07-25] MEDS ORDERED: POLYETHYLENE (MIRALAX) 17 GM PACK PO PRN (13:19)
[2022-07-25] MEDS ORDERED: ONDANSETRON INJ 2 MG/ML 2 ML VIAL IV PRN (13:19)
[2022-07-25] MEDS ORDERED: ACETAMINOPHEN 325 MG TAB PO PRN (13:19)
[2022-07-25] MEDS ORDERED: PHARMACIST DISCHARGE MED REC CONSULT PRN (13:19)
[2022-07-25] MEDS ORDERED: ASPIRIN 325 MG ECTAB PO ONE (15:05)
[2022-07-25] MEDS ORDERED: LORazepam 2 MG/1 ML VIAL IV PRN (15:06)
[2022-07-25] MEDS ORDERED: GADOBUTROL 65ML VIAL IV ONE (18:04)
--- NOTE | 2022-07-25 19:46 | Neurology Consultation ---
Date of Consultation July 25, 2022 Assessment & Plan (1) New onset seizure: Impression: The patient has history of a right MCA territory ischemic stroke with a large encephalomalacia. She was found confused, disoriented, with episodes of shakiness and then had total loss of consciousness with color change in the emergency department. Following left-sided weakness was noticed. Neurological deficit was resolved gradually, after receiving benzodiazepine and levetiracetam. Apparently, old stroke related encephalomalacia likely cause of the patient's new seizures. Recommendations/plan: We should keep the patient on Keppra 500 mg twice a day for seizure prophylaxis. Further dose adjustment as needed. Seizure precautions are fully explained to patient. The patient understood that she should not drive motor vehicles for at least 6 months or until getting clearance from neurology clinic. She reports that she does not drive motor vehicles anyway. Cessation of daily alcohol use is recommended. EEG to evaluate for epileptogenic activity. If the patient stays stable, then she can be discharged home tomorrow. I will contact with [facility] neurology, to set up a follow-up appointment. (2) Left-sided weakness: Impression: The patient had obvious left-sided weakness in the emergency department, which was resolved. Brain MRI was negative for acute pathology but the right MCA territory large encephalomalacia. 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 (3) History of embolic stroke: Impression: The patient had right MCA territory ischemic stroke in 2019. She has recovered well without any obvious clinical neurological deficit. Recommendations/plan: The patient should continue using Plavix and statin as before. Management of hyperlipidemia and hypertension. (4) Hyperlipidemia: (5) Anxiety: Plan As a seen above. Thank you for the consultation. History of Present Illness Reason for Consultation: Stroke like symptoms, new onset seizures Requesting Physician: eGrry Sigala MD Attending Physician: Gerry Sigala MD History of Present Illness The patient is a 71-year-old right-handed female, who was brought to emergency department today, after the patient was found confused, disoriented, shaky, with left-sided weakness. Apparently, the patient has a history of a right MCA territory stroke in 2019, with clinical good recovery. The patient also has history of alcohol abuse, and drinks a bottle of wine daily. She was last seen well around 615 this morning. Then, she went out to go to [employer] then to [employer], and she was found wandering around. She was anxious, tremulous, with some left-sided weakness. In emergency department, the case was discussed with telestroke neurologist, and initially they suggested thrombolytic treatment. However, after the patient received Ativan, left-sided weakness improved, and thrombolytic treatment was not given. Patient also received 1500 mg of IV Keppra. Since admission, her symptoms resolved completely. She is now back to her baseline. She reports drinking alcoholic beverages daily but not sure about the last few days. She has been suffering from anxiety. She lives alone. She has not had any falls in physical injury recently. She does not drive motor vehicles. Initial head CT was negative for acute cerebrovascular accident. Following brain MRI was also negative for acute pathology including cerebrovascular accident but showed large, encephalomalacia, from her right MCA territory ischemic stroke. I have reviewed the patient's chart including imaging studies and visualized them personally. I have discussed the case with the patient and answered her questions in detail. Allergies Allergy/AdvReac Type Severity Reaction Status Date / Time aspirin AdvReac Unknown adverse Verified 07/25/22 09:42 reaction as a child with nosebleeds; none since then hydrochlorothiazide AdvReac Unknown SHORTNESS Verified 07/25/22 09:42 OF BREATH Home Medications Medication Instructions Recorded Confirmed Type amlodipine 10 mg tablet 10 mg PO DAILY 07/25/22 07/25/22 History atenolol 25 mg tablet 25 mg PO DAILY 07/25/22 07/25/22 History atorvastatin 80 mg tablet 80 mg PO DAILY 07/25/22 07/25/22 History clopidogrel 75 mg tablet (Plavix) 75 mg PO DAILY 07/25/22 07/25/22 History lisinopril 20 mg tablet 20 mg PO DAILY 07/25/22 07/25/22 History Patient History Medical History CKD (chronic kidney disease), stage III History of embolic stroke 2019, right MCA Hyperlipidemia Surgical History H/O lithotripsy Tubal ligation status Family History Other ALS (amyotrophic lateral sclerosis) Pancreatic cancer Social History Smoking Status: Current every day smoker Second Hand Exposure: No; Do You Dip or Chew Tobacco: No; Hx Alcohol Use: Yes Alcohol type: wine Hx Substance Use: No Preferred Language: Korean [employer]ting [employer] Required: No Beliefs That Will Affect Care: None Current Living Situation: Alone Other Information That Helps Us Care for You: No Feels Safe at Home: Yes Assistive Devices: Denture - Upper, Denture - Lower and Glasses Review of Systems Review of Systems: All systems reviewed & are unremarkable except as noted in HPI & below Physical Exam Physical Exam: General Examination: Constitutional: Well developed person in no acute distress. HENT: Normal exam with inspection. CV: Hearth rhythm is regular. Neck: Supple, no carotid bruits. Lungs: Non-labored and comfortable breathing. Abdomen: Soft, non-tender, non-distended. Skin: No rash or ecchymosis. Extremities: No edema or cyanosis NEUROLOGICAL EXAMINATION: Mental Status: Alert and oriented to place, person and time. Cranial Nerves: II-XII are intact. No nystagmus. Funduscopy: Normal looking optic discs. Motor: 5/5 in all extremities without asymmetry. Tone: Normal without spasticity or rigidity. Sensory: Intact to all sensory modalities. Coordination: No dysmetria with FTN testing. Speech: Fluent. Comprehension is intact. Gait: Normal. No ataxia or abnormal walking pattern. Musculoskeletal: Normal muscle bulk, no atrophy. DTRs: 2- all. No babinsky Results & Data Vital Signs (Past 12 Hours) Vital Signs Temp Pulse Pulse Resp BP BP Pulse Ox 07/25/22 14:24 63 07/25/22 13:23 64 07/25/22 16:20 36.5 C 64 19 122/68 95 07/25/22 13:00 36.8 C 61 19 119/68 96 07/25/22 12:39 64 16 105/57 L 97 07/25/22 12:00 58 L 12 104/63 99 07/25/22 11:30 59 L 12 115/71 99 07/25/22 11:00 57 L 12 95/57 L 98 07/25/22 10:58 56 L 9 L 91/60 L 98 07/25/22 10:45 100/56 L 04/02/23 10:45 66 9 L 97 07/25/22 10:30 57 L 19 93 07/25/22 10:30 91/56 L 07/25/22 10:15 102/63 07/25/22 10:15 63 15 98 07/25/22 10:00 59 L 18 97 07/25/22 10:00 94/59 L 07/25/22 09:45 97/57 L 07/25/22 09:45 61 19 96 07/25/22 09:30 82 13 92 07/25/22 09:30 111/73 07/25/22 09:16 88 17 97 07/25/22 09:16 120/69 07/25/22 09:11 149/87 H 07/25/22 09:11 103 H 17 07/25/22 09:00 96 H 17 94 07/25/22 08:53 111 H 36 H 07/25/22 10:48 57 L 17 100/56 L 97 07/25/22 10:21 57 L 17 102/63 98 07/25/22 10:06 56 L 16 94/59 L 97 07/25/22 09:31 97 07/25/22 09:30 62 16 111/73 89 L 07/25/22 09:26 88 16 120/69 95 07/25/22 09:04 96 H 07/25/22 09:05 36.9 C 103 H 18 135/82 96 O2 Del Method O2 Flow Rate 07/25/22 14:24 07/25/22 13:23 07/25/22 16:20 Room Air 07/25/22 13:00 Room Air 07/25/22 12:39 Room Air 07/25/22 12:00 07/25/22 11:30 07/25/22 11:00 07/25/22 10:58 07/25/22 10:45 07/25/22 10:45 07/25/22 10:30 07/25/22 10:30 07/25/22 10:15 07/25/22 10:15 07/25/22 10:00 07/25/22 10:00 07/25/22 09:45 07/25/22 09:45 07/25/22 09:30 07/25/22 09:30 07/25/22 09:16 07/25/22 09:16 07/25/22 09:11 07/25/22 09:11 07/25/22 09:00 07/25/22 08:53 07/25/22 10:48 Nasal Cannula 3 07/25/22 10:21 Room Air 07/25/22 10:06 Nasal Cannula 3 07/25/22 09:31 Nasal Cannula 3 07/25/22 09:30 Room Air 07/25/22 09:26 Room Air 07/25/22 09:04 07/25/22 09:05 Room Air Laboratory Results Laboratory Results - last 24 hr 07/25/22 07/25/22 07/25/22 08:13 08:13 08:13 WBC 7.46 RBC 3.81 L Hgb 12.4 Hct 35.9 L MCV 94.2 MCH 32.5 MCHC 34.5 RDW Std Deviation 42.0 RDW Coeff of Clint 12.1 Plt Count 303 MPV 9.3 L Immature Gran % (Auto) 0.4 Neut % (Auto) 68.1 Lymph % (Auto) 22.0 Woodson % (Auto) 8.6 Eos % (Auto) 0.0 Baso % (Auto) 0.9 Neut # (Auto) 5.08 Lymph # (Auto) 1.64 Woodson # (Auto) 0.64 H Eos # (Auto) 0.00 Baso # (Auto) 0.07 Immature Gran # (Auto) 0.03 PT 10.9 INR 1.0 APTT 25.3 PTT Ratio 0.9 Sodium 135 L Potassium 4.8 Chloride 101 Carbon Dioxide 24 Anion Gap 10 BUN 19 Creatinine 1.04 Est Cr Clr Drug Dosing 51.3 Est GFR ( Amer) 62.2 Est GFR (Non-Af Amer) 53.6 BUN/Creatinine Ratio 18.3 Glucose 150 H POC Glucose Calcium 9.1 Magnesium 1.7 Total Bilirubin 1.5 H AST 16 ALT 11 Alkaline Phosphatase 67 Troponin I High Sens 6.5 Total Protein 7.3 Albumin 4.5 Globulin 2.8 Albumin/Globulin Ratio 1.6 Ethyl Alcohol mg/dL SARS-CoV-2, RNA, NAAT 07/25/22 07/25/22 07/25/22 08:47 09:45 15:43 WBC RBC Hgb Hct MCV MCH MCHC RDW Std Deviation RDW Coeff of Clint Plt Count MPV Immature Gran % (Auto) Neut % (Auto) Lymph % (Auto) Woodson % (Auto) Eos % (Auto) Baso % (Auto) Neut # (Auto) Lymph # (Auto) Woodson # (Auto) Eos # (Auto) Baso # (Auto) Immature Gran # (Auto) PT INR APTT PTT Ratio Sodium Potassium Chloride Carbon Dioxide Anion Gap BUN Creatinine Est Cr Clr Drug Dosing Est GFR ( Amer) Est GFR (Non-Af Amer) BUN/Creatinine Ratio Glucose POC Glucose 180 H Calcium Magnesium Total Bilirubin AST ALT Alkaline Phosphatase Troponin I High Sens Total Protein Albumin Globulin Albumin/Globulin Ratio Ethyl Alcohol mg/dL < 10.0 SARS-CoV-2, RNA, NAAT NEGATIVE Diagnostic Findings Chest X-Ray 07/25/22 08:13 XR chest 1V portable CLINICAL HISTORY: neuro deficit, acute stroke suspected TECHNIQUE: Single frontal radiograph of the chest was obtained. Comparison: Comparison is made to chest radiograph 08/19/2017 FINDINGS: No lines and tubes are seen. Cardiomegaly is noted. The lungs are clear. No evidence of pleural effusion or pneumothorax. IMPRESSION: No acute chest disease. ACT 112: Negative or not required by law. Electronically signed by: Anatoliy Desouza M.D. 07/25/2022 9:[address] 07/25/22 08:13 CT head/brain wo con CLINICAL HISTORY: neuro deficit, acute stroke suspected Technique: Contiguous axial CT images of the head were acquired from the base of the skull to the vertex without intravenous contrast administration. Images were viewed in brain, subdural and bone windows. Automated dose lowering techniques and/or adjustment according to patient size were utilized for this exam. Comparison: Comparison is made to CT head 02/18/2017 Findings: Areas of decreased attenuation are present in the periventricular and subcortical white matter bilaterally consistent with small vessel ischemic disease. Generalized cerebral volume loss with commensurate enlargement of the ventricles, sulci, and cisterns is also present. Encephalomalacia is seen in the right posterior [employer]NER territory, unchanged from prior exam. Right frontal encephalomalacia is also noted. Imaged portions of the paranasal sinuses and mastoid air cells are clear. The orbits appear normal. There are no acute fractures of the calvaria or scalp swelling. Impression: No acute abnormalities, in particular no evidence of intracranial hemorrhage and no CT evidence of infarct. ACT 112: Negative or not required by law. Electronically signed by: Anatoliy Desouza M.D. 07/25/2022 8:51 AM Head CTA 07/25/22 08:13 CT angio head w con, CT angio neck with con CLINICAL HISTORY: neuro deficit, acute stroke suspected TECHNIQUE: CT angiography of the head and neck was performed following intravenous administration of iodinated contrast. Coronal and sagittal MIPS were obtained from the axial data set and were submitted for review. Automated dose lowering techniques and/or adjustment according to patient size were utilized for this examination. All measurements were calculated based on NASCET criteria. Comparison: None available at the time of this dictation. FINDINGS: Exam is limited by patient motion. Lungs and soft tissues are unremarkable. CTA Neck: A 3 vessel aortic arch is shown. Atherosclerotic plaque is present in the aortic arch and at the origin of the great vessels. There is questionable nonhemodynamically significant stenosis of the right internal carotid artery near the bifurcation. The left vertebral artery is dominant. CTA Head: The anterior and posterior cerebral circulations are patent. No hemodynamically significant stenosis, aneurysm, dissection, or arteriovenous malformation is shown. IMPRESSION: 1. No occlusion, hemodynamically significant stenosis, or dissection in the major cervical arteries. 2. No occlusion, hemodynamically significant stenosis, aneurysm, dissection, or arteriovenous malformation in the major intracranial arteries. Assessment of stenosis of the internal carotid arteries is based on NASCET criteria. ACT 112: Negative or not required by law. Electronically signed by: Anatoliy Desouza M.D. 07/25/2022 8:58 AM Neck CTA 07/25/22 08:13 CT angio head w con, CT angio neck with con CLINICAL HISTORY: neuro deficit, acute stroke suspected TECHNIQUE: CT angiography of the head and neck was performed following intravenous administration of iodinated contrast. Coronal and sagittal MIPS were obtained from the axial data set and were submitted for review. Automated dose lowering techniques and/or adjustment according to patient size were utilized for this examination. All measurements were calculated based on NASCET criteria. Comparison: None available at the time of this dictation. FINDINGS: Exam is limited by patient motion. Lungs and soft tissues are unremarkable. CTA Neck: A 3 vessel aortic arch is shown. Atherosclerotic plaque is present in the aortic arch and at the origin of the great vessels. There is questionable nonhemodynamically significant stenosis of the right internal carotid artery near the bifurcation. The left vertebral artery is dominant. CTA Head: The anterior and posterior cerebral circulations are patent. No hemodynamically significant stenosis, aneurysm, dissection, or arteriovenous malformation is shown.
--- NOTE | 2022-07-25 19:47 | Magnetic Resonance Report ---
MR brain wo/w con CLINICAL HISTORY: stroke eval TECHNIQUE: Multiplanar and multisequence MR images of the brain were obtained prior to and following administration of gadolinium contrast. Comparison: Comparison is made to MRI brain 02/16/2017 FINDINGS: No abnormal restricted diffusion is identified. The white matter is unremarkable. Ex vacuo ventriculo megaly and sulcal enlargement is noted compatible with diffuse encephalomalacia. Encephalomalacia is seen in the right parietal-occipital region, compatible with evolution of previously noted infarct. N o mass or abnormal enhancement is seen. There is no mass effect or midline shift. There is no evidenc e of acute intraparenchymal hemorrhage. No extra axial fluid collections are seen. The corpus callosu m, pituitary gland, and cerebellar tonsils appear grossly unremarkable. Flow voids of the major intracranial arterial vessels are identified. The imaged portions of the para nasal sinuses, mastoid air cells, and orbits are unremarkable. IMPRESSION: No acute abnormality and in particular no evidence of acute infarct. Old encephalomalacia from prior stroke is seen. No intracranial hemorrhage is seen. ACT 112: Negative or not required by law. Electronically signed by: Anatoliy Desouza M.D. 07/25/2022 7:44 PM
[2022-07-25] MEDS: HEPARIN SOD 5,000 UNIT/0.5 ML VIAL SQ SCH (21:31)
[2022-07-25] MEDS: levETIRAcetam 500 MG TAB PO SCH (21:31)
[2022-07-26] MEDS: HEPARIN SOD 5,000 UNIT/0.5 ML VIAL SQ SCH ×3 (06:46→21:15)
[2022-07-26 06:47] LABS: Hemoglobin 12.3 g/dl (12.0-16.0); Mean Corpuscular Hemoglobin 32.5 pg (25.0-34.0); Mean Corpuscular Hgb Conc 35.1 g/dL (32.0-36.0); Mean Corpuscular Volume 92.3 fL (80.0-100.0); Mean Platelet Volume 9.5 fL (9.4-12.4); Platelet Count 274 K/uL (130-400); RDW Coefficient of Variation 12.4 % (11.5-14.5); RDW Standard Deviation 41.7 fL (36.4-46.3); Red Blood Count 3.79 M/uL (4.20-5.40); White Blood Count 4.82 K/ul (4.8-10.8)
[2022-07-26 07:01] LABS: BUN Creatinine Ratio 16.1 (10-20); Calcium 8.9 mg/dl (8.6-10.3); Chol HDL Ratio 2.6 (0-5); Creatinine Clr Calc Pharmacy 47.2 ml/min; Est GFR (African American) 71.2 ml/min; Est GFR (Non-African American) 61.4 ml/min
[2022-07-26] MEDS ORDERED: SODIUM CHLORIDE 0.9% 1000ML 500 ML IV ONE (07:47)
[2022-07-26 08:05] LABS: Estimated Average Glucose 105 mg/dl; Hemoglobin A1C 5.3 % (4.5-5.6)
[2022-07-26] MEDS: ATORVASTATIN 40 MG TAB PO SCH (08:16)
[2022-07-26] MEDS: amLODIPine BESYLATE 5 MG TAB PO SCH (08:16)
[2022-07-26] MEDS: lisinopril 20 MG TAB PO SCH (08:16)
[2022-07-26] MEDS: THIAMINE HCL 100 MG TAB PO SCH (08:16)
[2022-07-26] MEDS: FOLIC ACID 1 MG TAB PO SCH (08:16)
[2022-07-26] MEDS: levETIRAcetam 500 MG TAB PO SCH ×2 (08:16→21:14)
[2022-07-26] MEDS: CLOPIDOGREL BISULFATE 75 MG TAB PO SCH (08:17)
[2022-07-26] MEDS: ATENOLOL 25 MG TABLET PO SCH (09:58)
--- NOTE | 2022-07-26 13:37 | Electrocardiogram Report ---
Test Reason : Blood Pressure : / mmHG Vent. Rate : 103 BPM Atrial Rate : 104 BPM P-R Int : 134 ms QRS Dur : 104 ms QT Int : 376 ms P-R-T Axes : 075 050 082 degrees QTc Int : 492 ms Poor data quality, interpretation may be adversely affected Sinus tachycardia Minor Nonspecific ST abnormality Lateral leads Abnormal ECG When compared with ECG of 19-AUG-2017 07:43, Vent. rate has increased BY 36 BPM Otherwise no significant change Confirmed by Forest Velazquez ([id number]) on 07/26/2022 1:37:04 PM Referred By: REFERRED SELF Confirmed By:Forest Velazquez
--- NOTE | 2022-07-26 15:25 | Electroencephalogram ---
EEG Procedure Note Date of Service July 26, 2022 Start / End Times Start Time: 12:53 End Time: 13:13 Referring Physician Gurdeep Burkett MD History New onset seizure Home Medication List Medication Instructions Recorded Confirmed Type amlodipine 10 mg tablet 10 mg PO DAILY 07/25/22 07/25/22 History atenolol 25 mg tablet 25 mg PO DAILY 07/25/22 07/25/22 History atorvastatin 80 mg tablet 80 mg PO DAILY 07/25/22 07/25/22 History clopidogrel 75 mg tablet (Plavix) 75 mg PO DAILY 07/25/22 07/25/22 History lisinopril 20 mg tablet 20 mg PO DAILY 07/25/22 07/25/22 History Inpatient Medication List Amlodipine Besylate (Amlodipine Besylate 5 Mg Tab) 10 mg PO DAILY SCOTT Stop: 08/25/22 08:59 Last Admin: 07/26/22 08:16 Dose: 10 mg Documented By: WS Atenolol (Atenolol 25 Mg Tablet) 25 mg PO DAILY SCOTT Stop: 08/25/22 08:59 Last Admin: 07/26/22 09:58 Dose: Not Given Documented By: PREM Atorvastatin Calcium (Atorvastatin 40 Mg Tab) 80 mg PO DAILY SCOTT Stop: 08/25/22 08:59 Last Admin: 07/26/22 08:16 Dose: 80 mg Documented By: PREM Clopidogrel Bisulfate (Clopidogrel Bisulfate 75 Mg Tab) 75 mg PO DAILY SCOTT Stop: 08/25/22 08:59 Last Admin: 07/26/22 08:17 Dose: 75 mg Documented By: PREM Folic Acid (Folic Acid 1 Mg Tab) 1 mg PO QAM SCOTT Stop: 08/25/22 08:59 Last Admin: 07/26/22 08:16 Dose: 1 mg Documented By: PREM Heparin Sodium (Porcine) (Heparin Sod 5,000 Unit/0.5 Ml Vial) 5,000 units SQ Q8 SCOTT Stop: 08/24/22 21:59 Last Admin: 07/26/22 06:46 Dose: 5,000 units Documented By: Admin: 07/25/22 21:31 Dose: 5,000 units Documented By: JEREMÍAS Levetiracetam (Levetiracetam 500 Mg Tab) 500 mg PO BID SCOTT Stop: 08/24/22 20:59 Last Admin: 07/26/22 08:16 Dose: 500 mg Documented By: Admin: 07/25/22 21:31 Dose: 500 mg Documented By: JEREMÍAS Lisinopril (Lisinopril 20 Mg Tab) 20 mg PO DAILY SCOTT Stop: 08/25/22 08:59 Last Admin: 07/26/22 08:16 Dose: 20 mg Documented By: PREM Thiamine HCl (Thiamine Hcl 100 Mg Tab) 100 mg PO QAM SCOTT Stop: 08/25/22 08:59 Last Admin: 07/26/22 08:16 Dose: 100 mg Documented By: PREM Discontinued Medications Aspirin (Aspirin 325 Mg Ectab) 325 mg PO ONE ONE Stop: 07/25/22 15:06 Last Admin: 07/25/22 16:22 Dose: 325 mg Documented By: PREM Gadobutrol (Gadobutrol 65ml Vial) 6 ml IV ONCE ONE Stop: 07/25/22 18:05 Last Admin: 07/25/22 18:05 Dose: 6 ml Documented By: LUIZ Levetiracetam 1,500 mg/ Sodium (Chloride) 115 mls @ 440 mls/hr IV NOW STA Stop: 07/25/22 09:33 Last Infusion: 07/25/22 09:45 Dose: 0 mls/hr Documented By: Admin: 07/25/22 09:30 Dose: 440 mls/hr Documented By: STEFFANY Tenecteplase 21 mg/ Syringe 4.2 mls @ 50.4 mls/min IV NOW ONE; Protocol Stop: 07/25/22 10:40 Last Admin: 07/25/22 11:17 Dose: Not Given Documented By: STEFFANY Sodium Chloride (Nss 1000ml) 500 mls @ 999 mls/hr IV .Q31M ONE Stop: 07/26/22 08:17 Last Infusion: 07/26/22 08:48 Dose: 0 mls/hr Documented By: Admin: 07/26/22 08:15 Dose: 999 mls/hr Documented By: PREM Ioversol (Optiray 320 500ml) 116 ml IV ONCE ONE Stop: 07/25/22 08:47 Last Admin: 07/25/22 08:47 Dose: 116 ml Documented By: MAREN Lorazepam (Lorazepam 2 Mg/1 Ml Vial) 1 mg IV NOW STA Stop: 07/25/22 09:11 Last Admin: 04/02/23 09:18 Dose: 1 mg Documented By: STEFFANY Miscellaneous (Stat Iv) 1 each N/A NOW STA Stop: 07/25/22 10:30 Last Admin: 07/25/22 11:17 Dose: Not Given Documented By: NA Sodium Chloride (Sodium Chloride 0.9% 10ml Flush) 20 ml IV NOW STA Stop: 07/25/22 10:30 Last Admin: 07/25/22 11:17 Dose: Not Given Documented By: NA Description This is a 21 electrode EEG with a single channel dedicated to limited EKG. The electrodes were placed in accordance with the International 10-20 system. Interpretation During restful wakefulness, there is a 10 Hz, 25 to 35 V posterior activity, which attenuates with eye opening bilaterally. Background activity shows good organization without focal slowing or asymmetry. Photic stimulations induced posterior driving sponsors bilaterally. Hyperventilation is not attempted due to patient's medical history. There is no sleep pattern captured. There are no electrographic seizures, epileptogenic discharges, or other abnormal activity. Clinical Correlation Impression: This EEG, recorded in wakefulness only, is normal. There is no electrographic seizures or epileptogenic discharge. Normal routine EEG cannot rule out seizure disorder and certainty. If clinically indicated, a prolonged and sleep deprived EEG might offer further information.
--- NOTE | 2022-07-26 16:42 | Hospitalist Progress Note ---
Date of Service July 26, 2022 Assessment & Plan (1) Left-sided weakness: (2) Observed seizure-like activity: (3) History of embolic stroke: (4) Anxiety: (5) HTN (hypertension): (6) CKD (chronic kidney disease), stage III: (7) Hyperlipidemia: Plan This is a 71-year-old female with PMH of history of embolic stroke involving right MCA in 2019 with some residual memory deficit, hypertension, CKD 3, alcohol abuse, anxiety and other medical problems listed below who presents for further evaluation of strokelike activity. Left-sided weakness History of embolic stroke Observed seizure-like activity History of R MCA stroke in 09/2016 and then more distal stroke in R MCA seen in 01/2017 initially on aspirin, plavix and coumadin Last seen by [employer] neuro in 2019 when aspirin and coumadin were discontinued but she has remained on plavix CT head No acute abnormalities, in particular no evidence of intracranial hemorrhage and no CT evidence of infarct CTA head/neck with no occlusion, hemodynamically significant stenosis, or dissection in the major cervical arteries. No occl., hemodynam. significant stenosis, aneurysm, dissection, or arteriovenous malformation in the major intracranial arteries TNK not indicated per ED physician and telestroke due to patient regaining strength in LUE. No weakness or facial droop noted at my time of exam Brain MRI w/wo, echo with bubble study pending Continue plavix, statin. Routine neuro consult, PT/OT evaluations, dysphasia screen and ADAT New onset seizure Observed seizure-like activity Anxiety Complex presentation of possible TIA, ? witness seizure like activity in ED improved by ativan but no post-ictal period as well as alcohol use disorder (serum etoh level pending) Son feels acute anxiety a contributor as patient had a similar episode weeks ago when under acute stress No h/o seizure disorder Given 1.5g Keppra in ED, 1mg ativan with improvement EEG ordered-----no epileptogenic foci as found Keppra 500 mg twice daily will be continued and she is not allowed to drive for 6 months and until being cleared by the neurologist Discussed with the son Alcohol use disorder Drinking 1/2-1 bottle of wine daily per son Had quit drinking a few years ago after initial strokes but has resumed use - awaiting serum etoh level AWSS withdrawal protocol with PRN IV ativan Folic acid, thiamine No signs of withdrawal symptoms CKD 3 Cr at baseline. Continue to monitor Hypertension Plan to continue amlodipine, atenolol tomorrow morning but will allow for p ermissive HTN today Hyperlipidemia Continue statin DVT Ppx: SQ heparin Code status: FULL PCP: Gail Dispo: Admitted to PCU Patient seen in collaboration with Dr. Sigala. Please see addendum. I spent a total of 60 minutes spent seeing the patient, examining the patient, reviewing medications and adjusting medicines, talking to the family members and also talking to the providers involved in care Admission and Anticipated Discharge Date Admission Date: July 25, 2022 Subjective 07/26/2022 The patient was seen and examined in telemetry unit in presence of the son She seems to be pleasantly confused and a little agitated at times Did not have any more seizures and wants to go home Denies any other significant symptoms Review of Systems Review of Systems: All systems reviewed & are unremarkable except as noted in Subjective Physical Exam Physical Exam: Sitting at the edge of the bed without any acute distress Constitutional: + ill appearing and average body habitus Eyes: PERRL, conjunctivae normal, anicteric sclerae ENMT: external ear and nose normal, oropharynx normal Neck: trachea midline, no thyromegaly Respiratory: no respiratory distress Auscultation: lungs clear to auscultation bilaterally Cardiovascular: Rate/Rhythm: regular rate and regular rhythm; not tachycardic Heart Sounds: normal S1 and normal S2; no murmur Extremities: no edema Gastrointestinal (Abdomen): Inspection/Auscultation: normal bowel sounds; abdomen not distended Percussion/Palpation: abdomen soft; abdomen nontender Musculoskeletal: No acute arthritis involving any joint Neurologic: Alert and awake. Pleasantly confused. Moving all limbs equally Lymphatic: no cervical or axillary lymphadenopathy Results & Data Results & Data Vital Signs (Past 12 Hours) Vital Signs Temp Pulse Pulse Resp BP Pulse Ox O2 Del Method 07/26/22 16:15 36.5 C 63 19 109/61 93 Room Air 07/26/22 11:42 36.5 C 65 20 104/68 97 Room Air 07/26/22 09:57 62 91/56 L 07/26/22 08:21 36.6 C 65 18 92/58 L 96 Room Air 07/26/22 06:02 57 L Laboratory Results Short CBC 07/26/22 Range/Units 06:00 WBC 4.82 (4.8-10.8) K/ul Hgb 12.3 (12.0-16.0) g/dl Hct 35.0 L (37.0-47.0) % Plt Count 274 (130-400) K/uL [facility] 07/26/22 06:00 Sodium 136 Potassium 4.0 Chloride 103 Carbon Dioxide 25 BUN 15 Creatinine 0.93 Glucose 91 Calcium 8.9 Medications Administered Current Inpatient Medications Acetaminophen (Acetaminophen 325 Mg Tab) 650 mg PO Q4H PRN PRN Reason: Pain or Fever Stop: 08/24/22 13:18 Amlodipine Besylate (Amlodipine Besylate 5 Mg Tab) 10 mg PO DAILY SCOTT Stop: 08/25/22 08:59 Last Admin: 07/26/22 08:16 Dose: 10 mg Atenolol (Atenolol 25 Mg Tablet) 25 mg PO DAILY SCOTT Stop: 08/25/22 08:59 Last Admin: 07/26/22 09:58 Dose: Not Given Atorvastatin Calcium (Atorvastatin 40 Mg Tab) 80 mg PO DAILY SCOTT Stop: 08/25/22 08:59 Last Admin: 07/26/22 08:16 Dose: 80 mg Clopidogrel Bisulfate (Clopidogrel Bisulfate 75 Mg Tab) 75 mg PO DAILY SCOTT Stop: 08/25/22 08:59 Last Admin: 07/26/22 08:17 Dose: 75 mg Folic Acid (Folic Acid 1 Mg Tab) 1 mg PO QAM SCOTT Stop: 08/25/22 08:59 Last Admin: 07/26/22 08:16 Dose: 1 mg Heparin Sodium (Porcine) (Heparin Sod 5,000 Unit/0.5 Ml Vial) 5,000 units SQ Q8 SCOTT Stop: 08/24/22 21:59 Last Admin: 07/26/22 15:56 Dose: 5,000 units Levetiracetam (Levetiracetam 500 Mg Tab) 500 mg PO BID SCOTT Stop: 08/24/22 20:59 Last Admin: 07/26/22 08:16 Dose: 500 mg Lisinopril (Lisinopril 20 Mg Tab) 20 mg PO DAILY SCOTT Stop: 08/25/22 08:59 Last Admin: 07/26/22 08:16 Dose: 20 mg Lorazepam (Lorazepam 2 Mg/1 Ml Vial) 1 mg IV ONE PRN; Protocol PRN Reason: EtoH Withdrawal AWSS 6,7,8,9,10 Ondansetron HCl (Ondansetron Inj 2 Mg/Ml 2 Ml Vial) 4 mg IV Q6H PRN PRN Reason: Nausea Stop: 08/24/22 13:18 Polyethylene Glycol (Polyethylene (Miralax) 17 Gm Pack) 17 gm PO DAILY PRN PRN Reason: Constipation Stop: 08/24/22 13:18 Thiamine HCl (Thiamine Hcl 100 Mg Tab) 100 mg PO [facility] Stop: 08/25/22 08:59 Last Admin: 07/26/22 08:16 Dose: 100 mg
--- NOTE | 2022-07-26 18:25 | Neurology Progress Note ---
Date of Service July 26, 2022 Assessment & Plan (1) New onset seizure: Plan: Impression: The patient has history of a right MCA territory ischemic stroke with a large encephalomalacia. She was found confused, disoriented, with episodes of shakiness and then had total loss of consciousness with color change in the emergency department. Following left-sided weakness was noticed. Neurological deficit was resolved gradually, after receiving benzodiazepine and levetiracetam. Apparently, old stroke related encephalomalacia is the likely cause of the patient's new seizures. Recommendations/plan: We should keep the patient on Keppra 500 mg twice a day for seizure prophylaxis. Seizure precautions are fully explained to patient. The patient understood that she should not drive motor vehicles for at least 6 months or until getting clearance from neurology clinic. She reports that she does not drive motor vehicles anyway. Cessation of daily alcohol use is recommended. She can be discharged home today or tomorrow. I have contacted [facility] neurology, to set up a follow-up appointment. (2) Left-sided weakness: Plan: Impression: The patient had obvious left-sided weakness in the emergency department, which has been resolved. Brain MRI was negative for acute pathology but the right MCA territory large encephalomalacia. 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 (3) History of embolic stroke: Plan: Impression: The patient had right MCA territory ischemic stroke in 2019. She has recovered well without any obvious clinical neurological deficit. Recommendations/plan: The patient should continue using Plavix and statin as before. Management of hyperlipidemia and hypertension. (4) Hyperlipidemia: (5) Anxiety: Admission and Anticipated Discharge Date Admission Date: July 25, 2022 Subjective The patient has stayed seizure-free. There has been some fluctuation no cognition per hospitalist physician. She is currently alert and oriented x3. She denies any new neurological symptoms. EEG was completed, which did not show any seizures or epileptogenic discharges. Review of Systems Review of Systems: All systems reviewed & are unremarkable except as noted in Subjective Physical Exam Physical Exam: General Examination: Constitutional: Well developed person in no acute distress. HENT: Normal exam with inspection. CV: Hearth rhythm is regular. Neck: Supple, no carotid bruits. Lungs: Non-labored and comfortable breathing. Abdomen: Soft, non-tender, non-distended. Skin: No rash or ecchymosis. Extremities: No edema or cyanosis NEUROLOGICAL EXAMINATION: Mental Status: Alert and oriented to place, person and time. Cranial Nerves: II-XII are intact. No nystagmus. Funduscopy: Normal looking optic discs. Motor: 5/5 in all extremities without asymmetry. Tone: Normal without spasticity or rigidity. Sensory: Intact to all sensory modalities. Coordination: No dysmetria with FTN testing. Speech: Fluent. Comprehension is intact. Gait: Normal. No ataxia or abnormal walking pattern. Musculoskeletal: Normal muscle bulk, no atrophy. DTRs: 2- all. No babinsky Results & Data Vital Signs (Past 12 Hours) Vital Signs Temp Pulse Pulse Resp BP Pulse Ox O2 Del Method 07/26/22 14:04 65 07/26/22 16:15 36.5 C 63 19 109/61 93 Room Air 07/26/22 11:42 36.5 C 65 20 104/68 97 Room Air 07/26/22 09:57 62 91/56 L 07/26/22 08:21 36.6 C 65 18 92/58 L 96 Room Air Laboratory Results Laboratory Results - last 24 hr 07/26/22 07/26/22 07/26/22 06:00 06:00 06:00 WBC 4.82 RBC 3.79 L Hgb 12.3 Hct 35.0 L MCV 92.3 MCH 32.5 MCHC 35.1 RDW Std Deviation 41.7 RDW Coeff of Clint 12.4 Plt Count 274 MPV 9.5 Sodium 136 Potassium 4.0 Chloride 103 Carbon Dioxide 25 Anion Gap 8 BUN 15 Creatinine 0.93 Est Cr Clr Drug Dosing 47.2 Est GFR ( Amer) 71.2 Est GFR (Non-Af Amer) 61.4 BUN/Creatinine Ratio 16.1 Glucose 91 Estimat Average Glucose 105 Hemoglobin A1c 5.3 Calcium 8.9 Triglycerides 141 Cholesterol 180 LDL Cholesterol, Calc 83 VLDL Cholesterol, Calc 28 HDL Cholesterol 69 Cholesterol/HDL Ratio 2.6 Diagnostic Findings Chest X-Ray 07/25/22 08:13 XR chest 1V portable CLINICAL HISTORY: neuro deficit, acute stroke suspected TECHNIQUE: Single frontal radiograph of the chest was obtained. Comparison: Comparison is made to chest radiograph 08/19/2017 FINDINGS: No lines and tubes are seen. Cardiomegaly is noted. The lungs are clear. No evidence of pleural effusion or pneumothorax. IMPRESSION: No acute chest disease. ACT 112: Negative or not required by law. Electronically signed by: Anatoliy Desouza M.D. 07/25/2022 9:[address] 07/25/22 08:13 CT head/brain wo con CLINICAL HISTORY: neuro deficit, acute stroke suspected Technique: Contiguous axial CT images of the head were acquired from the base of the skull to the vertex without intravenous contrast administration. Images were viewed in brain, subdural and bone windows. Automated dose lowering techniques and/or adjustment according to patient size were utilized for this exam. Comparison: Comparison is made to CT head 02/18/2017 Findings: Areas of decreased attenuation are present in the periventricular and subcortical white matter bilaterally consistent with small vessel ischemic disease. Generalized cerebral volume loss with commensurate enlargement of the ventricles, sulci, and cisterns is also present. Encephalomalacia is seen in the right posterior [employer] territory, unchanged from prior exam. Right frontal encephalomalacia is also noted. Imaged portions of the paranasal sinuses and mastoid air cells are clear. The orbits appear normal. There are no acute fractures of the calvaria or scalp swelling. Impression: No acute abnormalities, in particular no evidence of intracranial hemorrhage and no CT evidence of infarct. ACT 112: Negative or not required by law. Electronically signed by: Anatoliy Desouza M.D. 07/25/2022 8:51 AM Head CTA 07/25/22 08:13 CT angio head w con, CT angio neck with con CLINICAL HISTORY: neuro deficit, acute stroke suspected TECHNIQUE: CT angiography of the head and neck was performed following intravenous administration of iodinated contrast. Coronal and sagittal MIPS were obtained from the axial data set and were submitted for review. Automated dose lowering techniques and/or adjustment according to patient size were utilized for this examination. All measurements were calculated based on NASCET criteria. Comparison: None available at the time of this dictation. FINDINGS: Exam is limited by patient motion. Lungs and soft tissues are unremarkable. CTA Neck: A 3 vessel aortic arch is shown. Atherosclerotic plaque is present in the aortic arch and at the origin of the great vessels. There is questionable nonhemodynamically significant stenosis of the right internal carotid artery near the bifurcation. The left vertebral artery is dominant. CTA Head: The anterior and posterior cerebral circulations are patent. No hemodynamically significant stenosis, aneurysm, dissection, or arteriovenous malformation is shown. IMPRESSION: 1. No occlusion, hemodynamically significant stenosis, or dissection in the major cervical arteries. 2. No occlusion, hemodynamically significant stenosis, aneurysm, dissection, or arteriovenous malformation in the major intracranial arteries. Assessment of stenosis of the internal carotid arteries is based on NASCET criteria. ACT 112: Negative or not required by law. Electronically signed by: Anatoliy Desouza M.D. 07/25/2022 8:58 AM Neck CTA 07/25/22 08:13 CT angio head w con, CT angio neck with con CLINICAL HISTORY: neuro deficit, acute stroke suspected TECHNIQUE: CT angiography of the head and neck was performed following intravenous administration of iodinated contrast. Coronal and sagittal MIPS were obtained from the axial data set and were submitted for review. Automated dose lowering techniques and/or adjustment according to patient size were utilized for this examination. All measurements were calculated based on NASCET criteria. Comparison: None available at the time of this dictation. FINDINGS: Exam is limited by patient motion. Lungs and soft tissues are unremarkable. CTA Neck: A 3 vessel aortic arch is shown. Atherosclerotic plaque is present in the aortic arch and at the origin of the great vessels. There is questionable nonhemodynamically significant stenosis of the right internal carotid artery near the bifurcation. The left vertebral artery is dominant. CTA Head: The anterior and posterior cerebral circulations are patent. No hemodynamically significant stenosis, aneurysm, dissection, or arteriovenous malformation is shown. IMPRESSION: 1. No occlusion, hemodynamically significant stenosis, or dissection in the major cervical arteries. 2. No occlusion, hemodynamically significant stenosis, aneurysm, dissection, or arteriovenous malformation in the major intracranial arteries. Assessment of stenosis of the internal carotid arteries is based on NASCET criteria. ACT 112: Negative or not required by law. Electronically signed by: Anatoliy Desouza M.D. 07/25/2022 8:58 AM Brain MRI 07/25/22 13:19 MR brain wo/w con CLINICAL HISTORY: stroke eval TECHNIQUE: Multiplanar and multisequence MR images of the brain were obtained prior to and following administration of gadolinium contrast. Comparison: Comparison is made to MRI brain 02/16/2017 FINDINGS: No abnormal restricted diffusion is identified. The white matter is unremarkable. Ex vacuo ventriculomegaly and sulcal enlargement is noted compatible with diffuse encephalomalacia. Encephalomalacia is seen in the right parietal-occipital region, compatible with evolution of previously noted infa rct. No mass or abnormal enhancement is seen. There is no mass effect or midline shift. There is no evidence of acute intraparenchymal hemorrhage. No extra axial fluid collections are seen. The corpus callosum, pituitary gland, and cerebellar tonsils appear grossly unremarkable. Flow voids of the major intracranial arterial vessels are identified. The imaged portions of the paranasal sinuses, mastoid air cells, and orbits are unremarkable. IMPRESSION: No acute abnormality and in particular no evidence of acute infarct. Old encephalomalacia from prior stroke is seen. No intracranial hemorrhage is seen. ACT 112: Negative or not required by law. Electronically signed by: Anatoliy Desouza M.D. 07/25/2022 7:44 PM EEG-- unremarkable
[2022-07-26] MEDS ORDERED: LORazepam 0.5 MG TAB PO STA (23:25)
[2022-07-27] MEDS ORDERED: LORazepam 2 MG/1 ML VIAL IM STA (01:58)
[2022-07-27] MEDS ORDERED: HYDROmorphone INJ 0.5 MG/0.5 ML SYR IV STA (03:41)
[2022-07-27] MEDS ORDERED: HALOPERIDOL LACTATE 5 MG/ML 1 ML VIAL IM STA (03:42)
[2022-07-27] MEDS ORDERED: LORazepam 2 MG/1 ML VIAL IV STA (03:44)
[2022-07-27 06:20] LABS: Hematocrit (blood only) 33.9 % (37.0-47.0); Hemoglobin 11.8 g/dl (12.0-16.0); Mean Corpuscular Hemoglobin 32.5 pg (25.0-34.0); Mean Corpuscular Hgb Conc 34.8 g/dL (32.0-36.0); Mean Corpuscular Volume 93.4 fL (80.0-100.0); Mean Platelet Volume 9.2 fL (9.4-12.4); Platelet Count 253 K/uL (130-400); RDW Coefficient of Variation 11.9 % (11.5-14.5); RDW Standard Deviation 40.8 fL (36.4-46.3); Red Blood Count 3.63 M/uL (4.20-5.40); White Blood Count 5.14 K/ul (4.8-10.8)
[2022-07-27 06:35] LABS: BUN Creatinine Ratio 14.1 (10-20); Calcium 8.8 mg/dl (8.6-10.3); Creatinine Clr Calc Pharmacy 55.3 ml/min; Potassium 3.6 mmol/L (3.5-5.1)
[2022-07-27] MEDS: amLODIPine BESYLATE 5 MG TAB PO SCH (07:58)
[2022-07-27] MEDS: HEPARIN SOD 5,000 UNIT/0.5 ML VIAL SQ SCH ×3 (07:58→21:47)
[2022-07-27] MEDS: levETIRAcetam 500 MG TAB PO SCH ×2 (07:58→21:47)
[2022-07-27] MEDS: FOLIC ACID 1 MG TAB PO SCH (07:58)
[2022-07-27] MEDS: ATENOLOL 25 MG TABLET PO SCH (07:58)
[2022-07-27] MEDS: THIAMINE HCL 100 MG TAB PO SCH (07:59)
[2022-07-27] MEDS: CLOPIDOGREL BISULFATE 75 MG TAB PO SCH (07:59)
[2022-07-27] MEDS: ATORVASTATIN 40 MG TAB PO SCH (07:59)
[2022-07-27] MEDS: lisinopril 20 MG TAB PO SCH (07:59)
--- NOTE | 2022-07-27 12:46 | Hospitalist Progress Note ---
Date of Service July 27, 2022 Assessment & Plan (1) Left-sided weakness: (2) Observed seizure-like activity: (3) History of embolic stroke: (4) Anxiety: (5) HTN (hypertension): (6) CKD (chronic kidney disease), stage III: (7) Hyperlipidemia: Plan This is a 71-year-old female with PMH of history of embolic stroke involving right MCA in 2019 with some residual memory deficit, hypertension, CKD 3, alcohol abuse, anxiety and other medical problems listed below who presents for further evaluation of strokelike activity. Left-sided weakness History of embolic stroke Observed seizure-like activity History of R MCA stroke in 09/2016 and then more distal stroke in R MCA seen in 01/2017 initially on aspirin, plavix and coumadin Last seen by [facility] neuro in 2019 when aspirin and coumadin were discontinued but she has remained on plavix CT head No acute abnormalities, in particular no evidence of intracranial hemorrhage and no CT evidence of infarct CTA head/neck with no occlusion, hemodynamically significant stenosis, or dissection in the major cervical arteries. No occl., hemodynam. significant stenosis, aneurysm, dissection, or arteriovenous malformation in the major intracranial arteries TNK not indicated per ED physician and telestroke due to patient regaining strength in LUE. No weakness or facial droop noted at my time of exam Brain MRI w/wo, echo with bubble study pending Continue plavix, statin. Routine neuro consult, PT/OT evaluations, dysphasia screen No more seizures Denies any new neurological symptoms but has been pleasantly confused Change in mental status Seems to be pleasantly confused Agitated and has been requiring one-to-one sitter We will get PT and OT evaluation Not yet ready to be discharged New onset seizure Observed seizure-like activity Anxiety Complex presentation of possible TIA, ? witness seizure like activity in ED improved by ativan but no post-ictal period as well as alcohol use disorder (serum etoh level pending) Son feels acute anxiety a contributor as patient had a similar episode weeks ago when under acute stress No h/o seizure disorder Given 1.5g Keppra in ED, 1mg ativan with improvement EEG ordered-----no epileptogenic foci as found Keppra 500 mg twice daily will be continued and she is not allowed to drive for 6 months and until being cleared by the neurologist Discussed with the son Alcohol use disorder Drinking 1/2-1 bottle of wine daily per son Had quit drinking a few years ago after initial strokes but has resumed use - awaiting serum etoh level AWSS withdrawal protocol with PRN IV ativan Folic acid, thiamine No signs of alcohol withdrawal except confusion CKD 3 Cr at baseline. Continue to monitor Hypertension Plan to continue amlodipine, atenolol tomorrow morning but will allow for permissive HTN today Hyperlipidemia Continue statin DVT Ppx: SQ heparin Code status: FULL PCP: Gail Dispo: Admitted to PCU Not yet ready to be discharged Admission and Anticipated Discharge Date Admission Date: July 25, 2022 Subjective 07/26/2022 The patient was seen and examined in telemetry unit in presence of the son She seems to be pleasantly confused and a little agitated at times Did not have any more seizures and wants to go home Denies any other significant symptoms 07/27/2022 The patient was seen and examined in telemetry unit She has been confused and agitated at times and now requiring one-to-one sitter She remains pleasantly confused during my examination but she wants to go home Did not have any more seizures and denies any significant symptoms Review of Systems Review of Systems: At least ten systems reviewed and negative except as noted in the HPI. Physical Exam Physical Exam: Sitting at the edge of the bed without any acute distress Constitutional: + ill appearing and average body habitus Eyes: PERRL, conjunctivae normal, anicteric sclerae ENMT: external ear and nose normal, oropharynx normal Neck: trachea midline, no thyromegaly Respiratory: no respiratory distress Auscultation: lungs clear to auscultation bilaterally Cardiovascular: Rate/Rhythm: regular rate and regular rhythm; not tachycardic Heart Sounds: normal S1 and normal S2; no murmur Extremities: no edema Gastrointestinal (Abdomen): Inspection/Auscultation: normal bowel sounds; abdomen not distended Percussion/Palpation: abdomen soft; abdomen nontender Musculoskeletal: No acute arthritis involving any of the joint Neurologic: normal touch/pain/proprioception, moves all extremities, + focal m otor deficit and + confused (Pleasantly confused) Psychiatric: A+Ox3, euthymic affect Lymphatic: no cervical or axillary lymphadenopathy Results & Data Results & Data Vital Signs (Past 12 Hours) Vital Signs Temp Pulse Resp BP Pulse Ox O2 Del Method 07/27/22 12:09 36.4 C L 59 L 20 94/63 L 98 Room Air 07/27/22 06:02 36.8 C 62 19 132/83 97 Room Air Laboratory Results Short CBC 07/27/22 Range/Units 06:05 WBC 5.14 (4.8-10.8) K/ul Hgb 11.8 L (12.0-16.0) g/dl Hct 33.9 L (37.0-47.0) % Plt Count 253 (130-400) K/uL BMP 07/27/22 06:05 Sodium 137 Potassium 3.6 Chloride 105 Carbon Dioxide 25 BUN 11 Creatinine 0.78 Glucose 98 Calcium 8.8 Medications Administered Current Inpatient Medications Acetaminophen (Acetaminophen 325 Mg Tab) 650 mg PO Q4H PRN PRN Reason: Pain or Fever Stop: 08/24/22 13:18 Amlodipine Besylate (Amlodipine Besylate 5 Mg Tab) 10 mg PO DAILY SCOTT Stop: 08/25/22 08:59 Last Admin: 07/27/22 07:58 Dose: 10 mg Atenolol (Atenolol 25 Mg Tablet) 25 mg PO DAILY SCOTT Stop: 08/25/22 08:59 Last Admin: 07/27/22 07:58 Dose: 25 mg Atorvastatin Calcium (Atorvastatin 40 Mg Tab) 80 mg PO DAILY SCOTT Stop: 08/25/22 08:59 Last Admin: 07/27/22 07:59 Dose: 80 mg Clopidogrel Bisulfate (Clopidogrel Bisulfate 75 Mg Tab) 75 mg PO DAILY SCOTT Stop: 08/25/22 08:59 Last Admin: 07/27/22 07:59 Dose: 75 mg Folic Acid (Folic Acid 1 Mg Tab) 1 mg PO QAM SCOTT Stop: 08/25/22 08:59 Last Admin: 07/27/22 07:58 Dose: 1 mg Heparin Sodium (Porcine) (Heparin Sod 5,000 Unit/0.5 Ml Vial) 5,000 units SQ Q8 SCOTT Stop: 08/24/22 21:59 Last Admin: 07/27/22 07:58 Dose: 5,000 units Levetiracetam (Levetiracetam 500 Mg Tab) 500 mg PO BID SCOTT Stop: 08/24/22 20:59 Last Admin: 07/27/22 07:58 Dose: 500 mg Lisinopril (Lisinopril 20 Mg Tab) 20 mg PO DAILY SCOTT Stop: 08/25/22 08:59 Last Admin: 07/27/22 07:59 Dose: 20 mg Lorazepam (Lorazepam 2 Mg/1 Ml Vial) 1 mg IV ONE PRN; Protocol PRN Reason: EtoH Withdrawal AWSS 6,7,8,9,10 Ondansetron HCl (Ondansetron Inj 2 Mg/Ml 2 Ml Vial) 4 mg IV Q6H PRN PRN Reason: Nausea Stop: 08/24/22 13:18 Polyethylene Glycol (Polyethylene (Miralax) 17 Gm Pack) 17 gm PO DAILY PRN PRN Reason: Constipation Stop: 08/24/22 13:18 Thiamine HCl (Thiamine Hcl 100 Mg Tab) 100 mg PO QAM SCOTT Stop: 08/25/22 08:59 Last Admin: 07/27/22 07:59 Dose: 100 mg
[2022-07-27] MEDS ORDERED: QUEtiapine FUMARATE 25 MG TABLET PO STA (16:02)
--- NOTE | 2022-07-27 17:05 | CT Scan Report ---
CT SCAN OF THE BRAIN WITHOUT IV CONTRAST CLINICAL HISTORY: Strokelike symptoms. COMPARISON STUDY: CT and MRI of the brain dated 07/25/2022. TECHNIQUE: Unenhanced axial CT scan of the brain is performed from the vertex to the skull base. A do se lowering technique was utilized adhering to the principles of ALARA. CT DOSE: 690.05 mGycm FINDINGS: Brain parenchyma: Right MCA territory encephalomalacia is unchanged and consistent with a remote insu lt. There is age-related involutional change noting mild subcortical and periventricular microangiopa thic disease. There is no hemorrhage, mass effect, or evidence of acute territorial ischemia by CT cr iteria. Lai-white matter differentiation is preserved. No extra-axial fluid collection is seen. Ventricles, sulci, cisterns: Prominent secondary to involutional change. Intracranial vasculature: There is atherosclerotic calcification of the cavernous carotid and vertebr al arteries. Calvarium: Unremarkable. Sinuses and mastoids: The visualized paranasal sinuses are clear. The mastoid air cells are well pneu matized. Orbits: The bony orbits are grossly intact. IMPRESSION: Chronic changes as above with no hemorrhage, mass effect, or evidence of acute territoria l ischemia by CT criteria. No significant change from the 07/25/2022 examinations. ACT 112: Negative or not required by law. Electronically signed by: Karlos Bird M.D. 07/27/2022 5:03 PM
[2022-07-28] MEDS: HEPARIN SOD 5,000 UNIT/0.5 ML VIAL SQ SCH ×2 (06:22→13:50)
[2022-07-28] MEDS: levETIRAcetam 500 MG TAB PO SCH (08:13)
[2022-07-28] MEDS: ATENOLOL 25 MG TABLET PO SCH (08:13)
[2022-07-28] MEDS: CLOPIDOGREL BISULFATE 75 MG TAB PO SCH (08:14)
[2022-07-28] MEDS: ATORVASTATIN 40 MG TAB PO SCH (08:14)
[2022-07-28] MEDS: amLODIPine BESYLATE 5 MG TAB PO SCH (08:14)
[2022-07-28] MEDS: lisinopril 20 MG TAB PO SCH (08:14)
[2022-07-28] MEDS: THIAMINE HCL 100 MG TAB PO SCH (08:14)
[2022-07-28] MEDS: FOLIC ACID 1 MG TAB PO SCH (08:14)
--- NOTE | 2022-07-28 20:38 | Discharge Summary ---
Date of Service July 28, 2022 Admission HPI Per Admitting Provider This is a 71-year-old female with PMH of history of embolic stroke involving right MCA in 2019, hypertension, CKD 3, history of alcohol abuse, anxiety and other medical problems listed below who presents for further evaluation of strokelike activity. Was last seen known well around 645 this morning. Watch the news and became very upset to the point that it made her feel "sick to my stomach". Went to [employer] and then to [facility], where she stated she had been wandering around for the past hour. Per discussion with son on the phone, ever since patient's stroke in 2019 she has had difficulty with keeping track of time, so this comment was not that out of the norm. While at [facility], witnessed to have left-sided weakness and slight facial droop and was brought in to ED via EMS for further evaluation. Stroke alert was called upon arrival and patient was noted to be shaky and tremulous tremulous with some left-sided weakness. ED physician discussed with Salvo telestroke and were about to administer TNK as patient still had a little weakness on the left side but just prior to administering, patient began to move her left side and strength was significantly better than previous. Neurologist and ED provider decided against TNK. Further evaluation with brain MRI. Also while in the ED, nursing staff witnessed what they believed to be seizure-like activity with shaking and patient was noted to be holding her breath, becoming somewhat cyanotic. Ordered 1 mg of Ativan and 1.5 g IV Keppra. Did not have a postictal period. When this was discussed with family, son mentioned patient had a similar episode to this with shaking and period of unresponsiveness a few weeks ago under acute stress when grandson was ill. Consideration that patient became upset watching the news this morning and that prompted a repeat episode of panic. Son also mentioned that patient drinks 1/2 to 1 full bottle of wine daily. When examined in 461 bed 2, patient is no longer having any left-sided weakness and facial droop not observed. Denies any focal weakness, difficulty speaking or swallowing. And oriented x4. Denies any fever, chills, lightheadedness, chest pain, shortness of breath, nausea, vomiting, abdominal pain, dysuria, diarrhea or constipation. Admission Exam Per Admitting Provider General Appearance:WD/WN, vitals as above, NAD, sitting up in bed, pleasant, conversing easily Head: normocephalic, atraumatic Eyes:normal inspection, PERRL, conjunctivae normal, anicteric sclerae ENT: external ear and nose normal, oropharynx normal Neck: normal visual inspection, trachea midline, no thyromegaly Respiratory:normal respiratory effort, lungs clear to auscultation, no wheeze, rales, rhonchi. No accessory muscle use Cardiovascular: regular rate, rhythm, no murmur, normal peripheral pulses, no BLE edema. Vessels: no JVD Chest: normal inspection of chest Abdomen/GI: normal bowel sounds, soft, nontender, no hepatosplenomegaly Extremities/Musculoskeletal: no cyanosis or clubbing, extremities motor strength 5/5 Neurologic: PERRL, EOMI, accommodation nl, no face palsy, no dysarthria, CN's II-XI intact bilaterally and moves all extremities Psychiatric:A+Ox3, euthymic affect Skin: no rashes, normal color, warm/dry Principal Diagnosis Seizure with Cosmo's paralysis Discharge Exam General: Sitting comfortably in bed, not in distress, on room air HEENT: EOMI, DEDE, MMM Chest: Clear breath sounds bilaterally, no wheezes or crackles CVS: Regular rate and rhythm, normal heart sounds, no murmur Abdomen: Soft, non tender, not distended, normal bowel sounds Neuro: Awake, alert, oriented, conversing well, non focal Extremities: No cyanosis, clubbing or edema Discharge Data Allergies Allergy/AdvReac Type Severity Reaction Status Date / Time aspirin AdvReac Unknown adverse Verified 07/25/22 09:42 reaction as a child with nosebleeds; none since then hydrochlorothiazide AdvReac Unknown SHORTNESS Verified 07/25/22 09:42 OF BREATH Consultations 07/25/22 13:19 Consult Neurology Routine Ordered Studies Laboratory Results WBC 5.14 K/ul (4.8-10.8) 07/27/22 06:05 RBC 3.63 M/uL (4.20-5.40) L 07/27/22 06:05 Hgb 11.8 g/dl (12.0-16.0) L 07/27/22 06:05 Hct 33.9 % (37.0-47.0) L 07/27/22 06:05 MCV 93.4 fL (80.0-100.0) 07/27/22 06:05 MCH 32.5 pg (25.0-34.0) 07/27/22 06:05 MCHC 34.8 g/dL (32.0-36.0) 07/27/22 06:05 RDW Std Deviation 40.8 fL (36.4-46.3) 07/27/22 06:05 RDW Coeff of Clint 11.9 % (11.5-14.5) 07/27/22 06:05 Plt Count 253 K/uL (130-400) 07/27/22 06:05 MPV 9.2 fL (9.4-12.4) L 07/27/22 06:05 Immature Gran % (Auto) 0.4 % 07/25/22 08:13 Neut % (Auto) 68.1 % 07/25/22 08:13 Lymph % (Auto) 22.0 % 07/25/22 08:13 Rogers % (Auto) 8.6 % 07/25/22 08:13 Eos % (Auto) 0.0 % 07/25/22 08:13 Baso % (Auto) 0.9 % 07/25/22 08:13 Neut # (Auto) 5.08 K/uL (1.40-6.50) 07/25/22 08:13 Lymph # (Auto) 1.64 K/uL (1.2-3.4) 07/25/22 08:13 Rogers # (Auto) 0.64 K/uL (0.11-0.59) H 07/25/22 08:13 Eos # (Auto) 0.00 K/uL (0-0.50) 07/25/22 08:13 Baso # (Auto) 0.07 K/uL (0-0.2) 07/25/22 08:13 Immature Gran # (Auto) 0.03 K/uL (0.01-0.20) 07/25/22 08:13 PT 10.9 Seconds (9.0-12.0) 07/25/22 08:13 INR 1.0 (0.9-1.1) 07/25/22 08:13 APTT 25.3 Seconds (21.0-31.0) 07/25/22 08:13 PTT Ratio 0.9 07/25/22 08:13 Sodium 137 mmol/L (136-145) 07/27/22 06:05 Potassium 3.6 mmol/L (3.5-5.1) 07/27/22 06:05 Chloride 105 mmol/L (98-107) 07/27/22 06:05 Carbon Dioxide 25 mmol/L (21-32) 07/27/22 06:05 Anion Gap 7 (3-11) 07/27/22 06:05 BUN 11 mg/dl (6-23) 07/27/22 06:05 Creatinine 0.78 mg/dl (0.6-1.2) 07/27/22 06:05 Est Cr Clr Drug Dosing 55.3 ml/min 07/27/22 06:05 Est GFR ( Amer) 88.0 ml/min 07/27/22 06:05 Est GFR (Non-Af Amer) 76.0 ml/min 07/27/22 06:05 BUN/Creatinine Ratio 14.1 (10-20) 07/27/22 06:05 Glucose 98 mg/dl (70-99(Fasting)) 07/27/22 06:05 POC Glucose 180 mg/dl (70-99) H 07/25/22 08:47 Estimat Average Glucose 105 mg/dl 07/26/22 06:00 Hemoglobin A1c 5.3 % (4.5-5.6) 07/26/22 06:00 Calcium 8.8 mg/dl (8.6-10.3) 07/27/22 06:05 Magnesium 1.7 mg/dl (1.7-2.4) 07/25/22 08:13 Total Bilirubin 1.5 mg/dl (0.2-1.0) H 07/25/22 08:13 AST 16 U/L (13-39) 07/25/22 08:13 ALT 11 U/L (7-52) 07/25/22 08:13 Alkaline Phosphatase 67 U/L (34-104) 07/25/22 08:13 Troponin I High Sens 6.5 pg/ml (0-14) 07/25/22 08:13 Total Protein 7.3 gm/dl (6.0-8.3) 07/25/22 08:13 Albumin 4.5 gm/dl (3.4-5.0) 07/25/22 08:13 Globulin 2.8 gm/dl (2.5-4.0) 07/25/22 08:13 Albumin/Globulin Ratio 1.6 (0.9-2) 07/25/22 08:13 Triglycerides 141 mg/dl (0-150) 07/26/22 06:00 Cholesterol 180 mg/dl (0-200) 07/26/22 06:00 LDL Cholesterol, Calc 83 mg/dl 07/26/22 06:00 VLDL Cholesterol, Calc 28 mg/dl (0-30) 07/26/22 06:00 HDL Cholesterol 69 mg/dl 07/26/22 06:00 Cholesterol/HDL Ratio 2.6 (0-5) 07/26/22 06:00 Ethyl Alcohol mg/dL < 10.0 mg/dl (<10.0) 07/25/22 15:43 SARS-CoV-2, RNA, NAAT NEGATIVE (NEGATIVE) 07/25/22 09:45 Impressions Chest X-Ray 07/25/22 08:13 XR chest 1V portable CLINICAL HISTORY: neuro deficit, acute stroke suspected TECHNIQUE: Single frontal radiograph of the chest was obtained. Comparison: Comparison is made to chest radiograph 08/19/2017 FINDINGS: No lines and tubes are seen. Cardiomegaly is noted. The lungs are clear. No evidence of pleural effusion or pneumothorax. IMPRESSION: No acute chest disease. ACT 112: Negative or not required by law. Electronically signed by: Anatoliy Desouza M.D. 07/25/2022 9:21 AM Head CTA 07/25/22 08:13 CT angio head w con, CT angio neck with con CLINICAL HISTORY: neuro deficit, acute stroke suspected TECHNIQUE: CT angiography of the head and neck was performed following intravenous administration of iodinated contrast. Coronal and sagittal MIPS were obtained from the axial data set and were submitted for review. Automated dose lowering techniques and/or adjustment according to patient size were utilized for this examination. All measurements were calculated based on NASCET criteria. Comparison: None available at the time of this dictation. FINDINGS: Exam is limited by patient motion. Lungs and soft tissues are unremarkable. CTA Neck: A 3 vessel aortic arch is shown. Atherosclerotic plaque is present in the aortic arch and at the origin of the great vessels. There is questionable nonhemodynamically significant stenosis of the right internal carotid artery near the bifurcation. The left vertebral artery is dominant. CTA Head: The anterior and posterior cerebral circulations are patent. No hemodynamically significant stenosis, aneurysm, dissection, or arteriovenous malformation is shown. IMPRESSION: 1. No occlusion, hemodynamically significant stenosis, or dissection in the major cervical arteries. 2. No occlusion, hemodynamically significant stenosis, aneurysm, dissection, or arteriovenous malformation in the major intracranial arteries. Assessment of stenosis of the internal carotid arteries is based on NASCET criteria. ACT 112: Negative or not required by law. Electronically signed by: Anatoliy Desouza M.D. 07/25/2022 8:58 AM Neck CTA 07/25/22 08:13 CT angio head w con, CT angio neck with con CLINICAL HISTORY: neuro deficit, acute stroke suspected TECHNIQUE: CT angiography of the head and neck was performed following intravenous administration of iodinated contrast. Coronal and sagittal MIPS were obtained from the axial data set and were submitted for review. Automated dose lowering techniques and/or adjustment according to patient size were utilized for this examination. All measurements were calculated based on NASCET criteria. Comparison: None available at the time of this dictation. FINDINGS: Exam is limited by patient motion. Lungs and soft tissues are unremarkable. CTA Neck: A 3 vessel aortic arch is shown. Atherosclerotic plaque is present in the aortic arch and at the origin of the great vessels. There is questionable nonhemodynamically significant stenosis of the right internal carotid artery near the bifurcation. The left vertebral artery is dominant. CTA Head: The anterior and posterior cerebral circulations are patent. No hemodynamically significant stenosis, aneurysm, dissection, or arteriovenous malformation is shown. IMPRESSION: 1. No occlusion, hemodynamically significant stenosis, or dissection in the yasmeen or cervical arteries. 2. No occlusion, hemodynamically significant stenosis, aneurysm, dissection, or arteriovenous malformation in the major intracranial arteries. Assessment of stenosis of the internal carotid arteries is based on NASCET criteria. ACT 112: Negative or not required by law. Electronically signed by: Anatoliy Desouza M.D. 07/25/2022 8:58 AM Brain MRI 07/25/22 13:19 MR brain wo/w con CLINICAL HISTORY: stroke eval TECHNIQUE: Multiplanar and multisequence MR images of the brain were obtained prior to and following administration of gadolinium contrast. Comparison: Comparison is made to MRI brain 02/16/2017 FINDINGS: No abnormal restricted diffusion is identified. The white matter is unremarkable. Ex vacuo ventriculomegaly and sulcal enlargement is noted compatible with diffuse encephalomalacia. Encephalomalacia is seen in the right parietal-occipital region, compatible with evolution of previously noted infarct. No mass or abnormal enhancement is seen. There is no mass effect or midline shift. There is no evidence of acute intraparenchymal hemorrhage. No extra axial fluid collections are seen. The corpus callosum, pituitary gland, and cerebellar tonsils appear grossly unremarkable. Flow voids of the major intracranial arterial vessels are identified. The imaged portions of the paranasal sinuses, mastoid air cells, and orbits are unremarkable. IMPRESSION: No acute abnormality and in particular no evidence of acute infarct. Old encephalomalacia from prior stroke is seen. No intracranial hemorrhage is seen. ACT 112: Negative or not required by law. Electronically signed by: Anatoliy Desouza M.D. 07/25/2022 7:[address] 07/27/22 16:02 CT SCAN OF THE BRAIN WITHOUT IV CONTRAST CLINICAL HISTORY: Strokelike symptoms. COMPARISON STUDY: CT and MRI of the brain dated 07/25/2022. TECHNIQUE: Unenhanced axial CT scan of the brain is performed from the vertex to the skull base. A dose lowering technique was utilized adhering to the principles of ALARA. CT DOSE: 690.05 mGycm FINDINGS: Brain parenchyma: Right MCA territory encephalomalacia is unchanged and consistent with a remote insult. There is age-related involutional change noting mild subcortical and periventricular microangiopathic disease. There is no hemorrhage, mass effect, or evidence of acute territorial ischemia by CT criteria. Lai-white matter differentiation is preserved. No extra-axial fluid collection is seen. Ventricles, sulci, cisterns: Prominent secondary to involutional change. Intracranial vasculature: There is atherosclerotic calcification of the cavernous carotid and vertebral arteries. Calvarium: Unremarkable. Sinuses and mastoids: The visualized paranasal sinuses are clear. The mastoid air cells are well pneumatized. Orbits: The bony orbits are grossly intact. IMPRESSION: Chronic changes as above with no hemorrhage, mass effect, or evidence of acute territorial ischemia by CT criteria. No significant change from the 07/25/2022 examinations. ACT 112: Negative or not required by law. Electronically signed by: Karlos Bird M.D. 07/27/2022 5:03 PM 07/25/22 08:13 CT angio head w con Stat CT angio neck with con Stat CT head/brain wo con Stat 07/25/22 13:19 MR brain wo/w con Routine 07/27/22 16:02 CT head/brain wo con Urgent Hospital Course (1) New onset seizure: (2) Cosmo's paralysis: (3) History of embolic stroke: (4) Anxiety: (5) HTN (hypertension): (6) CKD (chronic kidney disease), stage III: (7) Hyperlipidemia: Plan This is a 71-year-old female with PMH of history of embolic stroke involving right MCA in 2019 with some residual memory deficit, hypertension, CKD 3, alcohol abuse, anxiety who presented to ED with strokelike symptoms. Her stroke work-up with MRI, CTA, CT did not show any abnormality. EEG did not show any epileptiform activity. Patient was seen by neurology. She was diagnosed to have seizure with Cosmo's paralysis. Her seizures were attributed to old stroke related encephalomalacia she was started on Keppra and seizure instructions were given. She did not have any further seizure-like activities. Recommended quitting alcohol. She is much better and closer to her baseline. Son was at bedside who corroborated. She ambulated around the [place]endoza with RN. She is comfortable and stable for discharge home. She will continue her Plavix, statin, Keppra. She will follow-up with neurology at discharge. Total Time Total Time Spent Total Time Spent (In Minutes): 50 Discharge Plan Discharge Items Patient Disposition: Home - Home Health Services Reason For Visit: STROKE SX Discharge Diagnosis: Seizure with Cosmo's paralysis Activity: Per Instructions section Non-emergency contact: Primary Care Provider and Neurologist Call non-emergency contact if: you have any medication questions and your symptoms worsen Follow-up/Referrals: Bell Reynolds DO [Primary Care Provider] - (Date & Time 07/30/2022 10:30 AM Provider Bell Reynolds DO Department Family Medicine [facility] ) Diet: Heart Healthy Addtl Attending Provider Instructions: Your symptoms are likely from seizure and you have been on started on seizure medication Keppra- Take it 1 tab twice daily Recommend quitting alcohol. Continue the vitamins. Follow up with neurology clinic Pending Studies at Discharge: No Stand-Alone Forms: [facility] [employer], Smoking Cessation Medications and DC Order Prescriptions: New thiamine HCl (vitamin B1) 100 mg Tablet 100 mg PO QAM 30 Days Qty: 30 0RF folic acid 1 mg Tablet 1 mg PO QAM 30 Days Qty: 30 0RF levetiracetam [Keppra] 500 mg Tablet 500 mg PO BID 30 Days Qty: 60 0RF Continued atorvastatin 80 mg Tablet 80 mg PO DAILY lisinopril 20 mg Tablet 20 mg PO DAILY atenolol 25 mg Tablet 25 mg PO DAILY clopidogrel [Plavix] 75 mg Tablet 75 mg PO DAILY amlodipine 10 mg Tablet 10 mg PO DAILY Discharge Orders: Discharge Order (Routine); Ordered 07/28/22 Ordered By: Sean Braun Admission Data Admit Date/Time: 07/25/22 11:56 Attending Provider: Sean Braun Admit Provider: Gerry Sigala Primary Care Provider: Bell Reynolds Other Providers: Gurdeep Burkett ; Sudheer Adorno [facility] Other Interventions: Discharge Summary Assessment (RN) Last Done: 07/28/22 14:24
== END 2022-07-28 14:47 | disposition home health service (06) | DRG 101 ==
LOC: ED 08:33 → SUATTDRO 11:56 → 4W 11:56